=== PATIENT | male | born 1955 | race Caucasian/White ===

== ENCOUNTER 2021-03-17 21:02 | Inpatient (IN) | payer MEDICARE, SELFPAY ==
[2021-03-17] VITALS (7 sets, daily range): BP systolic 155–168; BP diastolic 111–122; PULSE 85–180; RESP 15–20; O2SAT 95–99; BMI 37.3
--- NOTE | ~2021-03-17 | CT_ITS ---
EXAMINATION: CT HEAD WITHOUT CONTRAST CLINICAL INFORMATION: recent hx of hemorrhagic contusion COMPARISON: CT head March 17, 2021 TECHNIQUE: Contiguous axial imaging was performed from the skull base to vertex without intravenous administration of contrast. Coronal and sagittal reformatted images are performed at CT scanner This CT examination was performed using dose optimization techniques as appropriate, variously including the following: *Automated exposure control *Adjustment of mA and/or kV according to patient size (this includes techniques or standardized protocols for targeted exams where dose is matched to indication/reason for exam; i.e. extremities or head) *Use of iterative reconstruction technique DLP: 748 mGy-cm FINDINGS: There is no evidence of acute intracranial hemorrhage or territorial infarction. No abnormal mass effect or midline shift is seen. Clark to white matter differentiation is well preserved. No extra-axial fluid collections are identified. There is generalized global volume loss. There is mild prominence of the ventricles and the sulci . There is mild hypodensity of the periventricular white matter due to chronic small vessel ischemic disease. There are vascular calcifications of the internal carotid arteries bilaterally. There is no abnormal attenuation within the brain parenchyma. The osseous structures and soft tissues are normal. The mastoid air cells and visualized portions of the paranasal sinuses are well aerated. CT/CT head/brain wo con IMPRESSION: No acute intracranial pathology.
--- NOTE | ~2021-03-17 | CT_ITS ---
EXAMINATION: CT ANGIOGRAM OF THE CHEST WITH AND WITHOUT CONTRAST (CT PULMONARY ANGIOGRAM FOR PE) CLINICAL INFORMATION: Shortness of breath and elevated d-dimer. COMPARISON: Chest radiograph done earlier today at 9:34 PM. TECHNIQUE: Prior to contrast administration, noncontrast localization images were obtained. Subsequently, multidetector volumetric imaging was performed from the thoracic inlet to below the diaphragms following the administration of 80 mL Omnipaque 350 intravenous contrast. No contrast reaction reported Sagittal, coronal, and MIP oblique sagittal reformatted images were obtained on the CT workstation, uploaded to PACS, and reviewed. This CT examination was performed using dose optimization techniques as appropriate, variously including the following: *Automated exposure control *Adjustment of mA and/or kV according to patient size (this includes techniques or standardized protocols for targeted exams where dose is matched to indication/reason for exam; i.e. extremities or head) *Use of iterative reconstruction technique Total exam dose-length product 619 mGy-cm FINDINGS: QUALITY OF STUDY/CONTRAST BOLUS: Satisfactory. PULMONARY ARTERIES: No central pulmonary emboli. Evaluation of segmental and subsegmental branches is somewhat limited due to overlying airspace opacities and motion. However, accounting for these limitations, no segmental pulmonary emboli are identified. THORACIC AORTA: Scattered atherosclerotic disease. No aneurysm. LUNG: There is interlobular septal thickening with mosaic attenuation of the parenchyma and bilateral pleural effusions, larger on the right side. There is central bronchovascular thickening and engorgement. Evaluation of pulmonary nodules is limited due to motion. However, accounting for these limitations a few subcentimeter pulmonary nodules are identified for instance measuring 2 mm in the right middle lobe (229, 7) and 5 mm in the left lower lobe (339:7). PLEURA: As above moderate size right pleural effusion and a small sized left pleural effusion. No pneumothorax. MEDIASTINUM: Cardiomegaly with trace amount of pericardial fluid. There is mediastinal and hilar lymphadenopathy. For instance, a 2 cm short axis subcarinal lymph node (28:5), a 2 cm short axis precarinal lymph node (21:5) and 1.4 cm short axis right hilar lymph node (28:5). No evidence of septal bowing or right heart strain. CHEST WALL/AXILLA: No axillary or internal mammary lymphadenopathy. OSSEOUS STRUCTURES: Extensive anterior osteophytes raising the possibility of DISH. Multilevel degenerative changes. UPPER ABDOMEN: There is mild fat stranding surrounding the pancreas. No reflux of contrast into the hepatic veins to suggest elevated right heart pressures. CT/CT angio chest PE protocol IMPRESSION: No evidence of pulmonary emboli, although evaluation of segmental and subsegmental branches is somewhat limited. Mediastinal and hilar lymphadenopathy of uncertain etiology, this could be infectious, inflammatory or malignant. Bilateral pleural effusions with interlobular septal thickening could be related with pulmonary edema. However, there is bronchial wall thickening and therefore a superimposed infection/inflammatory process is difficult to exclude. A few subcentimeter pulmonary nodules are indeterminate and could be malignant, infectious or inflammatory. Recommend a short-term follow-up to ensure resolution/stability. Questionable inflammatory changes surrounding the pancreas which in retrospect are not significantly changed when compared to the CT of the abdomen from earlier today. Correlate clinically for pancreatitis. VTE: negative
--- NOTE | ~2021-03-17 | XR_ITS ---
EXAMINATION: XR CHEST CLINICAL INFORMATION: Shortness of breath. COMPARISON: None. TECHNIQUE: AP view of the chest was obtained. FINDINGS: Normal appearance of the cardiomediastinal silhouette. There are multifocal patchy opacities small bilateral pleural effusions. No pneumothorax. No acute osseous findings. XR/XR chest 1V IMPRESSION: Multifocal patchy opacities raising the possibility of a multifocal pneumonia. Suspect small amount of bilateral pleural fluid.
--- NOTE | ~2021-03-17 | CT_ITS ---
EXAMINATION: CT BRAIN WITHOUT CONTRAST. CT ABDOMEN PELVIS WITHOUT CONTRAST. CLINICAL INFORMATION: Altered mental syndrome. Right lower quadrant pain. COMPARISON: None TECHNIQUE: 5 mm thin and reformatted 2 mm thin sagittal and coronal images of brain were obtained. Subsequently axial 5 minutes thin and reformatted 3 minutes thin sagittal coronal images of abdomen pelvis were obtained. DL [id number] FINDINGS: Brain: There is no acute intra-axial, extra-axial bleed, masses or midline shift. There is no acute infarction evolution. There is no edema. The lateral ventricles are symmetrical in size and configuration without enlargement. The hollis to white matter differentiation is maintained. Bone windows reveal no calvarial abnormality. There is no scalp soft tissue abnormality. Bilateral paranasal sinuses and mastoid air cells are well-aerated. ABDOMEN AND PELVIS: The exam is slightly suboptimal due to artifacts from overlying lines and catheters and mild patient breathing. There are small bilateral pleural effusions with bilateral mild compressive atelectasis in both lung bases. There is mild cardiomegaly. The liver is normal size, contour and density. No focal lesion or intrahepatic ductal dilatation seen. The gallbladder is unremarkable. Visualized spleen, pancreas and bilateral adrenal glands are unremarkable. Both kidneys are normal size with left kidney appearing slightly lobulated. There are bilateral hypodense renal lesions especially left side likely small cysts. The largest in the midpole measures 2 cm and measures less than 1 Hounsfield unit. There is mild perinephric stranding. The abdominal aorta is normal caliber. No intrarenal lymph nodes seen. There is moderate scattered stool and gas seen in the right colon. There are a few scattered diverticulosis seen in colon. There is mild fat stranding seen adjacent to the right colon and inferior to the hepatic lobe. No visible diverticuli seen. There is no mural thickening. There is fecal filled small bowel loops likely the distal ileum without any distention. The small bowel loops are unremarkable. Appendix is not seen. There is a small lacunar hernia containing fat. Imaging through the pelvis reveals mildly enlarged prostate gland with central gland calcification. The bladder is nondistended. No abnormal size pelvic or inguinal lymph nodes seen. CT/CT abdomen pelvis wo con IMPRESSION: No acute intracranial process seen. There is moderate stool seen in the right colon without distention. Few scattered diverticuli seen in colon. No suggestion for diverticulitis. There is nonspecific mild fat stranding seen adjacent to the right distal ascending colon and inferior right hepatic lobe. No mural thickening seen either. Appendix is not seen. Small umbilical hernia containing fat
--- NOTE | 2021-03-17 21:14 | ECG_ITS ---
Test Reason : CHEST PAIN Blood Pressure : / mmHG Vent. Rate : 098 BPM Atrial Rate : 119 BPM P-R Int : 000 ms QRS Dur : 104 ms QT Int : 398 ms P-R-T Axes : 000 101 117 degrees QTc Int : 508 ms Atrial fibrillation Rightward axis Incomplete right bundle branch block T wave abnormality, consider lateral ischemia Prolonged QT Abnormal ECG No previous ECGs available Referred By: Magno Jones Electronically Signed By:RAFIQ COWART
--- NOTE | 2021-03-17 21:14 | ED.ABDPAIN ---
HPI - Abdominal Pain General Chief Complaint: Chest Pain Stated Complaint: AFIB Time Seen by Provider: 03/17/21 21:06 Source: patient Mode of arrival: EMS Limitations: no limitations History of Present Illness HPI narrative: Patient with history of atrial fibrillation not on anticoagulation drove from [place] for last 4 days came for right lower abdominal pain for last 4 days palpitation chest pain when EMS reached patient was lethargic with heart rate in 180s AFib responded to 25 mg of IV Cardizem with heart rate now is 95 beats per minute. Patient blood pressure was elevated 163/111 also complaining of mild headache for last few days also patient has leg edema no nausea no vomiting or diarrhea although patient complaining of right lower abdominal pain, patient is very poor historian Related Data Home Medications Medication Instructions Recorded Confirmed aspirin 81 mg PO 03/17/21 cefuroxime axetil 500 mg tablet 1 tab PO BID 03/17/21 03/17/21 digoxin 250 mcg (0.25 mg) tablet 1 tab PO DAILY 03/17/21 03/17/21 gabapentin 100 mg capsule 1 cap PO TID 03/17/21 03/17/21 lisinopril 20 mg tablet 1 tab PO BID 03/17/21 03/17/21 metoprolol tartrate 03/17/21 Allergies Allergy/AdvReac Type Severity Reaction Status Date / Time No Known Allergies Allergy Verified 03/17/21 21:14 Review of Systems Review of Systems Yes all other systems are reviewed and are negative Physical Exam Vital Signs: Vital Signs: Last Vital Signs Pulse 106 H 03/17/21 23:54 Resp 16 03/17/21 23:54 BP 164/122 H 03/17/21 23:31 Pulse Ox 95 03/17/21 23:31 Oxygen Flow Rate 2 03/17/21 21:08 Body Mass Index 37.3 Appearance: Alert. Oriented X3. And mild distress Eyes: No pallor/ icterus ENT: Pharynx normal. Oral Mucosa moist Neck: Normal inspection. Neck supple. CVS: Irregularly irregular heart rate 98 beats per minute no murmur or gallop Pulses normal. Respiratory: No respiratory distress. Equal air entry bilateral, no wheezing/rales/rhonchi Abdomen: Soft and deep tenderness right lower quadrant no rebound tenderness or guarding Bowel sounds are present, no mass palpable, no CVA tenderness Skin: Skin warm and dry. Normal skin color. Normal skin turgor. Extremities: 3++ lower extremity edema. No calf tenderness Neuro: Oriented X 3. No focal deficits MDM - Abdominal Pain MDM Narrative Medical decision making narrative: Patient's AFib fast ventricular heart rate control after Cardizem and CT abdomen negative for acute appendicitis D-dimer was elevated and CTA chest was done which was also negative for PE patient will be admitted for AFib uncontrolled with CHF, will give him Lovenox and give p.o. oral Cardizem Lab Data Attestation: I reviewed the patient's lab results. Result diagrams: 03/17/21 21:19 03/17/21 21:19 Labs: Lab Results 03/17/21 03/17/21 03/17/21 Range/Units 21:18 21:19 21:19 WBC 8.9 (4.8-10.8) X10*3/uL RBC 5.24 (4.60-5.80) X10*6/uL Hgb 15.4 (14.0-18.0) g/dl Hct 46.5 (42-52) % MCV 88.7 (80-98) fL MCH 29.4 (27.0-33.0) pg MCHC 33.1 (31.0-36.0) g/dl RDW 16.3 H (11.0-16.0) % Plt Count 260 (160-400) X10*3/uL MPV 9.1 L (9.4-12.4) fL Immature Gran % (Auto) 0.4 (0.0-0.4) % Neut % (Auto) 67.8 (45-73) % Lymph % (Auto) 21.6 (20-40) % [place] % (Auto) 6.0 (2-11) % Eos % (Auto) 3.0 (0-4) % Baso % (Auto) 1.2 (0-2) % Lymph # (Auto) 1.9 (1.2-4.9) X10*3/uL [place] # (Auto) 0.5 (0.1-1.2) X10*3/uL Eos # (Auto) 0.3 (0.0-0.4) X10*3/uL Baso # (Auto) 0.1 (0.0-0.2) X10*3/uL Abs Immat Gran (auto) 0.04 H (0.00-0.03) X10*3/uL Absolute Neuts (auto) 6.1 (2.0-8.3) X10*3/uL Absolute Nucleated RBC 0.000 (0.0-0.012) X10*3/uL Nucleated RBC % (auto) 0.0 (0.0-0.2) /100WBC PT (9.9-13.0) SEC INR (0.9-1.1) APTT (24.1-38.0) SEC D-Dimer NG/ML Sodium 137 (135-145) mmol/L Potassium 3.9 (3.3-5.1) mmol/L Chloride 105 (96-108) mmol/L Carbon Dioxide 23 (22-29) mmol/L Anion Gap 13 (12-20) BUN 31 H (9-16) mg/dL Creatinine 1.23 (0.5-1.4) mg/dL Estim Creat Clear Calc 81.6 Estimated GFR 59 Random Glucose 126 H (60-115) mg/dL Lactic Acid (0.5-2.0) mmol/L Calcium 9.1 (8.4-10.2) mg/dL Total Bilirubin 1.0 (0.0-1.0) mg/dL AST 17 (5-37) U/L ALT 11 (0-40) U/L Alkaline Phosphatase 87 (39-117) U/L Troponin I High Sens 78.5 H* (<3.5-35.0) ng/L B-Natriuretic Peptide 1265 H (<100) pg/mL Total Protein 7.7 (6.5-8.0) g/dL Albumin 3.6 (3.5-5.0) g/dL Lipase 37 (8-78) U/L Coronavirus (PCR) (Negative) COVID-19 (ANIYAH) (Negative) COVID-19 Clin Com Influenza Type A (PCR) (Negative) Influenza Type B (PCR) (Negative) RSV RNA Qual (PCR) (Negative) 03/17/21 03/17/21 03/17/21 Range/Units 21:19 21:19 21:38 WBC (4.8-10.8) X10*3/uL RBC (4.60-5.80) X10*6/uL Hgb (14.0-18.0) g/dl Hct (42-52) % MCV (80-98) fL MCH (27.0-33.0) pg MCHC (31.0-36.0) g/dl RDW (11.0-16.0) % Plt Count (160-400) X10*3/uL MPV (9.4-12.4) fL Immature Gran % (Auto) (0.0-0.4) % Neut % (Auto) (45-73) % Lymph % (Auto) (20-40) % [place] % (Auto) (2-11) % Eos % (Auto) (0-4) % Baso % (Auto) (0-2) % Lymph # (Auto) (1.2-4.9) X10*3/uL [place] # (Auto) (0.1-1.2) X10*3/uL Eos # (Auto) (0.0-0.4) X10*3/uL Baso # (Auto) (0.0-0.2) X10*3/uL Abs Immat Gran (auto) (0.00-0.03) X10*3/uL Absolute Neuts (auto) (2.0-8.3) X10*3/uL Absolute Nucleated RBC (0.0-0.012) X10*3/uL Nucleated RBC % (auto) (0.0-0.2) /100WBC PT 15.1 H (9.9-13.0) SEC INR 1.3 H (0.9-1.1) APTT 30.9 (24.1-38.0) SEC D-Dimer 766 NG/ML Sodium (135-145) mmol/L Potassium (3.3-5.1) mmol/L Chloride (96-108) mmol/L Carbon Dioxide (22-29) mmol/L Anion Gap (12-20) BUN (9-16) mg/dL Creatinine (0.5-1.4) mg/dL Estim Creat Clear Calc Estimated GFR Random Glucose (60-115) mg/dL Lactic Acid 1.4 (0.5-2.0) mmol/L Calcium (8.4-10.2) mg/dL Total Bilirubin (0.0-1.0) mg/dL AST (5-37) U/L ALT (0-40) U/L Alkaline Phosphatase (39-117) U/L Troponin I High Sens (<3.5-35.0) ng/L B-Natriuretic Peptide (<100) pg/mL Total Protein (6.5-8.0) g/dL Albumin (3.5-5.0) g/dL Lipase (8-78) U/L Coronavirus (PCR) (Negative) COVID-19 (ANIYAH) Negative (Negative) COVID-19 Clin Com See Note Influenza Type A (PCR) (Negative) Influenza Type B (PCR) (Negative) RSV RNA Qual (PCR) (Negative) 03/17/21 03/18/21 Range/Units 22:47 00:29 WBC (4.8-10.8) X10*3/uL RBC (4.60-5.80) X10*6/uL Hgb (14.0-18.0) g/dl Hct (42-52) % MCV (80-98) fL MCH (27.0-33.0) pg MCHC (31.0-36.0) g/dl RDW (11.0-16.0) % Plt Count (160-400) X10*3/uL MPV (9.4-12.4) fL Immature Gran % (Auto) (0.0-0.4) % Neut % (Auto) (45-73) % Lymph % (Auto) (20-40) % [place] % (Auto) (2-11) % Eos % (Auto) (0-4) % Baso % (Auto) (0-2) % Lymph # (Auto) (1.2-4.9) X10*3/uL [place] # (Auto) (0.1-1.2) X10*3/uL Eos # (Auto) (0.0-0.4) X10*3/uL Baso # (Auto) (0.0-0.2) X10*3/uL Abs Immat Gran (auto) (0.00-0.03) X10*3/uL Absolute Neuts (auto) (2.0-8.3) X10*3/uL Absolute Nucleated RBC (0.0-0.012) X10*3/uL Nucleated RBC % (auto) (0.0-0.2) /100WBC PT (9.9-13.0) SEC INR (0.9-1.1) APTT (24.1-38.0) SEC D-Dimer NG/ML Sodium (135-145) mmol/L Potassium (3.3-5.1) mmol/L Chloride (96-108) mmol/L Carbon Dioxide (22-29) mmol/L Anion Gap (12-20) BUN (9-16) mg/dL Creatinine (0.5-1.4) mg/dL Estim Creat Clear Calc Estimated GFR Random Glucose (60-115) mg/dL Lactic Acid (0.5-2.0) mmol/L Calcium (8.4-10.2) mg/dL Total Bilirubin (0.0-1.0) mg/dL AST (5-37) U/L ALT (0-40) U/L Alkaline Phosphatase (39-117) U/L Troponin I High Sens 68.9 H* (<3.5-35.0) ng/L B-Natriuretic Peptide (<100) pg/mL Total Protein (6.5-8.0) g/dL Albumin (3.5-5.0) g/dL Lipase (8-78) U/L Coronavirus (PCR) NEGATIVE (Negative) COVID-19 (ANIYAH) (Negative) COVID-19 Clin Com Influenza Type A (PCR) NEGATIVE (Negative) Influenza Type B (PCR) NEGATIVE (Negative) RSV RNA Qual (PCR) NEGATIVE (Negative) ECG Data Attestation: I personally reviewed and interpreted this ECG as follows: Interpretation: Atrial fibrillation with heart rate 98 beats per minute right axis deviation and incomplete right bundle-branch block nonspecific ST T wave changes no acute ischemia Discharge Plan Discharge Clinical Impression: Atrial fibrillation with rapid ventricular response Congestive heart failure Qualifiers: Heart failure type: systolic Heart failure chronicity: acute on chronic Qualified Code(s): I50.23 - Acute on chronic systolic (congestive) heart failure Patient Disposition: Admitted As Inpatient [facility] Past Medical History Medical History Atrial fibrillation Surgical History Hx of appendectomy Social History Social History Alcohol intake: former Patient Tobacco Use Status: Never used Tobacco Use of substances other than those prescribed or required for medical reasons: No Advance Directives: No Advance Directives Information Provided: No
[2021-03-17 21:26] LABS: MANUAL DIFF FLAG NO
[2021-03-17 21:29] LABS: Basophils Absolute Auto 0.1 X10*3/uL (0.0-0.2); Basophils Percent Auto 1.2 % (0-2); Eosinophils Absolute Auto 0.3 X10*3/uL (0.0-0.4); Hematocrit 46.5 % (42-52); Hemoglobin 15.4 g/dl (14.0-18.0); Imm Gran Abs Auto 0.04 X10*3/uL (0.00-0.03); Imm Gran Pct Auto 0.4 % (0.0-0.4); Lymphocytes Absolute Auto 1.9 X10*3/uL (1.2-4.9); Lymphocytes Percent Auto 21.6 % (20-40); Mean Corpuscular HGB Conc 33.1 g/dl (31.0-36.0); Mean Corpuscular Hemoglobin 29.4 pg (27.0-33.0); Mean Corpuscular Volume 88.7 fL (80-98); Mean Platelet Volume 9.1 fL (9.4-12.4); Monocytes Absolute Auto 0.5 X10*3/uL (0.1-1.2); Neutrophils Absolute Auto 6.1 X10*3/uL (2.0-8.3); Neutrophils Percent Auto 67.8 % (45-73); Platelet Count 260 X10*3/uL (160-400); Red Blood Count 5.24 X10*6/uL (4.60-5.80); Red Cell Distribution Width 16.3 % (11.0-16.0); White Blood Count 8.9 X10*3/uL (4.8-10.8)
[2021-03-17] MEDS: Metoprolol Tartrate 5 MG/5 ML VIAL IVPUSH (21:40)
[2021-03-17] MEDS: 0.9 % Sodium Chloride 1,000 ML 999 ML IVCONT (21:40)
[2021-03-17 21:41] LABS: COVID-19 Test Negative (Negative); Lactic Acid 1.4 mmol/L (0.5-2.0)
[2021-03-17 21:45] LABS: Alanine Aminotransferase 11 U/L (0-40); Albumin Level 3.6 g/dL (3.5-5.0); Alkaline Phosphatase 87 U/L (39-117); Anion Gap 13 (12-20); Aspartate Amino Transferase 17 U/L (5-37); Blood Urea Nitrogen 31 mg/dL (9-16); Calcium 9.1 mg/dL (8.4-10.2); Carbon Dioxide 23 mmol/L (22-29); Chloride 105 mmol/L (96-108); Creatinine Clr Calc Pharmacy 81.6; Estimated Glomerular Filt Rate 59; Glucose Random 126 mg/dL (60-115); Lipase 37 U/L (8-78); Potassium 3.9 mmol/L (3.3-5.1); Sodium 137 mmol/L (135-145); Total Protein 7.7 g/dL (6.5-8.0)
--- NOTE | 2021-03-17 21:46 | PC.NURSE ---
pt states he has been driving for 4 days with the rlq abd pain, today the chest pain started yesterday, pt also suffers from neruopathy and he has right foot pain. toes are discolore.
--- NOTE | 2021-03-17 21:50 | MHC.MBSS ---
pt taken to ct.
[2021-03-17 21:55] LABS: B Type Natriuretic Peptide 1265 pg/mL (<100); Troponin-I High Sensitivity 78.5 ng/L (<3.5-35.0)
[2021-03-17 22:45] LABS: INTERNATIONAL NORM RATIO 1.3 (0.9-1.1); Prothrombin Time 15.1 SEC (9.9-13.0)
[2021-03-17 22:48] LABS: D Dimer 766 NG/ML; Partial Thromboplastin Time 30.9 SEC (24.1-38.0)
[2021-03-17] MEDS: ondansetron HCL 4 MG/2 ML VIAL IVPUSH (22:51)
[2021-03-17] MEDS: Morphine Sulfate 4 MG/ML CARTRIDGE IVPUSH (22:51)
--- NOTE | 2021-03-17 22:59 | PC.NURSE ---
pt is refusing the lasix at this time, dr walsh made aware.
[2021-03-17] MEDS: Furosemide 40 MG/4 ML VIAL IVPUSH (23:03)
[2021-03-17 23:31] LABS: Influenza A PCR NEGATIVE (Negative); Influenza B PCR NEGATIVE (Negative); Resp Syncy Virus RNA Qual PCR NEGATIVE (Negative); SARS COV2 PCR INHOUSE NEGATIVE (Negative)
[2021-03-18] VITALS (15 sets, daily range): BP systolic 123–173; BP diastolic 79–129; PULSE 72–113; RESP 12–20; TEMP 36–36.4; O2SAT 90–100; BMI 37.0; BMI 33.4
--- NOTE | 2021-03-18 00:32 | PM.IMHP ---
History of Present Illness Date of Service: 03/18/21 Chief Complaint: Shortness of breath This is a 66-year-old male with past medical history of AFib, and hypertension who presents to the hospital with with shortness of breath. Patient reports that he has been traveling from [place] for the past 4 days driving, but developed significant shortness of breath for the past 3-4 days that is now significantly worse. Patient denies any cough, no chest pain, no sputum production. He does feel palpitations , no headache or change in vision, no dizziness. No abdominal pain nausea or vomiting, no diarrhea constipation, no urinary symptoms, he is also having lower extremity edema. On arrival to the ED patient Found to have a a heart rate that [address] 180, but resolved after receiving diltiazem, other vitals show an elevated blood pressure On arrival labs are significant for WBC count of 8.3, troponin of 78.5, BNP of 1265, COVID negative, influenza and RSV negative Chest CT angiogram shows no evidence of PE, mediastinal and hilar lymphadenopathy of uncertain etiology, bilateral pleural effusion with antral overall septal thickening related to pulmonary edema. Bronchial wall thickening . A few subcentimeter pulmonary nodules are indeterminate and could be malignant. EKG shows atrial fibrillation with nonspecific T-wave abnormality Patient will be admitted for further management of CHF exacerbation Review of Systems Review of Systems: Yes all other systems are reviewed and are negative [facility] Medical History Atrial fibrillation Congestive heart failure Hypertension Pertinent family history: No pertinent family history Surgical History Hx of appendectomy Social History Alcohol intake: former Patient Tobacco Use Status: Never used Tobacco Use of substances other than those prescribed or required for medical reasons: No Advance Directives: No Advance Directives Information Provided: No Meds Allergies Allergy/AdvReac Type Severity Reaction Status Date / Time No Known Allergies Allergy Verified 03/17/21 21:14 Home Medications Medication Instructions Recorded Confirmed Last Taken Type aspirin 81 mg PO 03/17/21 Unknown History cefuroxime axetil 500 mg tablet 1 tab PO BID 03/17/21 03/17/21 Unknown History digoxin 250 mcg (0.25 mg) tablet 1 tab PO DAILY 03/17/21 03/17/21 Unknown History gabapentin 100 mg capsule 1 cap PO TID 03/17/21 03/17/21 Unknown History lisinopril 20 mg tablet 1 tab PO BID 03/17/21 03/17/21 Unknown History metoprolol tartrate 03/17/21 Unknown History Physical Exam Vital Signs and Narrative: Vital Signs: Last Vital Signs Pulse 106 H 03/17/21 23:54 Resp 16 03/17/21 23:54 BP 164/122 H 03/17/21 23:31 Pulse Ox 95 03/17/21 23:31 Oxygen Flow Rate 2 03/17/21 21:08 Body Mass Index 37.3 Results Labs CBC and Chem 7: 03/17/21 21:19 03/17/21 21:19 Labs: Laboratory Results - last 24 hr 03/17/21 03/17/21 03/17/21 21:18 21:19 21:19 MCV 88.7 MCH 29.4 MCHC 33.1 RDW 16.3 H Plt Count 260 MPV 9.1 L Immature Gran % (Auto) 0.4 Neut % (Auto) 67.8 Lymph % (Auto) 21.6 [place] % (Auto) 6.0 Eos % (Auto) 3.0 Baso % (Auto) 1.2 Lymph # (Auto) 1.9 [place] # (Auto) 0.5 Eos # (Auto) 0.3 Baso # (Auto) 0.1 Abs Immat Gran (auto) 0.04 H Absolute Neuts (auto) 6.1 Absolute Nucleated RBC 0.000 Nucleated RBC % (auto) 0.0 PT INR APTT D-Dimer Anion Gap 13 Estim Creat Clear Calc 81.6 Estimated GFR 59 Random Glucose 126 H Lactic Acid Calcium 9.1 Total Bilirubin 1.0 AST 17 ALT 11 Alkaline Phosphatase 87 Troponin I High Sens 78.5 H* B-Natriuretic Peptide 1265 H Total Protein 7.7 Albumin 3.6 Lipase 37 Coronavirus (PCR) COVID-19 (ANIYAH) COVID-19 Clin Com Influenza Type A (PCR) Influenza Type B (PCR) RSV RNA Qual (PCR) 03/17/21 03/17/21 03/17/21 21:19 21:19 21:38 MCV MCH MCHC RDW Plt Count MPV Immature Gran % (Auto) Neut % (Auto) Lymph % (Auto) [place] % (Auto) Eos % (Auto) Baso % (Auto) Lymph # (Auto) [place] # (Auto) Eos # (Auto) Baso # (Auto) Abs Immat Gran (auto) Absolute Neuts (auto) Absolute Nucleated RBC Nucleated RBC % (auto) PT 15.1 H INR 1.3 H APTT 30.9 D-Dimer 766 Anion Gap Estim Creat Clear Calc Estimated GFR Random Glucose Lactic Acid 1.4 Calcium Total Bilirubin AST ALT Alkaline Phosphatase Troponin I High Sens B-Natriuretic Peptide Total Protein Albumin Lipase Coronavirus (PCR) COVID-19 (ANIYAH) Negative COVID-19 Clin Com See Note Influenza Type A (PCR) Influenza Type B (PCR) RSV RNA Qual (PCR) 03/17/21 22:47 MCV MCH MCHC RDW Plt Count MPV Immature Gran % (Auto) Neut % (Auto) Lymph % (Auto) [place] % (Auto) Eos % (Auto) Baso % (Auto) Lymph # (Auto) [place] # (Auto) Eos # (Auto) Baso # (Auto) Abs Immat Gran (auto) Absolute Neuts (auto) Absolute Nucleated RBC Nucleated RBC % (auto) PT INR APTT D-Dimer Anion Gap Estim Creat Clear Calc Estimated GFR Random Glucose Lactic Acid Calcium Total Bilirubin AST ALT Alkaline Phosphatase Troponin I High Sens B-Natriuretic Peptide Total Protein Albumin Lipase Coronavirus (PCR) NEGATIVE COVID-19 (ANIYAH) COVID-19 Clin Com Influenza Type A (PCR) NEGATIVE Influenza Type B (PCR) NEGATIVE RSV RNA Qual (PCR) NEGATIVE Imaging Radiologist's Impressions: Impressions Abdomen/Pelvis CT 03/17/21 21:14 IMPRESSION: No acute intracranial process seen. There is moderate stool seen in the right colon without distention. Few scattered diverticuli seen in colon. No suggestion for diverticulitis. There is nonspecific mild fat stranding seen adjacent to the right distal ascending colon and inferior right hepatic lobe. No mural thickening seen either. Appendix is not seen. Small umbilical hernia containing fat Chest X-Ray 03/17/21 21:14 IMPRESSION: Multifocal patchy opacities raising the possibility of a multifocal pneumonia. Suspect small amount of bilateral pleural fluid. Head CT 03/17/21 21:15 IMPRESSION: No acute intracranial process seen. There is moderate stool seen in the right colon without distention. Few scattered diverticuli seen in colon. No suggestion for diverticulitis. There is nonspecific mild fat stranding seen adjacent to the right distal ascending colon and inferior right hepatic lobe. No mural thickening seen either. Appendix is not seen. Small umbilical hernia containing fat Assessment and Plan (1) CHF exacerbation: Status: Acute (2) Atrial fibrillation with rapid ventricular response: Status: Acute 66-year-old Male with past medical history of AFib presents to the hospital with complaints of shortness of breath found to have CHF exacerbation # acute CHF exacerbation - patient does not know any of his medications, he is out of state and lives in [place] - he has dyspnea, elevated BNP, and CT evidence of pulmonary edema as well as pleural effusion - will start him on IV Lasix 40 mg daily - echocardiogram - cardiology consult - low-sodium diet, strict I&O, daily weight # AFib with RVR - patient received diltiazem with improvement in his heart rate - will continue digoxin, and his metoprolol although he is unaware of the dosage- will start Lopressor 12.5 b.i.d. - cardiology consult - discussed anticoagulation with patient at this time he is not interested in starting anticoagulation and does not want it # hypertension - elevated - continue lisinopril - p.r.n. labetalol DVT prophylaxis: Lovenox Quality Stroke Does the patient have a stroke diagnosis?: No VTE Prior VTE?: No VTE Risk Level:: Medical - moderate - high VTE Device Contraindication: Treatment Not Indicated VTE Drug Contraindication: N/A - Med Ordered
[2021-03-18] MEDS: iohexoL 350 MG/ML 100 ML INFUS..BTL 85 ML IV (00:33)
[2021-03-18 00:58] LABS: Troponin-I High Sensitivity 68.9 ng/L (<3.5-35.0)
[2021-03-18] MEDS: dilTIAZem HCL CD 180 MG CAP.ER.24H PO (02:00)
[2021-03-18] MEDS: Enoxaparin Sodium 120 MG/0.8 ML SYRINGE SUBCUT (02:15)
--- NOTE | 2021-03-18 03:53 | PC.NURSE ---
pt has pulled his leads off and wants to go home. pt teaching on how sick he is and pt responce was we are all sick .
[2021-03-18] MEDS: Gabapentin 100 MG CAPSULE PO ×4 (04:04→20:42)
[2021-03-18] MEDS: Heparin Sodium,Porcine 5,000 UNIT/ML VIAL 5000 UNIT SUBCUT ×2 (04:05→14:33)
--- NOTE | 2021-03-18 04:21 | PC.NURSE ---
after reviewing pt labs and vitals with the pt he is now in aggreement to stay. pt has voided 2000cc in the urinal to date after receiving lasix.
[2021-03-18 06:48] LABS: MANUAL DIFF FLAG NO
[2021-03-18 06:58] LABS: Basophils Absolute Auto 0.1 X10*3/uL (0.0-0.2); Basophils Percent Auto 1.1 % (0-2); Eosinophils Absolute Auto 0.3 X10*3/uL (0.0-0.4); Hematocrit 48.7 % (42-52); Hemoglobin 15.3 g/dl (14.0-18.0); Imm Gran Abs Auto 0.02 X10*3/uL (0.00-0.03); Imm Gran Pct Auto 0.2 % (0.0-0.4); Lymphocytes Percent Auto 24.3 % (20-40); Mean Corpuscular HGB Conc 31.4 g/dl (31.0-36.0); Mean Corpuscular Hemoglobin 28.4 pg (27.0-33.0); Mean Corpuscular Volume 90.5 fL (80-98); Mean Platelet Volume 9.1 fL (9.4-12.4); Monocytes Absolute Auto 0.6 X10*3/uL (0.1-1.2); Monocytes Percent Auto 6.6 % (2-11); Neutrophils Absolute Auto 5.4 X10*3/uL (2.0-8.3); Neutrophils Percent Auto 64.8 % (45-73); Platelet Count 271 X10*3/uL (160-400); Red Blood Count 5.38 X10*6/uL (4.60-5.80); Red Cell Distribution Width 16.3 % (11.0-16.0); White Blood Count 8.3 X10*3/uL (4.8-10.8)
--- NOTE | 2021-03-18 07:00 | CA_ITS ---
Transthoracic Echocardiogram Patient (Last, First, Middle): Luis Mejia B Gender: Male Date of : 1955 Age: 66 Procedure Date: 03/18/2021 Procedure Type: Transthoracic Echocardiogram Location: ER Height: 182.88 cm Weight: 124.74 kg BSA: 2.44 m2 Heart Rate: bpm BP: 146 / 103 mmHg Yarn Comber: BRITTANI Referring MD: Lauren Valera MD Symptoms: chf Study Quality: Fair/Contrast Conclusions: - The left ventricular systolic function is severely decreased. The visually estimated ejection fraction is between 20-25%. - Moderately increased right ventricular cavity size. There is moderately decreased right ventricular systolic function. - LA is mild to moderately dilated. The right atrium is severely dilated. - There is moderate tricuspid valve regurgitation. Moderately elevated right atrial pressure. Moderate pulmonary hypertension is present. Findings Procedure Information Contrast agent, definity, is being given per protocol without apparent complications. Left Ventricle Normal left ventricular cavity size. There is mildly increased left ventricular wall thickness. The left ventricular systolic function is severely decreased. The visually estimated ejection fraction is between 20 25%. There is severe global hypokinesis. Diastolic function is indeterminate on the basis of available data. Right Ventricle Moderately increased right ventricular cavity size. There is moderately decreased right ventricular systolic function. Atria LA is mild to moderately dilated. The right atrium is severely dilated. Aortic Valve There is a normal trileaflet aortic valve. There is no evidence of thickening of the aortic valve. There is no aortic valve stenosis. There is no aortic valve regurgitation. Mitral Valve The mitral valve appears normal. There is mild mitral annular calcification. There is mild mitral valve regurgitation. There is no mitral valve stenosis. Pulmonic Valve The pulmonic valve is likely normal. Tricuspid Valve Normal tricuspid valve structure. There is moderate tricuspid valve regurgitation. Moderately elevated right atrial pressure. Moderate pulmonary hypertension is present. Great Vessels All visible segments of the aorta are normal in size. Venous The inferior vena cava is dilated and does not collapse with inspiration. Pericardium/Pleural There is no evidence of pericardial effusion. Prior Study Comparison No prior study available for comparison. Measurements 2D Linear Measurements IVSd: 1.15 0.6-0.9/0.6-1.0 cm LVIDd: 5.00 3.9-5.3/4.2-5.9 cm LVIDd Index: 2.05 2.4-3.2/2.2-3.1 cm/m2 LVIDs: 3.50 2.0-3.6 cm LVPWd: 1.31 0.7-1.1 cm Ao Root: 3.70 2.1-3.5 cm LA Diam: 4.30 2.7-3.8/3.0-4.0 cm LAIDs Index: 1.76 1.5-2.3 cm/m2 LV Mass: 301.77 67-162/88-224 g LV Mass Index: 123.68 43-95/49-115 g/m2 LVOT Diam: 2.20 3.0+(-)1.3 cm 2D Systolic Function EF 4C: 32.90 >55% EF 2C: 31.50 >55% Aortic Valve AoV Pk Jose Angel: 0.96 AoV Mn Jose Angel: 0.72 AoV VTI: 0.17 AoV Pk Grad: 4.00 Aov Mn Grad: 2.00 JACOBO Cont.VTI: 2.12 LVOT LVOT Pk Josea Ngel: 0.53 LVOT Mn Jose Angel: 0.33 LVOT VTI: 0.10 LVOT Pk Grad: 1.00 LVOT Mn Grad: 1.00 LVOT Diam: 2.20 LVOT Area: 3.80 Tricuspid Valve TR Pk Jose Angel: 3.01 TR Pk Grad: 36.00 RA Press: 15.00 RVSP: 51.00 Great Vessels Aorta Ao Root-2D: 3.70 2.0-3.7 cm Ao Asc: 3.20 2.1-3.4 cm Updated in Other Vendor System with Status of Final Uvaldo Adkins MD electronically signed on 03/18/2021 4:34:06 PM with status of Final
[2021-03-18 07:08] LABS: Anion Gap 13 (12-20); Blood Urea Nitrogen 29 mg/dL (9-16); Calcium 8.4 mg/dL (8.4-10.2); Carbon Dioxide 22 mmol/L (22-29); Chloride 108 mmol/L (96-108); Estimated Glomerular Filt Rate > 60; Glucose Random 112 mg/dL (60-115); Potassium 4.1 mmol/L (3.3-5.1); Sodium 139 mmol/L (135-145)
[2021-03-18] MEDS: Labetalol HCL 100 MG/20 ML VIAL 10 MG IVPUSH (07:18)
[2021-03-18] MEDS: lisinopriL 20 MG TABLET PO ×2 (08:13→20:43)
[2021-03-18] MEDS: Metoprolol Tartrate 12.5 MG HALFTAB PO (08:14)
[2021-03-18] MEDS: Furosemide 40 MG/4 ML VIAL IVPUSH (08:14)
[2021-03-18 08:49] LABS: B Type Natriuretic Peptide 1306 pg/mL (<100)
[2021-03-18] MEDS: Digoxin 0.25 MG TABLET PO (08:59)
[2021-03-18 09:03] LABS: Procalcitonin 0.05 ng/mL
--- NOTE | 2021-03-18 09:04 | PC.NURSE ---
Assumed care of patient at 7am. Pt is argumentative with care and disgruntled about breakfast and is requesting more water to drink. Pt educated on fluid restrictions and reason for stay. Pt threatened to leave, but was redirected. Pt took morning medications and given an additional dose of IV lasix and IV labetolol. Pt also requested to be placed on oxygen via NC for some complaints of sob. Pt is now resting comfortably on oxygen at 2lpm. Pt remains on electronic device monitor and closely monitoring output. pt waiting for bed assignment.
--- NOTE | 2021-03-18 10:41 | P.CONCA_ITS ---
History of Present Illness History of Present Illness Date of Service: 03/18/21 Requesting physician: Lauren Valera Chief complaint: CHF Narrative: 66-year-old gentleman with background history of atrial fibrillation and hypertension is here with shortness of breath. It appears she is from [place] and was traveling. From what he described he has history of heart failure and was supposed to be on Lasix but was unable to tolerated and he stopped taking it. Also it appears atrial fibrillation is not a new issue because he was on anticoagulation by his description before. Is quite frustrated with using Lasix and feels that he has to pass urine a lot and he cannot tolerate taking it. On admission in the ER his heart rate was uncontrolled and resolved diltiazem. Blood pressure was elevated. BNP was 12 65. High sensitivity troponin level of 78.5. CT angiogram performed which did not show PE. Since then he has been on diuretics. He was given 1 dose of oral Cardizem. He has been resumed on metoprolol 12.5 mg twice a day and digoxin 0.25 mg daily. [facility] Past Medical History Medical History Atrial fibrillation Congestive heart failure Hypertension Surgical History Surgical History Hx of appendectomy Social History Social History Alcohol intake: former Patient Tobacco Use Status: Never used Tobacco Use of substances other than those prescribed or required for medical reasons: No Advance Directives: No Advance Directives Information Provided: No Meds Allergies Allergy/AdvReac Type Severity Reaction Status Date / Time No Known Allergies Allergy Verified 03/17/21 21:14 Active Medications: Current Medications Acetaminophen (Acetaminophen 325 Mg Tablet) 650 mg PO Q6H PRN PRN Reason: Pain, Mild (Pain Scale 1-3) Digoxin (Digoxin 0.25 Mg Tablet) 0.25 mg PO DAILY [facility] Last Admin: 03/18/21 08:59 Dose: 0.25 mg Documented by: Docusate Sodium (Docusate Sodium 100 Mg Capsule) 100 mg PO DAILY PRN PRN Reason: Constipation Furosemide (Furosemide 40 Mg/4 Ml Vial) 40 mg IVPUSH DAILY [facility]; Protocol Last Admin: 03/18/21 08:14 Dose: 40 mg Documented by: Gabapentin (Gabapentin 100 Mg Capsule) 100 mg PO TID [facility] Last Admin: 03/18/21 08:14 Dose: 100 mg Documented by: Heparin Sodium (Porcine) (Heparin Sodium,Porcine 5,000 Unit/Ml Vial) 5,000 unit SUBCUT Q12H [facility] Last Admin: 03/18/21 04:05 Dose: 5,000 unit Documented by: Lisinopril (Lisinopril 20 Mg Tablet) 20 mg PO BID [facility]; Protocol Last Admin: 03/18/21 08:13 Dose: 20 mg Documented by: Metoprolol Tartrate (Metoprolol Tartrate 12.5 Mg Halftab) 12.5 mg PO BID [facility]; Protocol Last Admin: 03/18/21 08:14 Dose: 12.5 mg Documented by: Ondansetron HCl (Ondansetron Hcl 4 Mg/2 Ml Vial) 4 mg IVPUSH Q8H PRN PRN Reason: Nausea and Vomiting Pharmacy Consult (Consult Rx Perform Med Rec) 1 each MISCELLANE ONCE PRN PRN Reason: Consult order Sodium Chloride (0.9 % Sodium Chloride Flush 3 Ml Syringe) 3 ml IVFLUSH QSHIFT [facility] Last Admin: 03/18/21 07:13 Dose: Not Given Documented by: Home Medications Medication Instructions Recorded Confirmed Last Taken Type digoxin 250 mcg (0.25 mg) tablet 1 tab PO DAILY 03/17/21 03/18/21 Unknown History gabapentin 100 mg capsule 1 cap PO TID 03/17/21 03/18/21 Unknown History carvedilol 12.5 mg tablet 1 tab PO BID 03/18/21 03/18/21 Unknown History clonidine HCl 0.2 mg tablet 1 tab PO BID 03/18/21 03/18/21 Unknown History losartan 100 mg tablet 1 tab PO DAILY 03/18/21 03/18/21 Unknown History pantoprazole 40 mg tablet,delayed 1 tab PO DAILY 03/18/21 03/18/21 Unknown Histo ry release Physical Exam Vital Signs: Vital Signs: Last Vital Signs Pulse 89 03/18/21 08:59 Resp 20 03/18/21 08:13 BP 139/102 H 03/18/21 08:13 Pulse Ox 98 03/18/21 08:13 Oxygen Flow Rate 2 03/17/21 21:08 Body Mass Index 37.0 GENERAL APPEARANCE: in no acute distress, pleasant. NECK: no carotid bruit, positive jugular venous distention. SKIN: no suspicious lesions, warm and dry. HEART: no murmurs, irregular rate and rhythm. LUNGS: clear to auscultation bilaterally. ABDOMEN: soft, nontender. EXTREMITIES: no edema. PERIPHERAL PULSES: equal. NEUROLOGIC: No gross deficits, AAO X 3 Results Labs and Meds Result diagrams: 03/18/21 06:35 03/18/21 06:35 Lab results: Laboratory Results - last 24 hr 03/17/21 03/17/21 03/17/21 21:18 21:19 21:19 WBC 8.9 RBC 5.24 Hgb 15.4 Hct 46.5 MCV 88.7 MCH 29.4 MCHC 33.1 RDW 16.3 H Plt Count 260 MPV 9.1 L Immature Gran % (Auto) 0.4 Neut % (Auto) 67.8 Lymph % (Auto) 21.6 [place] % (Auto) 6.0 Eos % (Auto) 3.0 Baso % (Auto) 1.2 Lymph # (Auto) 1.9 [place] # (Auto) 0.5 Eos # (Auto) 0.3 Baso # (Auto) 0.1 Abs Immat Gran (auto) 0.04 H Absolute Neuts (auto) 6.1 Absolute Nucleated RBC 0.000 Nucleated RBC % (auto) 0.0 PT INR APTT D-Dimer Sodium 137 Potassium 3.9 Chloride 105 Carbon Dioxide 23 Anion Gap 13 BUN 31 H Creatinine 1.23 Estim Creat Clear Calc 81.6 Estimated GFR 59 Random Glucose 126 H Lactic Acid Calcium 9.1 Total Bilirubin 1.0 AST 17 ALT 11 Alkaline Phosphatase 87 Troponin I High Sens 78.5 H* B-Natriuretic Peptide 1265 H Total Protein 7.7 Albumin 3.6 Lipase 37 Procalcitonin Coronavirus (PCR) COVID-19 (ANIYAH) COVID-19 Clin Com Influenza Type A (PCR) Influenza Type B (PCR) RSV RNA Qual (PCR) 03/17/21 03/17/21 03/17/21 21:19 21:19 21:38 WBC RBC Hgb Hct MCV MCH MCHC RDW Plt Count MPV Immature Gran % (Auto) Neut % (Auto) Lymph % (Auto) [place] % (Auto) Eos % (Auto) Baso % (Auto) Lymph # (Auto) [place] # (Auto) Eos # (Auto) Baso # (Auto) Abs Immat Gran (auto) Absolute Neuts (auto) Absolute Nucleated RBC Nucleated RBC % (auto) PT 15.1 H INR 1.3 H APTT 30.9 D-Dimer 766 Sodium Potassium Chloride Carbon Dioxide Anion Gap BUN Creatinine Estim Creat Clear Calc Estimated GFR Random Glucose Lactic Acid 1.4 Calcium Total Bilirubin AST ALT Alkaline Phosphatase Troponin I High Sens B-Natriuretic Peptide Total Protein Albumin Lipase Procalcitonin Coronavirus (PCR) COVID-19 (ANIYAH) Negative COVID-19 Clin Com See Note Influenza Type A (PCR) Influenza Type B (PCR) RSV RNA Qual (PCR) 03/17/21 03/18/21 03/18/21 22:47 00:29 06:35 WBC 8.3 RBC 5.38 Hgb 15.3 Hct 48.7 MCV 90.5 MCH 28.4 MCHC 31.4 RDW 16.3 H Plt Count 271 MPV 9.1 L Immature Gran % (Auto) 0.2 Neut % (Auto) 64.8 Lymph % (Auto) 24.3 [place] % (Auto) 6.6 Eos % (Auto) 3.0 Baso % (Auto) 1.1 Lymph # (Auto) 2.0 [place] # (Auto) 0.6 Eos # (Auto) 0.3 Baso # (Auto) 0.1 Abs Immat Gran (auto) 0.02 Absolute Neuts (auto) 5.4 Absolute Nucleated RBC 0.000 Nucleated RBC % (auto) 0.0 PT INR APTT D-Dimer Sodium Potassium Chloride Carbon Dioxide Anion Gap BUN Creatinine Estim Creat Clear Calc Estimated GFR Random Glucose Lactic Acid Calcium Total Bilirubin AST ALT Alkaline Phosphatase Troponin I High Sens 68.9 H* B-Natriuretic Peptide Total Protein Albumin Lipase Procalcitonin Coronavirus (PCR) NEGATIVE COVID-19 (ANIYAH) COVID-19 Clin Com Influenza Type A (PCR) NEGATIVE Influenza Type B (PCR) NEGATIVE RSV RNA Qual (PCR) NEGATIVE 03/18/21 03/18/21 03/18/21 06:35 06:35 06:35 WBC RBC Hgb Hct MCV MCH MCHC RDW Plt Count MPV Immature Gran % (Auto) Neut % (Auto) Lymph % (Auto) [place] % (Auto) Eos % (Auto) Baso % (Auto) Lymph # (Auto) [place] # (Auto) Eos # (Auto) Baso # (Auto) Abs Immat Gran (auto) Absolute Neuts (auto) Absolute Nucleated RBC Nucleated RBC % (auto) PT INR APTT D-Dimer Sodium 139 Potassium 4.1 Chloride 108 Carbon Dioxide 22 Anion Gap 13 BUN 29 H Creatinine 1.21 Estim Creat Clear Calc 83.0 Estimated GFR > 60 Random Glucose 112 Lactic Acid Calcium 8.4 D Total Bilirubin AST ALT Alkaline Phosphatase Troponin I High Sens B-Natriuretic Peptide 1306 H Total Protein Albumin Lipase Procalcitonin 0.05 Coronavirus (PCR) COVID-19 (ANIYAH) COVID-19 Clin Com Influenza Type A (PCR) Influenza Type B (PCR) RSV RNA Qual (PCR) Imaging Radiologist's impression: Impressions Abdomen/Pelvis CT 03/17/21 21:14 IMPRESSION: No acute intracranial process seen. There is moderate stool seen in the right colon without distention. Few scattered diverticuli seen in colon. No suggestion for diverticulitis. There is nonspecific mild fat stranding seen adjacent to the right distal ascending colon and inferior right hepatic lobe. No mural thickening seen either. Appendix is not seen. Small umbilical hernia containing fat Chest X-Ray 03/17/21 21:14 IMPRESSION: Multifocal patchy opacities raising the possibility of a multifocal pneumonia. Suspect small amount of bilateral pleural fluid. Head CT 03/17/21 21:15 IMPRESSION: No acute intracranial process seen. There is moderate stool seen in the right colon without distention. Few scattered diverticuli seen in colon. No suggestion for diverticulitis. There is nonspecific mild fat stranding seen adjacent to the right distal ascending colon and inferior right hepatic lobe. No mural thickening seen either. Appendix is not seen. Small umbilical hernia containing fat Chest CTA 03/18/21 00:03 IMPRESSION: No evidence of pulmonary emboli, although evaluation of segmental and subsegmental branches is somewhat limited. Mediastinal and hilar lymphadenopathy of uncertain etiology, this could be infectious, inflammatory or malignant. Bilateral pleural effusions with interlobular septal thickening could be related with pulmonary edema. However, there is bronchial wall thickening and therefore a superimposed infection/inflammatory process is difficult to exclude. A few subcentimeter pulmonary nodules are indeterminate and could be malignant, infectious or inflammatory. Recommend a short-term follow-up to ensure resolution/stability. Questionable inflammatory changes surrounding the pancreas which in retrospect are not significantly changed when compared to the CT of the abdomen from earlier today. Correlate clinically for pancreatitis. VTE: negative Assessment and Plan (1) CHF exacerbation: Status: Acute (2) Atrial fibrillation with rapid ventricular response: Status: Acute [age] gentleman with reported history of heart failure and atrial fib rillation with noncompliance with diuretic therapy was here with shortness of breath and AFib with RVR. Clinically volume overloaded and in heart failure. We will officially reported echocardiogram but I have been told by the orthotic and prosthetic technician that there is LV dysfunction. Avoid Cardizem going forward. Metoprolol 25 mg 3 times a day. Continue IV diuretics 40 mg once a day because he has a good response with that. Digoxin 250 mcg daily is too much in my opinion. I think we should use it every other day at a dose of 125 mcg. He will need anticoagulation for atrial fibrillation. We will review echocardiogram and will comment on that. Thank you for allowing me to participate in the care of your patient. Please feel free to contact me if you have any questions. Procedures Date of Service Date of Service: 03/18/21
--- NOTE | 2021-03-18 11:10 | PHA.MEDREC ---
Pharmacy Consult ? Medication Reconciliation Pharmacy has completed the medication reconciliation. Med Rec complete by pharmacy history and provider's office. Called provider's office in [place]. Verified that patient should be on Elqiuis, pantoprazole, carvedilol, digoxin, gabapaentin, losartan. Patient never picked up Eliquis from his pharmacy. Clonidine was prescribed for in December for 30 days but was never followed up however it was picked up from the pharmacy. Patient is not compliant with his medications. All medications should have ran out in January. Ingrid Strong, [place]
--- NOTE | 2021-03-18 13:21 | MHC.CM.PN ---
Attempted to meet with patient in regards to d/c planning. Patient currently sleeping. No family present. Will attempt to meet again. Continue to monitor for d/c needs.
[2021-03-18] MEDS: Metoprolol Tartrate 25 MG TABLET PO ×2 (14:32→20:42)
--- NOTE | 2021-03-18 16:16 | PM.EVENT ---
Event Note Date of Service: 03/18/21 Event Note: Patient seen and examined earlier already by hospitalist team: Patient is from [place] recently relocated to [place], does not seem to be compliant with meds and also seems like drinks excessive fluids. Patient was admitted because of CHF exacerbation acute unclear etiology Elevated BNP Patient still has orthopnea but could able to answer most of the questions, says his breathing is slightly better than last night. Physical exam: Appearance: Alert.? Oriented X3.? not in distress.? Eyes: Pupils equal, round and reactive to light.? Sclera nonicteric.? cvs: rrr, [id number] , no murmur, jvd + res: clear to auscultation ,no rhonchii or wheezing abd: no rebound or guarding ,nt, bs present. ext pulses present , no cyanosis ,trace edema neuro: axo3 , nonfocal. Assessment and plan: Already coordinated H&P note chf execerebation -unclear etiology echo Continue IV Lasix adjusted digoxin to 0.125 mg uncontrolled htn: adjusted metoprolol, lisinorpil ,iv lasix , added amlodipine small dose . moniter i/o moniter weights
--- NOTE | 2021-03-18 16:44 | MHC.CM.PN ---
CM attempted to meet with pt. Pt. sleeping. Unable to wake. Will try again. Pt is admitted with bed assignment pending.
[2021-03-18] MEDS: amLODIPine Besylate 2.5 MG TABLET PO (18:08)
--- NOTE | 2021-03-18 18:57 | MHC.CM.PN ---
CM met with admitted patient, with bed assignment pending. Pt is alert and orientated , but is a vague historian. Pt was living in [place], but [facility]. Is living with his sister, Gladys Wang,who lives in [place] ([phone]). No HCP on file. HCP reviewed, completed and signed. HCP/sister Gladys Wang. Pt tells CM that he uses a cane, was a [employer], but states he is not vet connected. Pt denies using the VA system. Pt gave permission for CM to speak with his sister. CM called Gladys, who verifies that pt will be living with her. States that her brother is a bit vague at times. 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 Gladys tells CM that pt did use VA services in [place]. Will need to speak with VA liaison in the am to determine if pt has VA benefits. D/C plan is home. May need VNA services, but pt does not have a PCP. Transportation by family. CM to follow for d/c needs.
--- NOTE | 2021-03-18 22:01 | CONS_ITS ---
DATE OF SERVICE: 03/18/2021 INDICATION: Abnormal CT scan with lymphadenopathy. HISTORY OF PRESENT ILLNESS: Mr. Mejia is a 66-year-old gentleman with known history of atrial fibrillation, hypertension, who apparently was in usual state of health until several days ago when he decided to go cross-country on a trip to move back to [place] to see his sister. 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 He basically drove cross-country about 4 days, developing increasing shortness of breath, lower extremity edema. He could not tolerate the symptoms any longer, decided to come into the [facility] ED for further evaluation. Upon arrival, he was found to have atrial fibrillation with rapid ventricular response with a heart rate of 180. His cardiac enzymes were elevated consistent with a cardiac ischemia and his brain natriuretic peptide was significantly elevated. He has significant lower extremity edema. He had an abnormal chest x-ray, so therefore he underwent a CTA, which ruled out pulmonary emboli, although he has significant mediastinal hilar lymphadenopathy. He also had bilateral pleural effusions and evidence of pulmonary edema. The patient was aggressively diuresed, but based on the significant lymphadenopathy, Pulmonary was consulted. On further questioning, denies any history of lymphadenopathy. He denies any diagnosis suggesting lymphoma or sarcoidosis. He has never been told about significant lymph nodes in the past. He denies any other bumps or lumps in his body to suggest additional lymph nodes. At this point, the patient did have an abnormal EKG and is currently being evaluated for his congestive heart failure. In addition to that, he is complaining of the abdominal pain. His abdominal pain is mainly in the right lower quadrant. REVIEW OF SYSTEMS: Ten systems reviewed. Denies any ELECTROLYSIST symptoms. Denies any HEENT symptoms. Complains of the respiratory and cardiac symptoms as stated above. Complains of the abdominal symptoms as stated above. Denies any symptoms, although he does urinary frequency. In addition to that, he does complain of the lower extremity edema. The rest of the 10-organ system is negative. PAST MEDICAL HISTORY: Atrial fibrillation, congestive heart failure, hypertension. He also has a history of obstructive sleep apnea in the past, but he could not tolerate CPAP. The details are not available. PAST SURGICAL HISTORY: Status post appendectomy. SOCIAL HISTORY: He is a nonsmoker. He used to drink alcohol, but he quit many years ago. He does drink seldomly at this time. FAMILY HISTORY: HTN. PHYSICAL EXAMINATION: VITAL SIGNS: At this point are better. The patient is afebrile. Heart rate is better 88, blood pressure 139/102, saturation 98% on nasal cannula. GENERAL: Pleasant gentleman, in no acute distress. HEENT: Pupils equal and reactive to light. Oropharynx clear. NECK: Supple. CARDIAC: Irregularly irregular. LUNGS: Diminished bilaterally. ABDOMEN: Positive bowel sounds. Soft. Does have some tenderness over the right lower quadrant. He did status post have an appendectomy. EXTREMITIES: Does have 2+ pitting edema. DIAGNOSTIC DATA: The CT scan of the chest perceived by me demonstrating significant lymphadenopathy in the hilum and the mediastinum, irregular in appearance, concerning in appearance, unclear etiology at this time. The patient also has bilateral pleural effusions in the alveolar filling process, likely from pulmonary edema. LABORATORY DATA: His white count is normal. Hemoglobin is stable. Platelet count is stable. His D-dimer was elevated at 766. Cardiac enzymes were elevated. Brain natriuretic peptide was elevated. Serology: COVID-19 negative. ASSESSMENT: Mr. Mejia is a 66-year-old gentleman with a history of atrial fibrillation, hypertension, and obstructive sleep apnea, presenting after a long trip cross-country with worsening shortness of breath, found to have congestive heart failure, atrial fibrillation, uncontrolled in addition to myocardial infarction. In addition to that, found to have significant lymphadenopathy. IMPRESSION: 1. Bilateral pleural effusions, likely cardiogenic in etiology. The patient likely will respond well to aggressive diuresis. We will continue monitoring imaging studies and see if the pleural effusions do not improve, then thoracentesis may be warranted. 2. Lymphadenopathy at this point. Etiology of the lymphadenopathy is not clear, although they appeared to be concerning in nature. Condition such as lymphoma and sarcoidosis are in differential. It is not clear if this is associated with his initial presentation or something that he has had in for some time. With the other active issues, we can put this on hold, but close monitoring is warranted. 3. Sleep apnea. The patient likely has underlying sleep apnea and likely has precipitated some of this cardiac issues. Therefore, once the patient is situated and he follows up as an outpatient, he will follow up with a sleep study. In the meantime, he may need oxygen supplementation at nighttime to maintain his pulse ox above 90%. RECOMMENDATIONS: 1. Continue with aggressive diuresis. 2. Follow x-rays as far as the pleural effusions. 3. I will request additional blood work to evaluate the lymphadenopathy. Once his cardiac condition stabilizes, possibly as an outpatient, we need to consider sampling the lymph nodes. This can be done on the endobronchial ultrasound bronchoscopy, but we are going to hold off for now while his cardiac issues have been dealth with. 4. Once the patient is situated as an outpatient, we will plan to do an outpatient sleep study. Further recommendation based on forthcoming data. MD ABUNDIO Maxwell/ULISES / [id number] MTDD
[2021-03-18] MEDS: 0.9 % Sodium Chloride Flush 3 ML SYRINGE IVFLUSH (22:19)
[2021-03-19] VITALS (7 sets, daily range): BP systolic 134–172; BP diastolic 90–103; PULSE 84–98; RESP 18–20; TEMP 36.4–37; O2SAT 92–97; BMI 33.0
[2021-03-19] MEDS: Heparin Sodium,Porcine 5,000 UNIT/ML VIAL 5000 UNIT SUBCUT (04:46)
[2021-03-19 07:04] LABS: Anion Gap 14 (12-20); Blood Urea Nitrogen 33 mg/dL (9-16); Calcium 8.6 mg/dL (8.4-10.2); Carbon Dioxide 29 mmol/L (22-29); Chloride 102 mmol/L (96-108); Creatinine Clr Calc Pharmacy 57.6; Estimated Glomerular Filt Rate 42; Glucose Random 80 mg/dL (60-115); Potassium 4.1 mmol/L (3.3-5.1); Sodium 141 mmol/L (135-145)
--- NOTE | 2021-03-19 09:32 | P.PNPL_ITS ---
Subjective Subjective Date of Service: 03/19/21 Interval history: The patient was seen on exam. He feels a little better. He is currently on room air. He has been placed on rate controlling agents. Unfortunately developed some renal insufficiency after aggressive diuresis. In the meantime we did again talk about his lymphadenopathy which is appear to be concerning. I did ask him if he has had a history of cancer. He admitted that he was diagnosed with some type of bone cancer. This point is not clear if this multiple myeloma or a different kind of cancer. I will request additional blood work. In the meantime the patient also has bilateral pleural effusions like please transfer date of in nature from his volume overload status. Will repeat a chest x-ray to make sure the dose of improved in the setting of his renal failure. Objective Data Labs CBC & Chem 7: 03/18/21 06:35 03/19/21 05:42 Labs: Laboratory Results - last 24 hr 03/19/21 05:42 Sodium 141 Potassium 4.1 Chloride 102 Carbon Dioxide 29 Anion Gap 14 BUN 33 H Creatinine 1.64 H Estim Creat Clear Calc 57.6 Estimated GFR 42 Random Glucose 80 Calcium 8.6 Microbiology Microbiology Results: Microbiology 03/17/21 21:25 Blood - Venous Blood Culture - Preliminary No growth after 24 hours. 03/17/21 21:25 Blood - Venous Blood Culture - Preliminary No growth after 24 hours. Review of Systems Constitutional: Denies anorexia, Reports daytime sleepiness, Denies night swea ts, Reports snoring and Reports stops breathing during sleep Denies change in voice, Denies lip swelling, Denies mouth pain and Denies tongue swelling Cardiovascular: Denies chest pain, Reports palpitations and Reports dyspnea Respiratory: Reports cough, Reports dyspnea and Reports snoring Gastrointestinal: Denies abdominal pain Musculoskeletal: Denies no additional musculoskeletal complaints Denies Neuro-related abnormal movements, Reports burning sensations and Reports paresthesias Psychiatric: Denies no additional psychiatric complaints Endocrine: Reports palpitations Hematologic/Lymphatic: Denies easy bleeding and Denies lymphadenopathy Allergic/Immunologic: Denies lip swelling and Denies tongue swelling Physical Exam Vital Signs: Vital Signs: Last Vital Signs Temp 98.2 F 03/19/21 07:44 Pulse 84 03/19/21 07:44 Resp 19 03/19/21 07:44 BP 172/97 H 03/19/21 07:44 Pulse Ox 94 03/19/21 07:44 Oxygen Flow Rate 2 03/17/21 21:08 Body Mass Index 33.0 Const: General: alert Neck: Neck: Yes normal visual inspection, Yes full ROM and Yes no lymphadenopathy Chest: Chest palpation & inspection: normal inspection of the chest Resp: Auscultation: diminished lung sounds Cardio: Rate: regular rate Rhythm: abnormal rhythm Heart sounds: S1 normal heart sound present and S2 normal heart sound present GI: Palpation (GI): Soft to palpation and nontender Auscultation: normal bowel sounds Skin: General skin exam: rashes and/or lesions noted Procedures Date of Service Date of Service: 03/19/21 Assessment and Plan Assessment and plan (1) Pleural effusion: Status: Acute (2) Lymphadenopathy: Status: Acute Assessment and Plan: Unclear history on bone cancer ?MM (3) LAWANDA (obstructive sleep apnea): Status: Acute (4) CHF exacerbation: Status: Acute Assessment and Plan: Bloodwork Repeat CXR tomorrow AM Will need to assess for LAWANDA Time Spent With Patient Time: Total time spent is greater than 50% in coordination of care (as documented) at patient's floor/unit and/or counseling patient: Time with patient: 25 - 35 minutes Progress Note: Quality Stroke Does the patient have a stroke diagnosis?: No
[2021-03-19] MEDS: amLODIPine Besylate 5 MG TABLET PO (10:37)
[2021-03-19] MEDS: 0.9 % Sodium Chloride Flush 3 ML SYRINGE IVFLUSH ×2 (10:37→16:41)
[2021-03-19] MEDS: hydrALAZINE HCl 25 MG TABLET PO ×3 (10:37→22:38)
[2021-03-19] MEDS: Gabapentin 100 MG CAPSULE PO (10:37)
[2021-03-19 10:45] LABS: Lactate Dehydrogenase 251 U/L (118-273)
[2021-03-19 11:18] LABS: Erythrocyte Sedimentation Rate 14 MM/HR (0-15)
--- NOTE | 2021-03-19 11:24 | PM.PNCARD ---
Subjective Subjective Date of Service: 03/19/21 Interval history: Patient was seen on 03/19/2021. Original note accidentally got canceled. His diuretics were held because he had acute kidney injury. Clinically he was still overloaded and complaining of shortness of breath. He said he was admitted in [place] with brain bleed and his anticoagulation was stopped which was mainly for previous PE as well as atrial fibrillation. Physical Exam Vital Signs: Last Vital Signs Temp 97.8 F 03/20/21 07:45 Pulse 97 03/20/21 09:24 Resp 19 03/20/21 07:45 BP 152/100 H 03/20/21 09:21 Pulse Ox 96 03/20/21 07:45 Oxygen Flow Rate 2 03/17/21 21:08 Body Mass Index 34.0 GENERAL APPEARANCE: in no acute distress, pleasant. NECK: no carotid bruit, + jugular venous distention. SKIN: no suspicious lesions, warm and dry. HEART: no murmurs, irregular rate and rhythm. LUNGS: clear to auscultation bilaterally. ABDOMEN: soft, nontender. EXTREMITIES: +edema. PERIPHERAL PULSES: equal. NEUROLOGIC: No gross deficits, AAO X 3 Results Labs and Meds Result diagrams: 03/20/21 05:24 03/20/21 08:34 Lab results: Laboratory Results - last 24 hr 03/19/21 03/19/21 03/20/21 18:26 18:26 01:16 WBC 9.0 RBC 4.94 Hgb 14.4 Hct 46.4 MCV 93.9 MCH 29.1 MCHC 31.0 RDW 16.3 H Plt Count 240 MPV 9.3 L Absolute Nucleated RBC 0.000 Nucleated RBC % (auto) 0.0 PT 13.2 H INR 1.2 H PTT (Heparin Protocol) 34.7 L 48.4 L D Sodium Potassium Chloride Carbon Dioxide Anion Gap BUN Creatinine Estim Creat Clear Calc Estimated GFR Random Glucose Calcium 03/20/21 03/20/21 03/20/21 05:24 05:24 08:34 WBC 8.4 RBC 4.96 Hgb 14.3 Hct 46.0 MCV 92.7 MCH 28.8 MCHC 31.1 RDW 16.4 H Plt Count 252 MPV 9.5 Absolute Nucleated RBC 0.000 Nucleated RBC % (auto) 0.0 PT 13.1 H INR 1.2 H PTT (Heparin Protocol) 67.4 D Sodium Potassium Chloride Carbon Dioxide Anion Gap BUN Creatinine Estim Creat Clear Calc Estimated GFR Random Glucose Calcium 03/20/21 08:34 WBC RBC Hgb Hct MCV MCH MCHC RDW Plt Count MPV Absolute Nucleated RBC Nucleated RBC % (auto) PT INR PTT (Heparin Protocol) Sodium 138 Potassium 4.5 Chloride 104 Carbon Dioxide 26 Anion Gap 13 BUN 31 H Creatinine 1.46 H Estim Creat Clear Calc 65.7 Estimated GFR 48 Random Glucose 100 Calcium 8.4 Imaging Radiologist's impression: Impressions Head CT 03/19/21 15:36 IMPRESSION: No acute intracranial pathology. Progress Note: A&P Assessment and plan (1) Heart failure with reduced ejection fraction: Status: Acute (2) HTN (hypertension): Status: Acute (3) Atrial fibrillation with rapid ventricular response: Status: Acute Assessment and Plan: 66-year-old gentleman who is presenting for congestive heart failure. It appears he was not taking diuretics. By his description it appears he had atrial fibrillation before and was on anticoagulation. He is describing intracranial hemorrhage and that is why his anticoagulation was stopped. Overall clinically overloaded but he had kidney injury today. I would favor holding diuretics and understanding this better. Hold the ELVA-inhibitor for now. For the atrial fibrillation he can continue her digoxin every other day but creatinine should be monitored closely and if it is worsening blockers postop. Continue beta-fidencio. No Cardizem should be given to him. We need to review records from hospitalization in [place]. Fall Risk Details Current Medications: Current Medications Acetaminophen (Acetaminophen 325 Mg Tablet) 650 mg PO Q6H PRN PRN Reason: Pain, Mild (Pain Scale 1-3) Amlodipine Besylate (Amlodipine Besylate 5 Mg Tablet) 5 mg PO DAILY DENISE; Protocol Last Admin: 03/20/21 09:21 Dose: 5 mg Documented by: Digoxin (Digoxin 0.125 Mg Tablet) 0.125 mg PO Q2D DENISE Last Admin: 03/20/21 09:24 Dose: 0.125 mg Documented by: Docusate Sodium (Docusate Sodium 100 Mg Capsule) 100 mg PO DAILY PRN PRN Reason: Constipation Furosemide (Furosemide 40 Mg/4 Ml Vial) 40 mg IVPUSH DAILY DENISE; Protocol Last Admin: 03/18/21 08:14 Dose: 40 mg Documented by: Furosemide (Furosemide 20 Mg/2 Ml Vial) 20 mg IVPUSH DAILY [facility]; Protocol Heparin Sodium (Porcine) (Heparin Sodium,Porcine 5,000 Unit/Ml Vial) 4,400 unit 40 unit/kg (4400 unit) IVPUSH PROTOCOL BOLUS PRN; Protocol PRN Reason: 40 unit/kg - Heparin Protocol Heparin Sodium (Porcine) (Heparin Sodium,Porcine 5,000 Unit/Ml Vial) 8,800 unit 80 unit/kg (8800 unit) IVPUSH PROTOCOL BOLUS PRN; Protocol PRN Reason: 80 unit/kg - Heparin Protocol Hydralazine HCl (Hydralazine Hcl 25 Mg Tablet) 25 mg PO TID [facility]; Protocol Last Admin: 03/20/21 09:21 Dose: 25 mg Documented by: Heparin Sodium/Sodium Chloride () 25,000 unit in 250 mls @ 0 mls/hr IVCONT .Q0M [facility]; Protocol Last Titration: 03/20/21 02:21 Dose: 10.85 units/kg/hr, 12 mls/hr Documented by: Metoprolol Tartrate (Metoprolol Tartrate 25 Mg Tablet) 25 mg PO BID [facility]; Protocol Last Admin: 03/20/21 09:21 Dose: 25 mg Documented by: Oxycodone HCl (Oxycodone Hcl Immed Release 5 Mg Tablet) 5 mg PO Q6H PRN PRN Reason: Pain, Mild (Pain Scale 1-3) Last Admin: 03/19/21 17:27 Dose: 5 mg Documented by: Pharmacy Consult (Consult Rx Perform Med Rec) 1 each MISCELLANE ONCE PRN PRN Reason: Consult order Pregabalin (Pregabalin 50 Mg Capsule) 50 mg PO TID [facility] Last Admin: 03/20/21 09:21 Dose: 50 mg Documented by: Sodium Chloride (0.9 % Sodium Chloride Flush 3 Ml Syringe) 3 ml IVFLUSH QSHIFT [facility] Last Admin: 03/20/21 09:21 Dose: 3 ml Documented by: Time Spent With Patient Time: Total time spent is greater than 50% in coordination of care (as documented) at patient's floor/unit and/or counseling patient: Time with patient: 25 - 35 minutes Progress Note: Quality Stroke Does the patient have a stroke diagnosis?: No Procedures Date of Service Date of Service: 03/19/21
--- NOTE | 2021-03-19 11:29 | HO.PM.IMPN ---
Subjective Subjective Date of Service: 03/19/21 Interval History: chf -probable systolic ,low ef , uncontrolled htn, navi Review of Systems sob seems somewhat improving denies any chest pain or abd pain or cough Physical Exam Vital Signs: Vital Signs: Last Vital Signs Temp 98.2 F 03/19/21 07:44 Pulse 84 03/19/21 10:37 Resp 19 03/19/21 07:44 BP 172/97 H 03/19/21 10:37 Pulse Ox 94 03/19/21 07:44 Oxygen Flow Rate 2 03/17/21 21:08 Body Mass Index 33.0 Appearance: Alert.? Oriented X3.? not in distress.? Eyes: Pupils equal, round and reactive to light.? Sclera nonicteric.? cvs: rrr, [id number] , no murmur, jvd equivocal. res: clear to auscultation ,no rhonchii or wheezing abd: no rebound or guarding ,nt, bs present. ext pulses present , no cyanosis ,no edema neuro: axo3 , nonfocal. Objective Data Active Medications Acetaminophen (Acetaminophen 325 Mg Tablet) 650 mg PO Q6H PRN PRN Reason: Pain, Mild (Pain Scale 1-3) Amlodipine Besylate (Amlodipine Besylate 5 Mg Tablet) 5 mg PO DAILY [facility]; Protocol Last Admin: 03/19/21 10:37 Dose: 5 mg Documented by: STONE Digoxin (Digoxin 0.125 Mg Tablet) 0.125 mg PO Q2D [facility] Docusate Sodium (Docusate Sodium 100 Mg Capsule) 100 mg PO DAILY PRN PRN Reason: Constipation Furosemide (Furosemide 40 Mg/4 Ml Vial) 40 mg IVPUSH DAILY [facility]; Protocol Last Admin: 03/18/21 08:14 Dose: 40 mg Documented by: MARY Gabapentin (Gabapentin 100 Mg Capsule) 100 mg PO TID [facility] Last Admin: 03/19/21 10:37 Dose: 100 mg Documented by: STONE Heparin Sodium (Porcine) (Heparin Sodium,Porcine 5,000 Unit/Ml Vial) 5,000 unit SUBCUT Q12H [facility] Last Admin: 03/19/21 04:46 Dose: 5,000 unit Documented by: YU Hydralazine HCl (Hydralazine Hcl 25 Mg Tablet) 25 mg PO TID [facility]; Protocol Last Admin: 03/19/21 10:37 Dose: 25 mg Documented by: STONE Lisinopril (Lisinopril 20 Mg Tablet) 20 mg PO BID [facility]; Protocol Last Admin: 03/18/21 20:43 Dose: 20 mg Documented by: LANDEN Metoprolol Tartrate (Metoprolol Tartrate 25 Mg Tablet) 25 mg PO BID [facility]; Protocol Pharmacy Consult (Consult Rx Perform Med Rec) 1 each MISCELLANE ONCE PRN PRN Reason: Consult order Sodium Chloride (0.9 % Sodium Chloride Flush 3 Ml Syringe) 3 ml IVFLUSH QSHIFT [facility] Last Admin: 03/19/21 10:37 Dose: 3 ml Documented by: STONE Labs CBC & Chem 7: 03/18/21 06:35 03/19/21 05:42 Labs: Laboratory Results - last 24 hr 03/19/21 03/19/21 03/19/21 05:42 09:59 09:59 ESR 14 Anion Gap 14 Estim Creat Clear Calc 57.6 Estimated GFR 42 Random Glucose 80 Calcium 8.6 Lactate Dehydrogenase 251 Microbiology Microbiology Results: Microbiology 03/17/21 21:25 Blood Culture - Preliminary Blood - Venous No growth after 24 hours. 03/17/21 21:25 Blood Culture - Preliminary Blood - Venous No growth after 24 hours. Assessment and Plan (1) NAVI (acute kidney injury): Status: Acute (2) Lymphadenopathy: Status: Acute (3) Pleural effusion: Status: Acute Assessment and Plan: 66-year-old Male with past medical history of AFib presents to the hospital with complaints of shortness of breath found to have CHF exacerbation 1. acute CHF exacerbation-systolic chf - patient does not know any of his medications, he is out of state and lives in [place] - he has dyspnea, elevated BNP, and CT evidence of pulmonary edema as well as pleural effusion echo hold IV Lasix since sob seems somewhat better but still seems overloaded , will check with nephro. adjusted digoxin to 0.125 mg q2d moniter i/o moniter weights low-sodium diet, strict I&O, daily weight 2. AFib with RVR adjusted metoprolol continue digoxin discussed anticoagulation with patient at this time he is not interested in starting anticoagulation -he said it was stopped in [place] , we have requested records 3. hypertension- uncontrolled. hold lisinopril,cont metoprolol, lisinorpil ,iv lasix , added amlodipine ? . 4. navi:? due to overdiursis moniter i/o hold lasix and lisnopril 5. hx of pulm embolism: sat sees 95% room area , sob improving may need to start Ac after neuro clearence. Patient's medical records were obtained from [facility]: In December/2020: At that time patient was found on the floor by neighbors and was brought to the hospital altered mental status-admitted for intracranial bleed and altered mental status : had the right hemorrhagic frontal contusion- seen by neuro surgery there and they recommended to hold anticoagulation and start aspirin in 1 week later , was told to follow-up with neurosurgery in 2 weeks time but seems like he never followed up. In addition -patient was treated for strep bacteremia and left lower extremity cellulitis and seems like completed the course of antibiotics. Had NAVI during that admission-lab olivera her his creatinine was 1.6 during that admission. He also has history of poly substance use as per the record, also excessive use of meant amphetamines. In addition has history of pulmonary embolism, afib. CT head there showed right frontal hemorrhage-1.5 X0.8 centimetre in measurement. limited cardiac echo during that admission look like shows EF of 65-70% mild left arterial not , limited . In light of above findings we will hold off on subcu prophylaxis with heparin. Will get neurology evaluation for a anticoagulation clearance, added head CT just to re-evaluate issue of hemorrhagic contusion area. d/w neuro- ct head repeated -does not reproduce brain bleedin findings -we start AC Quality Stroke Does the patient have a stroke diagnosis?: No VTE Prior VTE?: No VTE Risk Level:: Medical - moderate - high VTE Device Contraindication: Treatment Not Indicated VTE Drug Contraindication: N/A - Med Ordered
--- NOTE | 2021-03-19 11:53 | P.CDIC_ITS ---
CDI Concurrent Query Documentation Clarification: PHYSICIAN'S DOCUMENTATION REQUEST Date of Query: 03/19/21 1156 Patient Name: Luis Mejia Admit Date: 03/18/21 Dear Doctor, A review of the medical record indicates additional documentation may be needed. Please review below and update the documentation accordingly. Clinical Indicators: Risk Factors/Clinical Indicators/Treatments Per MD progress note 03/19/21: AFib with RVR Treated with Metoprolol and Digoxin patient not interested in starting anticoagulation at this time If possible, please provide further specificity regarding atrial fibrillation, such as: * Paroxysmal atrial fibrillation: terminates spontaneously or with intervention within 7 days of onset. * Persistent atrial fibrillation: episodes of continuous AF that last more than 7 days and do not self-terminate. * Long lasting persistent atrial fibrillation: episodes of continuous AF that last more than 12 months, * Chronic or Permanent atrial fibrillation: when a decision has been made to accept the presence of AF and there is no further attempt to restore or maintain sinus rhythm. * Other (please specify) * Unable to determine Use of terms such as suspected, likely, concern for, or probable (associated with a specific diagnosis that is being evaluated, monitored, or treated as if it exists) are acceptable and can be coded in the inpatient setting, when documented at the time of discharge. Thank you, Tamika Malik RN Extension: [phone] Please use your independent medical judgment in providing your response. THIS QUERY IS PART OF THE PERMANENT MEDICAL RECORD Provider Response: Other Other Diagnosis: peristent vs PAF -unclear duration , we await his medical records from [place]
--- NOTE | 2021-03-19 11:59 | PC.NURSE ---
Skin assessment completed today. Patient has bilateral redness to legs from cellulitis. Scabs on body and face from skin cancer treatment. No other skin issues noted at this time.
--- NOTE | 2021-03-19 12:03 | P.PNCA_ITS ---
Subjective Subjective Date of Service: 03/19/21 Physical Exam Vital Signs: Last Vital Signs Temp 98.2 F 03/19/21 07:44 Pulse 84 03/19/21 10:37 Resp 19 03/19/21 07:44 BP 172/97 H 03/19/21 10:37 Pulse Ox 94 03/19/21 07:44 Oxygen Flow Rate 2 03/17/21 21:08 Body Mass Index 33.0 Results Labs and Meds Result diagrams: 03/18/21 06:35 03/19/21 05:42 Lab results: Laboratory Results - last 24 hr 03/19/21 03/19/21 03/19/21 05:42 09:59 09:59 ESR 14 Sodium 141 Potassium 4.1 Chloride 102 Carbon Dioxide 29 Anion Gap 14 BUN 33 H Creatinine 1.64 H Estim Creat Clear Calc 57.6 Estimated GFR 42 Random Glucose 80 Calcium 8.6 Lactate Dehydrogenase 251 Progress Note: A&P Fall Risk Details Current Medications: Current Medications Acetaminophen (Acetaminophen 325 Mg Tablet) 650 mg PO Q6H PRN PRN Reason: Pain, Mild (Pain Scale 1-3) Amlodipine Besylate (Amlodipine Besylate 5 Mg Tablet) 5 mg PO DAILY [facility]; Protocol Last Admin: 03/19/21 10:37 Dose: 5 mg Documented by: Digoxin (Digoxin 0.125 Mg Tablet) 0.125 mg PO Q2D DENISE Docusate Sodium (Docusate Sodium 100 Mg Capsule) 100 mg PO DAILY PRN PRN Reason: Constipation Furosemide (Furosemide 40 Mg/4 Ml Vial) 40 mg IVPUSH DAILY [facility]; Protocol Last Admin: 03/18/21 08:14 Dose: 40 mg Documented by: Gabapentin (Gabapentin 100 Mg Capsule) 100 mg PO TID [facility] Last Admin: 03/19/21 10:37 Dose: 100 mg Documented by: Heparin Sodium (Porcine) (Heparin Sodium,Porcine 5,000 Unit/Ml Vial) 5,000 unit SUBCUT Q12H DENISE Last Admin: 03/19/21 04:46 Dose: 5,000 unit Documented by: Hydralazine HCl (Hydralazine Hcl 25 Mg Tablet) 25 mg PO TID DENISE; Protocol Last Admin: 03/19/21 10:37 Dose: 25 mg Documented by: Lisinopril (Lisinopril 20 Mg Tablet) 20 mg PO BID [facility]; Protocol Last Admin: 03/18/21 20:43 Dose: 20 mg Documented by: Metoprolol Tartrate (Metoprolol Tartrate 25 Mg Tablet) 25 mg PO BID DENISE; Protocol Pharmacy Consult (Consult Rx Perform Med Rec) 1 each MISCELLANE ONCE PRN PRN Reason: Consult order Sodium Chloride (0.9 % Sodium Chloride Flush 3 Ml Syringe) 3 ml IVFLUSH QSHIFT [facility] Last Admin: 03/19/21 10:37 Dose: 3 ml Documented by: Time Spent With Patient Time: Total time spent is greater than 50% in coordination of care (as documented) at patient's floor/unit and/or counseling patient: Progress Note: Quality Stroke Does the patient have a stroke diagnosis?: No
[2021-03-19] MEDS: oxyCODONE HCl Immed Release 5 MG TABLET PO ×2 (13:31→17:27)
[2021-03-19] MEDS: Pregabalin 50 MG CAPSULE PO ×2 (14:01→22:37)
--- NOTE | 2021-03-19 15:58 | PM.PNNEP ---
Subjective Subjective Date of Service: 03/19/21 Interval history: Patient seen and examined Consult dictated Physical Exam Vital Signs: Vital Signs: Last Vital Signs Temp 98.2 F 03/19/21 12:00 Pulse 84 03/19/21 12:00 Resp 20 03/19/21 12:00 BP 162/90 H 03/19/21 12:00 Pulse Ox 96 03/19/21 12:00 Oxygen Flow Rate 2 03/17/21 21:08 Body Mass Index 33.0 Objective Data Labs CBC & Chem 7: 03/18/21 06:35 03/19/21 05:42 Labs: Laboratory Results - last 24 hr 03/19/21 03/19/21 03/19/21 05:42 09:59 09:59 ESR 14 Sodium 141 Potassium 4.1 Chloride 102 Carbon Dioxide 29 Anion Gap 14 BUN 33 H Creatinine 1.64 H Estim Creat Clear Calc 57.6 Estimated GFR 42 Random Glucose 80 Calcium 8.6 Lactate Dehydrogenase 251 Microbiology Microbiology Results: Microbiology 03/17/21 21:25 Blood - Venous Blood Culture - Preliminary No growth after 24 hours. 03/17/21 21:25 Blood - Venous Blood Culture - Preliminary No growth after 24 hours. Procedures Date of Service Date of Service: 03/19/21 Assessment & Plan Assessment and plan (1) NAVI (acute kidney injury): Status: Acute (2) Heart failure with reduced ejection fraction: Status: Acute (3) HTN (hypertension): Status: Acute Assessment and Plan: NAVI due to contrasts induced nephrotoxicity (s/p CTA on 03/18) superimposed on renal hypoperfusion was on ACEi and NSAID CT scan negative for obstruction doubt AIN/AGN normal baseline kidney function but history of NAVI systolic HF volume status above dry weight REC urine sodium UA no IVF IV furosemide hold lisinopril follow kidney function and electrolytes Time Spent With Patient Time: Total time spent is greater than 50% in coordination of care (as documented) at patient's floor/unit and/or counseling patient: Progress Note: Quality Stroke Does the patient have a stroke diagnosis?: No
[2021-03-19 19:00] LABS: Hematocrit 46.4 % (42-52); Hemoglobin 14.4 g/dl (14.0-18.0); Mean Corpuscular Hemoglobin 29.1 pg (27.0-33.0); Mean Corpuscular Volume 93.9 fL (80-98); Mean Platelet Volume 9.3 fL (9.4-12.4); Platelet Count 240 X10*3/uL (160-400); Red Blood Count 4.94 X10*6/uL (4.60-5.80); Red Cell Distribution Width 16.3 % (11.0-16.0)
[2021-03-19 19:06] LABS: INTERNATIONAL NORM RATIO 1.2 (0.9-1.1); Prothrombin Time 13.2 SEC (9.9-13.0)
[2021-03-19 19:08] LABS: PTT Heparin Drip 34.7 SEC (53-77.9)
[2021-03-19] MEDS: Heparin Sodium,Porcine/1/2NS 25,000 UNIT/250 ML IV.SOLN 10 UNIT IVCONT (19:35)
--- NOTE | 2021-03-19 19:35 | PM.NEUROCN ---
History of Present Illness Data of Consult Service Date: 03/19/21 Primary Care Provider: Nonstaff Physician HPI Reason for consult: Right frontal hematoma in December 2020, question of anticoag for A Fib This is a 66-year-old male with past medical history of AFib, and hypertension who presents to the hospital with shortness of breath from CHF. He has been traveling by road from [place] for the past 4 days , but developed significant shortness of breath for the past 3-4 days that is now significantly worse.?He was admitted to [facility] in early December and found to hav ea right frontal hematoma , so his Eliquis was D/Cd.He was seen by Neurosurgery but did not need evacuation. No c/o headache or dizziness. His f/u CT brain on 03/17/21 and again 0n 03/19/21 show no evidence of hemorrhage or acute ischemia. Review of Systems Review of Systems: sob seems somewhat improving denies any chest pain or abd pain or cough Yes all other systems are reviewed and are negative Constitutional: Constitutional: Denies anorexia, Reports daytime sleepiness, Denies night sweats, Reports snoring and Reports stops breathing during sleep ENT: Denies change in voice, Denies lip swelling, Denies mouth pain and Denies tongue swelling Cardiovascular: Cardiovascular: Denies chest pain, Reports palpitations and Reports dyspnea Respiratory: Respiratory: Reports cough, Reports dyspnea and Reports snoring Gastrointestinal: Gastrointestinal: Denies abdominal pain Musculoskeletal: Musculoskeletal: Denies no additional musculoskeletal complaints Neurologic: Denies Neuro-related abnormal movements, Reports burning sensations and Reports paresthesias Psychiatric: Psychiatric: Denies no additional psychiatric complaints Endocrine: Endocrine: Reports palpitations Hematologic/Lymphatic: Hematologic/Lymphatic: Denies easy bleeding and Denies lymphadenopathy Allergic/Immunologic: Allergic/Immunologic: Denies lip swelling and Denies tongue swelling PMFSH Past Medical History Medical History (Updated 03/19/21 @ 15:59 by Manish Burger MD) Atrial fibrillation Congestive heart failure Hypertension Lymphadenopathy LAWANDA (obstructive sleep apnea) Pleural effusion Family History Pertinent family history: No pertinent family history Surgical History Surgical History Hx of appendectomy Social History Social History Household Members: Children Housing: House Do you presently have visiting nurse or other home services: No Alcohol intake: former Patient Tobacco Use Status: Never used Tobacco service: Yes Current occupational status: disabled Meds Allergies Allergy/AdvReac Type Severity Reaction Status Date / Time No Known Allergies Allergy Verified 03/17/21 21:14 Active Medications: Current Medications Acetaminophen (Acetaminophen 325 Mg Tablet) 650 mg PO Q6H PRN PRN Reason: Pain, Mild (Pain Scale 1-3) Amlodipine Besylate (Amlodipine Besylate 5 Mg Tablet) 5 mg PO DAILY [facility]; Protocol Last Admin: 03/19/21 10:37 Dose: 5 mg Documented by: Digoxin (Digoxin 0.125 Mg Tablet) 0.125 mg PO Q2D [facility] Docusate Sodium (Docusate Sodium 100 Mg Capsule) 100 mg PO DAILY PRN PRN Reason: Constipation Furosemide (Furosemide 40 Mg/4 Ml Vial) 40 mg IVPUSH DAILY [facility]; Protocol Last Admin: 03/18/21 08:14 Dose: 40 mg Documented by: Heparin Sodium (Porcine) (Heparin Sodium,Porcine 5,000 Unit/Ml Vial) 4,400 unit 40 unit/kg (4400 unit) IVPUSH PROTOCOL BOLUS PRN; Protocol PRN Reason: 40 unit/kg - Heparin Protocol Heparin Sodium (Porcine) (Heparin Sodium,Porcine 5,000 Unit/Ml Vial) 8,800 unit 80 unit/kg (8800 unit) IVPUSH PROTOCOL BOLUS PRN; Protocol PRN Reason: 80 unit/kg - Heparin Protocol Hydralazine HCl (Hydralazine Hcl 25 Mg Tablet) 25 mg PO TID [facility]; Protocol Last Admin: 03/19/21 13:31 Dose: 25 mg Documented by: Heparin Sodium/Sodium Chloride () 25,000 unit in 250 mls @ 0 mls/hr IVCONT .Q0M [facility]; Protocol Lisinopril (Lisinopril 20 Mg Tablet) 20 mg PO BID [facility]; Protocol Last Admin: 03/18/21 20:43 Dose: 20 mg Documented by: Metoprolol Tartrate (Metoprolol Tartrate 25 Mg Tablet) 25 mg PO BID [facility]; Protocol Oxycodone HCl (Oxycodone Hcl Immed Release 5 Mg Tablet) 5 mg PO Q6H PRN PRN Reason: Pain, Mild (Pain Scale 1-3) Last Admin: 03/19/21 17:27 Dose: 5 mg Documented by: Pharmacy Consult (Consult Rx Perform Med Rec) 1 each MISCELLANE ONCE PRN PRN Reason: Consult order Pregabalin (Pregabalin 50 Mg Capsule) 50 mg PO TID [facility] Last Admin: 03/19/21 14:01 Dose: 50 mg Documented by: Sodium Chloride (0.9 % Sodium Chloride Flush 3 Ml Syringe) 3 ml IVFLUSH QSHIFT [facility] Last Admin: 03/19/21 16:41 Dose: 3 ml Documented by: Home Medications Medication Instructions Recorded Confirmed Last Taken Type digoxin 250 mcg (0.25 mg) tablet 1 tab PO DAILY 03/17/21 03/18/21 Unknown History gabapentin 100 mg capsule 1 cap PO TID 03/17/21 03/18/21 Unknown History carvedilol 12.5 mg tablet 1 tab PO BID 03/18/21 03/18/21 Unknown History clonidine HCl 0.2 mg tablet 1 tab PO BID 03/18/21 03/18/21 Unknown History losartan 100 mg tablet 1 tab PO DAILY 03/18/21 03/18/21 Unknown History pantoprazole 40 mg tablet,delayed 1 tab PO DAILY 03/18/21 03/18/21 Unknown History release Physical Exam Vital Signs: Vital Signs: Last Vital Signs Temp 98 F 03/19/21 19:17 Pulse 98 03/19/21 19:17 Resp 18 03/19/21 19:17 BP 146/95 H 03/19/21 19:17 Pulse Ox 95 03/19/21 19:17 Oxygen Flow Rate 2 03/17/21 21:08 Body Mass Index 33.0 Const: General: alert Neck: Neck: Yes normal visual inspection, Yes full ROM and Yes no lymphadenopathy Chest: Chest palpation & inspection: normal inspection of the chest Resp: Auscultation: diminished lung sounds Cardio: Rate: regular rate Rhythm: abnormal rhythm Heart sounds: S1 normal heart sound present and S2 normal heart sound present GI: Palpation (GI): Soft to palpation and nontender Auscultation: normal bowel sounds Skin: General skin exam: rashes and/or lesions noted Neuro: Other: Non focal exam Results Labs CBC & Chem 7: 03/19/21 18:26 03/19/21 05:42 Labs: Short CBC 03/19/21 Range/Units 18:26 WBC 9.0 (4.8-10.8) X10*3/uL Hgb 14.4 (14.0-18.0) g/dl Hct 46.4 (42-52) % Plt Count 240 (160-400) X10*3/uL BMP 03/19/21 05:42 Sodium 141 Potassium 4.1 Chloride 102 Carbon Dioxide 29 BUN 33 H Creatinine 1.64 H Calcium 8.6 Microbiology Microbiology Results: Microbiology 03/17/21 21:25 Blood - Venous Blood Culture - Preliminary No growth after 24 hours. 03/17/21 21:25 Blood - Venous Blood Culture - Preliminary No growth after 24 hours. Assessment and Plan (1) Pleural effusion: Status: Acute (2) Atrial fibrillation with rapid ventricular response: Status: Acute 66-year-old Male with past medical history of AFib and presenting with CHF . On December 21/2021: altered mental status due to right hemorrhagic frontal contusion- seen by neuro surgery there and they recommended to hold anticoagulation and start aspirin in [address] head showed right frontal hemorrhage-1.5 X0.8 centimetre in measurement.limited cardiac echo during that admission look like shows EF of 65-70% mild left arterial not , limited . F/u CT shows no evidence of hemorrhage. Recom. May start anticoagulation with Eliquis for chr. A fib Procedures Date of Service Date of Service: 03/19/21
[2021-03-19] MEDS: Metoprolol Tartrate 25 MG TABLET PO (22:38)
[2021-03-20] VITALS (10 sets, daily range): BP systolic 135–152; BP diastolic 80–110; PULSE 80–97; RESP 16–20; TEMP 36.1–37.2; O2SAT 93–97; BMI 34.0
[2021-03-20 01:33] LABS: PTT Heparin Drip 48.4 SEC (53-77.9)
[2021-03-20 06:07] LABS: Hemoglobin 14.3 g/dl (14.0-18.0); Mean Corpuscular HGB Conc 31.1 g/dl (31.0-36.0); Mean Corpuscular Hemoglobin 28.8 pg (27.0-33.0); Mean Corpuscular Volume 92.7 fL (80-98); Mean Platelet Volume 9.5 fL (9.4-12.4); Platelet Count 252 X10*3/uL (160-400); Red Blood Count 4.96 X10*6/uL (4.60-5.80); Red Cell Distribution Width 16.4 % (11.0-16.0); White Blood Count 8.4 X10*3/uL (4.8-10.8)
[2021-03-20 06:26] LABS: INTERNATIONAL NORM RATIO 1.2 (0.9-1.1); Prothrombin Time 13.1 SEC (9.9-13.0)
[2021-03-20 09:19] LABS: PTT Heparin Drip 67.4 SEC (53-77.9)
[2021-03-20] MEDS: Metoprolol Tartrate 25 MG TABLET PO ×2 (09:21→21:43)
[2021-03-20] MEDS: 0.9 % Sodium Chloride Flush 3 ML SYRINGE IVFLUSH ×3 (09:21→21:43)
[2021-03-20] MEDS: hydrALAZINE HCl 25 MG TABLET PO ×3 (09:21→21:43)
[2021-03-20] MEDS: Pregabalin 50 MG CAPSULE PO ×3 (09:21→21:43)
[2021-03-20] MEDS: amLODIPine Besylate 5 MG TABLET PO (09:21)
[2021-03-20] MEDS: Digoxin 0.125 MG TABLET PO (09:24)
[2021-03-20 09:25] LABS: Anion Gap 13 (12-20); Blood Urea Nitrogen 31 mg/dL (9-16); Calcium 8.4 mg/dL (8.4-10.2); Carbon Dioxide 26 mmol/L (22-29); Chloride 104 mmol/L (96-108); Creatinine Clr Calc Pharmacy 65.7; Estimated Glomerular Filt Rate 48; Glucose Random 100 mg/dL (60-115); Potassium 4.5 mmol/L (3.3-5.1); Sodium 138 mmol/L (135-145)
--- NOTE | 2021-03-20 11:19 | P.PNIM_ITS ---
Subjective Subjective Date of Service: 03/20/21 Interval History: chf -probable systolic ,low ef , uncontrolled htn, navi Review of Systems sob still feels with excersion denies any chest pain or abd pain or cough no weakness or numbness Physical Exam Vital Signs: Vital Signs: Last Vital Signs Temp 97.8 F 03/20/21 07:45 Pulse 97 03/20/21 09:24 Resp 19 03/20/21 07:45 BP 152/100 H 03/20/21 09:21 Pulse Ox 96 03/20/21 07:45 Oxygen Flow Rate 2 03/17/21 21:08 Body Mass Index 34.0 ?Appearance: Alert.? Oriented X3.? not in distress.? Eyes: Pupils equal, round and reactive to light.? Sclera nonicteric.? cvs: rrr, [id number] , no murmur, jvd equivocal. res: clear to auscultation ,no rhonchii or wheezing abd: no rebound or guarding ,nt, bs present. ext pulses present , no cyanosis ,no? edema neuro: axo3 , nonfocal. Objective Data Active Medications Acetaminophen (Acetaminophen 325 Mg Tablet) 650 mg PO Q6H PRN PRN Reason: Pain, Mild (Pain Scale 1-3) Amlodipine Besylate (Amlodipine Besylate 5 Mg Tablet) 5 mg PO DAILY [facility]; Protocol Last Admin: 03/20/21 09:21 Dose: 5 mg Documented by: LYNETTE Digoxin (Digoxin 0.125 Mg Tablet) 0.125 mg PO Q2D DENISE Last Admin: 03/20/21 09:24 Dose: 0.125 mg Documented by: LYNETTE Docusate Sodium (Docusate Sodium 100 Mg Capsule) 100 mg PO DAILY PRN PRN Reason: Constipation Furosemide (Furosemide 40 Mg/4 Ml Vial) 40 mg IVPUSH DAILY [facility]; Protocol Last Admin: 03/18/21 08:14 Dose: 40 mg Documented by: MARY Furosemide (Furosemide 20 Mg/2 Ml Vial) 20 mg IVPUSH DAILY [facility]; Protocol Heparin Sodium (Porcine) (Heparin Sodium,Porcine 5,000 Unit/Ml Vial) 4,400 unit 40 unit/kg (4400 unit) IVPUSH PROTOCOL BOLUS PRN; Protocol PRN Reason: 40 unit/kg - Heparin Protocol Heparin Sodium (Porcine) (Heparin Sodium,Porcine 5,000 Unit/Ml Vial) 8,800 unit 80 unit/kg (8800 unit) IVPUSH PROTOCOL BOLUS PRN; Protocol PRN Reason: 80 unit/kg - Heparin Protocol Hydralazine HCl (Hydralazine Hcl 25 Mg Tablet) 25 mg PO TID [facility]; Protocol Last Admin: 03/20/21 09:21 Dose: 25 mg Documented by: LYNETTE Heparin Sodium/Sodium Chloride () 25,000 unit in 250 mls @ 0 mls/hr IVCONT .Q0M [facility]; Protocol Last Titration: 03/20/21 02:21 Dose: 10.85 units/kg/hr, 12 mls/hr Documented by: CURRY Cosigned by: HÉCTOR Metoprolol Tartrate (Metoprolol Tartrate 25 Mg Tablet) 25 mg PO BID [facility]; Protocol Last Admin: 03/20/21 09:21 Dose: 25 mg Documented by: LYNETTE Oxycodone HCl (Oxycodone Hcl Immed Release 5 Mg Tablet) 5 mg PO Q6H PRN PRN Reason: Pain, Mild (Pain Scale 1-3) Last Admin: 03/19/21 17:27 Dose: 5 mg Documented by: JESSI Pharmacy Consult (Consult Rx Perform Med Rec) 1 each MISCELLANE ONCE PRN PRN Reason: Consult order Pregabalin (Pregabalin 50 Mg Capsule) 50 mg PO TID [facility] Last Admin: 03/20/21 09:21 Dose: 50 mg Documented by: LYNETTE Sodium Chloride (0.9 % Sodium Chloride Flush 3 Ml Syringe) 3 ml IVFLUSH QSHIFT [facility] Last Admin: 03/20/21 09:21 Dose: 3 ml Documented by: LYNETTE Labs CBC & Chem 7: 03/20/21 05:24 03/20/21 08:34 Labs: Laboratory Results - last 24 hr 03/19/21 03/19/21 03/20/21 18:26 18:26 01:16 MCV 93.9 MCH 29.1 MCHC 31.0 RDW 16.3 H Plt Count 240 MPV 9.3 L Absolute Nucleated RBC 0.000 Nucleated RBC % (auto) 0.0 PT 13.2 H INR 1.2 H PTT (Heparin Protocol) 34.7 L 48.4 L D Anion Gap Estim Creat Clear Calc Estimated GFR Random Glucose Calcium 03/20/21 03/20/21 03/20/21 05:24 05:24 08:34 MCV 92.7 MCH 28.8 MCHC 31.1 RDW 16.4 H Plt Count 252 MPV 9.5 Absolute Nucleated RBC 0.000 Nucleated RBC % (auto) 0.0 PT 13.1 H INR 1.2 H PTT (Heparin Protocol) 67.4 D Anion Gap Estim Creat Clear Calc Estimated GFR Random Glucose Calcium 03/20/21 08:34 MCV MCH MCHC RDW Plt Count MPV Absolute Nucleated RBC Nucleated RBC % (auto) PT INR PTT (Heparin Protocol) Anion Gap 13 Estim Creat Clear Calc 65.7 Estimated GFR 48 Random Glucose 100 Calcium 8.4 Microbiology Microbiology Results: Microbiology 03/17/21 21:25 Blood Culture - Preliminary Blood - Venous No growth after 48 hours. 03/17/21 21:25 Blood Culture - Preliminary Blood - Venous No growth after 48 hours. Assessment and Plan (1) HTN (hypertension): Status: Acute (2) Heart failure with reduced ejection fraction: Status: Acute (3) NAVI (acute kidney injury): Status: Acute Assessment and Plan: 66-year-old Male with past medical history of AFib presents to the hospital with complaints of shortness of breath found to have CHF exacerbation 1. acute CHF exacerbation-systolic chf - patient does not know any of his medications, he is out of state and lives in [place] - he has dyspnea, elevated BNP, and CT evidence of pulmonary edema as well as pleural effusion echo:20-25%, increased right vent cavity/decreased right vent funtion,severe global kinesis moniter i/o moniter weights ?low-sodium diet, strict I&O, daily weight added lasix back 2. AFib with RVR adjusted metoprolol continue digoxin Discussed with cardio and neuro-CT head seems negative: Started on iv heprarin for now .may consider switch back to eliquis once seen by neuro. moniter pt/ptt as per protocol moniter cbc 3. hypertension- uncontrolled. hold? lisinopril,cont? metoprolol, lisinorpil ,iv lasix , adjusted amlodipine ? . 4. navi: use on nasid's at home ,? also got cta ,? diruectics moniter i/o hold lisnopril d/w nephro and cardio-since seems still fluid overload and symptomatic -will add lasix back-monitor renal function closely. ?5. hx of pulm embolism: He said he had pulmonary embolism few years back- poor historian sat sees 95% room area , sob improving may need to start Ac after neuro clearence. d/w patient above mangement in detail-including use of diurtics /moniter renal function , navi ,afib an heaprin use -he understand and in agreement the above plan. Time spent 70 min. Quality Stroke Does the patient have a stroke diagnosis?: No VTE Prior VTE?: No VTE Risk Level:: Medical - moderate - high VTE Device Contraindication: Treatment Not Indicated VTE Drug Contraindication: N/A - Med Ordered
[2021-03-20] MEDS: Furosemide 40 MG/4 ML VIAL IVPUSH (12:44)
[2021-03-20] MEDS: Heparin Sodium,Porcine/1/2NS 25,000 UNIT/250 ML IV.SOLN 12 UNIT IVCONT (14:20)
[2021-03-20 14:59] LABS: PTT Heparin Drip 52.1 SEC (53-77.9)
[2021-03-20] MEDS: Heparin Sodium,Porcine 5,000 UNIT/ML VIAL 4400 UNIT IVPUSH (15:40)
[2021-03-20 16:24] LABS: Alanine Aminotransferase 10 U/L (0-40); Albumin Level 3.5 g/dL (3.5-5.0); Alkaline Phosphatase 78 U/L (39-117); Aspartate Amino Transferase 17 U/L (5-37); Bilirubin Direct 0.4 mg/dL (0.0-0.5); Bilirubin Total 0.8 mg/dL (0.0-1.0); Total Protein 7.3 g/dL (6.5-8.0)
--- NOTE | 2021-03-20 17:49 | PM.PNNEP ---
Subjective Subjective Date of Service: 03/20/21 Interval history: Events noted. All recent data reviewed Physical Exam Vital Signs: Vital Signs: Last Vital Signs Temp 97.0 F 03/20/21 15:18 Pulse 97 03/20/21 15:18 Resp 20 03/20/21 15:18 BP 135/99 H 03/20/21 15:18 Pulse Ox 97 03/20/21 15:18 Oxygen Flow Rate 2 03/17/21 21:08 Body Mass Index 34.0 Const: General: no acute distress Eyes: EOM: EOMs intact bilaterally Neck: Neck: Yes supple Resp: Auscultation: diminished lung sounds Cardio: Rate: regular rate GI: Palpation (GI): Soft to palpation Neuro: General: moves all extremities Objective Data Labs CBC & Chem 7: 03/20/21 05:24 03/20/21 08:34 Labs: Laboratory Results - last 24 hr 03/19/21 03/19/21 03/20/21 18:26 18:26 01:16 WBC 9.0 RBC 4.94 Hgb 14.4 Hct 46.4 MCV 93.9 MCH 29.1 MCHC 31.0 RDW 16.3 H Plt Count 240 MPV 9.3 L Absolute Nucleated RBC 0.000 Nucleated RBC % (auto) 0.0 PT 13.2 H INR 1.2 H PTT (Heparin Protocol) 34.7 L 48.4 L D Sodium Potassium Chloride Carbon Dioxide Anion Gap BUN Creatinine Estim Creat Clear Calc Estimated GFR Random Glucose Calcium Total Bilirubin Direct Bilirubin AST ALT Alkaline Phosphatase Total Protein Albumin 03/20/21 03/20/21 03/20/21 05:24 05:24 08:34 WBC 8.4 RBC 4.96 Hgb 14.3 Hct 46.0 MCV 92.7 MCH 28.8 MCHC 31.1 RDW 16.4 H Plt Count 252 MPV 9.5 Absolute Nucleated RBC 0.000 Nucleated RBC % (auto) 0.0 PT 13.1 H INR 1.2 H PTT (Heparin Protocol) 67.4 D Sodium Potassium Chloride Carbon Dioxide Anion Gap BUN Creatinine Estim Creat Clear Calc Estimated GFR Random Glucose Calcium Total Bilirubin Direct Bilirubin AST ALT Alkaline Phosphatase Total Protein Albumin 03/20/21 03/20/21 08:34 14:45 WBC RBC Hgb Hct MCV MCH MCHC RDW Plt Count MPV Absolute Nucleated RBC Nucleated RBC % (auto) PT INR PTT (Heparin Protocol) 52.1 L D Sodium 138 Potassium 4.5 Chloride 104 Carbon Dioxide 26 Anion Gap 13 BUN 31 H Creatinine 1.46 H Estim Creat Clear Calc 65.7 Estimated GFR 48 Random Glucose 100 Calcium 8.4 Total Bilirubin 0.8 Direct Bilirubin 0.4 AST 17 ALT 10 Alkaline Phosphatase 78 Total Protein 7.3 Albumin 3.5 Microbiology Microbiology Results: Microbiology 03/17/21 21:25 Blood - Venous Blood Culture - Preliminary No growth after 48 hours. 03/17/21 21:25 Blood - Venous Blood Culture - Preliminary No growth after 48 hours. Procedures Date of Service Date of Service: 03/20/21 Assessment & Plan Assessment and plan (1) NAVI (acute kidney injury): Status: Acute Assessment and Plan: NAVI due to contrasts induced nephrotoxicity (s/p CTA on 03/18) superimposed on renal hypoperfusion was on ACEi and NSAID CT scan negative for obstruction normal baseline kidney function but history of NAVI systolic HF; volume status above dry weight IV furosemide; hold lisinopril; C/W rest of current mgt Labs AM. Shall closely f/u Time Spent With Patient Time: Total time spent is greater than 50% in coordination of care (as documented) at patient's floor/unit and/or counseling patient: Progress Note: Quality Stroke Does the patient have a stroke diagnosis?: No
[2021-03-20] MEDS: oxyCODONE HCl Immed Release 5 MG TABLET PO (21:45)
[2021-03-21] VITALS (10 sets, daily range): BP systolic 134–167; BP diastolic 79–108; PULSE 77–115; RESP 15–20; TEMP 35.8–37.2; O2SAT 94–100; BMI 34.0
[2021-03-21 04:34] LABS: PTT Heparin Drip 62.6 SEC (53-77.9)
[2021-03-21 04:51] LABS: Anion Gap 12 (12-20); Blood Urea Nitrogen 34 mg/dL (9-16); Calcium 8.4 mg/dL (8.4-10.2); Carbon Dioxide 26 mmol/L (22-29); Chloride 108 mmol/L (96-108); Creatinine Clr Calc Pharmacy 76.1; Estimated Glomerular Filt Rate 57; Glucose Random 110 mg/dL (60-115); Potassium 4.6 mmol/L (3.3-5.1); Sodium 141 mmol/L (135-145)
[2021-03-21] MEDS: Apixaban 5 MG TABLET PO ×2 (10:25→20:57)
[2021-03-21] MEDS: Metoprolol Tartrate 25 MG TABLET PO ×2 (10:25→20:57)
[2021-03-21] MEDS: amLODIPine Besylate 2.5 MG TABLET 7.5 MG PO (10:26)
[2021-03-21] MEDS: Pregabalin 50 MG CAPSULE PO (10:27)
[2021-03-21] MEDS: hydrALAZINE HCl 25 MG TABLET PO (10:27)
[2021-03-21] MEDS: Furosemide 40 MG/4 ML VIAL IVPUSH (10:27)
[2021-03-21] MEDS: 0.9 % Sodium Chloride Flush 3 ML SYRINGE IVFLUSH ×3 (10:28→20:57)
--- NOTE | 2021-03-21 10:38 | P.PNIM_ITS ---
Subjective Subjective Date of Service: 03/21/21 Interval History: chf -probable systolic ,low ef , uncontrolled htn, navi Review of Systems has sob with excersion denies any chest pain or abd pain or cough or weakness or numbness Physical Exam Vital Signs: Vital Signs: Last Vital Signs Temp 97.9 F 03/21/21 07:41 Pulse 77 03/21/21 10:27 Resp 20 03/21/21 07:41 BP 167/84 H 03/21/21 10:27 Pulse Ox 100 03/21/21 07:41 Oxygen Flow Rate 2 03/17/21 21:08 Body Mass Index 34.0 Appearance: Alert.? Oriented X3.? not in distress.? Eyes: Pupils equal, round and reactive to light.? Sclera nonicteric.? cvs: rrr, [id number] , no murmur, jvd+. res: clear to auscultation ,no rhonchii or wheezing abd: no rebound or guarding ,nt, bs present. ext pulses present , no cyanosis ,no? edema neuro: axo3 , nonfocal. Objective Data Active Medications Acetaminophen (Acetaminophen 325 Mg Tablet) 650 mg PO Q6H PRN PRN Reason: Pain, Mild (Pain Scale 1-3) Amlodipine Besylate (Amlodipine Besylate 2.5 Mg Tablet) 7.5 mg PO DAILY [facility]; Protocol Last Admin: 03/21/21 10:26 Dose: 7.5 mg Documented by: TOM Apixaban (Apixaban 5 Mg Tablet) 5 mg PO BID@0800,2000 [facility] Last Admin: 03/21/21 10:25 Dose: 5 mg Documented by: TOM Digoxin (Digoxin 0.125 Mg Tablet) 0.125 mg PO Q2D [facility] Last Admin: 03/20/21 09:24 Dose: 0.125 mg Documented by: LYNETTE Docusate Sodium (Docusate Sodium 100 Mg Capsule) 100 mg PO DAILY PRN PRN Reason: Constipation Furosemide (Furosemide 40 Mg/4 Ml Vial) 40 mg IVPUSH DAILY [facility]; Protocol Last Admin: 03/21/21 10:27 Dose: 40 mg Documented by: TOM Metoprolol Tartrate (Metoprolol Tartrate 25 Mg Tablet) 25 mg PO BID [facility]; Protocol Last Admin: 03/21/21 10:25 Dose: 25 mg Documented by: TOM Oxycodone HCl (Oxycodone Hcl Immed Release 5 Mg Tablet) 5 mg PO Q6H PRN PRN Reason: Pain, Mild (Pain Scale 1-3) Last Admin: 03/20/21 21:45 Dose: 5 mg Documented by: CURRY Pharmacy Consult (Consult Rx Perform Med Rec) 1 each MISCELLANE ONCE PRN PRN Reason: Consult order Pregabalin (Pregabalin 50 Mg Capsule) 50 mg PO TID [facility] Last Admin: 03/21/21 10:27 Dose: 50 mg Documented by: TOM Sodium Chloride (0.9 % Sodium Chloride Flush 3 Ml Syringe) 3 ml IVFLUSH QSARFT [facility] Last Admin: 03/21/21 10:28 Dose: 3 ml Documented by: TOM Labs CBC & Chem 7: 03/20/21 05:24 03/21/21 04:19 Labs: Laboratory Results - last 24 hr 03/20/21 03/20/21 03/20/21 08:34 14:45 20:32 PTT (Heparin Protocol) 52.1 L D 83.0 H D Anion Gap Estim Creat Clear Calc Estimated GFR Random Glucose Calcium Total Bilirubin 0.8 Direct Bilirubin 0.4 AST 17 ALT 10 Alkaline Phosphatase 78 Total Protein 7.3 Albumin 3.5 03/21/21 03/21/21 04:19 04:19 PTT (Heparin Protocol) 62.6 D Anion Gap 12 Estim Creat Clear Calc 76.1 Estimated GFR 57 Random Glucose 110 Calcium 8.4 Total Bilirubin Direct Bilirubin AST ALT Alkaline Phosphatase Total Protein Albumin Assessment and Plan (1) HTN (hypertension): Status: Acute (2) NAVI (acute kidney injury): Status: Acute (3) CHF exacerbation: Status: Acute Assessment and Plan: 66-year-old Male with past medical history of AFib presents to the hospital with complaints of shortness of breath found to have CHF exacerbation 1. acute CHF exacerbation-systolic chf - patient does not know any of his medications, he is out of state and lives in [place] - he has dyspnea, elevated BNP, and CT evidence of pulmonary edema as well as p leural effusion echo:20-25%, increased right vent cavity/decreased right vent funtion,severe global kinesis moniter i/o moniter weights ?low-sodium diet, strict I&O, daily weight bnp 1265 on admit-going up to 1306.recheck today continue lasix 2. AFib with RVR adjusted metoprolol continue digoxin Discussed with cardio and neuro-CT head seems negative. neuro recomended start eliquis 3. hypertension- uncontrolled. hold? lisinopril,cont? metoprolol, adjusted hydralazine ,iv lasix , amlodipine ? . 4. navi: use on nasid's at home ,? also got cta ,? diruectics moniter i/o hold ? lisnopril navi seems improving d/w nephro and cardio-since seems still fluid overload and symptomatic -will add lasix back-monitor renal function closely. ?5. hx of pulm embolism:? He said he had pulmonary embolism few years back- poor historian sat sees 95% room area , sob improving on eliquis. Quality Stroke Does the patient have a stroke diagnosis?: No VTE Prior VTE?: No VTE Risk Level:: Medical - moderate - high VTE Device Contraindication: Treatment Not Indicated VTE Drug Contraindication: N/A - Med Ordered
[2021-03-21 11:17] LABS: Alanine Aminotransferase 8 U/L (0-40); Albumin Level 3.3 g/dL (3.5-5.0); Alkaline Phosphatase 70 U/L (39-117); Aspartate Amino Transferase 15 U/L (5-37); Bilirubin Direct 0.3 mg/dL (0.0-0.5); Bilirubin Total 0.7 mg/dL (0.0-1.0)
--- NOTE | 2021-03-21 11:25 | PM.PNNEP ---
Subjective Subjective Date of Service: 03/21/21 Interval history: Events noted. All recent data reviewed. D/W Med Attending Physical Exam Vital Signs: Vital Signs: Last Vital Signs Temp 97.9 F 03/21/21 07:41 Pulse 77 03/21/21 10:27 Resp 20 03/21/21 07:41 BP 167/84 H 03/21/21 10:27 Pulse Ox 100 03/21/21 07:41 Oxygen Flow Rate 2 03/17/21 21:08 Body Mass Index 34.0 Const: General: no acute distress Eyes: EOM: EOMs intact bilaterally Neck: Neck: Yes supple Resp: Auscultation: diminished lung sounds Cardio: Rate: regular rate GI: Palpation (GI): Soft to palpation Neuro: General: moves all extremities Objective Data Labs CBC & Chem 7: 03/20/21 05:24 03/21/21 04:19 Labs: Laboratory Results - last 24 hr 03/20/21 03/20/21 03/20/21 08:34 14:45 20:32 PTT (Heparin Protocol) 52.1 L D 83.0 H D Sodium Potassium Chloride Carbon Dioxide Anion Gap BUN Creatinine Estim Creat Clear Calc Estimated GFR Random Glucose Calcium Total Bilirubin 0.8 Direct Bilirubin 0.4 AST 17 ALT 10 Alkaline Phosphatase 78 Total Protein 7.3 Albumin 3.5 03/21/21 03/21/21 03/21/21 04:19 04:19 10:59 PTT (Heparin Protocol) 62.6 D 35.0 L D Sodium 141 Potassium 4.6 Chloride 108 Carbon Dioxide 26 Anion Gap 12 BUN 34 H Creatinine 1.26 Estim Creat Clear Calc 76.1 Estimated GFR 57 Random Glucose 110 Calcium 8.4 Total Bilirubin 0.7 Direct Bilirubin 0.3 AST 15 ALT 8 Alkaline Phosphatase 70 Total Protein 7.0 Albumin 3.3 L Microbiology Microbiology Results: Microbiology 03/17/21 21:25 Blood - Venous Blood Culture - Preliminary No growth after 48 hours. 03/17/21 21:25 Blood - Venous Blood Culture - Preliminary No growth after 48 hours. Procedures Date of Service Date of Service: 03/21/21 Assessment & Plan Assessment and plan (1) NAVI (acute kidney injury): Status: Acute Assessment and Plan: NAVI due to contrasts induced nephrotoxicity (s/p CTA on 03/18) superimposed on renal hypoperfusion was on ACEi and NSAID CT scan negative for obstruction normal baseline kidney function but has history of NAVI systolic HF; volume status above dry weight; Renal fn better IV furosemide; hold lisinopril; C/W rest of current mgt Time Spent With Patient Time: Total time spent is greater than 50% in coordination of care (as documented) at patient's floor/unit and/or counseling patient: Progress Note: Quality Stroke Does the patient have a stroke diagnosis?: No
[2021-03-21] MEDS: oxyCODONE HCl Immed Release 5 MG TABLET PO ×2 (14:47→23:15)
--- NOTE | 2021-03-21 19:29 | PC.NURSE ---
During day shift today, patient was refusing assistance OOB, refused a bed alarm/chair alarm, and refused a camera, all of which were indicated for high risk fall precautions. Patient education was provided, but patient continued to refuse fall related safety measures. In addition, throughout the day, patient made several sexually inappropriate comments to this nurse. One particular comment to this nurse made by the patient was, Do you want to touch this, as the patient was inferring and looking at his penis. This nurse called security and asked security to speak to the patient regarding his behavior. Security came to floor and spoke with patient.
[2021-03-21] MEDS: hydrALAZINE HCl 50 MG TABLET PO (20:57)
[2021-03-22] VITALS (12 sets, daily range): BP systolic 127–197; BP diastolic 78–99; PULSE 54–95; RESP 16–20; TEMP 36.2–37.1; O2SAT 95–99
[2021-03-22 07:03] LABS: Anion Gap 13 (12-20); Blood Urea Nitrogen 34 mg/dL (9-16); Calcium 8.4 mg/dL (8.4-10.2); Carbon Dioxide 23 mmol/L (22-29); Chloride 105 mmol/L (96-108); Creatinine Clr Calc Pharmacy 87.1; Estimated Glomerular Filt Rate > 60; Glucose Random 95 mg/dL (60-115); Potassium 4.9 mmol/L (3.3-5.1); Sodium 136 mmol/L (135-145)
[2021-03-22] MEDS: Furosemide 40 MG/4 ML VIAL IVPUSH (08:42)
[2021-03-22] MEDS: Apixaban 5 MG TABLET PO ×2 (08:42→21:03)
[2021-03-22] MEDS: 0.9 % Sodium Chloride Flush 3 ML SYRINGE IVFLUSH ×3 (08:42→21:04)
[2021-03-22] MEDS: oxyCODONE HCl Immed Release 5 MG TABLET PO ×3 (08:42→21:04)
[2021-03-22] MEDS: amLODIPine Besylate 2.5 MG TABLET 7.5 MG PO (08:42)
[2021-03-22] MEDS: Metoprolol Tartrate 25 MG TABLET PO ×2 (08:43→21:03)
[2021-03-22] MEDS: hydrALAZINE HCl 50 MG TABLET PO ×2 (08:43→21:04)
[2021-03-22] MEDS: Digoxin 0.125 MG TABLET PO (08:46)
[2021-03-22 09:35] LABS: Alanine Aminotransferase 10 U/L (0-40); Albumin Level 3.3 g/dL (3.5-5.0); Alkaline Phosphatase 71 U/L (39-117); Aspartate Amino Transferase 18 U/L (5-37); Bilirubin Direct 0.2 mg/dL (0.0-0.5); Bilirubin Total 0.7 mg/dL (0.0-1.0); Total Protein 7.2 g/dL (6.5-8.0)
--- NOTE | 2021-03-22 12:34 | P.PNIM_ITS ---
Subjective Subjective Date of Service: 03/22/21 Interval History: chf exceerbation Review of Systems still sob still drining excessive fluids -milk/also has water mug full at bedside Still says has shortness of breath with exertion seems noncomplaint, diuresis well almost 7-8 L since admission. Physical Exam Vital Signs: Vital Signs: Last Vital Signs Temp 98.6 F 03/22/21 11:01 Pulse 95 03/22/21 11:01 Resp 18 03/22/21 11:01 BP 144/96 H 03/22/21 11:01 Pulse Ox 96 03/22/21 11:01 Oxygen Flow Rate 2 03/17/21 21:08 Body Mass Index 34.0 Appearance: Alert.? Oriented X3.? not in distress.? Eyes: Pupils equal, round and reactive to light.? Sclera nonicteric.? cvs: [id number], [id number] , no murmur, jvd+. res: clear to auscultation ,no rhonchii or wheezing abd: no rebound or guarding ,nt, bs present. ext pulses present , no cyanosis ,no? edema neuro: axo3 , nonfocal. Objective Data Active Medications Acetaminophen (Acetaminophen 325 Mg Tablet) 650 mg PO Q6H PRN PRN Reason: Pain, Mild (Pain Scale 1-3) Amlodipine Besylate (Amlodipine Besylate 2.5 Mg Tablet) 7.5 mg PO DAILY [facility]; Protocol Last Admin: 03/22/21 08:42 Dose: 7.5 mg Documented by: BLANCA Apixaban (Apixaban 5 Mg Tablet) 5 mg PO BID@0800,2000 [facility] Last Admin: 03/22/21 08:42 Dose: 5 mg Documented by: BLANCA Digoxin (Digoxin 0.125 Mg Tablet) 0.125 mg PO Q2D [facility] Last Admin: 03/22/21 08:46 Dose: 0.125 mg Documented by: BLANCA Docusate Sodium (Docusate Sodium 100 Mg Capsule) 100 mg PO DAILY PRN PRN Reason: Constipation Furosemide (Furosemide 40 Mg/4 Ml Vial) 40 mg IVPUSH DAILY [facility]; Protocol Last Admin: 03/22/21 08:42 Dose: 40 mg Documented by: BLANCA Hydralazine HCl (Hydralazine Hcl 50 Mg Tablet) 50 mg PO BID [facility]; Protocol Last Admin: 03/22/21 08:43 Dose: 50 mg Documented by: BLANCA Metoprolol Tartrate (Metoprolol Tartrate 25 Mg Tablet) 25 mg PO BID [facility]; Protocol Last Admin: 03/22/21 08:43 Dose: 25 mg Documented by: BLANCA Oxycodone HCl (Oxycodone Hcl Immed Release 5 Mg Tablet) 5 mg PO Q6H PRN PRN Reason: Pain, Mild (Pain Scale 1-3) Last Admin: 03/22/21 08:42 Dose: 5 mg Documented by: BLANCA Pharmacy Consult (Consult Rx Perform Med Rec) 1 each MISCELLANE ONCE PRN PRN Reason: Consult order Pregabalin (Pregabalin 50 Mg Capsule) 50 mg PO TID [facility] Last Admin: 03/22/21 08:44 Dose: Not Given Documented by: BLANCA Non-Admin Reason: Patient Refused Sodium Chloride (0.9 % Sodium Chloride Flush 3 Ml Syringe) 3 ml IVFLUSH QSHIFT [facility] Last Admin: 03/22/21 08:42 Dose: 3 ml Documented by: BLANCA Labs CBC & Chem 7: 03/20/21 05:24 03/22/21 05:44 Labs: Laboratory Results - last 24 hr 03/21/21 03/22/21 04:19 05:44 APTT Cancelled Anion Gap 13 Estim Creat Clear Calc 87.1 Estimated GFR > 60 Random Glucose 95 Calcium 8.4 Total Bilirubin 0.7 Direct Bilirubin 0.2 AST 18 ALT 10 Alkaline Phosphatase 71 Total Protein 7.2 Albumin 3.3 L Assessment and Plan (1) HTN (hypertension): Status: Acute (2) Heart failure with reduced ejection fraction: Status: Acute (3) JAI (acute kidney injury): Status: Acute Assessment and Plan: 66-year-old Male with past medical history of AFib presents to the hospital with complaints of shortness of breath found to have CHF exacerbation 1. acute CHF exacerbation-systolic chf - patient does not know any of his medications, he is out of state and lives in [place] - he has dyspnea, elevated BNP, and CT evidence of pulmonary edema as well as pleural effusion echo:20-25%, increased right vent cavity/decreased right vent funtion,severe global kinesis moniter i/o moniter weights ?low-sodium diet, strict I&O, daily weight diursis well 7-8 liter since admit, non complaint with fluids bnp 1265 on admit-going up to 1306.recheck tomorrow continue iv lasix 2. AFib with RVR adjusted metoprolol continue digoxin Discussed with cardio and neuro-CT head seems negative. neuro recomended start eliquis 3. hypertension- uncontrolled. hold? lisinopril,cont? metoprolol, adjusted hydralazine ,iv lasix , amlodipine ? . 4. jai: use on nasid's at home ,? also got cta ,? diruectics moniter i/o hold ? lisnopril jai seems improving d/w nephro and cardio-since seems still fluid overload and symptomatic -will add lasix back-monitor renal function closely. ?5. hx of pulm embolism:? He said he had pulmonary embolism few years back- poor historian sat sees 96% room area , sob improving on eliquis. Quality Stroke Does the patient have a stroke diagnosis?: No VTE Prior VTE?: No VTE Risk Level:: Medical - moderate - high VTE Device Contraindication: Treatment Not Indicated VTE Drug Contraindication: N/A - Med Ordered
--- NOTE | 2021-03-22 12:58 | PM.PNCARD ---
Subjective Subjective Date of Service: 03/22/21 Principal diagnosis: Congestive heart failure Interval history: Patient has been diuresing well, however continues to be exertionally short of breath. Denies palpitations, lightheadedness, syncope. Has chronic atrial fibrillation.Restarted on oral anticoagulation therapy. Blood pressure remains elevated Review of Systems Constitutional: Reports no additional constitutional complaints Cardiovascular: Denies chest pain, Denies rapid heart rate, Denies lightheadedness, Denies palpitations and Reports dyspnea on exertion Respiratory: Reports dyspnea on exertion Gastrointestinal: Reports no additional gastrointestinal complaints Musculoskeletal: Reports no additional musculoskeletal complaints Reports system reviewed and no additional complaints, except as documented Psychiatric: Reports no additional psychiatric complaints Endocrine: Denies palpitations Allergic/Immunologic: Reports no additional allergic/immunologic complaints Physical Exam Vital Signs: Last Vital Signs Temp 98.6 F 03/22/21 11:01 Pulse 95 03/22/21 11:01 Resp 18 03/22/21 11:01 BP 144/96 H 03/22/21 11:01 Pulse Ox 96 03/22/21 11:01 Oxygen Flow Rate 2 03/17/21 21:08 Body Mass Index 34.0 Const General: cooperative and comfortable Nutritional Appearance: obese Orientation/consciousness: patient oriented x3 Limitations: no limitations Neck Neck: Yes trachea midline, Yes supple and Yes JVD Resp Effort & Inspection: normal respiratory effort Auscultation: clear to auscultation bilaterally Cardio Jugular venous distension: JVD Palpation: abnormal PMI displaced PMI Rhythm: abnormal rhythm irregularly irregular Heart sounds: S1 normal heart sound present, S2 normal heart sound present, no click, no gallops and no murmurs GI Inspection: Yes obesity Auscultation: normal bowel sounds Neuro General: patient oriented x3 and no focal motor deficits Extrem General: No clubbing, No cyanosis and Yes edema Results Labs and Meds Result diagrams: 03/20/21 05:24 03/22/21 05:44 Lab results: Laboratory Results - last 24 hr 03/21/21 03/22/21 04:19 05:44 APTT Cancelled Sodium 136 Potassium 4.9 Chloride 105 Carbon Dioxide 23 Anion Gap 13 BUN 34 H Creatinine 1.10 Estim Creat Clear Calc 87.1 Estimated GFR > 60 Random Glucose 95 Calcium 8.4 Total Bilirubin 0.7 Direct Bilirubin 0.2 AST 18 ALT 10 Alkaline Phosphatase 71 Total Protein 7.2 Albumin 3.3 L Progress Note: A&P Assessment and plan (1) Heart failure with reduced ejection fraction: Status: Acute Assessment and Plan: Heart failure with reduced ejection fraction with severe LV systolic dysfunction. Unclear etiology. Ischemic workup will need to be pursued. Could be alcohol induced. Maximize heart failure regimen. Add Diovan 40 mg b.i.d. to his regimen for neurohormonal modulation. Follow kidney functions. If kidney functions and potassium okay will add Aldactone starting tomorrow. Switch metoprolol to carvedilol therapy for better heart failure date and patient with heart failure with reduced ejection fraction. Continue IV diuresis with Lasix 40 mg b.i.d.. For now continue amlodipine but reduce to 5 mg daily as we adding Diovan to his regimen. Continue hydralazine for now. Eventually switch him completely to neurohormonal modulation. Heart failure management was discussed. Presence of persistent shortness of breath and setting of severe LV systolic dysfunction was discussed with him. Not sure if he understands completely. (2) Atrial fibrillation: Status: Acute Assessment and Plan: Atrial fibrillation, unclear duration. Could be chronic. Patient not sure about the same. Says he had heard about atrial fibrillation for some time. Was on oral anticoagulation but this was stopped in [place]. Restart with negative CT. Avoidance of alcohol was discussed. Continue rate control, will switch metoprolol to carvedilol. Continue digoxin and can increase digoxin to 0.125 mg daily. Will follow with you Fall Risk Details Current Medications: Current Medications Acetaminophen (Acetaminophen 325 Mg Tablet) 650 mg PO Q6H PRN PRN Reason: Pain, Mild (Pain Scale 1-3) Amlodipine Besylate (Amlodipine Besylate 2.5 Mg Tablet) 7.5 mg PO DAILY [facility]; Protocol Last Admin: 03/22/21 08:42 Dose: 7.5 mg Documented by: Apixaban (Apixaban 5 Mg Tablet) 5 mg PO BID@0800,2000 [facility] Last Admin: 03/22/21 08:42 Dose: 5 mg Documented by: Digoxin (Digoxin 0.125 Mg Tablet) 0.125 mg PO Q2D [facility] Last Admin: 03/22/21 08:46 Dose: 0.125 mg Documented by: Docusate Sodium (Docusate Sodium 100 Mg Capsule) 100 mg PO DAILY PRN PRN Reason: Constipation Furosemide (Furosemide 40 Mg/4 Ml Vial) 40 mg IVPUSH DAILY [facility]; Protocol Last Admin: 03/22/21 08:42 Dose: 40 mg Documented by: Hydralazine HCl (Hydralazine Hcl 50 Mg Tablet) 50 mg PO BID [facility]; Protocol Last Admin: 03/22/21 08:43 Dose: 50 mg Documented by: Metoprolol Tartrate (Metoprolol Tartrate 25 Mg Tablet) 25 mg PO BID [facility]; Protocol Last Admin: 03/22/21 08:43 Dose: 25 mg Documented by: Oxycodone HCl (Oxycodone Hcl Immed Release 5 Mg Tablet) 5 mg PO Q6H PRN PRN Reason: Pain, Mild (Pain Scale 1-3) Last Admin: 03/22/21 08:42 Dose: 5 mg Documented by: Pharmacy Consult (Consult Rx Perform Med Rec) 1 each MISCELLANE ONCE PRN PRN Reason: Consult order Pregabalin (Pregabalin 50 Mg Capsule) 50 mg PO TID [facility] Last Admin: 03/22/21 08:44 Dose: Not Given Documented by: Sodium Chloride (0.9 % Sodium Chloride Flush 3 Ml Syringe) 3 ml IVFLUSH QSHIFT [facility] Last Admin: 03/22/21 08:42 Dose: 3 ml Documented by: Time Spent With Patient Time: Total time spent is greater than 50% in coordination of care (as documented) at patient's floor/unit and/or counseling patient: Time with patient: 25 - 35 minutes Progress Note: Quality Stroke Does the patient have a stroke diagnosis?: No Procedures Date of Service Date of Service: 03/22/21
--- NOTE | 2021-03-22 13:40 | PM.PNNEP ---
Subjective Subjective Date of Service: 03/22/21 Principal diagnosis: Congestive heart failure Interval history: Events noted. All recent data reviewed. Renal functions improved Physical Exam Vital Signs: Vital Signs: Last Vital Signs Temp 98.6 F 03/22/21 11:01 Pulse 95 03/22/21 11:01 Resp 18 03/22/21 11:01 BP 144/96 H 03/22/21 11:01 Pulse Ox 96 03/22/21 11:01 Oxygen Flow Rate 2 03/17/21 21:08 Body Mass Index 34.0 Const: General: no acute distress Orientation/consciousness: patient oriented x3 Eyes: EOM: EOMs intact bilaterally Neck: Neck: Yes JVD Resp: Auscultation: diminished lung sounds Cardio: Rate: regular rate GI: Palpation (GI): Soft to palpation Neuro: General: patient oriented x3 Objective Data Labs CBC & Chem 7: 03/20/21 05:24 03/22/21 05:44 Labs: Laboratory Results - last 24 hr 03/21/21 03/22/21 04:19 05:44 APTT Cancelled Sodium 136 Potassium 4.9 Chloride 105 Carbon Dioxide 23 Anion Gap 13 BUN 34 H Creatinine 1.10 Estim Creat Clear Calc 87.1 Estimated GFR > 60 Random Glucose 95 Calcium 8.4 Total Bilirubin 0.7 Direct Bilirubin 0.2 AST 18 ALT 10 Alkaline Phosphatase 71 Total Protein 7.2 Albumin 3.3 L Microbiology Microbiology Results: Microbiology 03/17/21 21:25 Blood - Venous Blood Culture - Preliminary No growth after 48 hours. 03/17/21 21:25 Blood - Venous Blood Culture - Preliminary No growth after 48 hours. Procedures Date of Service Date of Service: 03/22/21 Assessment & Plan Assessment and plan (1) NAVI (acute kidney injury): Status: Acute Assessment and Plan: NAVI due to contrasts induced nephrotoxicity (s/p CTA on 03/18) superimposed on renal hypoperfusion was on ACEi and NSAID CT scan negative for obstruction normal baseline kidney function but has history of NAVI systolic HF; volume status above dry weight; Renal fn better IV furosemide; hold lisinopril; C/W rest of current mgt Time Spent With Patient Time: Total time spent is greater than 50% in coordination of care (as documented) at patient's floor/unit and/or counseling patient: Progress Note: Quality Stroke Does the patient have a stroke diagnosis?: No
[2021-03-22] MEDS: Pregabalin 50 MG CAPSULE PO (21:03)
[2021-03-23] VITALS (9 sets, daily range): BP systolic 132–176; BP diastolic 60–108; PULSE 70–114; RESP 16–20; TEMP 36.3–36.6; O2SAT 93–98; BMI 32.3
[2021-03-23 00:56] LABS: Appearance Urine CLEAR; Color Urine YELLOW; Glucose Urine UA NEG (NEG); Leukocyte Esterase Urine NEG (NEG); Nitrite Urine NEG (NEG); PH 6.5 (5.0-8.0); Urine Blood NEG (NEG); Urine Ketones NEG (NEG); Urine Protein TRACE MG/DL (NEG-TRACE)
--- NOTE | 2021-03-23 01:23 | PC.NURSE ---
Pt noted to have a 5 beat vtach. Pt asymptomatic and asleep. Will continue to monitor.
[2021-03-23 06:30] LABS: Hematocrit 48.4 % (42-52); Hemoglobin 15.2 g/dl (14.0-18.0); Mean Corpuscular HGB Conc 31.4 g/dl (31.0-36.0); Mean Corpuscular Hemoglobin 28.6 pg (27.0-33.0); Mean Corpuscular Volume 91.1 fL (80-98); Mean Platelet Volume 8.9 fL (9.4-12.4); Platelet Count 320 X10*3/uL (160-400); Red Blood Count 5.31 X10*6/uL (4.60-5.80); Red Cell Distribution Width 16.5 % (11.0-16.0); White Blood Count 8.5 X10*3/uL (4.8-10.8)
[2021-03-23 06:48] LABS: Anion Gap 12 (12-20); Blood Urea Nitrogen 35 mg/dL (9-16); Calcium 8.9 mg/dL (8.4-10.2); Carbon Dioxide 25 mmol/L (22-29); Chloride 105 mmol/L (96-108); Creatinine Clr Calc Pharmacy 79.2; Estimated Glomerular Filt Rate > 60; Glucose Random 97 mg/dL (60-115); Potassium 4.5 mmol/L (3.3-5.1); Sodium 137 mmol/L (135-145)
[2021-03-23 06:50] LABS: B Type Natriuretic Peptide 361 pg/mL (<100)
[2021-03-23] MEDS: Furosemide 40 MG/4 ML VIAL IVPUSH ×2 (07:46→11:00)
[2021-03-23] MEDS: hydrALAZINE HCl 50 MG TABLET PO ×2 (07:46→20:21)
[2021-03-23] MEDS: amLODIPine Besylate 2.5 MG TABLET 7.5 MG PO (07:46)
[2021-03-23] MEDS: 0.9 % Sodium Chloride Flush 3 ML SYRINGE IVFLUSH ×3 (07:46→20:23)
[2021-03-23] MEDS: Metoprolol Tartrate 25 MG TABLET PO (07:47)
[2021-03-23] MEDS: Apixaban 5 MG TABLET PO ×2 (07:47→20:21)
[2021-03-23] MEDS: oxyCODONE HCl Immed Release 5 MG TABLET PO ×3 (07:47→22:01)
--- NOTE | 2021-03-23 09:35 | P.PNCA_ITS ---
Subjective Subjective Date of Service: 03/23/21 Principal diagnosis: Congestive heart failure Interval history: Patient seen at bedside. Still says he short of breath laying down as well as walking. However was lying comfortably in bed. No palpitations. Remains in control AFib. No changes were made in his medications. Blood pressure remained significantly elevated Review of Systems Constitutional: Reports no additional constitutional complaints Cardiovascular: Reports dyspnea and Reports orthopnea Respiratory: Reports no additional respiratory complaints and Reports dyspnea Gastrointestinal: Reports no additional gastrointestinal complaints Reports system reviewed and no additional complaints, except as documented Physical Exam Vital Signs: Last Vital Signs Temp 97.5 F 03/23/21 07:49 Pulse 114 H 03/23/21 07:49 Resp 20 03/23/21 07:49 BP 176/108 H 03/23/21 07:49 Pulse Ox 96 03/23/21 07:49 Oxygen Flow Rate 2 03/17/21 21:08 Body Mass Index 32.3 Results Labs and Meds Result diagrams: 03/23/21 05:45 03/23/21 05:45 Lab results: Laboratory Results - last 24 hr 03/22/21 03/22/21 03/22/21 05:44 23:00 23:00 WBC RBC Hgb Hct MCV MCH MCHC RDW Plt Count MPV Absolute Nucleated RBC Nucleated RBC % (auto) Sodium Potassium Chloride Carbon Dioxide Anion Gap BUN Creatinine Estim Creat Clear Calc Estimated GFR Random Glucose Calcium Total Bilirubin 0.7 Direct Bilirubin 0.2 AST 18 ALT 10 Alkaline Phosphatase 71 B-Natriuretic Peptide Total Protein 7.2 Albumin 3.3 L Urine Color YELLOW Urine Appearance CLEAR Urine pH 6.5 Ur Specific [place] 1.010 Urine Protein TRACE Urine Glucose (UA) NEG Urine Ketones NEG Urine Blood NEG Urine Nitrite NEG Ur Leukocyte Esterase NEG Ur Random Sodium 59.0 03/23/21 03/23/21 03/23/21 05:45 05:45 05:45 WBC 8.5 RBC 5.31 Hgb 15.2 Hct 48.4 MCV 91.1 MCH 28.6 MCHC 31.4 RDW 16.5 H Plt Count 320 D MPV 8.9 L Absolute Nucleated RBC 0.000 Nucleated RBC % (auto) 0.0 Sodium 137 Potassium 4.5 Chloride 105 Carbon Dioxide 25 Anion Gap 12 BUN 35 H Creatinine 1.18 Estim Creat Clear Calc 79.2 Estimated GFR > 60 Random Glucose 97 Calcium 8.9 Total Bilirubin Direct Bilirubin AST ALT Alkaline Phosphatase B-Natriuretic Peptide 361 H Total Protein Albumin Urine Color Urine Appearance Urine pH Ur Specific [place] Urine Protein Urine Glucose (UA) Urine Ketones Urine Blood Urine Nitrite Ur Leukocyte Esterase Ur Random Sodium Progress Note: A&P Assessment and plan (1) Heart failure with reduced ejection fraction: Status: Acute Assessment and Plan: Heart failure with reduced ejection fraction with significantly elevated blood pressure today. Please add Diovan, 80 mg b.i.d. and switch metoprolol to carvedilol 6.25 mg b.i.d.. Continue hydralazine and Norvasc for now till as better blood pressure control. Continue IV Lasix. CHF education to be provided. Patient to ambulate as tolerated. Strict intake and output chart needs to be pursued. Please trend BNP tomorrow for discharge purposes to make sure that it is less than 50% of admission BNP to reduce 3 hospitalizations. (2) Atrial fibrillation: Status: Acute Assessment and Plan: Atrial fibrillation, rate is currently controlled. Continue carvedilol and digoxin therapy. Increase digoxin to 0.125 mg daily. Digoxin assay in a week's time. Continue full oral anticoagulation, currently on Eliquis 5 mg b.i.d.. Will continue to follow with the patient Fall Risk Details Current Medications: Current Medications Acetaminophen (Acetaminophen 325 Mg Tablet) 650 mg PO Q6H PRN PRN Reason: Pain, Mild (Pain Scale 1-3) Amlodipine Besylate (Amlodipine Besylate 2.5 Mg Tablet) 7.5 mg PO DAILY [facility]; Protocol Last Admin: 03/23/21 07:46 Dose: 7.5 mg Documented by: Apixaban (Apixaban 5 Mg Tablet) 5 mg PO BID@0800,2000 [facility] Last Admin: 03/23/21 07:47 Dose: 5 mg Documented by: Digoxin (Digoxin 0.125 Mg Tablet) 0.125 mg PO Q2D [facility] Last Admin: 03/22/21 08:46 Dose: 0.125 mg Documented by: Docusate Sodium (Docusate Sodium 100 Mg Capsule) 100 mg PO DAILY PRN PRN Reason: Constipation Furosemide (Furosemide 40 Mg/4 Ml Vial) 40 mg IVPUSH DAILY [facility]; Protocol Last Admin: 03/23/21 07:46 Dose: 40 mg Documented by: Hydralazine HCl (Hydralazine Hcl 50 Mg Tablet) 50 mg PO BID [facility]; Protocol Last Admin: 03/23/21 07:46 Dose: 50 mg Documented by: Metoprolol Tartrate (Metoprolol Tartrate 25 Mg Tablet) 25 mg PO BID [facility]; Protocol Last Admin: 03/23/21 07:47 Dose: 25 mg Documented by: Oxycodone HCl (Oxycodone Hcl Immed Release 5 Mg Tablet) 5 mg PO Q6H PRN PRN Reason: Pain, Mild (Pain Scale 1-3) Last Admin: 03/23/21 07:47 Dose: 5 mg Documented by: Pharmacy Consult (Consult Rx Perform Med Rec) 1 each MISCELLANE ONCE PRN PRN Reason: Consult order Pregabalin (Pregabalin 50 Mg Capsule) 50 mg PO TID [facility] Last Admin: 03/23/21 07:47 Dose: Not Given Documented by: Sodium Chloride (0.9 % Sodium Chloride Flush 3 Ml Syringe) 3 ml [facility]USH [facility] Last Admin: 03/23/21 07:46 Dose: 3 ml Documented by: Time Spent With Patient Time: Total time spent is greater than 50% in coordination of care (as documented) at patient's floor/unit and/or counseling patient: Time with patient: 25 - 35 minutes Progress Note: Quality Stroke Does the patient have a stroke diagnosis?: No Procedures Date of Service Date of Service: 03/23/21
--- NOTE | 2021-03-23 09:59 | P.PNIM_ITS ---
Subjective Subjective Date of Service: 03/23/21 Interval History: Seen in f/u heart failure. Still c/o feeling sob and not well Review of Systems sob GAGE no fever Physical Exam Vital Signs: Vital Signs: Last Vital Signs Temp 97.5 F 03/23/21 07:49 Pulse 114 H 03/23/21 07:49 Resp 20 03/23/21 07:49 BP 176/108 H 03/23/21 07:49 Pulse Ox 96 03/23/21 07:49 Oxygen Flow Rate 2 03/17/21 21:08 Body Mass Index 32.3 General: AO X 3,hard time catching his breath Resp: rales at bases CVS: S1,S2,RRR GI: +BS, NT, no distention Skin: No rash Neuro: motor grossly intact Psych: appropriate affect Objective Data Active Medications Acetaminophen (Acetaminophen 325 Mg Tablet) 650 mg PO Q6H PRN PRN Reason: Pain, Mild (Pain Scale 1-3) Amlodipine Besylate (Amlodipine Besylate 2.5 Mg Tablet) 7.5 mg PO DAILY [facility]; Protocol Last Admin: 03/23/21 07:46 Dose: 7.5 mg Documented by: BLANCA Apixaban (Apixaban 5 Mg Tablet) 5 mg PO BID@0800,2000 [facility] Last Admin: 03/23/21 07:47 Dose: 5 mg Documented by: BLANCA Carvedilol (Carvedilol 6.25 Mg Tablet) 6.25 mg PO BID [facility]; Protocol Digoxin (Digoxin 0.125 Mg Tablet) 0.125 mg PO Q2D [facility] Last Admin: 03/22/21 08:46 Dose: 0.125 mg Documented by: BLANCA Docusate Sodium (Docusate Sodium 100 Mg Capsule) 100 mg PO DAILY PRN PRN Reason: Constipation Furosemide (Furosemide 100 Mg/10 Ml Vial) 80 mg IVPUSH Q12H [facility]; Protocol Hydralazine HCl (Hydralazine Hcl 50 Mg Tablet) 50 mg PO BID [facility]; Protocol Last Admin: 03/23/21 07:46 Dose: 50 mg Documented by: BLANCA Oxycodone HCl (Oxycodone Hcl Immed Release 5 Mg Tablet) 5 mg PO Q6H PRN PRN Reason: Pain, Mild (Pain Scale 1-3) Last Admin: 03/23/21 07:47 Dose: 5 mg Documented by: BLANCA Pharmacy Consult (Consult Rx Perform Med Rec) 1 each MISCELLANE ONCE PRN PRN Reason: Consult order Pregabalin (Pregabalin 50 Mg Capsule) 50 mg PO TID [facility] Last Admin: 03/23/21 07:47 Dose: Not Given Documented by: BLANCA Non-Admin Reason: Patient Refused Sodium Chloride (0.9 % Sodium Chloride Flush 3 Ml Syringe) 3 ml IVFLUSH QSHIFT [facility] Last Admin: 03/23/21 07:46 Dose: 3 ml Documented by: BLANCA Labs CBC & Chem 7: 03/23/21 05:45 03/23/21 05:45 Microbiology Microbiology Results: Microbiology 03/17/21 21:25 Blood Culture - Final Blood - Venous No growth after 5 days. 03/17/21 21:25 Blood Culture - Final Blood - Venous No growth after 5 days. Assessment and Plan (1) HTN (hypertension): Status: Acute (2) Heart failure with reduced ejection fraction: Status: Acute (3) NAVI (acute kidney injury): Status: Acute Assessment and Plan: 66-year-old Male with past medical history of AFib presents to the hospital with complaints of shortness of breath found to have CHF exacerbation 1. acute CHF exacerbation-systolic CHF with low EF 20% still decompensated... Continue IV lasix 80bib, change metoprolool to Coreg Follow I/O, daily weight, low sald diet, CHF and med education, check BNP tomorrow 2. AFib with RVR, HR still high continue Dig replace Metoprolol with Coreg Eliquis for stroke prevention 3. hypertension- uncontrolled -continue Coreg, Norvasc, restart Lisinopril at lower dose 4.NAVI--possible pre renal vs cardiorenal syndrome ?5. hx of pulm embolism:? He said he had pulmonary embolism few years back- poor historian sat sees 96% room area. Continue Eliquis Quality Stroke Does the patient have a stroke diagnosis?: No VTE Prior VTE?: No VTE Risk Level:: Medical - moderate - high VTE Device Contraindication: Treatment Not Indicated VTE Drug Contraindication: N/A - Med Ordered
--- NOTE | 2021-03-23 11:51 | CONS_ITS ---
DATE OF SERVICE: 03/19/2021 HISTORY OF PRESENT ILLNESS: I was asked to assist in the management of this 66-year-old patient, who presented to the hospital with shortness of breath and is currently with worsening kidney function. The patient who was a prior episode of acute kidney injury at a hospital in [place], had been driving for the last 4 days and developed significant shortness of breath, which prompted his admission to the hospital. He denies any chest pain or cough. There is no report of nausea, vomiting, diarrhea, or abdominal pain. The patient did have a CT angiogram. The patient has no evidence for pulmonary emboli, but showed bilateral pleural effusion. The patient also tells me that he took over 12 ibuprofen over the last 3 days. PAST MEDICAL HISTORY: Remarkable for atrial fibrillation, hypertension, congestive heart failure. PAST SURGICAL HISTORY: Notable for appendectomy. MEDICATIONS: As an outpatient included aspirin, digoxin, gabapentin, lisinopril, metoprolol. ALLERGIES: HE IS NOT ALLERGIC TO MEDICATIONS. SOCIAL HISTORY: He does not smoke. FAMILY HISTORY: Negative for kidney disease. REVIEW OF SYSTEMS: 10-point review of systems negative except for pertinent in the history of present illness. PHYSICAL EXAMINATION: VITAL SIGNS: Blood pressure 146/103, heart rate 90, respiratory rate 15, afebrile. CONSTITUTIONAL: Looks his age. No acute distress. NEUROLOGIC: Alert, awake. HEAD: Atraumatic, normocephalic. NECK: Supple. LUNGS: Decreased breath sounds. CARDIOVASCULAR: S1 and S2. No rub. ABDOMEN: Soft, nontender. EXTREMITIES: With peripheral edema. LABS: Showed a white count 8.3, hemoglobin 15.3, platelet count 231. Sodium 141, potassium 4.1, chloride 102, CO2 29, BUN 33, creatinine 1.64. IMPRESSION: 1. Acute kidney injury. 2. Hypertension. 3. Congestive heart failure. This is a patient with acute kidney injury, most likely due to contrast-induced nephrotoxicity as he had a CT angiogram and received IV dye load on the . I suspect that he had underlying renal hypoperfusion at the time of the CT angio as he had a significant consumption of ibuprofen combined with administration of ELVA inhibitor, which disrupted autoregulation of the kidney. He does not have obstructive uropathy as CT scan of the abdomen was negative for obstruction and only show presence of renal cysts. He has underlying congestive heart failure, although I do not have access to his most recent left ventricular ejection fraction and volume status appears to be above dry weight. RECOMMENDATIONS: 1. Urine sodium. 2. Urinalysis. 3. No IV fluid. 4. IV furosemide. 5. Hold lisinopril. 6. Follow kidney function, electrolytes. Thank you for allowing me to participate in the care of this patient. MD ARPITA Cartagena/ULISES / [phone]
[2021-03-23] MEDS: Pregabalin 50 MG CAPSULE PO (20:21)
[2021-03-23] MEDS: carvediloL 6.25 MG TABLET PO (20:22)
[2021-03-24] VITALS: BP 142/77; PULSE 54; RESP 16; TEMP 36.8; O2SAT 98
[2021-03-24 04:00] VITALS: BP 124/84; PULSE 91; RESP 16; TEMP 37.1; O2SAT 100
--- NOTE | 2021-03-24 05:15 | PC.NURSE ---
Pt BP 192/80 for 0400 vitals. Pt asessed and asymptomatic. Dr. Friedman notified, ordered Coreg to be given now instead of 0900.
[2021-03-24 06:00] VITALS: BMI 31.8
[2021-03-24 06:52] LABS: Hematocrit 49.9 % (42-52); Hemoglobin 15.6 g/dl (14.0-18.0); Mean Corpuscular HGB Conc 31.3 g/dl (31.0-36.0); Mean Corpuscular Volume 89.4 fL (80-98); Mean Platelet Volume 8.9 fL (9.4-12.4); Platelet Count 315 X10*3/uL (160-400); Red Blood Count 5.58 X10*6/uL (4.60-5.80); Red Cell Distribution Width 16.3 % (11.0-16.0); White Blood Count 7.5 X10*3/uL (4.8-10.8)
[2021-03-24 07:14] VITALS: BP 158/90; PULSE 94; RESP 20; TEMP 36.1; O2SAT 96
[2021-03-24 08:17] LABS: Anion Gap 15 (12-20); Blood Urea Nitrogen 38 mg/dL (9-16); Calcium 8.6 mg/dL (8.4-10.2); Carbon Dioxide 22 mmol/L (22-29); Chloride 102 mmol/L (96-108); Creatinine Clr Calc Pharmacy 76.1; Estimated Glomerular Filt Rate 60; Glucose Random 108 mg/dL (60-115); Potassium 4.4 mmol/L (3.3-5.1); Sodium 135 mmol/L (135-145)
[2021-03-24] MEDS: Furosemide 100 MG/10 ML VIAL 80 MG IVPUSH (08:25)
[2021-03-24] MEDS: amLODIPine Besylate 2.5 MG TABLET 7.5 MG PO (08:26)
[2021-03-24] MEDS: Pregabalin 50 MG CAPSULE PO ×2 (08:26→14:25)
[2021-03-24] MEDS: carvediloL 6.25 MG TABLET PO (08:26)
[2021-03-24] MEDS: Apixaban 5 MG TABLET PO (08:26)
[2021-03-24] MEDS: hydrALAZINE HCl 50 MG TABLET PO (08:26)
[2021-03-24] MEDS: oxyCODONE HCl Immed Release 5 MG TABLET PO ×2 (08:28→14:27)
[2021-03-24] MEDS: 0.9 % Sodium Chloride Flush 3 ML SYRINGE IVFLUSH (08:29)
[2021-03-24] MEDS: Digoxin 0.125 MG TABLET PO (09:05)
[2021-03-24 09:13] LABS: B Type Natriuretic Peptide 193 pg/mL (<100)
--- NOTE | 2021-03-24 10:22 | P.DS_ITS ---
DS: Providers Provider Date of Service: 03/24/21 Date of admission: 03/18/21 01:05 Primary care physician: Nonstaff Physician Consults: 03/18/21 03:41 Consult to Cardiology Routine Consulting Provider: Uvaldo Adkins Reason for consultation: chf Has provider been notified: No 03/18/21 07:02 Consult to Cardiology Routine Consulting Provider: Uvaldo Adkins Reason for consultation: CHF Has provider been notified: No 03/18/21 14:40 Consult to Pulmonology Routine Consulting Provider: Tip Melvin Reason for consultation: Mediastinal lymphadenopathy Has provider been notified: No 03/19/21 08:17 Consult to Nephrology Routine Consulting Provider: Zachary Fuchs Reason for consultation: navi , has chf excecerbation on lasix Has provider been notified: No 03/19/21 14:56 Consult to Neurology Routine Consulting Provider: [facility] Reason for consultation: hx of haemorragic brain contusion on 12/30, need AC clearnce-hx of afib/PE Has provider been notified: No DS: Diagnosis Discharge Diagnosis (1) HTN (hypertension): Status: Acute (2) Heart failure with reduced ejection fraction: Status: Acute (3) NAVI (acute kidney injury): Status: Acute DS: Summary Hospital Course Hospital Course: Chief Complaint: Shortness of breath This is a 66-year-old male with past medical history of AFib, and hypertension who presents to the hospital with with shortness of breath.? Patient reports that he has been traveling from [place] for the past 4 days driving, but developed significant shortness of breath for the past 3-4 days that is now significantly worse.? Patient denies any cough, no chest pain, no sputum production.? He does feel palpitations , no headache or change in vision, no dizziness.? No abdominal pain nausea or vomiting, no diarrhea constipation, no urinary symptoms, he is also having lower extremity edema. On arrival to the ED patient Found to have a a heart rate that [address] 180, but resolved after receiving diltiazem, other vitals show an elevated blood pressure On arrival labs are significant for WBC count of 8.3, troponin of 78.5, BNP of 1265, COVID negative, influenza and RSV negative Chest CT angiogram shows no evidence of PE, mediastinal and hilar lymphadenopathy of uncertain etiology, bilateral pleural effusion with antral overall septal thickening related to pulmonary edema.? Bronchial wall thickening .? A few subcentimeter pulmonary nodules are indeterminate and could be malignant. EKG shows atrial fibrillation with nonspecific T-wave abnormality Patient will be admitted for further management of CHF exacerbation Hospital course: Reportedly he relocated from [place] and wasn't sure what medications he took and has not been taken them # acute systolic CHF exacerbation--apparently has not been taking his medication. His ejection fraction is 20-25% on echo from 03/18. He has been treated with IV Lasix, he has been evaluated by cardiology, overall seems to have improved with IV Lasix BNP has come down from 1265 to 193. He has diuressed 14 liters. Additional medical management with Coreg, Diovan, Aldactone. He will be discharged with oral Lasix 80 daily and to follow up with cardiology clinic. # AFib with RVR--Initially required IV cardizem but heart rate is now controlled with Lopressor, digoxin--see med list and anticoagulation with Eliquis. # HTN--BP is controlled with Coreg, Hydralazine, Norvasc and add Diovan, Aldactone. Final Diagnoses: Acute on chronic systolic heart failure acute kidney injury atrial fibrillation that is new onset hypertension Time Spent with Patient Time attestation: Total time spent providing and/or coordinating discharge services: Discharge coordination time: Greater than 30 minutes Quality: Stroke Does the patient have a stroke diagnosis?: No Physical Exam Vital Signs: Vital Signs: Last Vital Signs Temp 97 F 03/24/21 07:14 Pulse 94 03/24/21 07:14 Resp 20 03/24/21 07:14 BP 158/90 H 03/24/21 07:14 Pulse Ox 96 03/24/21 07:14 Oxygen Flow Rate 2 03/17/21 21:08 Body Mass Index 31.8 DS: Data Data Completed and Pending Labs on day of discharge: Laboratory Results - last 24 hr 03/24/21 03/24/21 03/24/21 05:54 05:54 05:54 WBC 7.5 RBC 5.58 Hgb 15.6 Hct 49.9 MCV 89.4 MCH 28.0 MCHC 31.3 RDW 16.3 H Plt Count 315 MPV 8.9 L Absolute Nucleated RBC 0.000 Nucleated RBC % (auto) 0.0 Sodium 135 Potassium 4.4 Chloride 102 Carbon Dioxide 22 Anion Gap 15 BUN 38 H Creatinine 1.22 Estim Creat Clear Calc 76.1 Estimated GFR 60 Random Glucose 108 Calcium 8.6 B-Natriuretic Peptide 193 H Discharge Plan Discharge Anticipated Discharge Date/Time: 03/24/21 10:35 Patient Disposition: Home Health Service Discharge Diagnosis: Duplicate Referrals: Physician,Nonstaff [Primary Care Provider] - 1 Week Discharge Medications: New carvedilol 6.25 mg Tablet 6.25 mg PO BID Qty: 60 RF: 0 hydralazine 50 mg Tablet 50 mg PO BID Qty: 60 RF: 0 digoxin 125 mcg (0.125 mg) Tablet 0.125 mg PO Q2D Qty: 30 RF: 0 Eliquis 5 mg Tablet 5 mg PO BID@0800,2000 Qty: 60 RF: 0 amlodipine [Norvasc] 5 mg tablet 5 mg PO DAILY Qty: 30 RF: 0 valsartan [Diovan] 160 mg tablet 160 mg PO DAILY Qty: 30 RF: 0 spironolactone [Aldactone] 25 mg tablet 25 mg PO DAILY Qty: 30 RF: 0 Continued gabapentin 100 mg capsule 1 cap PO TID RF: 0 pantoprazole 40 mg tablet,delayed release (DR/EC) 1 tab PO DAILY RF: 0 pantoprazole 40 mg tablet,delayed release (DR/EC) 1 tab PO DAILY Qty: 30 RF: 0 gabapentin 100 mg capsule 1 cap PO TID Qty: 60 RF: 0 Discontinued digoxin 250 mcg (0.25 mg) tablet 1 tab PO DAILY RF: 0 carvedilol 12.5 mg tablet 1 tab PO BID RF: 0 clonidine HCl 0.2 mg tablet 1 tab PO BID RF: 0 losartan 100 mg tablet 1 tab PO DAILY RF: 0 Discharge Orders: Discharge Order (Routine); Ordered 03/24/21 Ordered By: Jimenez [place] Diet: advance to usual diet Activity on Discharge: As tolerated Stand Alone Forms: Patient Portal Discharge page Care Plan Goals: Prevent rehospitalization Health Concerns: AFIB, heart failure Plan of Treatment: Take all your medications as specified and follow up with Dr. Guevara, avoid salty food, do not drink too much water no more than 1500 cc a day Assessment: See above
[2021-03-24 11:11] VITALS: BP 128/61; PULSE 77; RESP 20; TEMP 35.5; O2SAT 97
[2021-03-24] MEDS: lisinopriL 5 MG TABLET PO (12:14)
[2021-03-24] MEDS: Acetaminophen 325 MG TABLET 650 MG PO (12:20)
--- NOTE | 2021-03-24 13:09 | P.F2F_ITS ---
Service Date Service Date: 03/24/21 Reasons for Services Reason for group home: CV/CP assess and/or care, medication management and medication treatment Homebound: Leaving the home is medically contraindicated at this time without the asist of a device and/or another person due th the listed conditions above and below. Homebound supporting statement: homebound due to heart failure with sob with minimal activity and therefore needing the assitance of another person Certification: Based on the above findings, I certify that this patient is confined to the home and needs intermittent group home care, physical therapy and/or speech therapy, or continues to need occupational therapy. The patient is under my care, and I have initiated the establishment of the plan of care. The patient will be followed by a physician who will periodically review the plan of care.
--- NOTE | 2021-03-24 13:14 | MHC.CM.PN ---
IMM 03/24/21 Male DX HF is discharge today to home. Patient does not qualify for home care services because; He does not have a PCP. Pts sister will provide transportation.
[2021-03-24 14:40] LABS: Prot Elec - Albumin 3.3 g/dL (3.8-4.8); Prot Elec - Alpha1 0.4 g/dL (0.2-0.3); Prot Elec - Alpha2 0.7 g/dL (0.5-0.9); Prot Elec - Beta 1 0.5 g/dL (0.4-0.6); Prot Elec - Beta 2 0.5 g/dL (0.2-0.5); Prot Elec - Total Protein 7.3 g/dL (6.1-8.1)
--- NOTE | 2021-03-24 15:27 | P.PNCA_ITS ---
Subjective Subjective Date of Service: 03/24/21 Principal diagnosis: Congestive heart failure Interval history: Patient continues to complain of shortness of breath and not feeling well. However he is laying flat in the bed with no symptoms. BNP is significantly improved. Overall has diuresed significantly since hospitalization. Tolerated lisinopril therapy. Review of Systems Constitutional: Reports no additional constitutional complaints Cardiovascular: Reports dyspnea on exertion and Reports orthopnea Respiratory: Reports no additional respiratory complaints and Reports dyspnea on exertion Gastrointestinal: Reports no additional gastrointestinal complaints Genitourinary: Reports no additional male genitourinary complaints Musculoskeletal: Reports no additional musculoskeletal complaints Reports system reviewed and no additional complaints, except as documented Psychiatric: Reports no additional psychiatric complaints Physical Exam Vital Signs: Last Vital Signs Temp 96 F L 03/24/21 11:11 Pulse 77 03/24/21 11:11 Resp 20 03/24/21 11:11 BP 128/61 03/24/21 11:11 Pulse Ox 97 03/24/21 11:11 Oxygen Flow Rate 2 03/17/21 21:08 Body Mass Index 31.8 Const General: cooperative, comfortable, no acute distress and alert Nutritional Appearance: obese Orientation/consciousness: patient oriented x3 Neck Neck: Yes trachea midline, Yes supple and Yes no JVD Resp Effort & Inspection: normal respiratory effort Auscultation: clear to auscultation bilaterally Cardio Jugular venous distension: no JVD Palpation: abnormal PMI displaced PMI Rhythm: abnormal rhythm irregularly irregular Heart sounds: S1 normal heart sound present, S2 normal heart sound present, no click, no gallops and no murmurs Skin General skin exam: no rashes or lesions noted Neuro General: patient oriented x3 and no focal motor deficits Extrem General: Yes no clubbing, cyanosis or edema Results Labs and Meds Result diagrams: 03/24/21 05:54 03/24/21 05:54 Lab results: Laboratory Results - last 24 hr 03/19/21 03/24/21 03/24/21 09:59 05:54 05:54 WBC 7.5 RBC 5.58 Hgb 15.6 Hct 49.9 MCV 89.4 MCH 28.0 MCHC 31.3 RDW 16.3 H Plt Count 315 MPV 8.9 L Absolute Nucleated RBC 0.000 Nucleated RBC % (auto) 0.0 Sodium 135 Potassium 4.4 Chloride 102 Carbon Dioxide 22 Anion Gap 15 BUN 38 H Creatinine 1.22 Estim Creat Clear Calc 76.1 Estimated GFR 60 Random Glucose 108 Calcium 8.6 B-Natriuretic Peptide Total Protein (PEP) 7.3 Albumin (PEP) 3.3 L Tudyo-8-Beuqjcuim 0.4 H Mijsx-5-Tgvcaepsy 0.7 Vyiu-9-Hudbcjzd 0.5 Iqkp-4-Drhayvqj 0.5 Gamma Globulins 2.0 H PEP Interpretation SEE NOTE 03/24/21 05:54 WBC RBC Hgb Hct MCV MCH MCHC RDW Plt Count MPV Absolute Nucleated RBC Nucleated RBC % (auto) Sodium Potassium Chloride Carbon Dioxide Anion Gap BUN Creatinine Estim Creat Clear Calc Estimated GFR Random Glucose Calcium B-Natriuretic Peptide 193 H Total Protein (PEP) Albumin (PEP) Uvadr-4-Uyyjkxmhz Ucfpf-1-Vjgxuuzpx Yctg-7-Pnpwreac Uair-1-Qjqbwfdd Gamma Globulins PEP Interpretation Progress Note: A&P Assessment and plan (1) Heart failure with reduced ejection fraction: Status: Acute Assessment and Plan: Heart failure with reduced ejection fraction with multiple medications on board. Continue carvedilol. Discontinue lisinopril and start Diovan therapy on discharge. Will switch to Entresto therapy as outpatient. Continue hydralazine and Norvasc for now for blood pressure control. Also continue Aldactone. Continue oral Lasix therapy. Patient was explained heart failure management and importance of compliance as well as follow-up as outpatient. He shows understanding. Will set up for ischemic workup as outpatient followup in 7-10 days. He is agreeable to this management plan. Can be discharged from cardiac perspective at this point in time. (2) Atrial fibrillation: Status: Acute Assessment and Plan: Atrial fibrillation currently rate controlled. Continue carvedilol and digoxin for rate control. Importance of rate control was discussed. Outpatient Holter monitor will be pursued. Continue full oral anticoagulation as prescribed. Importance of oral anticoagulation therapy was discussed. Alcohol abstinence was discussed. Follow up in the clinic in 2 weeks time. Thank you for allowing me to partake in his care Time Spent With Patient Time: Total time spent is greater than 50% in coordination of care (as nidia juarez) at patient's floor/unit and/or counseling patient: Time with patient: 15 - 24 minutes Progress Note: Quality Stroke Does the patient have a stroke diagnosis?: No Procedures Date of Service Date of Service: 03/24/21
== END 2021-03-24 15:03 | disposition home or self-care (01) | DRG 291 ==
LOC: HO.ED 22:04 → HO.EDOVER 03-18 01:21 → HO.IMC 03-18 19:49
PROVIDERS: Hospitalist; Internal Medicine; Internal Medicine Nephrology; Admitting Provider Internal Medicine; Emergency Provider Internal Medicine; Visit Provider Internal Medicine
DX: I11.0 Hypertensive heart disease with heart failure (principal); I50.23 Acute on chronic systolic (congestive) heart failure; N17.9 Acute kidney failure, unspecified; I48.91 Unspecified atrial fibrillation; G47.33 Obstructive sleep apnea (adult) (pediatric); Z86.711 Personal history of pulmonary embolism; T50.8X5A Adverse effect of diagnostic agents, initial encounter; Y92.9 Unspecified place or not applicable; Z20.822 Contact with and (suspected) exposure to COVID-19; Z79.01 Long term (current) use of anticoagulants; Z79.899 Other long term (current) drug therapy
CPT/HCPCS: 0241U; 36415; 70450; 71045; 71275; 74176; 80048; 80053; 80076; 81003; 83605; 83615; 83690; 83880; 84145; 84165; 84300; 84484; 85025; 85027; 85379; 85610; 85652; 85730; 87040; 87635; 93005; 93306; 96361; 96372; 96374; 96375; 99285; J1650; J1940; J2270; J2405; Q9957; Q9967

== ENCOUNTER 2021-03-31 21:39 | Emergency (ER) | payer MEDICARE, SELFPAY ==
--- NOTE | ~2021-03-31 | XR_ITS ---
Indication: Pain EXAMINATION: Bilateral feet. 3 views of left foot demonstrate significant degeneration first MTP joint. There is no evidence for an acute bony erosion. Alignment is within normal limits. Likely degeneration adjacent the cuboid. Moderate spurring at the insertion of the plantar aponeuroses and mild spurring at the insertion of the Achilles. Mild irregularity of the dorsal aspect of the tarsal bones may well be degenerative. 3 views of the right foot demonstrate more mild degenerative changes. No bony erosion is seen. Hardware in the distal tibia and fibula are noted. Likely chronic changes at the level the ankle joint. Degenerative spurring at the insertion of the plantar aponeuroses which is mild to moderate and mild spurring at the insertion of the Achilles. XR/XR foot RT min 3V IMPRESSION: Some degenerative changes which are noted above. No acute finding in the right or left foot.
--- NOTE | ~2021-03-31 | XR_ITS ---
Indication: Pain EXAMINATION: Bilateral feet. 3 views of left foot demonstrate significant degeneration first MTP joint. There is no evidence for an acute bony erosion. Alignment is within normal limits. Likely degeneration adjacent the cuboid. Moderate spurring at the insertion of the plantar aponeuroses and mild spurring at the insertion of the Achilles. Mild irregularity of the dorsal aspect of the tarsal bones may well be degenerative. 3 views of the right foot demonstrate more mild degenerative changes. No bony erosion is seen. Hardware in the distal tibia and fibula are noted. Likely chronic changes at the level the ankle joint. Degenerative spurring at the insertion of the plantar aponeuroses which is mild to moderate and mild spurring at the insertion of the Achilles. XR/XR foot LT min 3V IMPRESSION: Some degenerative changes which are noted above. No acute finding in the right or left foot.
[2021-03-31 21:44] VITALS: BP 141/79; PULSE 70; O2SAT 96
[2021-03-31 21:47] VITALS: BP 130/91; PULSE 84; RESP 20; TEMP 36.8; O2SAT 97; BMI 33.9
--- NOTE | 2021-03-31 23:44 | ED.EXTPRO ---
HPI - Extremity Problem General Chief complaint: Extremity Problem Stated complaint: Bilateral foot pain Time Seen by Provider: 03/31/21 23:21 Source: patient Mode of arrival: ambulatory History of Present Illness HPI Narrative: 66-year-old male with a past medical history of CHF, AFib on Eliquis, HTN, NAVI, recently discharged from our facility on 03/24 for CHF exacerbation, presenting to the ED complaining of acute on chronic bilateral foot pain described as stabbing/sharp/shooting. Reports difficulty ambulating secondary to pain, denies unable to use bed sheets at night secondary to pain. Denies new or worsening LE edema, SOB, CP, new numbness/tingling/weakness, trauma/fall or injury, fever/chills MD Complaint: extremity pain, joint swelling and joint paint Related Data Previous Rx's Medication Instructions Recorded amlodipine 5 mg tablet (Norvasc) 5 mg PO DAILY #30 tab 03/24/21 apixaban 5 mg tablet (Eliquis) 5 mg PO BID@0800,2000 #60 tab 03/24/21 carvedilol 6.25 mg tablet 6.25 mg PO BID #60 tab 03/24/21 digoxin 125 mcg (0.125 mg) tablet 0.125 mg PO Q2D #30 tab 03/24/21 gabapentin 100 mg capsule 1 cap PO TID #60 cap 03/24/21 hydralazine 50 mg tablet 50 mg PO BID #60 tab 03/24/21 pantoprazole 40 mg tablet,delayed 1 tab PO DAILY #30 tab 03/24/21 release spironolactone 25 mg tablet 25 mg PO DAILY #30 tab 03/24/21 (Aldactone) valsartan 160 mg tablet (Diovan) 160 mg PO DAILY #30 tab 03/24/21 acetaminophen 500 mg tablet 500 mg PO Q6H PRN #20 tab 03/31/21 (Tylenol Extra Strength) prednisone 20 mg tablet 40 mg PO DAILY 5 Days #10 tab 03/31/21 hydrocodone 5 mg-acetaminophen 325 1 tab PO Q8H PRN 3 Days #9 tab 04/01/21 mg tablet Allergies Allergy/AdvReac Type Severity Reaction Status Date / Time No Known Allergies Allergy Verified 03/17/21 21:14 Review of Systems Review of Systems: Constitutional: No Fever, No Chills, No Fatigue, No Malaise ENT/Mouth: No Ear Pain, No Nasal Congestion, No sore throat, No Rhinorrhea Eyes: No Eye Pain, No Swelling, No Discharge Cardiovascular: No Chest Pain, No SOB, No Dyspnea on Exertion, No Orthopnea, chronic Edema Respiratory: No Cough, No Dyspnea Gastrointestinal: No Nausea, No Vomiting, No Abdominal pain Musculoskeletal: + joint pain, No Myalgias, No Joint Swelling Skin: No Skin Lesions, No rash Neuro: No Weakness, No Numbness, No Dizziness, No Headache Yes all other systems are reviewed and are negative [facility] Past Medical History Attestation statement: The following information was validated with the patient. Medical History (Updated 04/01/21 @ 00:03 by Wyatt Rubalcava) Atrial fibrillation Heart failure with reduced ejection fraction HTN (hypertension) Hypertension Lymphadenopathy LAWANDA (obstructive sleep apnea) Pleural effusion Surgical History Hx of appendectomy Social History Social History Household Members: Children Housing: House Do you presently have visiting nurse or other home services: No Alcohol intake: former Patient Tobacco Use Status: Never used Tobacco Advance Directives: No Advance Directives Information Provided: No service: Yes Current occupational status: disabled Physical Exam Vital Signs: Vital Signs: Last Vital Signs Temp 98.2 F 03/31/21 21:47 Pulse 84 03/31/21 21:47 Resp 20 03/31/21 21:47 BP 130/91 H 03/31/21 21:47 Pulse Ox 97 03/31/21 21:47 Body Mass Index 33.9 Const: General: cooperative, healthy appearing and no acute distress Orientation/consciousness: patient oriented x3 Limitations: no limitations HENMT: Head: Yes normal to inspection Ears: hearing grossly normal bilaterally General nose exam: Normal external nose present Face and sinus: Yes normal facial exam Eyes: General: appearance normal, both eyes and all related structures EOM: EOMs intact bilaterally Neck: Neck: Yes normal visual inspection Resp: Effort & Inspection: normal respiratory effort and no respiratory distress Cardio: Rate: regular rate Peripheral pulses: dorsalis pedis present GI: Inspection: Yes normal to inspection Skin: Rashes: no rashes Wounds: no wounds Neuro: General: patient oriented x3 Gait exam (Neuro): Normal gait present Extrem: Other: Toes bilaterally cold to touch with decreased sensation (chronically per patient). Distal pulses equal and intact. Sensation intact to light touch. No erythema/streaking, no fluctuance/induration Bilateral proximal foot/ankle with tenderness. ROM intact but decreased secondary to pain bilaterally. Chronic LE edema, nonpitting Course Course Course Narrative: XR foot RT min 3V / XR foot LT min 3V IMPRESSION: Some degenerative changes which are noted above. No acute finding in the right or left foot. >> results discussed with patient, suspected gout flare -46--patient ambulated in the ED steadily. At baseline ambulates with cane at home MDM - Extremity (Nontraumatic) MDM Narrative Medical decision making narrative: 66-year-old male with a past medical history of CHF, AFib on Eliquis, HTN, NAVI, recently discharged from our facility on 03/24 for CHF exacerbation, presenting to the ED complaining of acute on chronic bilateral foot pain described as stabbing/sharp/shooting. On exam VSS, NAD/well-appearing, physical exam as above. Concern for gout/pseudogout flare. No evidence of cellulitis, low concern for septic joint/arthritis or PAD. Low concern for acute CHF exacrebation or DVT Plan: Bilateral foot x-rays Discharge Plan Discharge Clinical Impression: Gout Qualifiers: Gout site: foot Gout etiology: unspecified cause Chronicity: acute Laterality: unspecified laterality Qualified Code(s): M10.9 - Gout, unspecified Patient Disposition: Home, Self-Care Instructions: Low Purine Diet (ED), Gout (ED) Additional Instructions: Your x-ray shows degenerative changes of both of her feet, and no new finding Prednisone as a steroid which did help with inflammation/pain Lackey as an opiate pain medication, take only when pain is severe for the next 3 days In addition take Tylenol at home, be your Lackey has Tylenol mixed in, do not exceed 4 g of Tylenol in 1 day Please follow-up with your primary care doctor If her symptoms persist or worsen, pain becomes unbearable, your unable to walk, or fever again to look infected please return to the ED Prescriptions: New prednisone 20 mg tablet 40 mg PO DAILY 5 Days Qty: 10 RF: 0 acetaminophen [Tylenol Extra Strength] 500 mg tablet 500 mg PO Q6H PRN (Reason: pain or fever) Qty: 20 RF: 0 hydrocodone-acetaminophen 5-325 mg tablet 1 tab PO Q8H PRN (Reason: pain, severe) 3 Days Qty: 9 RF: 0 No Action carvedilol 6.25 mg Tablet 6.25 mg PO BID Qty: 60 RF: 0 hydralazine 50 mg Tablet 50 mg PO BID Qty: 60 RF: 0 digoxin 125 mcg (0.125 mg) Tablet 0.125 mg PO Q2D Qty: 30 RF: 0 Eliquis 5 mg Tablet 5 mg PO BID@0800,2000 Qty: 60 RF: 0 amlodipine [Norvasc] 5 mg tablet 5 mg PO DAILY Qty: 30 RF: 0 valsartan [Diovan] 160 mg tablet 160 mg PO DAILY Qty: 30 RF: 0 pantoprazole 40 mg tablet,delayed release (DR/EC) 1 tab PO DAILY Qty: 30 RF: 0 gabapentin 100 mg capsule 1 cap PO TID Qty: 60 RF: 0 spironolactone [Aldactone] 25 mg tablet 25 mg PO DAILY Qty: 30 RF: 0 Referrals: Physician,Unknown J [Primary Care Provider] - 2 days
[2021-04-01] MEDS: oxyCODONE HCl Immed Release 5 MG TABLET PO (00:01)
[2021-04-01] MEDS: predniSONE 20 MG TABLET 40 MG PO (00:01)
--- NOTE | 2021-04-01 00:29 | PC.NURSE ---
ATTEMPTING TO HAVE PT WALK WITH PCT COLLEN PT ABLE TO WALK STATES IT IS PAINFUL AND BUT HE CAN WALK.
--- NOTE | 2021-04-01 00:56 | PC.NURSE ---
PT EXTREMELY ANGRY WHEN HE WAS TOLD WE DO NOT PROVIDE CAB RIDES TO PT TRANSPORT PT HOME AND PT DOESNT MEET MEDICAL CRITERIA FOR EMS TRANSPORTATION . PT WAS EXTREMELY RUDE TO NURSE, AND TOLD HER THAT WE PROVIDE RIDE TO ALL THE DRUG [facility]IT[facility] AND [facility] OF [place] BUT CAN'T GIVE [facility] A RIDE. PT ABLE TO AMBULATE WITH SHOES ON. PT HAS SMART PHONE AND CHARGE WITH HIM. NURSE GAVE PT A LIST OF CAB IN AREA AND HE THREW LIST BACK AT HER. PT WAS HELPED TO WAITING ROOM BY PCT KALYAN REQUEST A W/C. PT REFUSED TO SIGN D/C PAPAERWORK PT STATES HE HAS A SISTER BUT HE DOESN'T WANT TO WAKE HER UP BECAUSE SHE DOESN'T LIKE DRIVING AT NIGHT.
== END 2021-04-01 01:05 | disposition home or self-care (01) ==
PROVIDERS: Emergency Provider Internal Medicine
DX: M10.9 Gout, unspecified (principal); I11.0 Hypertensive heart disease with heart failure; I50.20 Unspecified systolic (congestive) heart failure; I48.91 Unspecified atrial fibrillation; Z79.01 Long term (current) use of anticoagulants
CPT/HCPCS: 73630; 99283; 99284

== ENCOUNTER → 2021-04-19 12:32 | Outpatient (BNVA) | payer MEDICARE, SELFPAY | PROVIDERS: Visit Provider Internal Medicine Cardiovascular Disease | DX: I11.0 Hypertensive heart disease with heart failure (principal); I50.20 Unspecified systolic (congestive) heart failure; I48.91 Unspecified atrial fibrillation; N40.0 Benign prostatic hyperplasia without lower urinary tract symptoms | CPT/HCPCS: 93005; 99212 ==

== ENCOUNTER → 2021-09-06 13:07 | Outpatient (BNVA) | payer OTHER, SELFPAY | PROVIDERS: Visit Provider Internal Medicine Cardiovascular Disease | DX: I11.0 Hypertensive heart disease with heart failure (principal); I50.20 Unspecified systolic (congestive) heart failure; I48.91 Unspecified atrial fibrillation | CPT/HCPCS: 99212 ==

== ENCOUNTER → 2021-10-20 13:57 | Outpatient (BNVA) | payer OTHER, SELFPAY | PROVIDERS: Visit Provider Urology | DX: N40.1 Benign prostatic hyperplasia with lower urinary tract symptoms (principal); N13.8 Other obstructive and reflux uropathy; R35.1 Nocturia; R39.15 Urgency of urination | CPT/HCPCS: 51798; 99202 ==

== ENCOUNTER → 2022-01-03 08:56 | Outpatient (BNVA) | payer OTHER, SELFPAY | PROVIDERS: Visit Provider Internal Medicine Cardiovascular Disease | DX: I11.0 Hypertensive heart disease with heart failure (principal); I50.20 Unspecified systolic (congestive) heart failure; I48.91 Unspecified atrial fibrillation; Z79.01 Long term (current) use of anticoagulants; Z79.899 Other long term (current) drug therapy | CPT/HCPCS: 93005; 99212 ==

== ENCOUNTER → 2022-02-07 14:15 | Outpatient (REF) | payer OTHER, SELFPAY ==
--- NOTE | 2022-02-07 14:20 | CA_ITS ---
Transthoracic Echocardiogram Patient (Last, First, Middle): Luis Mejia Dayana Gender: Male Date of : 1955 Age: 67 Procedure Date: 02/07/2022 Procedure Type: Transthoracic Echocardiogram Location: OP Height: 182.88 cm Weight: 138.35 kg BSA: 2.55 m2 Heart Rate: bpm BP: 135 / 80 mmHg Junior Media Buyer: genesis Foster MD: Uvaldo Adkins MD Efficiency Expert: Uvaldo Adkins MD Symptoms: I50.20 - Unspecified systolic (congestive) heart failure Study Quality: Fair ECG Rhythm: Atrial Fibrillation Conclusions: - Normal left ventricular size and systolic function. There is mildly increased left ventricular wall thickness. The visually estimated ejection fraction is between 60-65%. - Mildly increased right ventricular cavity size. There is normal right ventricular systolic function. Findings Left Ventricle Normal left ventricular size and systolic function. There is mildly increased left ventricular wall thickness. The visually estimated ejection fraction is between 60-65%. There is no evidence of regional wall motion abnormalities. Diastolic function is indeterminate on the basis of available data. There is severe septal asymmetric hypertrophy. Right Ventricle Mildly increased right ventricular cavity size. There is normal right ventricular systolic function. Atria The left atrium is mildly dilated. RA is dilated. Aortic Valve The aortic valve was not well visualized. There is no aortic valve stenosis. There is no aortic valve regurgitation. Mitral Valve Likely normal mitral valve structure and function. There is no mitral valve regurgitation. There is no mitral valve stenosis. Pulmonic Valve The pulmonic valve is likely normal. Tricuspid Valve Normal tricuspid valve structure and function. There is trace tricuspid valve regurgitation. Normal right atrial pressure. There is no evidence of pulmonary hypertension. Great Vessels All visible segments of the aorta are normal in size. The visualized portions of the pulmonary artery and branches are normal. Venous The inferior vena cava is normal in size and collapses greater than 50% with inspiration. Pericardium/Pleural There is no evidence of pericardial effusion. Prior Study Comparison Changes noted compared to prior study dated: 03/18/2021. EF has improved back to normal. RV function has improved. RV is mildly dilated (was moderate before). Measurements 2D Linear Measurements IVSd: 1.60 0.6-0.9/0.6-1.0 cm LVIDd: 4.07 3.9-5.3/4.2-5.9 cm LVIDd Index: 1.60 2.4-3.2/2.2-3.1 cm/m2 LVIDs: 2.53 2.0-3.6 cm LVPWd: 1.25 0.7-1.1 cm Ao Root: 3.30 2.1-3.5 cm LA Diam: 4.40 2.7-3.8/3.0-4.0 cm LAIDs Index: 1.73 1.5-2.3 cm/m2 LV Mass: 274.51 67-162/88-224 g LV Mass Index: 107.65 43-95/49-115 g/m2 LVOT Diam: 2.20 3.0+(-)1.3 cm 2D Systolic Function EF 4C: 78.30 >55% EF 2C: 72.10 >55% EF BiP: 75.70 >55% Mitral Valve MV Pk E: 0.88 MV Decel Time: 173.00 E'Lateral: 9.36 E'Medial: 11.20 E/E' Med: 7.80 E/E' Lat: 9.40 PHT: 51.00 MVA PHT: 4.31 Decel Luna: 5.07 Aortic Valve AoV Pk Jose Angel: 1.15 AoV Mn Jose Angel: 0.84 AoV VTI: 0.20 AoV Pk Grad: 5.00 Aov Mn Grad: 3.00 JACOBO Cont.VTI: 2.80 LVOT LVOT Pk Jose Angel: 0.93 LVOT Mn Jose Angel: 0.64 LVOT VTI: 0.15 LVOT Pk Grad: 3.00 LVOT Mn Grad: 2.00 LVOT Diam: 2.20 LVOT Area: 3.80 Diastolic Function MV Pk E: 0.88 E'Medial: 11.20 E/E' Med: 7.80 E' Laterial: 9.36 E/E' Lat: 9.40 Right Ventricle TAPSE (mm): 20.00 TVS' Jose Angel: 12.00 Tricuspid Valve TR Pk Jose Angel: 2.39 TR Pk Grad: 23.00 RA Press: 3.00 RVSP: 37.00 Great Vessels Aorta Ao Root-2D: 3.30 2.0-3.7 cm Ao Asc: 3.30 2.1-3.4 cm Pulmonary Valve PV Pk Jose Angel: 1.05 Peak PV Grad: 4.00 Updated in Other Vendor System with Status of Final Uvaldo Adkins MD electronically signed on 02/08/2022 8:05:21 PM with status of Final
== END ==
LOC: HO.CARD 14:15
PROVIDERS: PCP Internal Medicine; Visit Provider Internal Medicine Cardiovascular Disease
DX: I50.20 Unspecified systolic (congestive) heart failure (principal)
CPT/HCPCS: 93306; Q9957

== ENCOUNTER → 2022-02-16 15:37 | Outpatient (BNVA) | payer OTHER, SELFPAY | PROVIDERS: PCP Internal Medicine; Visit Provider Internal Medicine Cardiovascular Disease | DX: I11.0 Hypertensive heart disease with heart failure (principal); I50.9 Heart failure, unspecified; I48.91 Unspecified atrial fibrillation; E66.01 Morbid (severe) obesity due to excess calories; Z68.41 Body mass index [BMI] 40.0-44.9, adult | CPT/HCPCS: 99212 ==

== ENCOUNTER 2022-04-18 12:10 | Emergency (ER) | payer OTHER, SELFPAY ==
--- NOTE | ~2022-04-18 | US_ITS ---
EXAMINATION: US VENOUS ULTRASOUND WITH DOPPLER LOWER EXTREMITY, RIGHT CLINICAL INFORMATION: Swelling COMPARISON: None TECHNIQUE: Ultrasound of the deep veins is performed from the hip to the calf with compression sonography and color and pulse Doppler assessment. Spectral analysis with color-flow imaging is performed. FINDINGS: There is normal venous compression and respiratory variation and augmented flow. The visualized common femoral vein, superficial femoral vein, profunda femoral vein, popliteal vein, and the trifurcation region shows no evidence of deep venous thrombosis. There is no significant popliteal fossa cyst. If the patient's symptoms persist, followup ultrasound in 5 days 7 days might be of value to exclude proximal propagation from a non-visualized calf vein. US/US venous duplex LE RT IMPRESSION: No DVT demonstrated in the right lower extremity.
--- NOTE | ~2022-04-18 | XR_ITS ---
EXAMINATION: RIGHT ANKLE. RIGHT FOOT CLINICAL INFORMATION: Redness and pain and swelling COMPARISON: None TECHNIQUE: 3 views of the right foot. 2 views of the right ankle FINDINGS: Right foot: Diffuse osteopenia but no fracture, dislocation or destructive process. Tarsal alignment is preserved. Right ankle: Mortise is intact. Surgical hardware secures the distal tibia and fibula. Chronic fragmentation along the talar dome noted. Note however is made of moderate diffuse soft tissue swelling in the lower leg and surrounding the ankle. XR/XR ankle RT min 3V IMPRESSION: Soft tissue swelling as described.
--- NOTE | ~2022-04-18 | XR_ITS ---
EXAMINATION: RIGHT ANKLE. RIGHT FOOT CLINICAL INFORMATION: Redness and pain and swelling COMPARISON: None TECHNIQUE: 3 views of the right foot. 2 views of the right ankle FINDINGS: Right foot: Diffuse osteopenia but no fracture, dislocation or destructive process. Tarsal alignment is preserved. Right ankle: Mortise is intact. Surgical hardware secures the distal tibia and fibula. Chronic fragmentation along the talar dome noted. Note however is made of moderate diffuse soft tissue swelling in the lower leg and surrounding the ankle. XR/XR foot RT min 3V IMPRESSION: Soft tissue swelling as described.
[2022-04-18 12:34] VITALS: BP 111/72; BP 150/92; PULSE 80; RESP 16; O2SAT 97; O2SAT 99; BMI 42.0
--- NOTE | 2022-04-18 12:59 | ED.EXTPRO ---
HPI - Extremity Problem General Chief complaint: Extremity Injury, Lower Stated complaint: RLE SWELLIN/PAIN X'S 24 HOURS PER EMS Time Seen by Provider: 04/18/22 12:40 Source: patient Mode of arrival: EMS Limitations: no limitations History of Present Illness HPI Narrative: Patient is a 67-year-old male presents emergency department today for evaluation of right lower extremity redness, swelling, and pain. He reports onset of symptoms to be yesterday. Today he was having difficulty ambulating and weight-bearing on the leg. He denies any known injury, wounds, lesions. He states today he placed a topical Lidoderm cream to the foot and lower leg without significant improvement. Reports a history of neuropathy but reports this pain to be significantly worse. He has a history of atrial fibrillation and is on Eliquis, which he states he has been compliant with. However, the right leg is more swollen than the left. Denies fevers, chills, chest pain, palpitations, shortness of breath, difficulty breathing, numbness or tingling to the extremity. Related Data Home Medications Medication Instructions Recorded Confirmed allopurinol 100 mg tablet 100 mg PO DAILY 09/06/21 02/16/22 colchicine 0.6 mg tablet 0.6 mg PO BID PRN 09/06/21 02/16/22 pregabalin 150 mg capsule 150 mg PO BID 09/06/21 02/16/22 Previous Rx's Medication Instructions Recorded amlodipine 5 mg tablet (Norvasc) 5 mg PO DAILY #30 tabs 03/24/21 apixaban 5 mg tablet (Eliquis) 5 mg PO BID@0800,2000 #60 tabs 03/24/21 carvedilol 6.25 mg tablet 6.25 mg PO BID #60 tabs 03/24/21 digoxin 125 mcg (0.125 mg) tablet 0.125 mg PO Q2D #30 tabs 03/24/21 gabapentin 100 mg capsule 1 cap PO TID #60 caps 03/24/21 hydralazine 50 mg tablet 50 mg PO BID #60 tabs 03/24/21 pantoprazole 40 mg tablet,delayed 1 tab PO DAILY #30 tabs 03/24/21 release spironolactone 25 mg tablet 25 mg PO DAILY #30 tabs 03/24/21 (Aldactone) terazosin 5 mg capsule 5 mg PO BEDTIME 30 days #30 caps 10/20/21 losartan 100 mg tablet 100 mg PO DAILY #60 tabs 01/03/22 furosemide 40 mg tablet (Lasix) 40 mg PO DAILY #60 tabs 02/16/22 cephalexin 500 mg capsule 500 mg PO QID 7 days #28 caps 04/18/22 doxycycline hyclate 100 mg capsule 100 mg PO BID 7 days #14 caps 04/18/22 Allergies Allergy/AdvReac Type Severity Reaction Status Date / Time No Known Allergies Allergy Verified 02/16/22 15:53 Review of Systems Review of Systems: Constitutional: No weight loss, fever, chills, weakness or fatigue. Skin: No rash or itching. Cardiovascular: No chest pain, chest pressure or chest discomfort. No palpitations. Positive pedal edema Respiratory: No shortness of breath, cough or sputum production. Gastrointestinal: No anorexia, nausea, vomiting or diarrhea. No abdominal pain Genitourinary: No burning micturition. No urinary frequency or incontinence. Musculoskeletal: Positive right leg pain as noted in HPI Psychiatric: No depression or anxiety. Yes all other systems are reviewed and are negative [facility] Past Medical History Attestation statement: The following information was validated with the patient. Source: old records reviewed Medical History Atrial fibrillation Heart failure with reduced ejection fraction HTN (hypertension) Hypertension Lymphadenopathy LAWANDA (obstructive sleep apnea) Pleural effusion Surgical History Hx of appendectomy Family History Family History Mother No problems noted. Father Stroke Heart attack Atrial fibrillation Social History Social History Household Members: Children Housing: House Do you presently have visiting nurse or other home services: No Alcohol intake: never Patient Tobacco Use Status: Never used Tobacco Smoked in Last 30 Days: No Use of substances other than those prescribed or required for medical reasons: No Advance Directives: Yes Advance Directives on File: Yes Advance Directives Date on File: 03/18/21 service: Yes Current occupational status: disabled Physical Exam Vital Signs: Vital Signs: Last Vital Signs Temp 97.9 F 04/18/22 16:44 Pulse 80 04/18/22 12:34 Resp 16 04/18/22 12:34 BP 111/72 04/18/22 12:34 Pulse Ox 99 04/18/22 12:34 O2 Del Method 04/18/22 12:34 BMI result Body Mass Index 42.0 Appearance: Alert.?Oriented to person, place and time. No acute distress.?Normal affect. Eyes: Pupils equal, round and reactive to light.? ENT: Pharynx normal.?? Neck: Normal inspection.? Neck supple.?? CVS: Heart sounds normal. Normal heart rate and rhythm.? Pulses normal.?? Respiratory: No respiratory distress.? Lung sounds clear to auscultation bilaterally?? Abdomen: Soft and non-tender. Normoactive bowel sounds. No pulsatile mass.?? Skin: Skin warm and dry.? Normal skin color.? Normal skin turgor.?? Extremities: 2+ pedal edema bilaterally. Positive right calf ttp. Right foot and lower leg with circumferential erythema, warmth, tenderness to touch. Neuro: Moves all extremities spontaneously. Sensation intact bilaterally. No focal neuro deficits. Course Course Course Narrative: Patient is a 67-year-old male with a past medical history of heart failure with reduced ejection fraction, BPH, hypertension, atrial fibrillation on Eliquis, obstructive sleep apnea presenting to emergency department for evaluation of right lower extremity erythema, edema of sudden onset as of yesterday. Has been unable to ambulate due to his symptoms. He states that he has been compliant with his anticoagulant. At the time examination he does have right greater than left lower extremity swelling, circumferential erythema and warmth. Examination most concerning for cellulitis, which will obtain venous ultrasound to exclude DVT, XR imaging of the foot and ankle to exclude fracture dislocation since he is a mildly vague historian, and states ?I do not think I fell or injured it?. Extremities neurovascularly intact distally. In addition will obtain basic labs. Reevaluation(s) Reevaluation #1: X-ray of the right find ankle reveal diffuse osteopenia, no acute fracture dislocation, soft tissue swelling is present. CBC is overall unremarkable. CMP reveals acute kidney injury, BUN 36 creatinine 1.60, reviewed last echocardiogram from January 2022, ejection fraction of 60-65%, suspect this is secondary to dehydration, and diuretic usage. Patient to receive 1 L normal saline IV, and will repeat labs. Time: 16:45 Reevaluation #2: Patient signed out to Hernesto Miller, pending repeat BMP, IV fluids remained infusing at this time. If BMP normalizes patient can be discharged home with outpatient management for cellulitis. Prescription for Keflex and doxycycline was sent to patient's pharmacy. Discussed worrisome signs and symptoms that he would need to return back to emergency department for, in addition outpatient follow-up with PCP. Advised Elevation of the leg. Time: 17:52 Medications Administered Discontinued Medications Generic Name Dose Route Start Last Admin Trade Name Freq PRN Reason Stop Dose Admin Acetaminophen 975 mg 04/18/22 16:51 04/18/22 17:48 Acetaminophen 325 Mg Tablet PO 04/18/22 16:52 975 mg ONCE ONE Administration Ceftriaxone Sodium 1 gm/ 50 mls @ 100 mls/hr 04/18/22 14:39 04/18/22 16:14 Sodium Chloride IV 04/18/22 15:08 Infused ONCE ONE Infusion Sodium Chloride 1,000 mls @ 999 mls/hr 04/18/22 16:00 04/18/22 17:48 Ns IV 04/18/22 17:00 Infused .Q1H1M DENISE Infusion MDM - Extremity (Nontraumatic) Medical Records Attestation: I reviewed the patient's medical records. Lab Data Attestation: I reviewed the patient's lab results. Result diagrams: 04/18/22 14:49 04/18/22 14:49 Labs: Lab Results 04/18/22 04/18/22 04/18/22 Range/Units 14:49 14:49 14:49 WBC 7.7 (4.8-10.8) X10*3/uL RBC 4.84 (4.60-5.80) X10*6/uL Hgb 15.0 (14.0-18.0) g/dl Hct 46.4 (42.0-52.0) % MCV 95.9 (80.0-98.0) fL MCH 31.0 (27.0-33.0) pg MCHC 32.3 (31.0-36.0) g/dl RDW 12.6 (11.0-16.0) % Plt Count 205 (160-400) X10*3/uL MPV 9.7 (9.4-12.4) fL Immature Gran % (Auto) 0.4 (0.0-0.4) % Neut % (Auto) 68.9 (45-73) % Lymph % (Auto) 17.4 L (20-40) % Churchill % (Auto) 7.4 (2-11) % Eos % (Auto) 4.7 H (0-4) % Baso % (Auto) 1.2 (0-2) % Lymph # (Auto) 1.3 (1.2-4.9) X10*3/uL Churchill # (Auto) 0.6 (0.1-1.2) X10*3/uL Eos # (Auto) 0.4 (0.0-0.4) X10*3/uL Baso # (Auto) 0.1 (0.0-0.2) X10*3/uL Abs Immat Gran (auto) 0.03 (0.00-0.03) X10*3/uL Absolute Neuts (auto) 5.3 (2.0-8.3) x10*3/uL Absolute Nucleated RBC 0.000 (0.0-0.012) X10*3/uL Nucleated RBC % (auto) 0.0 (0.0-0.2) /100WBC Sodium 139 (135-145) mmol/L Potassium 4.7 (3.3-5.1) mmol/L Chloride 102 (96-108) mmol/L Carbon Dioxide 25 (22-29) mmol/L Anion Gap 17 (12-20) BUN 36 H (9-16) mg/dL Creatinine 1.60 H (0.5-1.4) mg/dL Estim Creat Clear Calc 66.0 Estimated GFR 43 Random Glucose 160 H D (60-115) mg/dL Lactic Acid 1.4 (0.5-2.0) mmol/L Calcium 8.8 (8.4-10.2) mg/dL Total Bilirubin 0.6 (0.0-1.0) mg/dL AST 34 D (5-37) U/L ALT 30 (0-40) U/L Alkaline Phosphatase 59 (39-117) U/L Total Protein 7.2 (6.5-8.0) g/dL Albumin 3.6 (3.5-5.0) g/dL Imaging Data XR right foot: Radiologist's impression: FINDINGS: Right foot: Diffuse osteopenia but no fracture, dislocation or destructive process. Tarsal alignment is preserved. Right ankle: Mortise is intact. Surgical hardware secures the distal tibia and fibula. Chronic fragmentation along the talar dome noted. Note however is made of moderate diffuse soft tissue swelling in the lower leg and surrounding the ankle. XR/XR foot RT min 3V IMPRESSION: Soft tissue swelling as described. Discharge Plan Discharge Clinical Impression: Cellulitis of right lower extremity, Acute kidney injury Patient Disposition: Still a Patient Instructions: Cellulitis (ED) Additional Instructions: Take antibiotics as prescribed for infection of the skin to your right lower leg. Please complete the entire course. This should be re-evaluated over the next 3 days, contact your primary care provider to arrange for follow-up. Return to the emergency department any new or worsening symptoms or concerns which include but is not limited to worsening redness, worsening pain, worsening swelling, chest pain, shortness of breath, difficulty breathing, fevers, chills. Prescriptions: New cephalexin 500 mg capsule 500 mg PO QID 7 Days Qty: 28 0RF doxycycline hyclate 100 mg capsule 100 mg PO BID 7 Days Qty: 14 0RF No Action carvedilol 6.25 mg Tablet 6.25 mg PO BID Qty: 60 0RF Protocol: Hold for SBP/HR < HOLD for SBP < : 90 HOLD for HR < : 60 hydralazine 50 mg Tablet 50 mg PO BID Qty: 60 0RF Protocol: Hold for SBP< HOLD for SBP < : 90 digoxin 125 mcg (0.125 mg) Tablet 0.125 mg PO Q2D Qty: 30 0RF Eliquis 5 mg Tablet 5 mg PO BID@0800,2000 Qty: 60 0RF amlodipine [Norvasc] 5 mg tablet 5 mg PO DAILY Qty: 30 0RF pantoprazole 40 mg tablet,delayed release (DR/EC) 1 tab PO DAILY Qty: 30 0RF gabapentin 100 mg capsule 1 cap PO TID Qty: 60 0RF Label Comments: pt ran out of the med and last took approx 1.5 weeks ago. spironolactone [Aldactone] 25 mg tablet 25 mg PO DAILY Qty: 30 0RF losartan 100 mg tablet 100 mg PO DAILY Qty: 60 4RF furosemide [Lasix] 40 mg tablet 40 mg PO DAILY Qty: 60 4RF allopurinol 100 mg tablet 100 mg PO DAILY colchicine 0.6 mg tablet 0.6 mg PO BID PRN pregabalin 150 mg capsule 150 mg PO BID terazosin 5 mg capsule 5 mg PO BEDTIME 30 Days Qty: 30 1RF
[2022-04-18 15:00] LABS: MANUAL DIFF FLAG NO
[2022-04-18 15:01] LABS: Basophils Absolute Auto 0.1 X10*3/uL (0.0-0.2); Basophils Percent Auto 1.2 % (0-2); Eosinophils Absolute Auto 0.4 X10*3/uL (0.0-0.4); Eosinophils Percent Auto 4.7 % (0-4); Hematocrit 46.4 % (42.0-52.0); Imm Gran Abs Auto 0.03 X10*3/uL (0.00-0.03); Imm Gran Pct Auto 0.4 % (0.0-0.4); Lymphocytes Absolute Auto 1.3 X10*3/uL (1.2-4.9); Lymphocytes Percent Auto 17.4 % (20-40); Mean Corpuscular HGB Conc 32.3 g/dl (31.0-36.0); Mean Corpuscular Volume 95.9 fL (80.0-98.0); Mean Platelet Volume 9.7 fL (9.4-12.4); Monocytes Absolute Auto 0.6 X10*3/uL (0.1-1.2); Monocytes Percent Auto 7.4 % (2-11); Neutrophils Absolute Auto 5.3 x10*3/uL (2.0-8.3); Neutrophils Percent Auto 68.9 % (45-73); Platelet Count 205 X10*3/uL (160-400); Red Blood Count 4.84 X10*6/uL (4.60-5.80); Red Cell Distribution Width 12.6 % (11.0-16.0); White Blood Count 7.7 X10*3/uL (4.8-10.8)
[2022-04-18 15:14] LABS: Lactic Acid 1.4 mmol/L (0.5-2.0)
[2022-04-18 15:32] LABS: Alanine Aminotransferase 30 U/L (0-40); Albumin Level 3.6 g/dL (3.5-5.0); Alkaline Phosphatase 59 U/L (39-117); Anion Gap 17 (12-20); Aspartate Amino Transferase 34 U/L (5-37); Bilirubin Total 0.6 mg/dL (0.0-1.0); Blood Urea Nitrogen 36 mg/dL (9-16); Calcium 8.8 mg/dL (8.4-10.2); Carbon Dioxide 25 mmol/L (22-29); Chloride 102 mmol/L (96-108); Estimated Glomerular Filt Rate 43; Glucose Random 160 mg/dL (60-115); Potassium 4.7 mmol/L (3.3-5.1); Sodium 139 mmol/L (135-145); Total Protein 7.2 g/dL (6.5-8.0)
[2022-04-18] MEDS: cefTRIAXone sodium 1 GM in 0.9 % Sodium Chloride 50 ML IV (15:33)
[2022-04-18 16:44] VITALS: TEMP 36.6
[2022-04-18] MEDS: 0.9 % Sodium Chloride 1,000 ML 999 ML IV (16:47)
[2022-04-18] MEDS: Acetaminophen 325 MG TABLET 975 MG PO (17:48)
[2022-04-18 18:51] LABS: Anion Gap 13 (12-20); Blood Urea Nitrogen 34 mg/dL (9-16); Calcium 8.7 mg/dL (8.4-10.2); Carbon Dioxide 29 mmol/L (22-29); Chloride 104 mmol/L (96-108); Creatinine Clr Calc Pharmacy 69.5; Estimated Glomerular Filt Rate 46; Glucose Random 109 mg/dL (60-115); Potassium 4.4 mmol/L (3.3-5.1); Sodium 142 mmol/L (135-145)
== END 2022-04-18 19:28 | disposition home or self-care (01) ==
PROVIDERS: Nurse Practitioner Family; Emergency Provider Emergency Medicine
DX: L03.115 Cellulitis of right lower limb (principal); N17.9 Acute kidney failure, unspecified; M79.604 Pain in right leg; R60.0 Localized edema; I11.0 Hypertensive heart disease with heart failure; I50.9 Heart failure, unspecified; I48.91 Unspecified atrial fibrillation; Z79.01 Long term (current) use of anticoagulants; Z79.899 Other long term (current) drug therapy; M85.871 Other specified disorders of bone density and structure, right ankle and foot
CPT/HCPCS: 36415; 73610; 73630; 80048; 80053; 83605; 85025; 87040; 93971; 96361; 96365; 99284; J0696

== ENCOUNTER → 2022-06-29 13:15 | Outpatient (BNVA) | payer OTHER, SELFPAY | PROVIDERS: PCP Internal Medicine; Referring Provider Internal Medicine; Visit Provider Internal Medicine Cardiovascular Disease | DX: I11.0 Hypertensive heart disease with heart failure (principal); I50.20 Unspecified systolic (congestive) heart failure; I48.91 Unspecified atrial fibrillation; E66.01 Morbid (severe) obesity due to excess calories | CPT/HCPCS: 93005; 99212 ==

== ENCOUNTER 2023-01-30 11:10 | Outpatient (AMB) | payer OTHER, SELFPAY ==
--- NOTE | 2023-01-30 11:13 | A.OFFVIS_ITS ---
Intake Vital Signs 01/30/23 11:14 Height 6 ft Weight 352 lb 11.834 oz BMI 47.8 BP 124/74 Blood Pressure Location Lt brachial Position Sitting Pulse 90 Pulse Source Monitor Intake Visit Reasons: 6 mth f/up Intake Note: 6 month follow up with EKG. Reservation Clerk Required: No Accompanied by: Balance Wheel Hand Filer Allergies No Known Allergies Allergy (Verified 01/30/23 11:16) Medication List - Last Reconciled 01/30/23 by Uvaldo Adkins MD allopurinol 100 mg PO DAILY amlodipine (Norvasc) 5 mg PO DAILY apixaban (Eliquis) 5 mg PO BID@0800,2000 carvedilol 6.25 mg See Protocol PO BID cephalexin 500 mg PO QID 7 days colchicine (gout) 0.6 mg PO BID PRN digoxin 0.125 mg PO Q2D doxycycline hyclate 100 mg PO BID 7 days furosemide (Lasix) 40 mg PO DAILY gabapentin 1 cap PO TID hydralazine 50 mg See Protocol PO BID losartan 100 mg PO DAILY pantoprazole 1 tab PO DAILY pregabalin 150 mg PO BID spironolactone (Aldactone) 25 mg PO DAILY terazosin 5 mg PO BEDTIME 30 days HPI HPI Comments History of Present Illness Details 68-year-old gentleman background history of hypertension, atrial fibrillation and heart failure who is here for follow-up. He was diagnosed with severely reduced ejection fraction during hospitalization at [facility]. He was started on guideline directed medical therapy and on follow-up his echocardiography has shown ejection fraction of 60 65%. He has been in persistent atrial fibrillation. Due to noncompliance in the past we did not pursue cardioversion on him. With normal ejection fraction we have decided not to do cardioversion currently. He returns for follow-up. He is saying he is on a special diet has lost 7 lb. Taking medications as instructed. He is saying he gets out of breath very easily. He will be seeing pulmonology as per his report. EKG showing atrial fibrillation with rate control. As mentioned previous echocardiography has shown LV normal function. 01/30/23: He returns for follow-up. He said with diet he lost weight but after 2 months he stop the diet and gained significant weight again. His main issues at this point are stemming from morbid obesity. He also has peripheral n europathy which is affecting his mobility. [facility] Medical History Atrial fibrillation Heart failure with reduced ejection fraction HTN (hypertension) Hypertension Lymphadenopathy LAWANDA (obstructive sleep apnea) Pleural effusion Surgical History Hx of appendectomy Family History Mother No problems noted. Father Stroke Heart attack Atrial fibrillation Social History Household Members: Children Housing: House Do you presently have visiting nurse or other home services: No Alcohol intake: never Patient Tobacco Use Status: Never used Tobacco Advance Directives Date on File: 03/18/21 service: Yes Current occupational status: disabled Review of Systems Const Denies weakness ENT Denies dizziness Card Denies chest pain, Denies chest pain with activity, Denies syncope, Denies rapid heart rate, Denies pedal edema, Denies edema, Denies leg edema, Denies lightheadedness, Denies palpitations, Denies dyspnea, Denies dyspnea on exertion and Denies orthopnea Resp Denies cough, Denies dyspnea and Denies dyspnea on exertion GI Denies hematochezia and Denies change in stool character Musc Denies abnormal gait, Denies muscle cramps, Denies muscle weakness, Denies numbness, Denies radiating pain into limb and Denies tingling Neuro Denies abnormal gait, Denies dizziness, Denies syncope, Denies numbness, Denies tingling and Denies weakness Endo Denies palpitations Physical Exam Vital Signs: Last Vital Signs Pulse 90 01/30/23 11:14 BP 124/74 01/30/23 11:14 BMI result Body Mass Index 47.8 GENERAL APPEARANCE: in no acute distress, Obese. NECK: no carotid bruit, no jugular venous distention. SKIN: no suspicious lesions, warm and dry. HEART: no murmurs, irregular rate and rhythm. LUNGS: clear to auscultation bilaterally. ABDOMEN: soft, nontender. EXTREMITIES: 1+ edema. PERIPHERAL PULSES: equal. NEUROLOGIC: No gross deficits, AAO X 3 Office Procedures EKG Details: Atrial fibrillation 90 beats per minute, septal infarct, QTC 413 milliseconds. [id number], Complete Assessment & Plan Assessment & Plan (1) Chronic heart failure: Code(s): I50.9 - Heart failure, unspecified (2) Morbid obesity: Code(s): E66.01 - Morbid (severe) obesity due to excess calories (3) HTN (hypertension): Code(s): I10 - Essential (primary) hypertension (4) Permanent atrial fibrillation: Code(s): I48.21 - Permanent atrial fibrillation Plan Pleasant 68-year-old gentleman who is presenting for follow-up. He has background history of cardiomyopathy which improved with medical management. He has chronic atrial fibrillation at this point and we have been treating him with rate control strategy with digoxin every other day and carvedilol 6.25 mg twice a day. Blood pressure control is good. Overall clinically is euvolemic. He h as morbid obesity and has gained more weight unfortunately. We had a detailed discussion about weight loss and after discussion we have decided to refer him for medical weight management program. He has neuropathy likely due to previous alcoholism and has been on pregabalin and gabapentin. He has mild peripheral edema which is multifactorial right now but clinically he does not look significantly volume overloaded. Thank you for allowing me to participate in the care of your patient. Please feel free to contact me if you have any questions. Orders: Referrals Medical Weight Management Referral E66.01 - Morbid (severe) obesity due to excess calories Coding Level of Care Code Est Pt Level 4 (84417) Diagnoses Chronic heart failure I50.9 Morbid obesity E66.01 HTN (hypertension) I10 Permanent atrial fibrillation I48.21 CPT Codes EKG - CPT: [id number], Complete ([id number])
[2023-01-30 11:14] VITALS: BP 124/74; PULSE 90; BMI 47.8
== END 2023-01-30 11:46 | disposition home or self-care (01) ==
PROVIDERS: PCP Internal Medicine; Referring Provider Internal Medicine; Visit Provider Internal Medicine Cardiovascular Disease
DX: I50.9 Heart failure, unspecified (principal); E66.01 Morbid (severe) obesity due to excess calories; I10 Essential (primary) hypertension; I48.21 Permanent atrial fibrillation
CPT/HCPCS: 93010; 99214

== ENCOUNTER → 2023-01-30 11:10 | Outpatient (BNVA) | payer OTHER, SELFPAY | PROVIDERS: PCP Internal Medicine; Referring Provider Internal Medicine; Visit Provider Internal Medicine Cardiovascular Disease | DX: I48.21 Permanent atrial fibrillation (principal); I11.0 Hypertensive heart disease with heart failure; I50.20 Unspecified systolic (congestive) heart failure; E66.01 Morbid (severe) obesity due to excess calories | CPT/HCPCS: 93005; 99212 ==

== ENCOUNTER → 2023-02-24 13:54 | Outpatient (BNVA) | payer OTHER, SELFPAY | PROVIDERS: PCP Internal Medicine; Visit Provider Physician Assistant Surgical ==

== ENCOUNTER → 2023-02-24 13:54 | Outpatient (BNVA) | payer OTHER, SELFPAY | PROVIDERS: PCP Internal Medicine; Visit Provider Physician Assistant Surgical ==

== ENCOUNTER 2023-03-03 10:55 | Outpatient (AMB) | payer OTHER, SELFPAY ==
--- NOTE | 2023-03-03 10:57 | MHC.OFFVISWM ---
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 Allergies No Known Allergies Allergy (Verified 03/03/23 11:02) Medication List - Last Reconciled 03/03/23 by Cristiane Manning PA-C allopurinol 100 mg PO DAILY amlodipine (Norvasc) 5 mg PO DAILY apixaban (Eliquis) 5 mg PO BID@0800,2000 carvedilol 6.25 mg See Protocol PO BID colchicine (gout) 0.6 mg PO BID PRN digoxin 0.125 mg PO Q2D furosemide (Lasix) 40 mg PO DAILY gabapentin 1 cap PO TID hydralazine 50 mg See Protocol PO BID losartan 100 mg PO DAILY pantoprazole 1 tab PO DAILY spironolactone (Aldactone) 25 mg PO DAILY terazosin 5 mg PO BEDTIME 30 days HPI HPI Comments History of Present Illness Details This is a 68 year old man who is here to start SWL program with SWL classes. His goal is to be able to walk without being OOB. He reports first being concerned about his weight about 6 years ago. He has tried multiple methods of weight loss including various diets, without permanent results. He lives with his sister. He is retired. Has [employer] 5 d/week - 4 hours per day. he wakes at: 10am, gets into bed at 11 pm - can't fall asleep due to foot neuoraphy falls asleep around 5:30am. Naps between 1-4 pm. Breakfast: 10:30 pm - 2 eggs and 2 slices toast and a couple of sausages. 2% milk. Coffee occasionally - black no sugar. Lunch: 6-7 pm- take out 3 d/week - grinders or pizza. He will prepare food for himself and his sister - sandwich and water. Ice cream or muffin. Dinner: has 3 oranges which he eats during the night. After dinner: see above Other snacks: sugar free popsicles, candy once sometimes Liquids:Soda - Diet Coke 12 pack lasts a month. Drinks Nutrisystm juice Alcohol intake: 3 beers this year, tobacco: none, marijuana: none Exercise: no membership or equipment. Can walk up to 5- 10 minutes a t a time, uses a cane for stability. ELVA: 1 ESS:9 GERD: 0 QOL: 114 [facility] Medical History (Updated 03/03/23 @ 12:04 by Cristiane Manning PA-C) HTN (hypertension) Heart failure with reduced ejection fraction LAWANDA (obstructive sleep apnea) Lymphadenopathy Pleural effusion Hypertension Atrial fibrillation Surgical History Hx of appendectomy Family History Mother No problems noted. Father Stroke Heart attack Atrial fibrillation Social History Household Members: Children Housing: House Do you presently have visiting nurse or other home services: No Alcohol intake: never Patient Tobacco Use Status: Never used Tobacco Advance Directives Date on File: 03/18/21 service: Yes Current occupational status: disabled Physical Exam Vital Signs: Last Vital Signs Temp 97.0 F 03/03/23 11:04 Pulse 95 03/03/23 11:04 Resp 16 03/03/23 11:04 BP 142/79 H 03/03/23 11:04 Pulse Ox 97 03/03/23 11:04 Oxygen Delivery Method Room Air 03/03/23 11:04 BMI result Body Mass Index 51.5 Const General: cooperative, no acute distress and well developed Nutritional Appearance: obese Orientation/consciousness: patient oriented x3 HEENT Head: Yes normal to inspection Neck Neck: Yes normal visual inspection Thyroid: Thyroid normal Resp Effort & Inspection: normal respiratory effort Auscultation: clear to auscultation bilaterally Cardio Rate: regular rate Rhythm: regular rhythm Heart sounds: S1 normal heart sound present, S2 normal heart sound present and no murmurs GI Inspection: No distended, Yes obesity and Yes visible herniation (umbillical hernia, non tender not incarcerated) Palpation (GI): Soft to palpation, nontender and no guarding Skin General skin exam: no rashes or lesions noted and other (warm and dry) Wounds: no wounds Hair: normal Neuro General: patient oriented x3 Extrem Other: chronic venous stasis and +2 pitting edema bilaterally to upper calf. General: Yes no calf tenderness Psych Attitude: cooperative Thought process: Normal thought process present Thought content: Normal thought content present Insight: Good insight present (Psych) Judgement: Good judgement present (Psych) Assessment & Plan Assessment & Plan (1) Morbid obesity: Code(s): E66.01 - Morbid (severe) obesity due to excess calories Plan: This is a 68 yo man with morbid obesity and multiple co-morbidities who in interested in bariatric surgery. We discussed that he has many lifestyle chnages that he woudl need to make. Blood work and h pylori (will be doen at a later date when he can stop PPI)have been ordered.He is being scheduled for RD and BH initial consultations. He will start SWL classes and watch at 4 classes before her next appt with Lorena. We discussed that he needs to use his CPAP at least 6 hours per day, he understands but states he can not tolerate it - has tried 6 different masks in the past. 1. Adequate sleep of 7-8 hours per night discussed - he has trouble sleeping due ot neurpathy, will continue his naps for now. 2. Healthy meal plan - stop skipping meals and stop all take out food Will start with eating 3 meals and 1 snack per day. All meals/MR's need to take 20 minutes to complete. We have started with a plan to acclimate him to our usual meal plan. Breakfast - 10am - 3 eggs, with vegetables, may have 1 slice ww bread (no butter) and 1 slice reduced fat cheese - no suasages Lunch- 2 pm -salad and 5 oz cn of tuna in water - does not want to make grilled chicken Dinner 6 pm - lean protien and vegetables - did not get specific with portion size (do not shetty food) 1 orange at 10 pm Exercise - patient is out of breath sitting in chair and walking from eval room to my office. Start by walking for 10 minutes - check wtch - twice per day inside or outside. Use cane prn Pt will purchase body composition analyzer (recommended list given to patient) and weight himself weekly. Next appt with me in 3 weeks. Text me with any questions and weekly weights. Patient is morbidly obese and is not considered stable at this time.?I spent a total of 60 minutes reviewing/updating records, examining the patient and counseling the patient on weight management as detailed above. (2) Chronic heart failure: Code(s): I50.9 - Heart failure, unspecified (3) HTN (hypertension): Code(s): I10 - Essential (primary) hypertension (4) Atrial fibrillation: Code(s): I48.91 - Unspecified atrial fibrillation (5) LAWANDA (obstructive sleep apnea): Code(s): G47.33 - Obstructive sleep apnea (adult) (pediatric) (6) Pre-op evaluation: Code(s): Z01.818 - Encounter for other preprocedural examination (7) Umbilical hernia: Code(s): K42.9 - Umbilical hernia without obstruction or gangrene Orders: Orders Lipid Panel Today E66.01 - Morbid (severe) obesity due to excess calories, Z01.818 - Encounter for other preprocedural examination Comprehensive Met. Panel Today E66.01 - Morbid (severe) obesity due to excess calories, Z01.818 - Encounter for other preprocedural examination Vitamin B1 Today E66.01 - Morbid (severe) obesity due to excess calories, Z01.818 - Encounter for other preprocedural examination H Pylori Breath Test Today E66.01 - Morbid (severe) obesity due to excess calories, Z01.818 - Encounter for other preprocedural examination Insulin Today E66.01 - Morbid (severe) obesity due to excess calories, Z01.818 - Encounter for other preprocedural examination IRON PROFILE Today E66.01 - Morbid (severe) obesity due to excess calories, Z01.818 - Encounter for other preprocedural examination Complete Blood Count Auto Diff Today E66.01 - Morbid (severe) obesity due to excess calories, Z01.818 - Encounter for other preprocedural examination Vitamin B12 and Folate Today E66.01 - Morbid (severe) obesity due to excess calories, Z01.818 - Encounter for other preprocedural examination Zinc Today E66.01 - Morbid (severe) obesity due to excess calories, Z01.818 - Encounter for other preprocedural examination Vitamin A Today E66.01 - Morbid (severe) obesity due to excess calories, Z01.818 - Encounter for other preprocedural examination C Reactive Protein Today E66.01 - Morbid (severe) obesity due to excess calories, Z01.818 - Encounter for other preprocedural examination Ferritin Today E66.01 - Morbid (severe) obesity due to excess calories, Z01.818 - Encounter for other preprocedural examination PTHI Today E66.01 - Morbid (severe) obesity due to excess calories, Z01.818 - Encounter for other preprocedural examination TSH reflex Free T4 Today E66.01 - Morbid (severe) obesity due to excess calories, Z01.818 - Encounter for other preprocedural examination Vitamin D 25-OH Total Today E66.01 - Morbid (severe) obesity due to excess calories, Z01.818 - Encounter for other preprocedural examination Hemoglobin A1c Today E66.01 - Morbid (severe) obesity due to excess calories, Z01.818 - Encounter for other preprocedural examination Referrals Behavioral Health Referral E66.01 - Morbid (severe) obesity due to excess calories, Z01.818 - Encounter for other preprocedural examination Nutrition/Dietitian Referral E66.01 - Morbid (severe) obesity due to excess calories, Z01.818 - Encounter for other preprocedural examination Coding Level of Care Code New Pt Level 5 (94609) Diagnoses Morbid obesity E66.01 Chronic heart failure I50.9 HTN (hypertension) I10 Atrial fibrillation I48.91 LAWANDA (obstructive sleep apnea) G47.33 Pre-op evaluation Z01.818 Umbilical hernia K42.9
[2023-03-03 11:04] VITALS: BP 142/79; PULSE 95; RESP 16; TEMP 36.1; O2SAT 97; BMI 51.5
== END 2023-03-03 12:11 | disposition home or self-care (01) ==
PROVIDERS: PCP Internal Medicine; Visit Provider Physician Assistant
DX: E66.01 Morbid (severe) obesity due to excess calories (principal); Z68.43 Body mass index [BMI] 50.0-59.9, adult; I10 Essential (primary) hypertension; G47.33 Obstructive sleep apnea (adult) (pediatric)
CPT/HCPCS: 99205

== ENCOUNTER → 2023-03-03 10:55 | Outpatient (BNVA) | payer OTHER, SELFPAY | PROVIDERS: PCP Internal Medicine; Visit Provider Physician Assistant ==

== ENCOUNTER 2023-03-17 14:49 | Emergency (ER) | payer OTHER, SELFPAY ==
[2023-03-17 15:08] VITALS: BP 120/78; PULSE 74; PULSE 81; RESP 16; TEMP 36.7; O2SAT 96; O2SAT 97; BMI 49.1
--- NOTE | 2023-03-17 15:33 | ED.ABDPAIN ---
HPI - Abdominal Pain General Chief Complaint: Abdominal Pain Stated Complaint: L SIDE FLANK PAIN Time Seen by Provider: 03/17/23 14:56 Source: patient and old records reviewed Mode of arrival: EMS Limitations: no limitations History of Present Illness HPI narrative: 68 yo male with PMH of PAF on eliquis, CHF, obesity, BPH, HTN here with c/o acute onset L flank pain and hard to urinate with nausea but no vomiting, diarrhea and no fevers starting at 2am. He denies hx of kidney stones. MD elicited complaint: abdominal pain and flank pain Pertinent past history: none Onset (ago): hour(s) (12) Pain Consistency: constant Location: L flank Severity: moderate Quality: stabbing Radiation: suprapubic and L flank Migration to: no migration Exacerbating factors: nothing Relieving factors: nothing Associated symptoms: nausea and other (urinary hesitancy) Related Data Home Medications Medication Instructions Recorded Confirmed allopurinol 100 mg tablet 100 mg PO DAILY 09/06/21 03/03/23 colchicine (gout) 0.6 mg tablet 0.6 mg PO BID PRN 09/06/21 03/03/23 Previous Rx's Medication Instructions Recorded amlodipine 5 mg tablet (Norvasc) 5 mg PO DAILY #30 tabs 03/24/21 apixaban 5 mg tablet (Eliquis) 5 mg PO BID@0800,2000 #60 tabs 03/24/21 carvedilol 6.25 mg tablet 6.25 mg PO BID #60 tabs 03/24/21 digoxin 125 mcg (0.125 mg) tablet 0.125 mg PO Q2D #30 tabs 03/24/21 gabapentin 100 mg capsule 1 cap PO TID #60 caps 03/24/21 hydralazine 50 mg tablet 50 mg PO BID #60 tabs 03/24/21 pantoprazole 40 mg tablet,delayed 1 tab PO DAILY #30 tabs 03/24/21 release spironolactone 25 mg tablet 25 mg PO DAILY #30 tabs 03/24/21 (Aldactone) terazosin 5 mg capsule 5 mg PO BEDTIME 30 days #30 caps 10/20/21 losartan 100 mg tablet 100 mg PO DAILY #60 tabs 01/03/22 furosemide 40 mg tablet (Lasix) 40 mg PO DAILY #60 tabs 02/16/22 Allergies Allergy/AdvReac Type Severity Reaction Status Date / Time No Known Allergies Allergy Verified 03/03/23 11:02 Review of Systems Review of Systems Constitutional : No Fever, No Chills ENT/Mouth : No sore throat Eyes: No Eye Pain, No Swelling, No Redness Cardiovascular : No Chest Pain, No SOB Respiratory : No Cough, No Sputum, No Wheezing Gastrointestinal : positive Nausea, no Vomiting, No Diarrhea, positive abdominal pain Genitourinary : no Dysuria, no urinary frequency, no Hematuria, positive Flank Pain, positive retention Musculoskeletal : No joint pain, No Myalgias Skin : No Skin Lesions, No rash Neuro : No Weakness, No Numbness, No Headache Psych : No Anxiety/Panic, No Depression Heme/Lymph: No Bruising, No Lymphadenopathy Endocrine : No Polyuria, No Polydipsia All other systems reviewed and are negative [facility] Past Medical History Attestation statement: The following information was validated with the patient. Source: old records reviewed Medical History HTN (hypertension) Heart failure with reduced ejection fraction LAWANDA (obstructive sleep apnea) Lymphadenopathy Pleural effusion Hypertension Atrial fibrillation Surgical History Hx of appendectomy Family History Family History Mother No problems noted. Father Stroke Heart attack Atrial fibrillation Social History Social History Household Members: Children Housing: House Do you presently have visiting nurse or other home services: No Alcohol intake: never Patient Tobacco Use Status: Never used Tobacco Advance Directives Date on File: 03/18/21 service: Yes Current occupational status: disabled Physical Exam ED Vital Signs: Vital Signs - 24 hr 03/17/23 15:08 Temperature 98.0 F Pulse Rate 74 Respiratory Rate 16 Pulse Oximetry 96 Oxygen Delivery Method Room Air BMI result Body Mass Index 49.1 Appearance: Alert. Oriented X3. No acute distress. Eyes: Pupils equal, round and reactive to light. ENT: Pharynx normal. Neck: Normal inspection. Neck supple. CVS: Normal heart rate and rhythm. Pulses normal. Respiratory: No respiratory distress. Breath sounds normal. Abdomen: Soft and noobese, mild L flank ttp Skin: Skin warm and dry. Normal skin color. Normal skin turgor. Extremities: 1+ pitting lower extremity edema. No calf ttp Neuro: Oriented X 3. No motor deficit. No sensory deficit. Course Course Course Narrative: signed out to Dr. Smith pending workup [place] ordered for retention Medical Decision Making Medical Decision Making [facility] Narrative: 68 yo male with PMH of PAF on eliquis, CHF, obesity, BPH, HTN here with c/o 12 hours of L flank pain and urinary difficulties at this time non acute abdomen but he is obese so limited examination. At this time will obtain basic labs, UA, CT scan for renal colic, diverticulitis, constipation, mass, hernia. IV morphine for pain Differential Diagnosis Differential Diagnoses: The differential diagnosis associated with the presentation includes renal colic, diverticulitis, constipation, mass Admission/Observation Consideration of admission/observation: Escalation of care including admission/observation considered Lab Data MDM Lab Attestation statement: I reviewed the patient's lab results. 03/17/23 15:35 03/17/23 15:35 Labs: Lab Results 03/17/23 Range/Units 15:35 WBC 6.4 (4.8-10.8) X10*3/uL RBC 4.85 (4.60-5.80) X10*6/uL Hgb 15.3 (14.0-18.0) g/dl Hct 45.9 (42.0-52.0) % MCV 94.6 (80.0-98.0) fL MCH 31.5 (27.0-33.0) pg MCHC 33.3 (31.0-36.0) g/dl RDW 13.1 (11.0-16.0) % Plt Count 246 (160-400) X10*3/uL MPV 9.3 L (9.4-12.4) fL Immature Gran % (Auto) 0.3 (0.0-0.4) % Neut % (Auto) 57.9 (45-73) % Lymph % (Auto) 21.6 (20-40) % Brooks % (Auto) 12.7 H (2-11) % Eos % (Auto) 6.1 H (0-4) % Baso % (Auto) 1.4 (0-2) % Lymph # (Auto) 1.4 (1.2-4.9) X10*3/uL Brooks # (Auto) 0.8 (0.1-1.2) X10*3/uL Eos # (Auto) 0.4 (0.0-0.4) X10*3/uL Baso # (Auto) 0.1 (0.0-0.2) X10*3/uL Abs Immat Gran (auto) 0.02 (0.00-0.03) X10*3/uL Absolute Neuts (auto) 3.7 (2.0-8.3) x10*3/uL Absolute Nucleated RBC 0.000 (0.0-0.012) X10*3/uL Nucleated RBC % (auto) 0.0 (0.0-0.2) /100WBC PT 15.1 H (11.1-13.3) SEC INR 1.2 H (0.9-1.1) Independent Historian Clinical information obtained from an independent historian. History obtained from or confirmed by: EMS External Record Review External record reviewed: Inpatient record Medications Administered Discontinued Medications Generic Name Dose Route Start Last Admin Trade Name Rickyq PRN Reason Stop Dose Admin Morphine Sulfate 4 mg 03/17/23 15:08 03/17/23 15:52 Morphine Sulfate 4 Mg/Ml Cartridge IVPUSH 03/17/23 15:09 4 mg ONCE ONE Administration Protocol Ondansetron HCl 4 mg 03/17/23 15:08 03/17/23 15:54 Ondansetron Hcl 4 Mg/2 Ml Vial IVPUSH 03/17/23 15:09 4 mg ONCE ONE Administration Discharge Plan Discharge Clinical Impression: Acute left flank pain, Acute urinary retention Patient Disposition: Still a Patient Prescriptions: No Action carvedilol 6.25 mg Tablet 6.25 mg PO BID Qty: 60 0RF Protocol: Hold for SBP/HR < HOLD for SBP < : 90 HOLD for HR < : 60 hydralazine 50 mg Tablet 50 mg PO BID Qty: 60 0RF Protocol: Hold for SBP< HOLD for SBP < : 90 digoxin 125 mcg (0.125 mg) Tablet 0.125 mg PO Q2D Qty: 30 0RF Eliquis 5 mg Tablet 5 mg PO BID@0800,2000 Qty: 60 0RF amlodipine [Norvasc] 5 mg tablet 5 mg PO DAILY Qty: 30 0RF pantoprazole 40 mg tablet,delayed release (DR/EC) 1 tab PO DAILY Qty: 30 0RF gabapentin 100 mg capsule 1 cap PO TID Qty: 60 0RF Patient Comments: pt ran out of the med and last took approx 1.5 weeks ago. spironolactone [Aldactone] 25 mg tablet 25 mg PO DAILY Qty: 30 0RF losartan 100 mg tablet 100 mg PO DAILY Qty: 60 4RF furosemide [Lasix] 40 mg tablet 40 mg PO DAILY Qty: 60 4RF allopurinol 100 mg tablet 100 mg PO DAILY colchicine (gout) 0.6 mg tablet 0.6 mg PO BID PRN terazosin 5 mg capsule 5 mg PO BEDTIME 30 Days Qty: 30 1RF
[2023-03-17 19:50] VITALS: BP 126/67; PULSE 73; RESP 12; TEMP 36.6; O2SAT 98
--- NOTE | 2023-03-17 20:53 | PC.NURSE ---
Went to switch bella to leg bag and patient stated, no, you are going to take that out. Patient educated on purpose of bella and that his bladder was quite full when he came in today, patient still refusing to go home with bella in place. Provider spoke with patient and also explained the importance of it and patient is still refusing to keep bella catheter in at this time.
[2023-03-17 21:00] VITALS: BP 130/80; PULSE 80; RESP 20; O2SAT 95
== END 2023-03-17 21:02 | disposition home or self-care (01) ==
PROVIDERS: Emergency Provider Student in an Organized Health Care Education/Training Program; PCP Internal Medicine
DX: R10.9 Unspecified abdominal pain (principal); R33.9 Retention of urine, unspecified; I11.0 Hypertensive heart disease with heart failure; I50.9 Heart failure, unspecified; I48.0 Paroxysmal atrial fibrillation; E66.9 Obesity, unspecified; Z68.42 Body mass index [BMI] 45.0-49.9, adult; Z79.01 Long term (current) use of anticoagulants; Z79.899 Other long term (current) drug therapy
CPT/HCPCS: 36415; 51701; 71046; 74176; 80048; 80076; 81001; 83690; 83735; 84484; 85025; 85610; 93005; 96374; 96375; 99284; 99285; J1885; J2270; J2405

== ENCOUNTER 2023-03-27 14:11 | Outpatient (REF) | payer OTHER, SELFPAY ==
[2023-03-27 16:06] LABS: MANUAL DIFF FLAG NO
[2023-03-27 16:24] LABS: Basophils Absolute Auto 0.1 X10*3/uL (0.0-0.2); Basophils Percent Auto 1.8 % (0-2); Eosinophils Absolute Auto 0.4 X10*3/uL (0.0-0.4); Eosinophils Percent Auto 6.2 % (0-4); Hematocrit 49.3 % (42.0-52.0); Hemoglobin 15.7 g/dl (14.0-18.0); Imm Gran Abs Auto 0.01 X10*3/uL (0.00-0.03); Imm Gran Pct Auto 0.1 % (0.0-0.4); Lymphocytes Absolute Auto 1.5 X10*3/uL (1.2-4.9); Lymphocytes Percent Auto 22.8 % (20-40); Mean Corpuscular HGB Conc 31.8 g/dl (31.0-36.0); Mean Corpuscular Volume 97.4 fL (80.0-98.0); Mean Platelet Volume 9.4 fL (9.4-12.4); Monocytes Absolute Auto 0.8 X10*3/uL (0.1-1.2); Monocytes Percent Auto 11.1 % (2-11); Neutrophils Absolute Auto 3.9 x10*3/uL (2.0-8.3); Platelet Count 280 X10*3/uL (160-400); Red Blood Count 5.06 X10*6/uL (4.60-5.80); Red Cell Distribution Width 13.2 % (11.0-16.0); White Blood Count 6.8 X10*3/uL (4.8-10.8)
[2023-03-27 16:25] LABS: Estimated Average Glucose 160 mg/dL; Hemoglobin A1c % 7.2 % (<6.0)
[2023-03-27 17:21] LABS: Alanine Aminotransferase 36 U/L (0-40); Albumin Level 3.9 g/dL (3.5-5.0); Alkaline Phosphatase 62 U/L (39-117); Anion Gap 18 (12-20); Aspartate Amino Transferase 36 U/L (5-37); Bilirubin Total 0.3 mg/dL (0.0-1.0); Blood Urea Nitrogen 29 mg/dL (9-16); C Reactive Protein 1.33 mg/dL (< or = 0.50); Calcium 9.6 mg/dL (8.4-10.2); Carbon Dioxide 24 mmol/L (22-29); Chloride 100 mmol/L (96-108); Cholesterol 146 mg/dL (<200); Estimated Glomerular Filt Rate 49; Glucose Random 142 mg/dL (60-115); HDL Cholesterol 30 mg/dL (>40); Iron 90 mcg/dL (45-160); LDL Cholesterol Calculated 62 mg/dL (<100); Percent Iron Saturation 34 % (15-50); Potassium 5.1 mmol/L (3.3-5.1); Sodium 137 mmol/L (135-145); Total Iron Binding Capacity 261 mcg/dL (228-428); Total Protein 8.4 g/dL (6.5-8.0); Triglycerides 270 mg/dL (<150); Unsaturated Iron Binding 171 ug/dL
[2023-03-27 17:26] LABS: Ferritin 149 ng/mL (20-250); Insulin 96 uU/mL (2-29); TSH reflex Free T4 2.68 uIU/mL (0.32-4.0); Vitamin D 25-OH Total 32.6 ng/mL (>30)
[2023-03-27 17:45] LABS: Folate 18.4 ng/mL (> or = 4.0); Vitamin B12 641 pg/mL (200-900)
[2023-03-28 15:48] LABS: PTHI 112 pg/mL (16-77)
[2023-03-29 15:19] LABS: Zinc 66 mcg/dL (60-130)
[2023-03-31 04:58] LABS: Vitamin A 57 mcg/dL (38-98)
[2023-04-01 10:28] LABS: Vitamin B1 37 nmol/L (8-30)
== END 2023-03-27 14:12 | disposition home or self-care (01) ==
LOC: HO.HMGCLDS 14:11
PROVIDERS: PCP Internal Medicine; Visit Provider Physician Assistant
DX: Z01.818 Encounter for other preprocedural examination (principal); E66.01 Morbid (severe) obesity due to excess calories
CPT/HCPCS: 36415; 80053; 80061; 82306; 82607; 82728; 82746; 83036; 83525; 83540; 83970; 84425; 84443; 84590; 84630; 85025; 86140

== ENCOUNTER → 2023-03-31 12:31 | Outpatient (BNVA) | payer OTHER, SELFPAY | PROVIDERS: Visit Provider Dietitian, Registered | DX: E66.9 Obesity, unspecified (principal) | CPT/HCPCS: 97802 ==

== ENCOUNTER 2023-04-03 14:12 | Outpatient (AMB) | payer OTHER, SELFPAY ==
--- NOTE | 2023-04-03 14:37 | A.OFFVIS_ITS ---
Intake Vital Signs 04/03/23 14:50 Height 5 ft 11 in Weight 348 lb BMI 48.5 BP 148/86 H Blood Pressure Location Lt brachial Position Sitting Pulse 84 Pulse Source Pulse Oximeter Pulse Oximetry (%) 96 Oxygen Delivery Method Room Air Intake Visit Reasons: Neuropathic Pain of Lower Extr/ Low Back Pain Allergies No Known Allergies Allergy (Verified 04/03/23 14:49) Medication List - Last Reconciled 04/03/23 by Ayanna Shaffer RN allopurinol 100 mg PO DAILY amlodipine (Norvasc) 5 mg PO DAILY apixaban (Eliquis) 5 mg PO BID@0800,1999 carvedilol 6.25 mg See Protocol PO BID colchicine (gout) 0.6 mg PO BID PRN digoxin 0.125 mg PO Q2D furosemide (Lasix) 40 mg PO DAILY gabapentin 1 cap PO TID hydralazine 50 mg See Protocol PO BID losartan 100 mg PO DAILY pantoprazole 1 tab PO DAILY spironolactone (Aldactone) 25 mg PO DAILY terazosin 5 mg PO BEDTIME 30 days HPI HPI Comments History of Present Illness Details Luis is very pleasant 68 years old gentleman [facility] [employer] who is in my office complaining on severe neuropathy bilateral lower extremities with the , as he placed it, radiation into his lower back not other way around. He reports that he is suffering from these pain of burning sensation tingling pins and needles in the soles and tops of his feet for many years. He is severely morbidly obese. He has edema of bilateral lower extremities with bilateral skin induration none non dependent edema. In the past he was evaluated by vascular surgeon and the venous insufficiency diagnosis was established. However unfortunately no surgeries were offered to him. He went to [email or web address] and complain on pain in the lumbar spine they performed 2 sets of injections on him. I suspect 1 of them was epidural steroid injection and another was medial branch blocks because patient reports that 1st injection was 1 needle and 2nd injection was 6 needles. He denies any help. He was offered spinal cord stimulator however he adamantly refused. He had an MRI of the lumbar spine a with [facility]. He reports that he can bring me the disc of the lumbar spine for the evaluation. He denies history of diabetes. He is under care of technical training manager for congestive heart failure and chronic are 3 of fibrillation. The cardiologists reports states that with treatment his ejection fraction is 65%. He is taking blood thinners. He was diagnosed in 2020 with acute kidney injury. He is suffering from obstructive sleep apnea and he is under observation with Dr. Melvin. He was diagnosed with multiple sites basal cell carcinoma and the he was treated with biopsies to remove the lesions. Currently he is lesion free. He went for bariatric surgery department and he is under observation for weight loss program. [facility] Medical History HTN (hypertension) Heart failure with reduced ejection fraction LAWANDA (obstructive sleep apnea) Lymphadenopathy Pleural effusion Hypertension Atrial fibrillation Surgical History Hx of appendectomy Family History Mother No problems noted. Father Stroke Heart attack Atrial fibrillation Social History Household Members: Children Housing: House Do you presently have visiting nurse or other home services: No Alcohol intake: former Patient Tobacco Use Status: Never used Tobacco Advance Directives Date on File: 03/18/21 service: Yes Current occupational status: disabled Review of Systems Const Reports no additional complaints ENT Reports Normal hearing present Card Reports as per [facility] Resp Reports as per [facility] GI Reports as per [facility] Reports as per [facility] Musc Reports as per [facility] Skin/Breast Reports system reviewed and no additional complaints, except as documented and Reports as per HPI Neuro Reports Normal hearing present, Denies Abnormal speech present, Denies confusion and Denies Sensory deficit (Neuro) Psych Reports no additional complaints and Denies confusion Endo Reports no additional complaints Rj/Lymph Reports as per HPI Physical Exam Vital Signs: Last Vital Signs Pulse 84 04/03/23 14:50 BP 148/86 H 04/03/23 14:50 Pulse Ox 96 04/03/23 14:50 Oxygen Delivery Method Room Air 04/03/23 14:50 BMI result Body Mass Index 48.5 Const General: no acute distress; No confusion Nutritional Appearance: obese morbidly obese Orientation/consciousness: patient oriented x3 and No confusion Eyes General: appearance normal, both eyes and all related structures Pupils: Equal, round and reactive pupils present EOM: EOMs intact bilaterally Neck Neck: Yes full ROM Chest Chest palpation & inspection: normal inspection of the chest Resp Effort & Inspection: normal respiratory effort, able to speak in complete sen tences, normal respiratory pattern, no audible wheezes and no cough Cardio Jugular venous distension: no JVD GI Inspection: Yes normal to inspection Neuro General: patient oriented x3, gait normal and No confusion Cranial nerves: Yes CN's II-XII intact bilaterally, Yes Equal, round and reactive pupils present, Yes Normal hearing present and Yes Ability to bilaterally elevate shoulders present Speech: No Abnormal speech present Gait exam (Neuro): Normal gait present Motor exam (neuro): 5/5 motor strength present throughout Sensory Exam: No Sensory deficit (Neuro) Extrem General: No pedal edema Psych Speech and movement: Normal speech and movement present Affect: normal affect Attitude: cooperative Thought process: Normal thought process present Thought content: Normal thought content present Insight: Good insight present (Psych) Judgement: Good judgement present (Psych) Assessment & Plan Assessment & Plan (1) Peripheral neuropathy: Code(s): G62.9 - Polyneuropathy, unspecified (2) Morbid obesity: Code(s): E66.01 - Morbid (severe) obesity due to excess calories (3) Chronic venous insufficiency: Code(s): I87.2 - Venous insufficiency (chronic) (peripheral) (4) Permanent atrial fibrillation: Code(s): I48.21 - Permanent atrial fibrillation (5) LAWANDA (obstructive sleep apnea): Code(s): G47.33 - Obstructive sleep apnea (adult) (pediatric) Plan We agreed today that the patient will bring me disc MRI from [facility] MRI facility. Also I requested him to sign the medical information release page to obtain the names of the injections he received with [facility]. Considering his severe neuropathy and venous insufficiency I think that spinal cord stimulator Nevro would be a good trial to attempt to treat this patient's pain. He did not receive anything like this in the past however he was offered with [facility] SCS trial. I also will send him for 2nd opinion consult with vascular surgeon with diagnosis of chronic venous insufficiency. I gave him brochure today about Nevro SCS. I will send in to psychological evaluation. Orders: Referrals Vascular Surgery Referral I87.2 - Venous insufficiency (chronic) (peripheral) Coding Level of Care Code New Pt Level 4 (47389) Diagnoses Peripheral neuropathy G62.9 Morbid obesity E66.01 Chronic venous insufficiency I87.2 Permanent atrial fibrillation I48.21 LAWANDA (obstructive sleep apnea) G47.33
[2023-04-03 14:50] VITALS: BP 148/86; PULSE 84; O2SAT 96; BMI 48.5
== END 2023-04-03 15:21 | disposition home or self-care (01) ==
PROVIDERS: PCP Internal Medicine; Visit Provider Anesthesiology
DX: G62.9 Polyneuropathy, unspecified (principal); E66.01 Morbid (severe) obesity due to excess calories; I87.2 Venous insufficiency (chronic) (peripheral); I48.21 Permanent atrial fibrillation; G47.33 Obstructive sleep apnea (adult) (pediatric)
CPT/HCPCS: 99204

== ENCOUNTER → 2023-04-03 14:12 | Outpatient (BNVA) | payer OTHER, SELFPAY | PROVIDERS: PCP Internal Medicine; Visit Provider Anesthesiology ==

== ENCOUNTER 2023-04-20 13:58 | Outpatient (AMB) | payer OTHER, SELFPAY ==
--- NOTE | 2023-04-20 12:36 | MHC.OFFVISWM ---
Intake VS Expanded 04/20/23 14:19 BP 137/73 Blood Pressure Location Rt brachial Blood Pressure Position Sitting Pulse 91 Pulse Source Pulse Oximeter Temp 96.8 F Temperature Source Tympanic Pulse Oximetry 94 Oxygen Delivery Method Room Air Height 5 ft 11 in Weight 345 lb BMI 48.1 Body Fat % 44.4 Body Fat Mass 153.0 Fat Free Mass 191.8 Visceral Fat Rating 33.0 Body Water % 39.1 Body Water Mass 134.8 Muscle Mass/Score 182.6 Basal Metabolic Rate/Score 2,740 Intake Visit Reasons: (OV) F/U SWL Allergies No Known Allergies Allergy (Verified 04/20/23 14:25) HPI HPI Comments History of Present Illness Details This is the patients second appt for SWL. Starting weight was 353.8 lbs on 03/03/23. TBWL is 8.8 lbs or 2.5% TBWL. Meal plan: 10 am - Nutrisystem powder with 8 oz 2% milk, finishing supply he already had. eats oranges and grapes durin gthe day 6pm - 3d/ week takeout OR has cold cut sandwich and ice cream.water or Electrolyte liquid Exercise plan:walks to his mailbox daily when its nice out. Pre op work up completed as follows: SWL classes - 06/19 BH appts - not seen yet RD appts - seen on 03/31 and had not started our meal plan yet H pylori - not done yet Labs - Hb Aic 7.2 CXR and ECG - not ordered by me yet Seen in ED on 03/17 ECG - afib, abnormal CXR - limited due ot body habitus ULS and UGI - not ordered yet [facility] Medical History HTN (hypertension) Heart failure with reduced ejection fraction LAWANDA (obstructive sleep apnea) Lymphadenopathy Pleural effusion Hypertension Atrial fibrillation Surgical History Hx of appendectomy Family History Mother No problems noted. Father Stroke Heart attack Atrial fibrillation Social History Household Members: Children Housing: House Do you presently have visiting nurse or other home services: No Alcohol intake: former Patient Tobacco Use Status: Never used Tobacco Advance Directives Date on File: 03/18/21 service: Yes Current occupational status: disabled Assessment & Plan Assessment & Plan (1) Morbid obesity: Code(s): E66.01 - Morbid (severe) obesity due to excess calories Plan: Not following our meal or or exercise plans. I am unsure if he will be able to follow our instructions for weight loss and healthy changes. Meal plan - discussed and written for patient again today 10am- shake 1pm - shake 4pm - 2 hb eggs 6pm- dinner of protein and vegetables Exercise- PE 20 minute sitting videos every day. Watch all SWL classes now. Will schedule patient for another 3 week vini lama with me and re-evaluate for appropriateness in our program at that time. Patient is morbidly obese and is not considered stable at this time. I spent 30 minutes in total with patient reviewing/updating records, examining the patient and counseling the patient on weight management as detailed above. (2) HTN (hypertension): Code(s): I10 - Essential (primary) hypertension (3) Atrial fibrillation: Code(s): I48.91 - Unspecified atrial fibrillation (4) LAWANDA (obstructive sleep apnea): Code(s): G47.33 - Obstructive sleep apnea (adult) (pediatric) (5) Chronic venous insufficiency: Code(s): I87.2 - Venous insufficiency (chronic) (peripheral) Coding Level of Care Code Est Pt Level 4 (06334) Diagnoses Morbid obesity E66.01 HTN (hypertension) I10 Atrial fibrillation I48.91 LAWANDA (obstructive sleep apnea) G47.33 Chronic venous insufficiency I87.2
[2023-04-20 14:19] VITALS: BP 137/73; PULSE 91; TEMP 36; O2SAT 94; BMI 48.1
== END 2023-04-20 14:33 | disposition home or self-care (01) ==
PROVIDERS: PCP Internal Medicine; Visit Provider Physician Assistant
DX: E66.01 Morbid (severe) obesity due to excess calories (principal); I10 Essential (primary) hypertension; I48.91 Unspecified atrial fibrillation; G47.33 Obstructive sleep apnea (adult) (pediatric); I87.2 Venous insufficiency (chronic) (peripheral)
CPT/HCPCS: 99214

== ENCOUNTER → 2023-04-20 13:58 | Outpatient (BNVA) | payer OTHER, SELFPAY | PROVIDERS: PCP Internal Medicine; Visit Provider Physician Assistant | DX: E66.01 Morbid (severe) obesity due to excess calories (principal); I10 Essential (primary) hypertension; I48.91 Unspecified atrial fibrillation; I87.2 Venous insufficiency (chronic) (peripheral); G47.33 Obstructive sleep apnea (adult) (pediatric); Z68.42 Body mass index [BMI] 45.0-49.9, adult | CPT/HCPCS: 99212 ==

== ENCOUNTER 2023-05-24 13:16 | Outpatient (AMB) | payer OTHER, SELFPAY ==
--- NOTE | 2023-05-24 13:37 | HO.NEPHOV ---
HPI HPI Comments History of Present Illness Details Luis was seen in the office in follow-up of his chronic kidney disease and hypertension. He has history of systolic heart failure. His echocardiogram has shown improvement. He denies any chest pain, shortness of breath, orthopnea. He has been on amlodipine he denies taking any losartan now. He had a seen a vascular MD in [place] but is getting a 2nd opinion in [place]. He avoids nonsteroidal anti-inflammatory medications. He has prostatic issues and has seen Dr. Costa Cash he is not strict with sodium restriction in the diet. He does not have any orthostatic symptoms [facility] Medical History HTN (hypertension) Heart failure with reduced ejection fraction LAWANDA (obstructive sleep apnea) Lymphadenopathy Pleural effusion Hypertension Atrial fibrillation Surgical History Hx of appendectomy Family History Mother No problems noted. Father Stroke Heart attack Atrial fibrillation Social History Household Members: Children Housing: House Do you presently have visiting nurse or other home services: No Alcohol intake: former Comment: pt refuses bed alarm Patient Tobacco Use Status: Never used Tobacco Advance Directives Date on File: 03/18/21 service: Yes Current occupational status: disabled Vital Signs 05/24/23 13:39 Height 5 ft 11 in Weight 343 lb 2 oz BMI 47.9 BP 110/80 Blood Pressure Location Lt brachial Position Sitting Pulse 75 Pulse Source Pulse Oximeter Physical Exam Vital Signs: Last Vital Signs Pulse 75 05/24/23 13:39 BP 110/80 05/24/23 13:39 BMI result Body Mass Index 47.9 Const General: comfortable and no acute distress Orientation/consciousness: patient oriented x3 HEENT Head: Yes normocephalic Mouth: Normal oral and palatal mucosa present Eyes EOM: EOMs intact bilaterally Neck Neck: Yes supple Resp Auscultation: clear to auscultation bilaterally Cardio Jugular venous distension: no JVD Rate: regular rate GI Palpation (GI): Soft to palpation Auscultation: normal bowel sounds General: Yes no CVA tenderness Back/Spine/Pelvis Back: no CVA tenderness Skin General skin exam: no rashes or lesions noted Neuro General: patient oriented x3 and moves all extremities Extrem General: Yes edema Assessment & Plan Assessment & Plan (1) HTN (hypertension): Code(s): I10 - Essential (primary) hypertension Qualifiers: Hypertension type: primary hypertension Qualified Code(s): I10 - Essential (primary) hypertension (2) CKD (chronic kidney disease) stage 3, GFR 30-59 ml/min: Code(s): N18.30 - Chronic kidney disease, stage 3 unspecified Qualifiers: Chronic kidney disease stage 3 subtype: stage 3a (GFR 45-59) Qualified Code(s): N18.31 - Chronic kidney disease, stage 3a Plan Luis has stage III CKD and hypertension. His renal function had been stable . He has edema. He has no clinical signs of heart failure. His echocardiogram has improved. I discontinued his amlodipine . He can continue rest of his current medications. He should avoid nonsteroidal anti-inflammatory medications. He should go back and see Dr. Cash for his prostatic issues. I did not make any other medication changes today. He should be on a low-sodium diet .He should lose weight. He should continue to follow-up with his wireless technician. Time spent retrieving data, patient encounter and documentation 27 minutes. Follow-up given. Follow-up lab work ordered Orders: Orders Electrolytes Today I10 - Essential (primary) hypertension, N18.30 - Chronic kidney disease, stage 3 unspecified Blood Urea Nitrogen Today I10 - Essential (primary) hypertension, N18.30 - Chronic kidney disease, stage 3 unspecified Protein Creatinine Ratio, Ur Today I10 - Essential (primary) hypertension, N18.30 - Chronic kidney disease, stage 3 unspecified Immunofixation Pnl, Serum Today I10 - Essential (primary) hypertension, N18.30 - Chronic kidney disease, stage 3 unspecified Creatinine Today I10 - Essential (primary) hypertension, N18.30 - Chronic kidney disease, stage 3 unspecified Calcium Today I10 - Essential (primary) hypertension, N18.30 - Chronic kidney disease, stage 3 unspecified Coding Level of Care Code Est Pt Level 4 (07526) Diagnoses Primary hypertension I10 Hypertension type: primary hypertension Stage 3a chronic kidney disease N18.31 Chronic kidney disease stage 3 subtype: stage 3a (GFR 45-59) Results Reviewed Nephrology Results: Hgb 15.7 g/dl (14.0-18.0) 03/27/23 WBC 6.8 X10*3/uL (4.8-10.8) 03/27/23 Plt Count 280 X10*3/uL (160-400) 03/27/23 Sodium 137 mmol/L (135-145) 03/27/23 Potassium 5.1 mmol/L (3.3-5.1) 03/27/23 Chloride 100 mmol/L (96-108) 03/27/23 Carbon Dioxide 24 mmol/L (22-29) 03/27/23 BUN 29 mg/dL (9-16) H 03/27/23 Creatinine 1.43 mg/dL (0.5-1.4) H 03/27/23 Calcium 9.6 mg/dL (8.4-10.2) 03/27/23 PTH Intact 112 pg/mL (16-77) H 03/27/23 Urine Protein Negative mg/dL (Neg-Trace) 03/17/23
[2023-05-24 13:39] VITALS: BP 110/80; PULSE 75; BMI 47.9
== END 2023-05-24 14:12 | disposition home or self-care (01) ==
PROVIDERS: PCP Internal Medicine; Visit Provider Internal Medicine Nephrology
DX: I10 Essential (primary) hypertension (principal); N18.31 Chronic kidney disease, stage 3a
CPT/HCPCS: 99214

== ENCOUNTER → 2023-05-24 13:16 | Outpatient (BNVA) | payer OTHER, SELFPAY | PROVIDERS: PCP Internal Medicine; Visit Provider Internal Medicine Nephrology | DX: I12.9 Hypertensive chronic kidney disease with stage 1 through stage 4 chronic kidney disease, or unspecified chronic kidney disease (principal); N18.31 Chronic kidney disease, stage 3a | CPT/HCPCS: 99212 ==

== ENCOUNTER 2023-05-30 13:24 | Outpatient (AMB) | payer OTHER, SELFPAY ==
--- NOTE | 2023-05-30 13:26 | MHC.OFFVIS ---
Intake Intake Visit Reasons: 2nd opinion for venous insufficiency procedures. Intake Note: Pt here for a second opinion on procedure Pt states that he has real bad neuropathy on both legs. He has pain swelling redness scaly skin and pins and needle feeling. He can only walk a few steps then he needs a cane. Allergies No Known Allergies Allergy (Verified 05/30/23 13:32) HPI 2nd opinion for venous insufficiency procedures. HPI Details very complex morbidly [id number] gentleman patient presents for painful varicose veins. Complaints include pain over varicosities, swelling of lower extremities, cramping, fatigue, and heaviness of the lower extremities. It has been affecting there daily activities including walking. It is noted more so in right leg. Patient denies any previous venous surgery or injections. Patient denies any history of DVT/ PE. Patient denies any history of phlebitis. Trial of compression includes - [id number]. of note he actually had undergone lymphedema therapy in [place] with some reasonable results but did not follow-up her continue with that. They now present for vascular evaluation regarding their varicose veins. [facility] Medical History HTN (hypertension) Heart failure with reduced ejection fraction LAWANDA (obstructive sleep apnea) Lymphadenopathy Pleural effusion Hypertension Atrial fibrillation Surgical History Hx of appendectomy Family History Mother No problems noted. Father Stroke Heart attack Atrial fibrillation Social History Household Members: Children Housing: House Do you presently have visiting nurse or other home services: No Alcohol intake: former Comment: pt refuses bed alarm Patient Tobacco Use Status: Never used Tobacco Advance Directives Date on File: 03/18/21 service: Yes Current occupational status: disabled Review of Systems Const Reports as per HPI ENT Reports no additional complaints Card Denies chest pain, Denies chest pain at rest and Denies chest pain with activity Resp Denies chest congestion and Denies cough GI Reports no additional complaints Musc Details: pain over varicosities, aching of lower extremities, swelling, cramping, heaviness and tiredness, itching Denies abnormal gait Skin/Breast Reports pruritus and Denies wounds Neuro Reports no additional complaints and Denies abnormal gait Psych Denies no additional complaints Physical Exam Const General: cooperative, healthy appearing and comfortable Orientation/consciousness: oriented to person, oriented to place and oriented to time Neck Carotids: no bruits Chest Chest palpation & inspection: normal inspection of the chest and normal palpation of entire chest wall Resp Effort & Inspection: normal respiratory effort and able to speak in complete sentences Cardio Rate: regular rate Heart sounds: S1 normal heart sound present and S2 normal heart sound present Peripheral pulses: Peripheral pulses 2+ throughout GI Inspection: Yes normal to inspection Skin Other: +2 edema, dry scaly skin CEAP Classification C5 - Healed ulceration Ep - Etiology Primary As - superficial veins P - reflux General skin exam: dry skin Neuro General: oriented to person, oriented to place and oriented to time Extrem Right lower extremity: full ROM, normal capillary refill and edema Left lower extremity: full ROM, normal capillary refill and edema Psych Mental Status: mental status grossly normal Assessment & Plan Assessment & Plan (1) Varicose veins of right lower extremity with inflammation: Code(s): I83.11 - Varicose veins of right lower extremity with inflammation Plan: the patient may have an element of venous insufficiency. It is unclear that he has been evaluated for this in the past. Unfortunately he seems confused about his general treatment and doctors that he has seen in the past. I have taken the liberty of ordering repeat venous insufficiency testing to better evaluate this. We did discuss routine conservative measures including compression elevation and exercise. The patient will follow up with us after testing. (2) Lymphedema: Code(s): I89.0 - Lymphedema, not elsewhere classified Plan: The patient clearly has an element of lymphedema. He actually has been treated for this in the past. We will workup his venous disease and should that prove to be negative would try to get him lymphedema pumps that he can use at home for more permanent basis. He will follow up with us after venous testing. Thank you for allowing us to assist in his care. If there are any questions or concerns please do not hesitate to contact us. Orders: Orders US venous duplex LE BI 1 Week I83.11 - Varicose veins of right lower extremity with inflammation Coding Level of Care Code New Pt Level 4 (44368) Diagnoses Varicose veins of right lower extremity with inflammation I83.11 Lymphedema I89.0
== END 2023-05-30 13:54 | disposition home or self-care (01) ==
PROVIDERS: PCP Internal Medicine; Visit Provider Surgery Vascular Surgery
DX: I83.11 Varicose veins of right lower extremity with inflammation (principal); I89.0 Lymphedema, not elsewhere classified
CPT/HCPCS: 99203

== ENCOUNTER → 2023-05-30 13:24 | Outpatient (BNVA) | payer OTHER, SELFPAY | PROVIDERS: PCP Internal Medicine; Visit Provider Surgery Vascular Surgery | DX: I83.11 Varicose veins of right lower extremity with inflammation (principal); I89.0 Lymphedema, not elsewhere classified | CPT/HCPCS: 99202 ==

== ENCOUNTER 2023-07-04 12:51 | Outpatient (REF) | payer OTHER, SELFPAY ==
--- NOTE | ~2023-07-04 | US_ITS ---
EXAMINATION: US VENOUS ULTRASOUND WITH DOPPLER LOWER EXTREMITY, BILATERAL CLINICAL INFORMATION: Right lower extremity varicosities. COMPARISON: Venous duplex dated 04/18/2022. TECHNIQUE: Ultrasound of the deep veins is performed from the hip to the calf with compression sonography and color and pulse Doppler assessment. Spectral analysis with color-flow imaging is performed. FINDINGS: RIGHT SIDE: GREATER SAPHENOUS VEIN: The right saphenofemoral junction diameter is 0.8 cm. There is no reflux. The right proximal thigh diameter is 0.3 cm. The reflux time is 2204 ms. The right mid thigh diameter is 0.5 cm. The reflux time is 1888 ms. The right above-knee diameter is 0.6 cm. There is no reflux. The right at-knee diameter is 0.7 cm. There is no reflux. The right below-knee diameter is 0.5 cm. The reflux time is 2236 ms. The right mid calf diameter is 0.6 cm. The reflux time is 2376 ms. The right ankle diameter is 0.4 cm. The reflux time is 2236 ms. LATERAL ACCESSORY GREATER SAPHENOUS VEIN: The right saphenofemoral junction diameter is 0.3 cm. There is no reflux. LESSER SAPHENOUS VEIN: The right saphenopopliteal junction diameter is 0.3 cm. There is no reflux. The right mid calf diameter is 0.3 cm. The reflux time is 2120 ms. The right distal calf diameter is 0.4 cm. The reflux time is 1976 ms. LEFT SIDE: GREATER SAPHENOUS VEIN: The left saphenofemoral junction diameter is 0.6 cm. There is no reflux. The left proximal thigh diameter is 0.7 cm. There is no reflux. The left mid thigh diameter is 0.5 cm. There is no reflux. The left above-knee diameter is 0.6 cm. The reflux time is 2300 ms. The left at-knee diameter is 0.5 cm. The reflux time is 1968 ms. The left below-knee diameter is 0.5 cm. The reflux time is 2164 ms. The left mid calf diameter is 0.5 cm. The reflux time is 2024 ms. The left ankle diameter is 0.4 cm. The reflux time is 2044 ms. LATERAL ACCESSORY GREATER SAPHENOUS VEIN: The left saphenofemoral junction diameter is 0.3 cm. There is no reflux LESSER SAPHENOUS VEIN: The left saphenopopliteal junction diameter is 0.5 cm. There is no reflux. The left mid calf diameter is 0.4 cm. The reflux time is 604 ms. The left distal calf diameter is 0.4 cm. There is no reflux. BILATERAL DEEP VENOUS SYSTEMS: There is no deep venous thrombosis of the right. The mid right femoral vein shows a reflux time is 2176 ms. The right popliteal vein shows a reflux time of 2112 ms. There is no deep venous thrombosis or reflux on the left. US/US venous duplex LE BI IMPRESSION: 1. There is hemodynamically significant reflux of the bilateral greater and lesser saphenous veins. 2. There is hemodynamically significant reflux of the right deep venous system, as detailed.
== END 2023-07-04 12:52 | disposition home or self-care (01) ==
LOC: HO.US 12:51
PROVIDERS: Visit Provider Surgery Vascular Surgery
DX: I83.11 Varicose veins of right lower extremity with inflammation (principal)
CPT/HCPCS: 93970

== ENCOUNTER 2023-08-16 14:21 | Outpatient (AMB) | payer OTHER, SELFPAY ==
[2023-08-16 14:58] VITALS: BP 120/70; PULSE 70; BMI 45.3
--- NOTE | 2023-08-16 14:58 | A.OFFVIS_ITS ---
Intake Vital Signs 08/16/23 14:58 Height 5 ft 11 in Weight 324 lb 15.382 oz BMI 45.3 BP 120/70 Blood Pressure Location Rt brachial Position Sitting Pulse 70 Pulse Source Pulse Oximeter Intake Visit Reasons: 1 yr f/up Intake Note: pt its here for 1 yr f/up/ pt states that he its doing good. 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 Accompanied by: Self / Same As Patient Allergies No Known Allergies Allergy (Verified 05/30/23 13:32) Medication List - Last Reconciled 08/16/23 by Uvaldo Adkins MD allopurinol 100 mg PO DAILY amlodipine (Norvasc) 5 mg PO DAILY apixaban (Eliquis) 5 mg PO BID@0800,2000 carvedilol 6.25 mg See Protocol PO BID colchicine 0.6 mg PO BID PRN digoxin 0.125 mg PO Q2D furosemide (Lasix) 40 mg PO DAILY pantoprazole 1 tab PO DAILY pregabalin 150 mg PO BID spironolactone (Aldactone) 25 mg PO DAILY tamsulosin 0.4 mg PO DAILY HPI HPI Comments History of Present Illness Details 68-year-old gentleman background history of hypertension, atrial fibrillation and heart failure who is here for follow-up. He was diagnosed with severely reduced ejection fraction during hospitalization at [facility]. He was started on guideline directed medical therapy and on follow-up his echocardiography has shown ejection fraction of 60 65%. He has been in persistent atrial fibrillation. Due to noncompliance in the past we did not pursue cardioversion on him. With normal ejection fraction we have decided not to do cardioversion currently. He returns for follow-up. He is saying he is on a special diet has lost 7 lb. Taking medications as instructed. He is saying he gets out of breath very easily. He will be seeing pulmonology as per his report. EKG showing atrial fibrillation with rate control. As mentioned previous echocardiography has shown LV normal function. 01/30/23: He returns for follow-up. He said with diet he lost weight but after 2 months he stop the diet and gained significant weight again. His main issues at this point are stemming from morbid obesity. He also has peripheral neuropathy which is affecting his mobility. 08/16/23: Luis returns for follow-up. Franky e is denying any significant symptoms. He gets dyspnea when he goes up stairs but is this is stable. He is asking whether any of his medications can be stopped. We reviewed all his meds and I have told him that digoxin is on a medication which we can consider to stop but after discussion is decided not to stop. [facility] Medical History HTN (hypertension) Heart failure with reduced ejection fraction LAWANDA (obstructive sleep apnea) Lymphadenopathy Pleural effusion Hypertension Atrial fibrillation Surgical History Hx of appendectomy Family History Mother No problems noted. Father Stroke Heart attack Atrial fibrillation Social History Household Members: Children Housing: House Do you presently have visiting nurse or other home services: No Alcohol intake: former Comment: pt refuses bed alarm Patient Tobacco Use Status: Never used Tobacco Advance Directives Date on File: 03/18/21 service: Yes Current occupational status: disabled Review of Systems Const Denies chills, Denies fatigue, Denies fever(s), Denies frequent falls, Denies weakness, Denies weight gain and Denies weight loss ENT Denies dizziness Card Denies chest pain, Denies leg edema, Denies lightheadedness, Denies palpitations, Denies dyspnea and Denies dyspnea on exertion Resp Denies cough, Denies dyspnea and Denies dyspnea on exertion GI Denies hematochezia Musc Denies abnormal gait, Denies muscle weakness, Denies numbness, Denies radiating pain into limb and Denies tingling Neuro Denies abnormal gait, Denies dizziness, Denies frequent falls, Denies numbness, Denies tingling and Denies weakness Endo Denies fatigue and Denies palpitations Physical Exam Vital Signs: Last Vital Signs Pulse 70 08/16/23 14:58 BP 120/70 08/16/23 14:58 BMI result Body Mass Index 45.3 GENERAL APPEARANCE: in no acute distress, Obese. NECK: no carotid bruit, no jugular venous distention. SKIN: no suspicious lesions, warm and dry. HEART: no murmurs, irregular rate and rhythm. LUNGS: clear to auscultation bilaterally. ABDOMEN: soft, nontender. EXTREMITIES: 1+ edema. PERIPHERAL PULSES: equal. NEUROLOGIC: No gross deficits, AAO X 3 Assessment & Plan Assessment & Plan (1) Chronic heart failure: Code(s): I50.9 - Heart failure, unspecified (2) Morbid obesity: Code(s): E66.01 - Morbid (severe) obesity due to excess calories (3) HTN (hypertension): Code(s): I10 - Essential (primary) hypertension Qualifiers: Hypertension type: primary hypertension Qualified Code(s): I10 - Essential (primary) hypertension (4) Permanent atrial fibrillation: Code(s): I48.21 - Permanent atrial fibrillation Plan Pleasant 68-year-old gentleman who is presenting for follow-up. He has backgr ound history of cardiomyopathy which improved with medical management. He has permanent atrial fibrillation at this point and we have been treating him with rate control strategy with digoxin every other day and carvedilol 6.25 mg twice a day. Blood pressure control is good. Overall clinically is euvolemic. He has morbid obesity which is causing his dyspnea in addition to his cardiovascular issues. He has neuropathy likely due to previous alcoholism and has been on pregabalin and gabapentin. He has mild peripheral edema which is multifactorial right now but clinically he does not look significantly volume overloaded. Follow-up with us in 6 months. Thank you for allowing me to participate in the care of your patient. Please feel free to contact me if you have any questions. Coding Level of Care Code Est Pt Level 4 (07439) Diagnoses Chronic heart failure I50.9 Morbid obesity E66.01 Primary hypertension I10 Hypertension type: primary hypertension Permanent atrial fibrillation I48.21
== END 2023-08-16 15:44 | disposition home or self-care (01) ==
PROVIDERS: PCP Internal Medicine; Visit Provider Internal Medicine Cardiovascular Disease
DX: I50.9 Heart failure, unspecified (principal); E66.01 Morbid (severe) obesity due to excess calories; I10 Essential (primary) hypertension; I48.21 Permanent atrial fibrillation
CPT/HCPCS: 99214

== ENCOUNTER → 2023-08-16 14:21 | Outpatient (BNVA) | payer OTHER, SELFPAY | PROVIDERS: PCP Internal Medicine; Visit Provider Internal Medicine Cardiovascular Disease | DX: I11.0 Hypertensive heart disease with heart failure (principal); I50.9 Heart failure, unspecified; I48.21 Permanent atrial fibrillation; E66.01 Morbid (severe) obesity due to excess calories | CPT/HCPCS: 99212 ==

== ENCOUNTER 2023-08-23 13:18 | Outpatient (AMB) | payer OTHER, SELFPAY ==
--- NOTE | 2023-08-23 13:25 | HO.NEPHOV_ITS ---
HPI HPI Comments History of Present Illness Details Luis was seen in the office in follow-up of his chronic kidney disease and hypertension. He has history of systolic heart failure. His echocardiogram has shown improvement. He denies any chest pain, shortness of breath, orthopnea. He had a seen a vascular MD in [place] but is getting a 2nd opinion in [place]. He avoids nonsteroidal anti-inflammatory medications. He has prostatic issues and has seen Dr. Costa Cash. He is not strict with sodium restriction in the diet. He doesnt use his CPAP. [facility] Medical History HTN (hypertension) Heart failure with reduced ejection fraction LAWANDA (obstructive sleep apnea) Lymphadenopathy Pleural effusion Hypertension Atrial fibrillation Surgical History Hx of appendectomy Family History Mother No problems noted. Father Stroke Heart attack Atrial fibrillation Social History Household Members: Children Housing: House Do you presently have visiting nurse or other home services: No Alcohol intake: former Comment: pt refuses bed alarm Patient Tobacco Use Status: Never used Tobacco Advance Directives Date on File: 03/18/21 service: Yes Current occupational status: disabled Vital Signs 08/23/23 13:26 Height 5 ft 11 in Weight 327 lb 6 oz BMI 45.7 BP 122/82 Blood Pressure Location Lt brachial Position Sitting Pulse 91 Pulse Source Pulse Oximeter Pulse Oximetry (%) 97 Oxygen Delivery Method Room Air Physical Exam Vital Signs: Last Vital Signs Pulse 91 08/23/23 13:26 BP 122/82 08/23/23 13:26 Pulse Ox 97 08/23/23 13:26 Oxygen Delivery Method Room Air 08/23/23 13:26 BMI result Body Mass Index 45.7 Const General: comfortable and no acute distress Orientation/consciousness: patient oriented x3 HEENT Head: Yes normocephalic Mouth: Normal oral and palatal mucosa present Eyes EOM: EOMs intact bilaterally Neck Neck: Yes supple Resp Auscultation: clear to auscultation bilaterally Cardio Jugular venous distension: no JVD Rate: regular rate GI Palpation (GI): Soft to palpation Auscultation: normal bowel sounds General: Yes no CVA tenderness Back/Spine/Pelvis Back: no CVA tenderness Skin General skin exam: no rashes or lesions noted Neuro General: patient oriented x3 and moves all extremities Extrem General: Yes no pedal edema Assessment & Plan Assessment & Plan (1) CKD (chronic kidney disease) stage 3, GFR 30-59 ml/min: Code(s): N18.30 - Chronic kidney disease, stage 3 unspecified Qualifiers: Chronic kidney disease stage 3 subtype: stage 3a (GFR 45-59) Qualified Code(s): N18.31 - Chronic kidney disease, stage 3a (2) HTN (hypertension): Code(s): I10 - Essential (primary) hypertension Qualifiers: Hypertension type: primary hypertension Qualified Code(s): I10 - Essential (primary) hypertension Plan Luis has stage III CKD and hypertension. His renal function had been stable . He has no clinical signs of heart failure. His echocardiogram has improved. He can continue rest of his current medications. He should avoid nonsteroidal anti-inflammatory medications. He needs to go back on CPAP. He may be a candidate for Jardiance. I did not make any other medication changes today. He should be on a low-sodium diet .He should lose weight. He should continue to follow-up with his health counselor. I increased his tamsulosin to 0.8 mg daily. Follow-up given. Follow-up lab work ordered Orders: Orders Blood Urea Nitrogen Today N18.30 - Chronic kidney disease, stage 3 unspecified Hemoglobin A1c Today N18.30 - Chronic kidney disease, stage 3 unspecified Creatinine 3 Months N18.30 - Chronic kidney disease, stage 3 unspecified Blood Urea Nitrogen 3 Months N18.30 - Chronic kidney disease, stage 3 unspecified Creatinine Today N18.30 - Chronic kidney disease, stage 3 unspecified Electrolytes Today N18.30 - Chronic kidney disease, stage 3 unspecified Electrolytes 3 Months N18.30 - Chronic kidney disease, stage 3 unspecified Protein Creatinine Ratio, Ur Today N18.30 - Chronic kidney disease, stage 3 unspecified Medications: Discontinued amlodipine (Norvasc) Discontinued Reason: Doctor's Order 5 mg PO DAILY 30 tabs 0RF Coding Level of Care Code Est Pt Level 4 (35862) Diagnoses Stage 3a chronic kidney disease N18.31 Chronic kidney disease stage 3 subtype: stage 3a (GFR 45-59) Primary hypertension I10 Hypertension type: primary hypertension Results Reviewed Nephrology Results: No Data to Display
[2023-08-23 13:26] VITALS: BP 122/82; PULSE 91; O2SAT 97; BMI 45.7
== END 2023-08-23 13:58 | disposition home or self-care (01) ==
LOC: HO.HKA 13:18
PROVIDERS: PCP Internal Medicine; Visit Provider Internal Medicine Nephrology
DX: N18.31 Chronic kidney disease, stage 3a (principal); I10 Essential (primary) hypertension
CPT/HCPCS: 99214

== ENCOUNTER → 2023-08-23 13:18 | Outpatient (BNVA) | payer OTHER, SELFPAY | PROVIDERS: PCP Internal Medicine; Visit Provider Internal Medicine Nephrology | DX: I12.9 Hypertensive chronic kidney disease with stage 1 through stage 4 chronic kidney disease, or unspecified chronic kidney disease (principal); N18.31 Chronic kidney disease, stage 3a | CPT/HCPCS: 99212 ==

== ENCOUNTER 2023-09-08 10:51 | Outpatient (AMB) | payer OTHER, SELFPAY ==
--- NOTE | 2023-09-08 10:53 | MHC.OFFVIS ---
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 Pt reports this has been going on for 7 years. Worse at night, constant pain. 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: No Allergies No Known Allergies Allergy (Verified 09/08/23 10:54) Medication List - Last Reconciled 09/08/23 by Alysha Fuchs MD allopurinol 100 mg PO DAILY apixaban (Eliquis) 5 mg PO BID@0800,1999 carvedilol 6.25 mg See Protocol PO BID colchicine 0.6 mg PO BID PRN digoxin 0.125 mg PO Q2D furosemide (Lasix) 40 mg PO DAILY pantoprazole 1 tab PO DAILY pregabalin 150 mg PO BID spironolactone (Aldactone) 25 mg PO DAILY tamsulosin 0.4 mg PO DAILY HPI HPI Comments History of Present Illness Details 68y/o male comes for further management of neuropathy He started noticing burning in bottom of feet, numbness, pins and needles sensation about 7 years. He was seen by vascular and was told it was neurological. He was given a diagnosis of neuropathy but not sure if he was seen by a neurologist or has EMG. His symptoms have worsened progressively - he is not sure if he is weak.The symptoms are at rest and starts in the afternoon and worsens through out the night. He has mild back pain denies shooting pain.He has some difficulty urinating. He takes gabapentin 300mg 3 qam and 2 qhs [facility] Medical History (Updated 09/08/23 @ 11:25 by Alysha Fuchs MD) Foot pain, bilateral HTN (hypertension) Heart failure with reduced ejection fraction LAWANDA (obstructive sleep apnea) Lymphadenopathy Pleural effusion Hypertension Atrial fibrillation Surgical History History of ankle surgery Hx of appendectomy Family History Mother No problems noted. Father Stroke Heart attack Atrial fibrillation Social History Household Members: Children Housing: House Do you presently have visiting nurse or other home services: No Alcohol intake: former Comment: pt refuses bed alarm Patient Tobacco Use Status: Never used Tobacco Advance Directives Date on File: 03/18/21 service: Yes Current occupational status: disabled Physical Exam Vital Signs: Last Vital Signs Pulse 79 09/08/23 10:54 Resp 16 09/08/23 10:54 BP 128/70 09/08/23 10:54 Pulse Ox 97 09/08/23 10:54 Oxygen Delivery Method Room Air 09/08/23 10:54 BMI result Body Mass Index 46.4 Const General: cooperative, comfortable and no acute distress Nutritional Appearance: obese Orientation/consciousness: patient oriented x3 Limitations: ambulation with walker HEENT Head: Yes normal to inspection and Yes normocephalic Eyes Pupils: Equal, round and reactive pupils present Neuro Other: Alexis feet- swelling with poor foot hygiene Mallampatti grade 4 General: patient oriented x3, tone normal and moves all extremities Cranial nerves: Yes Facial sensation intact/muscles of mastication intact, Yes Equal, round and reactive pupils present, Yes Bilaterally intact EOM present, Yes Nystagmus not present, Yes Normal facial strength present, Yes Midline tongue present and Yes Symmetric palate elevation present Cognition (Neuro): normal cognition Gait exam (Neuro): Antalgic gait present Motor exam (neuro): 5/5 motor strength present throughout Deep tendon reflexes (DTR's): Right triceps reflex intensity grade: 0, Left triceps reflex intensity grade: 0, Rt Biceps (C5, C6): 0, Left biceps reflex intensity grade: 0, Right brachioradialis reflex intensity grade: 0, Left brachioradialis reflex intensity grade: 0, Right patellar reflex intensity grade: 0 and Left patellar reflex intensity grade: 0 Coordination: [id number] test normal Assessment & Plan Assessment & Plan (1) Foot pain, bilateral: Comment: Neuropathy ? Restless legs syndrome ? vascular Code(s): M79.671 - Pain in right foot; M79.672 - Pain in left foot Plan I will evaluate him with EMG/NCS Continue gabapentin 300mg 3 qam and 2 tabs qhs Orders: Orders NE electromyogram (EMG) Today G62.9 - Polyneuropathy, unspecified, M79.671 - Pain in right foot, M79.672 - Pain in left foot NE nerve conduction velocity Today G62.9 - Polyneuropathy, unspecified, M79.671 - Pain in right foot, M79.672 - Pain in left foot Coding Level of Care Code New Pt Level 4 (04293) Diagnoses Foot pain, bilateral M79.671; M79.672
[2023-09-08 10:54] VITALS: BP 128/70; PULSE 79; RESP 16; O2SAT 97; BMI 46.4
== END 2023-09-08 11:34 | disposition home or self-care (01) ==
PROVIDERS: PCP Internal Medicine; Referring Provider Internal Medicine; Visit Provider Psychiatry & Neurology Neurology
DX: M79.671 Pain in right foot (principal); M79.672 Pain in left foot
CPT/HCPCS: 99204

== ENCOUNTER → 2023-09-08 10:51 | Outpatient (BNVA) | payer OTHER, SELFPAY | PROVIDERS: PCP Internal Medicine; Visit Provider Psychiatry & Neurology Neurology | DX: G62.9 Polyneuropathy, unspecified (principal); M79.671 Pain in right foot; M79.672 Pain in left foot | CPT/HCPCS: 99202 ==

== ENCOUNTER 2023-09-20 12:50 | Outpatient (REF) | payer OTHER, SELFPAY ==
[2023-09-20 17:27] LABS: Estimated Average Glucose 143 mg/dL; Hemoglobin A1c % 6.6 % (<6.0)
[2023-09-20 17:45] LABS: Creatinine Urine 67.14 mg/dL; Total Protein Urine Random < 7 mg/dL (<12)
[2023-09-20 17:45] LABS: Anion Gap 13 (12-20); Blood Urea Nitrogen 28 mg/dL (9-16); Carbon Dioxide 25 mmol/L (22-29); Chloride 103 mmol/L (96-108); Estimated Glomerular Filt Rate 50; Potassium 4.4 mmol/L (3.3-5.1); Sodium 137 mmol/L (135-145)
== END 2023-09-20 12:51 | disposition home or self-care (01) ==
LOC: HO.HMGCLDS 12:50
PROVIDERS: PCP Internal Medicine; Visit Provider Internal Medicine Nephrology
DX: N18.30 Chronic kidney disease, stage 3 unspecified (principal)
CPT/HCPCS: 36415; 80051; 82565; 82570; 83036; 84156; 84520

== ENCOUNTER 2023-10-12 14:03 | Outpatient (REF) | payer OTHER, SELFPAY ==
--- NOTE | 2023-10-12 14:07 | EMG_ITS ---
Chief complaint: Chronic numbness on toes, bilateral feet pain, chronic back pain, received injections from lumbar injections last year Reason for referral: Evaluate for neuropathy Referred by: Dr. Fuchs Procedure done: Bilateral lower extremity NCS/EMG Precautions and/or limitations: On Eliquis The limb temperature was monitored continuously and remained between 32-36 degrees C during the performance of the NCS. Nerve Conduction Studies Anti Sensory Summary Table ?Stim Site NR Onset (ms) Norm Onset (ms) Peak (ms) Norm Peak (ms) O-P Amp (?V) Norm O-P Amp Site1 Site2 Delta-0 (ms) Dist (cm) Jose Angel (m/s) Norm Jose Angel (m/s) Left Sural Anti Sensory (Lat Mall) Calf ? 2.9 3.4 <4.0 7.5 >5.0 Calf Lat Mall 2.9 14.0 48 Right Sural Anti Sensory (Lat Mall) Calf ? 3.6 4.0 <4.0 10.4 >5.0 Calf Lat Mall 3.6 14.0 39 Motor Summary Table ?Stim Site NR Onset (ms) Norm Onset (ms) O-P Amp (mV) Norm O-P Amp iAmp (mV) Amp (1st) (%) Site1 Site2 Delta-0 (ms) Dist (cm) Jose Angel (m/s) Norm Jose Angel (m/s) Left Peroneal Motor (Ext Dig Brev) Ankle NR <4.0 >2.5 Ankle Ext Dig Brev 0.0 B Fib NR B Fib Ankle 0.0 >40 Right Peroneal Motor (Ext Dig Brev) Ankle NR <4.0 >2.5 Ankle Ext Dig Brev 0.0 B Fib NR B Fib Ankle 0.0 >40 Poplt NR Poplt B Fib 0.0 >40 Right Tibial Motor (Abd Brown Brev) Ankle NR <5 >2.5 Ankle Abd Brown Brev 0.0 Knee NR Knee Ankle 0.0 >40 EMG ?Side Muscle Nerve Root Ins Act Fibs Psw Amp Dur Poly Recrt Int Pat Comment Right AbdHallucis MedPlantar S1-2 Nml Nml Nml Nml Nml 0 Nml Complete Right AntTibialis Dp Br Peron L4-5 Nml Nml Nml Nml Nml 1+ Nml Complete Right PostTibialis Tibial L5, S1 Nml Nml Nml Nml Nml 0 Nml Complete Right MedGastroc Tibial S1-2 Nml Nml Nml Nml Nml 0 Nml Complete Right VastusMed Femoral L2-4 Nml Nml Nml Nml Nml 0 Nml Complete Left AbdHallucis MedPlantar S1-2 Nml Nml Nml Nml Nml 0 Nml Complete Left AntTibialis Dp Br Peron L4-5 Nml Nml Nml Incr Incr 0 Nml Complete Left PostTibialis Tibial L5, S1 Nml Nml Nml Nml Nml 0 Nml Complete Left MedGastroc Tibial S1-2 Nml Nml Nml Incr Incr 0 Nml Complete Left VastusMed Femoral L2-4 Nml Nml Nml Nml Nml 0 Nml Complete FINDINGS: Bilateral tibial nerves no response. Right peroneal nerve no response. Bilateral sural nerves showed normal peak latency and normal amplitude. Concentric needle EMG was performed in selected muscles of the bilateral lower extremity. Study revealed Signs of electric abnormalities as shown in the table below. Chronic reinnervation changes seen on right vastus medialis, right tibialis anterior, left medial gastrocnemius, left tibialis anterior. IMPRESSION: 1. This is an abnormal study. 2. 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 CLINICAL COMMENT: Given normal sural responses, findings above are suggestive more of a polyradiculopathy picture, rather than polyneuropathy.. Further clinical correlation recommended. Thank you for your kind referral. Velia Christianson MD, IRINA Board Certified, [place] Board [employer] and Rehabilitation (ABPMR) Board Certified, [place] Board of Electrodiagnostic Medicine (ABEM) CODIN 97143 x 2 MTDD
== END 2023-10-12 14:04 | disposition home or self-care (01) ==
LOC: HO.NEURO 14:03
PROVIDERS: PCP Internal Medicine; Visit Provider Psychiatry & Neurology Neurology
DX: M79.671 Pain in right foot (principal); M79.672 Pain in left foot; G62.9 Polyneuropathy, unspecified
CPT/HCPCS: 95886; 95909

== ENCOUNTER → 2023-10-12 14:07 | Outpatient (BNV) | payer OTHER, SELFPAY | PROVIDERS: PCP Internal Medicine; Visit Provider Physical Medicine & Rehabilitation | DX: M79.672 Pain in left foot (principal); M79.671 Pain in right foot; R20.2 Paresthesia of skin | CPT/HCPCS: 95886; 95909 ==

== ENCOUNTER 2023-12-27 13:41 | Outpatient (AMB) | payer OTHER, SELFPAY ==
--- NOTE | 2023-12-27 13:46 | HO.NEPHOV_ITS ---
Vital Signs 12/27/23 13:50 Height 5 ft 11 in Weight 307 lb BMI 42.8 BP 102/72 Blood Pressure Location Rt brachial Position Sitting Pulse 91 Pulse Source Pulse Oximeter Pulse Oximetry (%) 96 Oxygen Delivery Method Room Air Intake Visit Reasons: CKD/ 4 MO FU/ Conf Credit Risk Associate Required: No Accompanied by: Self / Same As Patient Allergies No Known Allergies Allergy (Verified 12/27/23 13:52) HPI Comments Details: Luis was seen in the office in follow-up of his chronic kidney disease and hypertension. He has history of systolic heart failure. His echocardiogram has shown improvement. He denies any chest pain, shortness of breath, orthopnea. He had a seen a vascular MD in [place] but is getting a 2nd opinion in [place]. He avoids nonsteroidal anti-inflammatory medications. He has prostatic issues and has seen Dr. Costa Cash. He is not strict with so dium restriction in the diet. He doesnt use his CPAP. He has been having intermittent orthostatic symptoms. [facility] Medical History (Updated 09/08/23 @ 11:25 by Alysha Fuchs MD) Foot pain, bilateral HTN (hypertension) Heart failure with reduced ejection fraction LAWANDA (obstructive sleep apnea) Lymphadenopathy Pleural effusion Hypertension Atrial fibrillation Surgical History History of ankle surgery Hx of appendectomy Family History Mother No problems noted. Father Stroke Heart attack Atrial fibrillation Social History Household Members: Children Housing: House Do you presently have visiting nurse or other home services: No Alcohol intake: former Comment: pt refuses bed alarm Patient Tobacco Use Status: Never used Tobacco Advance Directives Date on File: 03/18/21 service: Yes Current occupational status: disabled Review of Systems Const All systems reviewed & are unremarkable except as noted in HPI and below Physical Exam Vital Signs: Last Vital Signs Pulse 91 12/27/23 13:50 BP 102/72 12/27/23 13:50 Pulse Ox 96 12/27/23 13:50 Oxygen Delivery Method Room Air 12/27/23 13:50 BMI result Body Mass Index 42.8 Const General: no acute distress Orientation/consciousness: patient oriented x3 Eyes EOM: EOMs intact bilaterally Neck Neck: Yes supple Resp Auscultation: diminished lung sounds Cardio Rate: regular rate GI Palpation (GI): Soft to palpation Neuro General: patient oriented x3 and moves all extremities Results Reviewed Nephrology Results: Sodium 137 mmol/L (135-145) 09/20/23 Potassium 4.4 mmol/L (3.3-5.1) 09/20/23 Chloride 103 mmol/L (96-108) 09/20/23 Carbon Dioxide 25 mmol/L (22-29) 09/20/23 BUN 28 mg/dL (9-16) H 09/20/23 Creatinine 1.42 mg/dL (0.5-1.4) H 09/20/23 Urine Creatinine 67.14 mg/dL 09/20/23 Protein/Creatinin Ratio TNP 09/20/23 Assessment & Plan Assessment & Plan (1) CKD (chronic kidney disease) stage 3, GFR 30-59 ml/min: Code(s): N18.30 - Chronic kidney disease, stage 3 unspecified Category: Medical Qualifiers: Chronic kidney disease stage 3 subtype: stage 3a (GFR 45-59) Qualified Code(s): N18.31 - Chronic kidney disease, stage 3a (2) HTN (hypertension): Code(s): I10 - Essential (primary) hypertension Category: Medical Qualifiers: Hypertension type: primary hypertension Qualified Code(s): I10 - Essential (primary) hypertension Plan Luis has stage III CKD and hypertension. His renal function had been stable . He has no clinical signs of heart failure. His echocardiogram has improved. I reduced his Carvedilol to 3.125 mg bid given intermittent orthostatic symptoms. He can continue rest of his current medications. He should avoid nonsteroidal anti-inflammatory medications. He needs to go back on CPAP. He may be a candidate for Jardiance. I did not make any other medication changes today. He should be on a low-sodium diet .He should lose weight. 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 Follow-up given. Follow-up lab work ordered Orders: Orders Blood Urea Nitrogen Today N18.31 - Chronic kidney disease, stage 3a Electrolytes Today N18.31 - Chronic kidney disease, stage 3a Creatinine Today N18.31 - Chronic kidney disease, stage 3a Medications: Changed From carvedilol 6.25 mg See Protocol PO BID 60 tabs 0RF To carvedilol 3.125 mg See Protocol PO BID 60 tabs 4RF Coding Level of Care Code Est Pt Level 4 (83310) Diagnoses Stage 3a chronic kidney disease N18.31 Chronic kidney disease stage 3 subtype: stage 3a (GFR 45-59) Primary hypertension I10 Hypertension type: primary hypertension
[2023-12-27 13:50] VITALS: BP 102/72; PULSE 91; O2SAT 96; BMI 42.8
== END 2023-12-27 14:29 | disposition home or self-care (01) ==
PROVIDERS: PCP Internal Medicine; Referring Provider Internal Medicine; Visit Provider Internal Medicine Nephrology
DX: N18.31 Chronic kidney disease, stage 3a (principal); I10 Essential (primary) hypertension
CPT/HCPCS: 99214

== ENCOUNTER → 2023-12-27 13:41 | Outpatient (BNVA) | payer OTHER, SELFPAY | PROVIDERS: PCP Internal Medicine; Visit Provider Internal Medicine Nephrology | DX: I12.9 Hypertensive chronic kidney disease with stage 1 through stage 4 chronic kidney disease, or unspecified chronic kidney disease (principal); N18.31 Chronic kidney disease, stage 3a; Z79.899 Other long term (current) drug therapy | CPT/HCPCS: 99212 ==

== ENCOUNTER 2024-01-02 12:40 | Outpatient (AMB) | payer OTHER, SELFPAY ==
--- NOTE | 2024-01-02 12:43 | MHC.OFFVIS ---
Vital Signs 01/02/24 12:54 Height 5 ft 11 in Weight 307 lb BMI 42.8 BP 112/76 Blood Pressure Location Rt brachial Position Sitting Respiration 17 Pulse 84 Pulse Source Palpation Intake Visit Reasons: 4 Month F/U - Confirmed Intake Note: Pt presents to the office for 4 month follow up for bilateral lower extremity pain. 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 EMG - polyradiculopathy Vascular - venous insufficiency . He reports better when the legs are lifted. He started using marijuana gummies - hurtado snot help his pain He started noticing burning in bottom of feet, numbness, pins and needles sensation about 7 years. He was seen by vascular and was told it was neurological. He was given a diagnosis of neuropathy but not sure if he was seen by a neurologist or has EMG. His symptoms have worsened progressively - he is not sure if he is weak.The symptoms are at rest and starts in the afternoon and worsens through out the night. He has mild back pain denies shooting pain.He has some difficulty urinating. He takes gabapentin 300mg 1 qam and 3qhs PFSH Medical History Foot pain, bilateral HTN (hypertension) Heart failure with reduced ejection fraction LAWANDA (obstructive sleep apnea) Lymphadenopathy Pleural effusion Hypertension Atrial fibrillation Surgical History History of ankle surgery Hx of appendectomy Family History Mother No problems noted. Father Stroke Heart attack Atrial fibrillation Social History Household Members: Children Housing: House Do you presently have visiting nurse or other home services: No Alcohol intake: former Comment: pt refuses bed alarm Patient Tobacco Use Status: Never used Tobacco Advance Directives Date on File: 03/18/21 service: Yes Current occupational status: disabled Physical Exam Vital Signs: Last Vital Signs Pulse 84 01/02/24 12:54 Resp 17 01/02/24 12:54 BP 112/76 01/02/24 12:54 BMI result Body Mass Index 42.8 Const General: cooperative, comfortable and no acute distress Nutritional Appearance: obese Orientation/consciousness: patient oriented x3 Limitations: ambulation with walker HEENT Head: Yes normal to inspection and Yes normocephalic Eyes Pupils: Equal, round and reactive pupils present Neuro Other: Alexis feet- swelling with poor foot hygiene Mallampatti grade 4 General: patient oriented x3, tone normal and moves all extremities Cranial nerves: Yes Facial sensation intact/muscles of mastication intact, Yes Equal, round and reactive pupils present, Yes Bilaterally intact EOM present, Yes Nystagmus not present, Yes Normal facial strength present, Yes Midline tongue present and Yes Symmetric palate elevation present Cognition (Neuro): normal cognition Gait exam (Neuro): Antalgic gait present Motor exam (neuro): 5/5 motor strength present throughout Coordination: [id number] test normal Assessment & Plan Assessment & Plan (1) Foot pain, bilateral: Comment: radiculopathy? Restless legs syndrome ? vascular Code(s): M79.671 - Pain in right foot; M79.672 - Pain in left foot Category: Medical Plan I will trial him on ropinirole XR 2mg qhs Continue gabapentin 300mg 1 qam and 3 tabs qhs F/u [facility] Medications: New ropinirole ER 2 mg PO BEDTIME 30 tabs 6RF Coding Level of Care Code Est Pt Level 4 (54264) Diagnoses Foot pain, bilateral M79.671; M79.672
[2024-01-02 12:54] VITALS: BP 112/76; PULSE 84; RESP 17; BMI 42.8
== END 2024-01-02 13:16 | disposition home or self-care (01) ==
PROVIDERS: PCP Internal Medicine; Visit Provider Psychiatry & Neurology Neurology
DX: M79.671 Pain in right foot (principal); M79.672 Pain in left foot
CPT/HCPCS: 99214

== ENCOUNTER → 2024-01-02 12:40 | Outpatient (BNVA) | payer OTHER, SELFPAY | PROVIDERS: PCP Internal Medicine; Visit Provider Psychiatry & Neurology Neurology | DX: M79.671 Pain in right foot (principal); M79.672 Pain in left foot | CPT/HCPCS: 99212 ==

== ENCOUNTER 2024-02-06 14:00 | Outpatient (AMB) | payer OTHER, SELFPAY ==
--- NOTE | 2024-02-06 14:00 | A.OFFVIS_ITS ---
Vital Signs 02/06/24 14:03 Height 5 ft 11 in Weight 307 lb BMI 42.8 BP 128/84 Blood Pressure Location Rt brachial Position Sitting Intake Visit Reasons: follow up US Intake Note: Luis is a 69 year old male who presents to the office today for a follow up US. Pt states both of his legs are painful and he states both of his feet have numbness. Allergies No Known Allergies Allergy (Verified 02/06/24 14:03) HPI HPI follow up US: Details: Very pleasant morbidly obese 69-year-old gentleman presents for follow-up evaluation regarding venous disease. Is significant swelling and even evidence of ulcerations on the pretibial surface. Used compression with minimal relief. He now presents for follow-up with venous insufficiency testing. [facility] Medical History Foot pain, bilateral HTN (hypertension) Heart failure with reduced ejection fraction LAWANDA (obstructive sleep apnea) Lymphadenopathy Pleural effusion Hypertension Atrial fibrillation Surgical History History of ankle surgery Hx of appendectomy Family History Mother No problems noted. Father Stroke Heart attack Atrial fibrillation Social History Household Members: Children Housing: House Do you presently have visiting nurse or other home services: No Alcohol intake: former Comment: pt refuses bed alarm Patient Tobacco Use Status: Never used Tobacco Advance Directives Date on File: 03/18/21 service: Yes Current occupational status: disabled Review of Systems Const Reports as per HPI ENT Reports no additional complaints Card Denies chest pain, Denies chest pain at rest and Denies chest pain with activity Resp Denies chest congestion and Denies cough GI Reports no additional complaints Musc Details: pain over varicosities, aching of lower extremities, swelling, cramping, heaviness and tiredness, itching Denies abnormal gait Skin/Breast Reports pruritus and Denies wounds Neuro Reports no additional complaints and Denies abnormal gait Psych Denies no additional complaints Physical Exam Vital Signs: Last Vital Signs BP 128/84 02/06/24 14:03 BMI result Body Mass Index 42.8 Const General: cooperative, healthy appearing and comfortable Orientation/consciousness: oriented to person, oriented to place and oriented to time Neck Carotids: no bruits Chest Chest palpation & inspection: normal inspection of the chest and normal palpation of entire chest wall Resp Effort & Inspection: normal respiratory effort and able to speak in complete sentences Cardio Rate: regular rate Heart sounds: S1 normal heart sound present and S2 normal heart sound present Peripheral pulses: Peripheral pulses 2+ throughout GI Inspection: Yes normal to inspection Skin Other: +2 edema, right pretibial ulcer CEAP Classification C5 - healed ulceration Ep - Etiology Primary As - superficial veins P - reflux General skin exam: dry skin Neuro General: oriented to person, oriented to place and oriented to time Extrem Right lower extremity: full ROM, normal capillary refill and edema Left lower extremity: full ROM, normal capillary refill and edema Psych Mental Status: mental status grossly normal Results Reviewed Results Reviewed: Brief summary of venous insufficiency testing is as follows: right great saphenous vein: Positive right small saphenous vein: Positive right accessory vein: none present left great saphenous vein: Positive left small saphenous vein: Positive left accessory vein: none present Please note there is no evidence of any venous aneurysms or significant tortuosity Assessment & Plan Assessment & Plan (1) Varicose veins of right lower extremity with inflammation: Code(s): I83.11 - Varicose veins of right lower extremity with inflammation Category: Medical Plan: This patient has varicose veins with inflammation. They continue to be a source of discomfort for the patient. The patient has tried conservative treatment with compression, leg elevation and exercise program for over 3 months time. They have been compliant with all treatment. This has provided minimal relief for the patient. I do not anticipate this course of treatment will alter the underlying etiology. The patient has been scheduled for lower extremity venous treatment inclusive of --- right great saphenous vein Cyanoacralate ablation. Risks, benefits, and complications of this procedure has been discussed in detail with the patient including but not limited to bleeding, infection, and the development of a DVT. The patient has demonstrated a clear understanding and has consented. We will schedule the patient as soon as possible. Thank you for allowing us to participate in this patient's care. If there are any questions or concerns please do not hesitate to contact us. Coding Level of Care Code Est Pt Level 4 (89827) Diagnoses Varicose veins of right lower extremity with inflammation I83.11
[2024-02-06 14:03] VITALS: BP 128/84; BMI 42.8
== END 2024-02-06 15:07 | disposition home or self-care (01) ==
PROVIDERS: PCP Internal Medicine; Visit Provider Surgery Vascular Surgery
DX: I83.11 Varicose veins of right lower extremity with inflammation (principal)
CPT/HCPCS: 99214

== ENCOUNTER → 2024-02-06 14:00 | Outpatient (BNVA) | payer OTHER, SELFPAY | PROVIDERS: PCP Internal Medicine; Visit Provider Surgery Vascular Surgery | DX: I83.11 Varicose veins of right lower extremity with inflammation (principal) | CPT/HCPCS: 99212 ==

== ENCOUNTER 2024-03-27 14:02 | Outpatient (AMB) | payer OTHER, SELFPAY ==
[2024-03-27 14:12] VITALS: BP 122/70; BMI 45.2
--- NOTE | 2024-03-27 14:12 | HO.NEPHOV ---
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 He has history of systolic heart failure. His echocardiogram has shown improvement. He denies any chest pain, shortness of breath, orthopnea. He had a seen a vascular MD. He avoids nonsteroidal anti-inflammatory medications. He has prostatic issues and has seen Dr. Costa Cash. He is not strict with sodium restriction in the diet. He doesn't use his CPAP. [facility] Medical History Foot pain, bilateral HTN (hypertension) Heart failure with reduced ejection fraction LAWANDA (obstructive sleep apnea) Lymphadenopathy Pleural effusion Hypertension Atrial fibrillation Surgical History History of ankle surgery Hx of appendectomy Family History Mother No problems noted. Father Stroke Heart attack Atrial fibrillation Social History Household Members: Children Housing: House Do you presently have visiting nurse or other home services: No Alcohol intake: former Comment: pt refuses bed alarm Patient Tobacco Use Status: Never used Tobacco Advance Directives Date on File: 03/18/21 service: Yes Current occupational status: disabled Review of Systems Const All systems reviewed & are unremarkable except as noted in HPI and below Physical Exam Vital Signs: Last Vital Signs BP 122/70 03/27/24 14:12 BMI result Body Mass Index 45.2 Const General: comfortable and no acute distress Orientation/consciousness: patient oriented x3 HEENT Head: Yes normocephalic Mouth: Normal oral and palatal mucosa present Eyes EOM: EOMs intact bilaterally Neck Neck: Yes supple Resp Auscultation: clear to auscultation bilaterally Cardio Jugular venous distension: no JVD Rate: regular rate GI Palpation (GI): Soft to palpation Auscultation: normal bowel sounds General: Yes no CVA tenderness Back/Spine/Pelvis Back: no CVA tenderness Skin General skin exam: no rashes or lesions noted Neuro General: patient oriented x3 and moves all extremities Extrem General: Yes no pedal edema Results Reviewed Nephrology Results: Sodium 137 mmol/L (135-145) 09/20/23 Potassium 4.4 mmol/L (3.3-5.1) 09/20/23 Chloride 103 mmol/L (96-108) 09/20/23 Carbon Dioxide 25 mmol/L (22-29) 09/20/23 BUN 28 mg/dL (9-16) H 09/20/23 Creatinine 1.42 mg/dL (0.5-1.4) H 09/20/23 Urine Creatinine 67.14 mg/dL 09/20/23 Protein/Creatinin Ratio TNP 09/20/23 Assessment & Plan Assessment & Plan (1) CKD (chronic kidney disease) stage 3, GFR 30-59 ml/min: Code(s): N18.30 - Chronic kidney disease, stage 3 unspecified Category: Medical Qualifiers: Chronic kidney disease stage 3 subtype: stage 3a (GFR 45-59) Qualified Code(s): N18.31 - Chronic kidney disease, stage 3a (2) HTN (hypertension): Code(s): I10 - Essential (primary) hypertension Category: Medical Qualifiers: Hypertension type: primary hypertension Qualified Code(s): I10 - Essential (primary) hypertension Plan Luis has stage III CKD and hypertension. His renal function had been stable . He has no clinical signs of heart failure. His echocardiogram has improved. He should avoid nonsteroidal anti-inflammatory medications. He needs to go back on CPAP. He may be a candidate for [facility]. I did not make any other medication changes today. He should be on a low-sodium diet .He should lose weight. 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 Follow-up given. Follow-up lab work ordered Orders: Orders Creatinine 4 Months I10 - Essential (primary) hypertension, N18.31 - Chronic kidney disease, stage 3a Electrolytes 4 Months I10 - Essential (primary) hypertension, N18.31 - Chronic kidney disease, stage 3a Complete Blood Count Auto Diff 4 Months I10 - Essential (primary) hypertension, N18.31 - Chronic kidney disease, stage 3a Blood Urea Nitrogen 4 Months I10 - Essential (primary) hypertension, N18.31 - Chronic kidney disease, stage 3a Calcium 4 Months I10 - Essential (primary) hypertension, N18.31 - Chronic kidney disease, stage 3a Vitamin D 25-OH Total 4 Months I10 - Essential (primary) hypertension, N18.31 - Chronic kidney disease, stage 3a Parathyroid Hormone Intact 4 Months I10 - Essential (primary) hypertension, N18.31 - Chronic kidney disease, stage 3a Coding Level of Care Code Est Pt Level 4 (35056) Diagnoses Stage 3a chronic kidney disease N18.31 Chronic kidney disease stage 3 subtype: stage 3a (GFR 45-59) Primary hypertension I10 Hypertension type: primary hypertension
== END 2024-03-27 14:38 | disposition home or self-care (01) ==
PROVIDERS: PCP Internal Medicine; Referring Provider Internal Medicine Nephrology; Visit Provider Internal Medicine Nephrology
DX: I13.0 Hypertensive heart and chronic kidney disease with heart failure and stage 1 through stage 4 chronic kidney disease, or unspecified chronic kidney disease (principal); N18.31 Chronic kidney disease, stage 3a; I50.20 Unspecified systolic (congestive) heart failure
CPT/HCPCS: 99214

== ENCOUNTER → 2024-03-27 14:02 | Outpatient (BNVA) | payer OTHER, SELFPAY | PROVIDERS: PCP Internal Medicine; Visit Provider Internal Medicine Nephrology | DX: I12.9 Hypertensive chronic kidney disease with stage 1 through stage 4 chronic kidney disease, or unspecified chronic kidney disease (principal); N18.31 Chronic kidney disease, stage 3a | CPT/HCPCS: 99212 ==

== ENCOUNTER 2024-03-29 12:10 | Outpatient (AMB) | payer OTHER, SELFPAY ==
--- NOTE | 2024-03-29 13:04 | MHC.OFFVIS ---
Intake Visit Reasons: Right GSV Venaseal Accompanied by: Self / Same As Patient Allergies No Known Allergies Allergy (Verified 03/29/24 13:04) [facility] Medical History Foot pain, bilateral HTN (hypertension) Heart failure with reduced ejection fraction LAWANDA (obstructive sleep apnea) Lymphadenopathy Pleural effusion Hypertension Atrial fibrillation Surgical History History of ankle surgery Hx of appendectomy Family History Mother No problems noted. Father Stroke Heart attack Atrial fibrillation Social History Household Members: Children Housing: House Do you presently have visiting nurse or other home services: No Alcohol intake: former Comment: pt refuses bed alarm Patient Tobacco Use Status: Never used Tobacco Advance Directives Date on File: 03/18/21 service: Yes Current occupational status: disabled Office Procedures Vascular Office Procedure Details Details: Diagnosis: Right Leg varicose veins with inflammation Procedure: Endovenous Ablation of the right Great Saphenous Vein with VenaSeal Closure System Anesthesia: Local infiltration 5 cc, Estimated Blood Loss: min Specimen: none Duplex ultrasound was used to map out the insufficient saphenous vein, and access was determined and marked on the overlying skin. The depth and diameter of the vein(s) to be treated was documented. The patient was placed supine on the procedure table and the leg was prepped and draped using sterile technique. Ultasound guidance was again used to localize the access site. 1% lidocaine was injected as a local anesthetic in the subcutaneous tissues at the target location in the GSV in the lower leg. Using ultrasound guidance, access was gained at this location with the 19 gauge thin walled access needle and followed by introduction of a short guidewire, location confirmed with ultrasound. A small, 3 mm incision was made at the access site to allow for introduction and placement of the 7 Fr x7cm introducer/dilator. The dilator and guidewire were removed. The 0.035 guidewire from the VenaSeal kit was then introduced and positioned at the saphenofemoral junction using ultrasound guidance. The 80 cm 7 Fr introducer sheath/dilator was positioned 5cm from the saphenofemoral junction. The guidewire and dilator were removed, and the remaining sheath was flushed with sterile saline, with the syringe remaining in place prior to the next steps. The cyanoacrylate adhesive was precisely primed into the 5 F delivery catheter and this catheter/syringe combination was attached within the dispenser gun. This assembly was introduced through the 7F sheath and positioned 5 cm caudal of the saphenofemoral junction under ultrasound guidance. The steps from the IFU were followed for dispensing amounts, locations and compression times, 2 aliquots proximally with 3 minutes of compression, and 1 aliquot every 3 cm distally with 30 sec of compression along the course of the vessel. Following the last injection and compression sequence, the catheter and introducer sheath were pulled out from the access site. Hemostasis was achieved with manual compression and an adhesive bandage was applied to the incision. Ultrasound confirmed complete coaptation and closure of the treated segments of the GSV, and the absence of any DVT at the saphenofemoral junction. Treatment time was approximately 7 minutes and the vein length treated was 52 cm. The drapes were removed and the patient cleaned and prepared for discharge. Post op ultrasound check is scheduled for 48-72 hours and the patient was given written post-op instructions. 38224 - Endoven Ther Chem Adhes 1st All charges added?: Procedure code (CPT) selection complete Assessment & Plan Assessment & Plan (1) Varicose veins of right lower extremity with inflammation: Comment: 03/29/2024 - right great saphenous vein Cyanoacralate ablation Code(s): I83.11 - Varicose veins of right lower extremity with inflammation Category: Medical Plan: See op note Coding Level of Care Code Procedure Only Diagnoses Varicose veins of right lower extremity with inflammation I83.11 CPT Codes Details - Vascular 3: 68099 - Endoven Ther Chem Adhes 1st ([id number])
== END 2024-03-29 13:06 | disposition home or self-care (01) ==
PROVIDERS: PCP Internal Medicine; Visit Provider Surgery Vascular Surgery
DX: I83.11 Varicose veins of right lower extremity with inflammation (principal)
CPT/HCPCS: 36482

== ENCOUNTER → 2024-03-29 12:10 | Outpatient (BNVA) | payer OTHER, SELFPAY | PROVIDERS: PCP Internal Medicine; Visit Provider Surgery Vascular Surgery | DX: I83.11 Varicose veins of right lower extremity with inflammation (principal) | CPT/HCPCS: 36482; J2003 ==

== ENCOUNTER 2024-04-01 12:17 | Outpatient (REF) | payer OTHER, SELFPAY ==
--- NOTE | ~2024-04-01 | US_ITS ---
EXAMINATION: TRIPLEX SCANNING OF RIGHT LOWER EXTREMITY; SUPERFICIAL ULTRASOUND WITH DOPPLER OF RIGHT LOWER EXTREMITY CLINICAL INFORMATION: Status post cyanoacrylate ablation of the right great saphenous vein. Originally performed on 03/29/2024. COMPARISON: preprocedure studies. TECHNIQUE: Color flow triplex imaging and compression Doppler were performed as well as superficial ultrasound with Doppler. FINDINGS: TRIPLEX SCANNING OF RIGHT LOWER EXTREMITY: Respiratory variation, normal compression and augmented flow are noted throughout the lower extremity. The visualized common femoral vein, femoral vein, profunda femoral vein, popliteal vein and the calf veins show no evidence of deep venous thrombosis. SUPERFICIAL ULTRASOUND WITH DOPPLER OF RIGHT LOWER EXTREMITY: The right great saphenous vein is partially compressible suggesting partial occlusion. The proximal 2.5 cm of great saphenous vein at the sapheno-femoral junction is patent with no extension of thrombus into the deep system. There is no evidence of Rachel's cyst. US/US venous duplex LE RT IMPRESSION: 1. Normal triplex scan of the right without evidence of deep venous thrombosis. 2. Partial occlusion of the right great saphenous vein following cyanoacrylate ablation, as above. Electronically signed by: Shira Galeana MD 04/10/2024 03:58 PM EDT
== END 2024-04-01 12:18 | disposition home or self-care (01) ==
LOC: HO.US 12:17
PROVIDERS: Visit Provider Surgery Vascular Surgery
DX: M79.604 Pain in right leg (principal)
CPT/HCPCS: 93971

== ENCOUNTER 2024-04-11 13:03 | Outpatient (AMB) | payer OTHER, SELFPAY ==
--- NOTE | 2024-04-11 13:10 | MHC.OFFVIS ---
Vital Signs 04/11/24 13:11 Height 5 ft 11 in Weight 317 lb BMI 44.2 BP 124/70 Blood Pressure Location Lt brachial Position Sitting Pulse 88 Intake Visit Reasons: 2 week follow up Rig GSV Venaseal 03/29/24 Intake Note: 2 week Follow-up R GSV 03/29 feeling ok Supervisory Civil Engineer Required: No Allergies No Known Allergies Allergy (Verified 03/29/24 13:04) HPI HPI 2 week follow up Rig GSV Venaseal 03/29/24: Details: Pleasant 69-year-old gentleman presents for follow-up status post right great saphenous vein Cyanoacralate ablation. He reports he is doing extremely well postprocedure. No interval issues. He now presents for routine follow-up. Of note he has significant swelling of bilateral lower extremities. It is +2 to +3 edema. Upon further discussion with him he actually had undergone comprehensive lymphedema treatment in [place]. He did go to a lymphedema Center where he was treated daily with compression therapy and wraps. He now presents for follow-up [facility] Medical History Foot pain, bilateral HTN (hypertension) Heart failure with reduced ejection fraction LAWANDA (obstructive sleep apnea) Lymphadenopathy Pleural effusion Hypertension Atrial fibrillation Surgical History History of ankle surgery Hx of appendectomy Family History Mother No problems noted. Father Stroke Heart attack Atrial fibrillation Social History Household Members: Children Housing: House Do you presently have visiting nurse or other home services: No Alcohol intake: former Comment: pt refuses bed alarm Patient Tobacco Use Status: Never used Tobacco Advance Directives Date on File: 03/18/21 service: Yes Current occupational status: disabled Review of Systems Const Reports as per HPI ENT Reports no additional complaints Card Denies chest pain, Denies chest pain at rest and Denies chest pain with activity Resp Denies chest congestion and Denies cough GI Reports no additional complaints Musc Details: pain over varicosities, aching of lower extremities, swelling, cramping, heaviness and tiredness, itching Denies abnormal gait Skin/Breast Reports pruritus and Denies wounds Neuro Reports no additional complaints and Denies abnormal gait Psych Denies no additional complaints Physical Exam Vital Signs: Last Vital Signs Pulse 88 04/11/24 13:11 BP 124/70 04/11/24 13:11 BMI result Body Mass Index 44.2 Const General: cooperative, healthy appearing and comfortable Orientation/consciousness: oriented to person, oriented to place and oriented to time Neck Carotids: no bruits Chest Chest palpation & inspection: normal inspection of the chest and normal palpation of entire chest wall Resp Effort & Inspection: normal respiratory effort and able to speak in complete sentences Cardio Rate: regular rate Heart sounds: S1 normal heart sound present and S2 normal heart sound present Peripheral pulses: Peripheral pulses 2+ throughout GI Inspection: Yes normal to inspection Skin Other: +2 edema, CEAP Classification C4 - skin color changes Ep - Etiology Primary As - superficial veins P - reflux General skin exam: dry skin Neuro General: oriented to person, oriented to place and oriented to time Extrem Right lower extremity: full ROM, normal capillary refill and edema Left lower extremity: full ROM, normal capillary refill and edema Psych Mental Status: mental status grossly normal Assessment & Plan Assessment & Plan (1) Varicose veins of right lower extremity with inflammation: Comment: 03/29/2024 - right great saphenous vein Cyanoacralate ablation Code(s): I83.11 - Varicose veins of right lower extremity with inflammation Category: Medical Plan: He has done well with right lower extremity ablation. He has seen minimal relief but it is still early. Overall swelling does appear improved. We did encourage him to continue with compression elevation and exercise. We will follow up with him in approximately 3 months time (2) Varicose veins of left lower extremity with inflammation: Code(s): I83.12 - Varicose veins of left lower extremity with inflammation Category: Medical Plan: Left lower extremity is positive for reflux. At the current time he does not want intervention. I did encourage him due to the condition of his overall legs that it would be beneficial for him. I did request that he continue with conservative measures including compression, elevation and exercise. Will follow up with us in 3 months' time and we will revisit the issue of left great saphenous vein ablation. Thank you for allowing us to assist in his care. (3) Lymphedema: Code(s): I89.0 - Lymphedema, not elsewhere classified Category: Medical Plan: Patient has recurrent lymphedema. He was treated for this in the past in [place]. I did mention to him that we would be able to obtain compression therapy for him. This would be a home regimen which she could do on his own for lifelong care. He wanted to think about this. At the current time he wanted to hold off on any such treatment. He can follow up with us in approximately 3 months time. At that time we can also revisit the issue of lymphedema. Thank you for allowing us to assist in his care. If there are any questions or concerns please do not hesitate to contact us. Please note a longitudinal relationship has been created with the patient and we have been following and surveillance this chronic condition. Coding Level of Care Code Est Pt Level 4 (33652) Complex EM visit Add On G2211 Diagnoses Varicose veins of right lower extremity with inflammation I83.11 Varicose veins of left lower extremity with inflammation I83.12 Lymphedema I89.0
[2024-04-11 13:11] VITALS: BP 124/70; PULSE 88; BMI 44.2
== END 2024-04-11 13:32 | disposition home or self-care (01) ==
LOC: HO.HVS 13:03
PROVIDERS: PCP Internal Medicine; Referring Provider Internal Medicine; Visit Provider Surgery Vascular Surgery
DX: I83.11 Varicose veins of right lower extremity with inflammation (principal); I83.12 Varicose veins of left lower extremity with inflammation; I89.0 Lymphedema, not elsewhere classified
CPT/HCPCS: 99214; G2211

== ENCOUNTER → 2024-04-11 13:03 | Outpatient (BNVA) | payer OTHER, SELFPAY | PROVIDERS: PCP Internal Medicine; Visit Provider Surgery Vascular Surgery | DX: I83.11 Varicose veins of right lower extremity with inflammation (principal); I83.12 Varicose veins of left lower extremity with inflammation; I89.0 Lymphedema, not elsewhere classified | CPT/HCPCS: 99212 ==

== ENCOUNTER 2024-08-01 13:15 | Outpatient (AMB) | payer OTHER, SELFPAY ==
[2024-08-01 13:16] VITALS: BMI 44.2
--- NOTE | 2024-08-01 13:16 | MHC.OFFVIS ---
Vital Signs 08/01/24 13:16 Height 5 ft 11 in Weight 317 lb BMI 44.2 Intake Visit Reasons: 3 month leg check Intake Note: 3 mo follow up Right GSV Venaseal 03/29/25, Still has no improvement in Right LE swelling. Accompanied by: Self / Same As Patient Allergies No Known Allergies Allergy (Verified 08/01/24 13:22) HPI HPI 3 month leg check: Details: Complex 69-year-old gentleman presents for follow-up regarding lower extremity swelling. He had previously undergone right great saphenous vein ablation by us about 3 months ago. Reports minimal relief from that. Upon further discussion with him he reports that he had lymphedema treatment back in [place]. He had pumps were he would go to a center and receive therapy. He did report improvement with that but his legs have gone back to their normal size. He now presents for routine follow-up. [facility] Medical History Foot pain, bilateral HTN (hypertension) Heart failure with reduced ejection fraction LAWANDA (obstructive sleep apnea) Lymphadenopathy Pleural effusion Hypertension Atrial fibrillation Surgical History History of ankle surgery Hx of appendectomy Family History Mother No problems noted. Father Stroke Heart attack Atrial fibrillation Social History Household Members: Children Housing: House Do you presently have visiting nurse or other home services: No Alcohol intake: former Comment: pt refuses bed alarm Patient Tobacco Use Status: Never used Tobacco Advance Directives Date on File: 03/18/21 service: Yes Current occupational status: disabled Review of Systems Const Reports as per HPI ENT Reports no additional complaints Card Denies chest pain, Denies chest pain at rest and Denies chest pain with activity Resp Denies chest congestion and Denies cough GI Reports no additional complaints Musc Details: pain over varicosities, aching of lower extremities, swelling, cramping, heaviness and tiredness, itching Denies abnormal gait Skin/Breast Reports pruritus and Denies wounds Neuro Reports no additional complaints and Denies abnormal gait Psych Denies no additional complaints Physical Exam Vital Signs: BMI result Body Mass Index 44.2 Const General: cooperative, healthy appearing and comfortable Orientation/consciousness: oriented to person, oriented to place and oriented to time Neck Carotids: no bruits Chest Chest palpation & inspection: normal inspection of the chest and normal palpation of entire chest wall Resp Effort & Inspection: normal respiratory effort and able to speak in complete sentences Cardio Rate: regular rate Heart sounds: S1 normal heart sound present and S2 normal heart sound present Peripheral pulses: Peripheral pulses 2+ throughout GI Inspection: Yes normal to inspection Skin Other: +2 edema, CEAP Classification C4 - skin color changes Ep - Etiology Primary As - superficial veins P - reflux General skin exam: dry skin Neuro General: oriented to person, oriented to place and oriented to time Extrem Other: Right in cm: Thigh 67 Knee 48 Calf 46 Ankle 36 Left in cm: Thigh 63.5 Knee 48 Calf 48.5 Ankle 30 Right lower extremity: full ROM, normal capillary refill and edema Left lower extremity: full ROM, normal capillary refill and edema Psych Mental Status: mental status grossly normal Assessment & Plan Assessment & Plan (1) Varicose veins of right lower extremity with inflammation: Comment: 03/29/2024 - right great saphenous vein Cyanoacralate ablation Code(s): I83.11 - Varicose veins of right lower extremity with inflammation Category: Medical Plan: In short patient did well after procedure but has received minimal relief. At the current time he does not want intervention in his left leg. We will try to work with lymphedema pumps. (2) Lymphedema: Code(s): I89.0 - Lymphedema, not elsewhere classified Category: Medical Plan: In short the patient has late on sent lymphedema. The patient has been on conservative treatment for at least 3 months with minimal relief. Patient has tried 30 mm of mercury compression garments, elevation, exercise healthy diet and doing manual says self MLD to the best of their ability for over 4 weeks but with no significant relief. She has been compliant with the program but has provided minimal relief. In addition on physical we are noticing hyperpigmentation, lymphorrhea, and hyperplasia. It appears that she has stage 2 lymphedema. Patient has completed multiple forms of conservative therapy yet significant symptoms remain. Patient requires the use of a pneumatic compression device which we will assist in trying to have the patient obtain them. A pneumatic compression device will help reduce swelling and other lymphedema comorbidities. Thank you for allowing us to assist in this patient's care. Coding Level of Care Code Est Pt Level 4 (21805) Diagnoses Varicose veins of right lower extremity with inflammation I83.11 Lymphedema I89.0
--- OUTSIDE RECORDS SUMMARY | 2024-08-01 14:09 | XMS_ITS ---
Author Name [facility] [place] Organization [place] Address [address] [place] [address] Care Team Providers Care Learning Support Resource Room Teacher Name Role Phone TORIBIO BILLINGSLEY Primary Care Provider Unavail able Insurance Providers: All historical and current Section Date Range: From patient's date of to the date document was created. This section includes the names of all active insurance providers for the patient. Insurance Provider Type of Coverage Plan Name Start of Policy Coverage End of Policy Coverage Group Number Member ID Insurance Provider's Telephone Number Policy Torres's Name Patient's Relationship to Policy Torres [facility] ([facility]) MEDICARE ADVANTAGE MCR ([facility]) Jun 12, 2017 [id number] STELLA CABELLO PATIENT [facility] ([facility]) MEDICARE ADVANTAGE MCR ([facility]) Jan 05, 2024 DO NOT BILL [id number] [phone] [id number] STELLA CABELLO PATIENT [facility] ([facility]) MEDICARE ADVANTAGE MCR ([facility]) May 12, 2022 [id number] STELLA CABELLO PATIENT [facility] ([facility]) MEDICARE ADVANTAGE MCR ([facility]) Aug 10, 2021 [id number] STELLA CABELLO PATIENT Selected Encounter This section includes the information on record at [place] for the Encounter. Date/Time Encounter Type Encounter Description Reason Pro vider Source May 21, 2024 01:34 PM Outpatient Encounter ADMIN PAT ACTIVTIES (MASNONCT) IHE Encounter Template Text not used by NE Plan of Treatment: Future Appointments (+ 6 months) and Future Tests (+/- 45 days) The Plan of Treatment section includes future care activities for the patient from all [facility]. This section includes future appointments and future orders which are active, pending or scheduled. Future Appointments This section includes appointments that were scheduled to occur 6 months from the date of the Encounter, up to a maximum of 20 appointments. The data comes from all [facility]. Appointment Date/Time Appointment Type Appointme nt Facility Name May 30, 2024 11:00 AM AMBULATORY - MEDICINE [place] [facility] [place] [facility] May 30, 2024 11:45 AM AMBULATORY MEDICINE [place] [facility] [place] [facility] Jun 03, 2024 01:00 PM AMBULATORY MEDICINE [place] [facility] [place] [facility] Jun 13, 2024 01:00 PM AMBULATORY MEDICINE NE C [facility] [place] [facility] Jul 19, 2024 11:30 AM AMBULATORY - MEDICINE [place] [facility] [place] [facility] Aug 02, 2024 02:15 PM AMBULATORY - MEDICINE NE [facility] [place] [facility] Aug 29, 2024 01:00 PM AMBULATORY - MEDICINE NE [facility] [place] [facility] Sep 19, 2024 01:30 PM AMBULATORY - MEDICINE [place] [facility] [place] [facility] Active, Pending, and Scheduled Orders This section includes a listing of several types of active, pending, and scheduled orders, including clinic medications orders, diagnostic test orders, procedure orders and consult orders; where the start date of the order is 45 days before the date of the Encounter or 45 days after the date of theEncounter. The data comes from all [facility]. Test Date/Time Test Type Test Details Facility Name Jul 04, 2024 12:00 AM Laboratory - Chemistry Order MICROALBUMIN CREATININE RATIO PANEL URINE (RANDOM) [facility] [place] [facility] Jul 04, 2024 12:00 AM Laboratory - Chemistry Order DIGOXIN BLOOD (LAV-PLASMA) [facility] Jul 04, 2024 12:00 AM Laboratory - Chemistry Order [facility] Jul 04, 2024 12:00 AM Laboratory - Chemistry Order HEMOGLOBIN A1C PANEL BLOOD (LAV-BLOOD) SP [facility] Social History: Smoking Status (Most current) and Tobacco Use (All prior to encounter date) This section includes the most current, and the historical, smoking and tobacco- related health factors from the [place] facility where the Encounter took place. Current Smoking Status This section includes the most current smoking, or tobacco-related health factor, from the [place] facility where the Encounter took place. Date/Time Current Smoking Status Comment Facil ity May 31, 2023 03:30 PM NE-TOBACCO NEVER USED [facility] Tobacco Use History This section includes a history of the smoking, or tobacco-related health factors, that were collected on or before the date of the Encounter. The data comes from the NE facility where the Encounter took place. Date/Time Smoking Status/Tobacco Use Comment F acility Mar 15, 2022 11:30 AM NE-TOBACCO NEVER USED [facility] Apr 08, 2021 02:00 PM NE-TOBACCO NEVER USED [facility] Advance Directives: All historical and current Section Date Range: From patient's date of to the date document was created. This section includes ALL of a patient's completed or amended NE Advance and Rescinded Directives. The entries below indicate that a directive exists for the patient, but an actual copy is not included with this document. The data comes from all [place] facilities. Date Advance Directives Provider Source Dec 07, 2023 ADVANCE DIRECTIVE RASHID VALENCIA [facility] Mar 20, 2014 ADVANCE DIRECTIVE DISCUSSION EDISON MORAN [facility] Jun 16, 2011 ADVANCE DIRECTIVE DISCUSSION BARRIE ISLAS [facility] Encounter Notes: All associated encounter notes This section contains the clinical notes associated to the Encounter. Date/Time Encounter Note(s) Provider Source May 21, 2024 01:34 PM MEDICATION MGT NOT E: LOCAL TITLE: MEDICATION RENEWAL STANDARD TITLE: MEDICATION MGT NOTE DATE OF NOTE: MAY 21, 2024@13:34 ENTRY DATE: MAY 21, 2024@13:34:25 AUTHOR: MELANY JANE EXP COSIGNER: URGENCY: STATUS: COMPLETED Hello we have a requesting medication renewal for mailing please please renew if appropriate Active Outpatient Medications (including Supplies): Active Outpatient Medications Status ====== 20) TAMSULOSIN HCL 0.4MG CAP TAKE TWO CAPSULES BY MOUTH AT ACTIVE BEDTIME Indication: FOR ENLARGED PROSTATE /es/ MELANY JANE LOG RIDER Signed: 05/21/2024 13:35 Receipt Acknowledged By: 05/21/2024 14:47 /julien/ Toribio Billingsley PA-C STAFF PHYSICIAN SOLUTIONS ENGINEER [facility]ANY [facility]ANE [facility]
--- OUTSIDE RECORDS SUMMARY | 2024-08-01 14:09 | XMS_ITS ---
Author Name [facility] [place] Organization [place] Address [address] [place] [address] Care Team Providers Care Survey Worker Name Role Phone TORIBIO BILLINGSLEY Primary Care [...] Torres's Name Patient's Relationship to Policy Torres [facility] ([facility]) MEDICARE ADVANTAGE MCR ([facility]) Jun 12, 2017 [id number] STELLA CABELLO PATIENT [facility] ([facility]) MEDICARE ADVANTAGE MCR ([facility]) Jan 05, 2024 DO NOT BILL [id number] STELLA CABELLO PATIENT [facility] ([facility]) MEDICARE ADVANTAGE MCR ([facility]) May 12, 2022 [id number] STELLA CABELLO PATIENT [facility] ([facility]) MEDICARE ADVANTAGE MCR ([facility]) Aug 10, 2021 [id number] STELLA CABELLO PATIENT Selected Encounter This section includes the information on record at [place] for the Encounter. Date/Time Encounter Type Encounter Description Reason Pro vider Source Aug 15, 2023 08:59 PM Outpatient Encounter ADMIN PAT ACTIVTIES (MASNONCT) IHE Encounter Template Text not used by [place] Plan of Treatment: Future Appointments (+ 6 months) and Future Tests (+/- 45 days) The Plan of Treatment section includes future care activities for the patient [facility] all [facility] This section includes future appointments and future orders which are active, pending or scheduled. Future Appointments This section includes appointments that were scheduled to occur 6 months from the date of the Encounter, up to a maximum of 20 appointments. The data comes from all [place] treatment facilities. Appointment Date/Time Appointment Type Appointme nt Facility Name Aug 16, 2023 06:00 AM AMBULATORY - MEDICINE [place] [facility] [place] [facility] Sep 01, 2023 02:00 PM AMBULATORY - MEDICINE [place] [facility] [place] [facility] Sep 06, 2023 02:00 PM AMBULATORY - MEDICINE [place] [facility] [place] [facility] Sep 08, 2023 11:00 AM AMBULATORY - MEDICINE [place] [facility] [place] [facility] Nov 20, 2023 02:00 PM AMBULATORY - MEDICINE [place] [facility] [place] [facility] Dec 07, 2023 02:00 PM AMBULATORY - MEDICINE [place] [facility] [place] [facility] Dec 12, 2023 01:00 PM AMBULATORY - MEDICINE [place] [facility] [place] [facility] Dec 18, 2023 08:00 AM AMBULATORY - MEDICINE [place] [facility] [place] [facility] Dec 27, 2023 02:00 PM AMBULATORY - MEDICINE [place] [facility] [place] [facility] Dec 28, 2023 01:00 PM AMBULATORY - MEDICINE [place] [facility] [place] [facility] Jan 15, 2024 02:00 PM AMBULATORY - MEDICINE [place] [facility] [place] [facility] Feb 06, 2024 02:15 PM AMBULATORY - MEDICINE [place] [facility] [place] [facility] Social History: Smoking Status (Most current) and Tobacco Use (All prior to encounter date) This section includes the most current, and the historical, smoking and tobacco- related health factors from the [place] facility where the Encounter took place. Current Smoking Status This section includes the most current smoking, or tobacco-related health factor, from the [place] facility where the Encounter took place. Date/Time Current Smoking Status Comment Facil ity May 31, 2023 03:30 PM [place]-TOBACCO NEVER USED [facility] Tobacco Use History This section includes a history of the smoking, or tobacco-related health factors, that were collected on or before the date of the Encounter. The data comes from the [place] facility where the Encounter took place. Date/Time Smoking Status/Tobacco Use Comment [facility] acility Mar 15, 2022 11:30 AM [facility]TO[facility]ACCO [facility] Apr 08, 2021 02:00 PM VA-TOBACCO NEVER USED [facility] Advance Directives: All historical and current Section Date Range: From patient's date of to the date document was created. This section includes ALL of a patient's completed or amended [place] Advance and Rescinded Directives. The entries below indicate that a directive exists for the patient, but an actual copy is not included with this document. The data comes from all [place] facilities. Date Advance Directives Provider Source Dec 07, 2023 ADVANCE DIRECTIVE RASHID VALENCIA [facility] Mar 20, 2014 ADVANCE DIRECTIVE DISCUSSION EDISON MORAN [facility] Jun 16, 2011 ADVANCE DIRECTIVE DISCUSSION BARRIE ISLAS [facility] Encounter Notes: All associated encounter notes This section contains the clinical notes associated to the Encounter. Date/Time Encounter Note(s) Provider Source Aug 15, 2023 08:59 PM PHARMACY NOTE: LOCAL TITLE: PHARMACY CUSTOMER CARE MEDICATION RENEWAL STANDARD TITLE: PHARMACY NOTE DATE OF NOTE: AUG 15, 2023@20:59 ENTRY DATE: AUG 15, 2023@20:59:19 AUTHOR: MARY BERNABE EXP COSIGNER: URGENCY: STATUS: COMPLETED Date: Aug Division: [place] Pt referred by Pharmacy Call Center for medication renewal: Controlled substance Medications requested: [id number] ZOLPIDEM TARTRATE 10MG TAB To be mailed . Please review and renew if appropriate. *This note was generated by [facility] Customer [facility]. If you have any questions or need assistance, do not contact this author. Please refer all questions to your local, on-site pharmacy departments. /julien/ MARY BERNABE CPhT Consumer Loan Officer, [place]arm[facility] Customer Care Signed: 08/15/2023 20:59 Receipt Acknowledged By: 08/15/2023 21:02 /es/ BINU BOSE MD STAFF PHYSICIAN 08/16/2023 09:25 /es/ Toribio Billingsley PA-C STAFF PHYSICIAN DATABASE DESIGNER 08/16/2023 14:49 /es/ BRAULIO SHEPARD REGISTERED NURSE MARY BERNABE [place] [facility]
--- OUTSIDE RECORDS SUMMARY | 2024-08-01 14:09 | XMS_ITS ---
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 ([facility]) MEDICARE ADVANTAGE MCR ([facility]) Jan 05, 2024 DO NOT BILL [id number] [phone] [id number] STELLA CABELLO PATIENT [facility] ([facility]) MEDICARE ADVANTAGE MCR ([facility]) May 12, 2022 [id number] STELLA CABELLO PATIENT [facility] ([facility]) MEDICARE ADVANTAGE MCR ([facility]) Aug 10, 2021 [id number] STELLA CABELLO PATIENT Selected Encounter This section includes the information on record at [place] for the Encounter. Date/Time Encounter Type Encounter Description Reason Provider Source Sep 06, 2023 02:00 PM OFFICE O/P EST MOD 30 MIN PRIMARY CARE/MEDICINE ICD-10-CM M79.2 Neuralgia and neuritis, unspecified ODILONAURORANIDIAADINAED JAWED IHE Encounter Template Text not used by [place] Assessments - Encounter Diagnoses This section includes the primary and secondary diagnoses documented for the Encounter. Date/Time Primary/Secondary Diagnosis Diagnosis Name Provider Source Sep 06, 2023 10:03 PM PRIMARY Neuralgia and neuritis, unspecified ODILONANDREW SIMONE D JAWED [facility] [place] [facility] Sep 06, 2023 10:03 PM SECONDARY Benign prostatic hyperplasia with lower urinary tract symp ODILONANDREW SIMONE D JAWED [facility] [place] [facility] Sep 06, 2023 10:03 PM SECONDARY Gastro-esophageal reflux disease without esophagitis ODILONNIDIA SIMONAMME D [facility]AWED [facility] [place] [facility] Sep 06, 2023 10:03 PM SECONDARY Gout, unspecified ODILONANDREW SIMONE D JAWED [facility] [place] [facility] Sep 06, 2023 10:03 PM SECONDARY care home (current) use of anticoagulants ODILONANDREW SIMONE D JAWED [facility] [place] [facility] Sep 06, 2023 10:03 PM SECONDARY Obesity, unspecified ODILONNIDIA SIMONAMME D JAWED [facility] [place] [facility] Sep 06, 2023 10:03 PM SECONDARY Obstructive sleep apnea (adult) (pediatric) ODILONANDREW SIMONE D JAWED [facility] [place] [facility] Sep 06, 2023 10:03 PM SECONDARY Peripheral vascular disease, unspecified ODILONMEDNIDIAAMME D JAWED [facility] [place] [facility] Sep 06, 2023 10:03 PM SECONDARY Squamous cell carcinoma of skin of other part of trunk ODILONANDREW SIMONE D JAWED [facility] [place] [facility] Sep 06, 2023 10:03 PM SECONDARY Type 2 diabetes mellitus with unspecified complications NIDIA BOSEAMME D [facility]AWED [facility] [place] [facility] Sep 06, 2023 10:03 PM SECONDARY Unspecified atrial fibrillation ANDREW BOSEE D [facility]ED [facility] [place] [facility] Sep 06, 2023 10:03 PM SECONDARY Venous insufficiency (chronic) (peripheral) JORGE A BOSEDONALD [facility] [place] [facility] Plan of Treatment: Future Appointments (+ 6 months) and Future Tests (+/- 45 days) The Plan of Treatment section includes future care activities for the patient from all [place] treatmentfacone healthities. This section includes future appointments and future orders which are active, pending or scheduled. Future Appointments This section includes appointments that were scheduled to occur 6 months from the date of the Encounter, up to a maximum of 20 appointments. The data comes from all [place] treatment facilities. Appointment Date/Time Appointment Type Appointme nt Facility Name Sep 08, 2023 11:00 AM AMBULATORY - MEDICINE IN [facility] [place] [facility] Nov 20, 2023 02:00 PM AMBULATORY - MEDICINE [facility] [place] [facility] Dec 07, 2023 02:00 PM AMBULATORY - MEDICINE [facility] [place] [facility] Dec 12, 2023 01:00 PM AMBULATORY - MEDICINE [facility] [place] [facility] Dec 18, 2023 08:00 AM AMBULATORY - MEDICINE [facility] [place] [facility] Dec 27, 2023 02:00 PM AMBULATORY - MEDICINE [facility] [place] [facility] Dec 28, 2023 01:00 PM AMBULATORY - MEDICINE [facility] [place] [facility] Jan 15, 2024 02:00 PM AMBULATORY - MEDICINE [facility] [place] [facility] Feb 06, 2024 02:15 PM AMBULATORY - MEDICINE [facility] [place] [facility] Feb 29, 2024 08:00 AM AMBULATORY - MEDICINE [facility] [place] [facility] Vital Signs: All taken on the encounter date This section contains inpatient and outpatient Vital Signs collected on the date of the Encounter. Date/Time Temperature Pulse Blood Pressure Respiratory Rate SP02 Pain Height Weight Body Mass Index Source Sep 06, 2023 01:57 PM 98.2 79 122/86 16 95 0 320 43 [place] [facility] [place] [facility] Social History: Smoking Status (Most current) and Tobacco Use (All prior to encounter date) This section includes the most current, and the historical, smoking and tobacco- related health factors from the [place] facility where the Encounter took place. Current Smoking Status This section includes the most current smoking, or tobacco-related health factor, from the [place] facility where the Encounter took place. Date/Time Current Smoking Status Comment Facil ity May 31, 2023 03:30 PM VA-TOBACCO NEVER USED [facility] Tobacco Use History This section includes a history of the smoking, or tobacco-related health factors, that were collected on or before the date of the Encounter. The data comes from the [place] facility where the Encounter took place. Date/Time Smoking Status/Tobacco Use Comment F acility Mar 15, 2022 11:30 AM VA-TOBACCO NEVER USED IN [facility] Apr 08, 2021 02:00 PM [facility] Advance Directives: All historical and current Section Date Range: From patient's date of to the date document was created. This section includes ALL of a patient's completed or amended [place] Advance and Rescinded Directives. The entries below indicate that a directive exists for the patient, but an actual copy is not included with this document. The data comes from all [place] facilities. Date Advance Directives Provider Source Dec 07, 2023 ADVANCE DIRECTIVE RASHID VALENCIA [facility] Mar 20, 2014 ADVANCE DIRECTIVE DISCUSSION [facility] Jun 16, 2011 ADVANCE DIRECTIVE DISCUSSION BARRIE ISLAS [facility] Encounter Notes: All associated encounter notes This section contains the clinical notes associated to the Encounter. Date/Time Encounter Note(s) Provider Source Sep 06, 2023 02:26 PM PHYSICIAN NOTE: LOCAL TITLE: NOTE STANDARD TITLE: PHYSICIAN NOTE DATE OF NOTE: SEP 06, 2023@14:26 ENTRY DATE: SEP 06, 2023@14:26:41 AUTHOR: BINU BOSE EXP COSIGNER: URGENCY: STATUS: COMPLETED Patient Name: SHAKILA CABELLO VITALS: Patient temperature: 98.2 F [36.8 C] (09/06/2023 13:57) Blood pressure: 122/86 (09/06/2023 13:57) Patient height: 72 in [182.9 cm] (01/06/2023 13:34) Patient weight: 320 lb [145.15 kg] (09/06/2023 13:57) Patient BMI: BMI: 43.5 Patient pulse: 79 (09/06/2023 13:57) Patient respiration: 16 (09/06/2023 13:57) Patient Pulse Oximetry: 95% (09/06/2023 13:57) Pain Ratin (09/06/2023 13:57) Active [facility] Medications: Active Outpatient Medications (including Supplies): Active Outpatient Medications Status 1) AMMONIUM LACTATE 12% LOTION APPLY SMALL AMOUNT ACTIVE (S) TOPICALLY ONCE DAILY FOR DRY IRRITATED SKIN APPLY TO SKIN LEGS AND FEET DAILY 2) APIXABAN 5MG TAB TAKE ONE TABLET BY MOUTH TWICE DAILY ACTIVE 3) CARBAMIDE PEROXIDE 6.5% OTIC SOLN INSTILL 5 TO 10 ACTIVE DROPS INTO THE AFFECTED EAR(S) TWICE DAILY FOR EAR WAX BLOCKAGE 4) CARVEDILOL 6.25MG TAB TAKE ONE TABLET BY MOUTH TWICE ACTIVE DAILY 5) DEPEND UNDERWEAR,MAXIMUM,MEN X-LARGE USE 1 BRIEF ACTIVE DIRECTED ONCE DAILY 6) DIGOXIN 0.125MG TAB TAKE ONE TABLET BY MOUTH ONCE ACTIVE DAILY 7) EMPAGLIFLOZIN 25MG TAB TAKE ONE-HALF TABLET BY MOUTH ACTIVE ONCE DAILY 8) FINASTERIDE 5MG TAB TAKE ONE TABLET BY MOUTH ONCE ACTIVE DAILY 9) FUROSEMIDE 40MG TAB TAKE ONE TABLET BY MOUTH ONCE ACTIVE DAILY TO REMOVE FLUID/CONTROL BLOOD PRESSURE 10) GABAPENTIN 300MG CAP TAKE ONE CAPSULE BY MOUTH THREE ACTIVE TIMES A DAY 11) HYDRALAZINE HCL 50MG TAB TAKE ONE TABLET BY MOUTH ACTIVE TWICE DAILY FOR BLOOD PRESSURE 12) PANTOPRAZOLE NA 40MG EC TAB TAKE ONE TABLET BY MOUTH ACTIVE EVERY MORNING 30 MINUTES BEFORE BREAKFAST 13) SPIRONOLACTONE 25MG TAB TAKE ONE TABLET BY MOUTH ONCE ACTIVE DAILY 14) TAMSULOSIN HCL 0.4MG CAP TAKE TWO CAPSULES BY MOUTH ACTIVE AT BEDTIME 15) ZOLPIDEM TARTRATE 10MG TAB TAKE ONE TABLET BY MOUTH ACTIVE AT BEDTIME Pending Outpatient Medications Status 1) APIXABAN 5MG TAB TAKE ONE TABLET BY MOUTH TWICE DAILY PENDING 2) DULOXETINE HCL 20MG EC CAP TAKE ONE CAPSULE BY MOUTH PENDING AT BEDTIME 3) EMPAGLIFLOZIN 25MG TAB TAKE ONE-HALF TABLET BY MOUTH PENDING ONCE DAILY 4) FINASTERIDE 5MG TAB TAKE ONE TABLET BY MOUTH ONCE PENDING DAILY 5) FOLIC ACID 1MG TAB TAKE ONE TABLET BY MOUTH ONCE PENDING DAILY VITAMIN/NUTRITION SUPPLEMENT 6) FUROSEMIDE 40MG TAB TAKE ONE TABLET BY MOUTH ONCE PENDING DAILY TO REMOVE FLUID/CONTROL BLOOD PRESSURE 7) HYDRALAZINE HCL 50MG TAB TAKE ONE TABLET BY MOUTH PENDING TWICE DAILY FOR BLOOD PRESSURE 8) LIDOCAINE 5% PATCH APPLY 1 PATCH TOPICALLY AT BEDTIME PENDING (LEAVE PATCH ON FOR 12 HOURS, THEN REMOVE PATCH) 9) LOSARTAN 50MG TAB TAKE ONE TABLET BY MOUTH ONCE DAILY PENDING FOR BLOOD PRESSURE/HEART 10) MULTIVITAMIN/MINERALS CAP/TAB TAKE 1 TABLET BY MOUTH PENDING ONCE DAILY FOR VITAMIN SUPPLEMENTATION 11) PANTOPRAZOLE NA 40MG EC TAB TAKE ONE TABLET BY MOUTH PENDING EVERY MORNING 30 MINUTES BEFORE BREAKFAST 26 Total Medications Remote Medications: No Active Remote Medications for this patient CC: Patient said he is feeling much better since he got his marijuana card Painful neuropathy in both lower extremities has been evaluated by pain clinic and neurology marijuana has helped with neuropathy pain. BPH and urinary incontinence using incontinence briefs last time we increased his tamsulosin and also started him on finasteride still has incontinence but less Essential hypertension blood pressure has been under good control Chronic kidney disease stage III AAA last creatinine was 1.39 lab work is pending Chronic atrial fibrillation on beta-fidencio and digoxin for rate control and also on apixaban for anticoagulation Congestive systolic heart failure being followed by cardiology CHF remain well compensated Type 2 diabetes on Jardiance last hemoglobin A1c from December 2022 7.4 lab work is pending Obstructive sleep apnea not using CPAP machine Insomnia using Ambien for sleep Peripheral vascular disease being followed by vascular patient has a follow-up appointment in [place]. Morbid obesity has dropped 11 pounds since last visit now he is 320 BMI 43 On examination: patient is alert and oriented X3 vitals are stable, He is in no apparent distress. Assessment/plan: Diabetic painful neuropathy both lower extremities using marijuana for pain management. BPH and urinary incontinence continue current medication Essential hypertension blood pressure has been under good control Chronic kidney disease has been stable lab work is pending Chronic atrial fibrillation patient has been on beta-fidencio and digoxin for rate control and apixaban denies any bleeding problems. Congestive systolic heart failure he is being followed by cardiology his CHF remain well compensated. Type 2 diabetes on Jardiance his blood work is still pending Obstructive sleep apnea not using any CPAP unable to tolerate Insomnia using Ambien for sleep Peripheral vascular disease patient said many times he has been told that he is problem in the leg is because of the nerve not because of the blood flow but he has a follow-up appointment with vascular in the [place] Morbid obesity has been trying to lose weight has lost 11 pounds since last visit. Follow-up in 6 months /julien/ BINU BOSE MD STAFF PHYSICIAN Signed: 09/06/2023 22:03 BINU BOSE IN [facility]
--- OUTSIDE RECORDS SUMMARY | 2024-08-01 14:09 | XMS_ITS ---
Author Name [facility] [place] Address [address] [place] [address] Care Team Providers Care Jig Operator Name Role Phone CHRIS BILLINGSLEY Primary Care Provider Unavail able Insurance [...] Torres's Name Patient's Relationship to Policy Torres [facility] ([facility]) MEDICARE ADVANTAGE MCR ([facility]) Jun 12, 2017 [id number] STELLA CABELLO PATIENT [facility] ([facility]) MEDICARE ADVANTAGE MCR ([facility]) Jan 05, 2024 DO NOT BILL [id number] STELLA CABELLO PATIENT [facility] ([facility]) MEDICARE ADVANTAGE MCR ([facility]) May 12, 2022 [id number] STELLA CABELLO PATIENT [facility] ([facility]) MEDICARE ADVANTAGE MCR ([facility]) Aug 10, 2021 [id number] STELLA CABELLO PATIENT Selected Encounter This section includes the information on record at [place] for the Encounter. Date/Time Encounter Type Encounter Description Reason Provider Source Jul 19, 2024 11:30 AM OFFICE O/P EST LOW 20 MIN PRIMARY CARE/MEDICINE ICD-10-CM N18.30 Chronic kidney disease, stage 3 unspecified EARLJEFF MENDOZA Aixa Encounter Template Text not used by [place] Assessments - Encounter Diagnoses This section includes the primary and secondary diagnoses documented for the Encounter. Date/Time Primary/Secondary Diagnosis Diagnosis Name Provider Source Jul 19, 2024 12:05 PM PRIMARY Chronic kidney disease, stage 3 unspecified GAUTAM BILLINGSLEY Bladimir [place] [facility] [place] [facility] Jul 19, 2024 12:05 PM SECONDARY Encounter for immunization JHONATANASAEL TRONCOSODARLENE Kruse [place] [facility] [place] [facility] Jul 19, 2024 12:05 PM SECONDARY Essential (primary) hypertension GAUTAM BILLINGSLEY [place] [facility] [place] [facility] Jul 19, 2024 12:05 PM SECONDARY Type 2 diabetes mellitus with unspecified complications GAUTAM BILLINGSLEY [place] [facility] [facility] Jul 19, 2024 12:05 PM SECONDARY Unspecified atrial fibrillation GAUTAM BILLINGSLEY [place] [facility] [place] [facility] Plan of Treatment: Future Appointments (+ 6 months) and Future Tests (+/- 45 days) The Plan of Treatment section includes future care activities for the patient [facility] This section includes future appointments and future orders which are active, pending or scheduled. Future Appointments This section includes appointments that were scheduled to occur 6 months from the date of the Encounter, up to a maximum of 20 appointments. The data comes from all [place] treatment facilities. Appointment Date/Time Appointment Type Appointme nt Facility Name Aug 02, 2024 02:15 PM AMBULATORY - MEDICINE [place] [facility] [place] [facility] Aug 29, 2024 01:00 PM AMBULATORY - MEDICINE [place] [facility] [place] [facility] Sep 19, 2024 01:30 PM AMBULATORY - MEDICINE [place] [facility] [place] [facility] Active, Pending, and Scheduled Orders This section includes a listing of several types of active, pending, and scheduled orders, including clinic medications orders, diagnostic test orders, procedure orders and consult orders; where the start date of the order is 45 days before the date of the Encounter or 45 days after the date of theEncounter. The data comes from all [place] treatment facilities. Test Date/Time Test Type Test Details Facility Name Jul 04, 2024 12:00 AM Laboratory - Chemistry Order MICROALBUMIN CREATININE RATIO PANEL URINE (RANDOM) [facility] [place] [facility] Jul 04, 2024 12:00 AM Laboratory - Chemistry Order DIGOXIN BLOOD (LAV-PLASMA) [facility] Jul 04, 2024 12:00 AM Laboratory - Chemistry Order URINALYSIS URINE [facility] [place] [facility] Jul 04, 2024 12:00 AM Laboratory - Chemistry Order HEMOGLOBIN A1C PANEL BLOOD (LAV-BLOOD) [facility] Jul 19, 2024 12:00 AM Laboratory - Chemistry Order BASIC METABOLIC PANEL (fasting) BLOOD (SST-SERUM) [facility] Jul 19, 2024 12:00 AM Laboratory - Chemistry Order LIPID PANEL FASTING BLOOD (SST-SERUM) [facility] [place] [facility] Jul 19, 2024 12:00 AM Laboratory - Chemistry Order LIVER FUNCTION BLOOD (SST-SERUM) [facility] [place] [facility] Jul 23, 2024 02:37 PM Consult Order [facility] Cons Control Clerk's Choice [place] [facility] [facility] Aug 28, 2024 12:00 AM Laboratory - Chemistry Order BASIC METABOLIC PANEL (fasting) BLOOD (SST-SERUM) [facility] Aug 28, 2024 12:00 AM Laboratory - Chemistry Order LIVER FUNCTION BLOOD (SST-SERUM) [facility] Aug 28, 2024 12:00 AM Laboratory - Chemistry Order LIPID PANEL FASTING BLOOD (SST-SERUM) [facility] Vital Signs: All taken on the encounter date This section contains inpatient and outpatient Vital Signs collected on the date of the Encounter. Date/Time Temperature Pulse Blood Pressure Respiratory Rate SP02 Pain Height Weight Body Mass Index Source Jul 19, 2024 11:41 AM 136/93 [place] [facility] [place] [facility] Jul 19, 2024 11:24 AM 98.6 100 150/96 16 98 0 299 41 [facility] [employer] [facility] Immunizations: All administered on the encounter date This section contains immunizations associated to the Encounter. Immunization Series Date Issued Reaction Comments RSV, BIVALENT, PROTEIN SUBUN IT RSVPREF, DILUENT RECONSTITUTED, 0.5 ML, PF Jul 19, 2024 Social History: Smoking Status (Most current) and Tobacco Use (All prior to encounter date) This section includes the most current, and the historical, smoking and tobacco- related health factors from the [place] facility where the Encounter took place. Current Smoking Status This section includes the most current smoking, or tobacco-related health factor, from the [place] facility where the Encounter took place. Date/Time Current Smoking Status Comment Facil ity May 31, 2023 03:30 PM HI-TOBACCO NEVER USED [facility] Tobacco Use History This section includes a history of the smoking, or tobacco-related health factors, that were collected on or before the date of the Encounter. The data comes from the [place] facility where the Encounter took place. Date/Time Smoking Status/Tobacco Use Comment F acility Mar 15, 2022 11:30 AM [facility]-TOBACCO [facility]ED [facility] Apr 08, 2021 02:00 PM HI-TOBACCO NEVER USED [facility] Advance Directives: All historical and current Section Date Range: From patient's date of to the date document was created. This section includes ALL of a patient's completed or amended [place] Advance and Rescinded Directives. The entries below indicate that a directive exists for the patient, but an actual copy is not included with this document. The data comes from all [place] facilities. Date Advance Directives Provider Source Dec 07, 2023 ADVANCE DIRECTIVE RASHID VALENCIA [facility] Mar 20, 2014 ADVANCE DIRECTIVE DISCUSSION EDISON MORAN [facility] Jun 16, 2011 ADVANCE DIRECTIVE DISCUSSION BARRIE ISLAS [facility] Encounter Notes: All associated encounter notes This section contains the clinical notes associated to the Encounter. Date/Time Encounter Note(s) Provider Source Jul 19, 2024 11:59 AM PHYSICIAN TRACK INSPECTING SUPERVISOR NOTE: LOCAL TITLE: PA NOTE STANDARD TITLE: PHYSICIAN TRACK INSPECTING SUPERVISOR NOTE DATE OF NOTE: JUL 19, 2024@11:59 ENTRY DATE: JUL 19, 2024@11:59:24 AUTHOR: CHRIS BILLINGSLEY EXP COSIGNER: URGENCY: STATUS: COMPLETED CC/HPI/A/P: 69 year old MALE here in follow-up for; I quit all my pills a few weeks ago out of concern for SEs. At the same time he developed a runny nose. He has a rash on his chest as well. Rcent biopsies by derm are healing. Review of systems: Patient reports no changes from [facility], in meds or any admissions. Active problems - Computerized Problem List is the source for the followin. Chronic Kidney Disease Stage 3 ([facility] [id number]) 2. Benign prostatic hyperplasia 3. Diabetic - poor control 4. Peripheral venous insufficiency 5. Obstructive sleep apnea 6. AF- Atrial Fibrillation ([facility] [id number]) 7. HTN - Hypertension ([facility] [id number]) 8. Long-term current use of anticoagulant 9. Peripheral neuropathic pain 10. Peripheral vascular disease 11. Cancer of the back, squamous cell multiple sites/ see notes in [facility] at [place] 12. Gout 13. Obesity ([facility] [id number]) 14. GERD - Gastro-Esophageal Reflux Disease ([facility] [id number]) SERVICE CONNECTED % - NONE [facility] and Non VA meds were reconciled with the patient who left with a corrected copy. See medication page for details. Active and Recently Outpatient Medications (excluding Supplies): Active Outpatient Medications Status 1) AMMONIUM LACTATE 12% LOTION APPLY SMALL AMOUNT TOPICALLY ACTIVE ONCE DAILY FOR DRY IRRITATED SKIN APPLY TO SKIN LEGS AND FEET DAILY Indication: FOR DRY SKIN 2) APIXABAN 5MG TAB TAKE ONE TABLET BY MOUTH TWICE DAILY ACTIVE 3) CARVEDILOL 3.125MG TAB TAKE ONE TABLET BY MOUTH TWICE DAILY ACTIVE 4) DIGOXIN 0.125MG TAB TAKE ONE TABLET BY MOUTH ONCE DAILY ACTIVE 5) DULOXETINE HCL 20MG EC CAP TAKE ONE CAPSULE BY MOUTH AT ACTIVE BEDTIME 6) EMPAGLIFLOZIN 25MG TAB TAKE ONE-HALF TABLET BY MOUTH ONCE ACTIVE DAILY Indication: FOR TYPE 2 DIABETES MELLITUS 7) FINASTERIDE 5MG TAB TAKE ONE TABLET BY MOUTH ONCE DAILY ACTIVE Indication: FOR ENLARGED PROSTATE 8) FOLIC ACID 1MG TAB TAKE ONE TABLET BY MOUTH ONCE DAILY ACTIVE VITAMIN/NUTRITION SUPPLEMENT 9) FUROSEMIDE 40MG TAB TAKE ONE TABLET BY MOUTH ONCE DAILY TO ACTIVE REMOVE FLUID/CONTROL BLOOD PRESSURE Indication: FOR EDEMA WITH DEFECTIVE KIDNEY FUNCTION 10) GABAPENTIN 300MG CAP TAKE THREE CAPSULES BY MOUTH TWICE ACTIVE DAILY Indication: FOR NERVE PAIN 11) HYDRALAZINE HCL 50MG TAB TAKE ONE TABLET BY MOUTH TWICE ACTIVE DAILY FOR BLOOD PRESSURE 12) LIDOCAINE 5% PATCH APPLY 1 PATCH TOPICALLY AT BEDTIME (LEAVE ACTIVE PATCH ON FOR 12 HOURS, THEN REMOVE PATCH) 13) LOSARTAN 50MG TAB TAKE ONE TABLET BY MOUTH ONCE DAILY FOR ACTIVE BLOOD PRESSURE/HEART 14) MULTIVITAMIN/MINERALS CAP/TAB TAKE 1 TABLET BY MOUTH ONCE ACTIVE DAILY FOR VITAMIN SUPPLEMENTATION 15) PANTOPRAZOLE NA 40MG EC TAB TAKE ONE TABLET BY MOUTH EVERY ACTIVE MORNING 30 MINUTES BEFORE BREAKFAST 16) ROPINIROLE HCL 2MG TAB TAKE ONE TABLET BY MOUTH AT BEDTIME ACTIVE TAKE 1-3 HOURS BEFORE BEDTIME 17) SPIRONOLACTONE 25MG TAB TAKE ONE TABLET BY MOUTH ONCE DAILY ACTIVE 18) TAMSULOSIN HCL 0.4MG CAP TAKE TWO CAPSULES BY MOUTH AT ACTIVE (S) BEDTIME Indication: FOR ENLARGED PROSTATE 19) ZOLPIDEM TARTRATE 10MG TAB TAKE ONE TABLET BY MOUTH AT ACTIVE BEDTIME Indication: FOR SLEEP Active Non-VA Medications Status 1) Non-VA OTHER CAP/TAB GUMMIES FROM [place] BY MOUTH ACTIVE 20 Total Medications 98.6 F [37.0 C] (07/19/2024 11:24) 100 (07/19/2024 11:24) 16 (07/19/2024 11:24) 136/93 (07/19/2024 11:41) 0 (07/19/2024 11:24) 72 in [182.9 cm] (01/06/2023 13:34) 299 lb [135.62 kg] (07/19/2024 11:24) BMI: 40.6 Neuro: Alert and oriented times three, grossly nonfocal, nasolabial folds intact. Thyroid nonpalpable. oropharynx posteriorly erythematous with some small liths visible in his right tonsil. NO cervical lymphadenopathy. Left subpectorabl fold_ erythemao consistent with tinea a/p Tinea corporis, tenbinafine cream a fib, etc, I print and marka a list of his meds asking him to consider resuming about 7, one per week to detect any SEs, starting with apixiban. BMI>30/>24.99 High Risk: At this visit, the health risks of obesity were reviewed and discussed with the [place], and the benefits of a weight management treatment program, such as [facility]! was discussed and offered to the [place]. After discussing the health risks of being overweight or obese and providing information about available weight management treatment, and offering a referral to [facility] or another weight management treatment program outside [facility], the patient DECLINES REFERRAL to [facility] or any other weight management treatment program at this time. /julien/ Chris Billingsley PA-C STAFF PHYSICIAN TRACK INSPECTING SUPERVISOR Signed: 07/19/2024 12:05 CHRIS BILLINGSLEY [place] [facility] [place] [facility] Jul 19, 2024 11:44 AM PREVENTIVE MEDICINE NURSING NOTE: LOCAL TITLE: CLINICAL REMINDERS/NURSING STANDARD TITLE: PREVENTIVE MEDICINE NURSING NOTE DATE OF NOTE: JUL 19, 2024@11:44 ENTRY DATE: JUL 19, 2024@11:45:06 AUTHOR: BLU GRAY EXP COSIGNER: URGENCY: STATUS: COMPLETED RSV Immunization: Respiratory Syncytial Virus (RSV) Vaccine: RSV vaccine administered today. Administered: RSV, BIVALENT, PROTEIN SUBUNIT RSVPREF, DILUENT RECONSTITUTED, 0.5 ML, PF Date Administered: Jul 19, 2024 11:30 Series: Booster Transmission Rebuilder: Cyota, Netac Lot: [id number] Exp Date: Apr 11, 2025 [facility]: [id number] Admin Route/Site: INTRAMUSCULAR/RIGHT DELTOID Dosage: 0.5mL Vaccine Information Statement(s): RSV (RESPIRATORY SYNCYTIAL VIRUS) VACCINE VIS Mar 28, 2024 (TAJIK) Order By: Policy Administered By: Blu Gray Vaccine Information Sheet (VIS) was given to the patient/caregiver, education regarding adverse reactions was discussed, as well as barriers to learning, if any, were acknowledged. /julien/ BLU GRAY LPN Signed: 07/19/2024 11:46 BLU GRAY [facility]
--- OUTSIDE RECORDS SUMMARY | 2024-08-01 14:09 | XMS_ITS ---
Author Name [facility] [place] [facility] [place] Address [address] [place] [address] Care Team Providers Care Law Examiner Name Role Phone CHRIS HUNTER Primary Care [...] Torres's Name Patient's Relationship to Policy Torres [facility] ([facility]) MEDICARE ADVANTAGE MCR ([facility]) Jun 12, 2017 [id number] STELLA CABELLO PATIENT [facility] ([facility]) MEDICARE ADVANTAGE MCR ([facility]) Jan 05, 2024 DO NOT BILL [id number] STELLA CABELLO PATIENT [facility] ([facility]) MEDICARE ADVANTAGE MCR ([facility]) May 12, 2022 [id number] STELLA CABELLO PATIENT [facility] ([facility]) MEDICARE ADVANTAGE MCR ([facility]) Aug 10, 2021 [id number] [phone] STELLA CABELLO PATIENT Selected Encounter This section includes the information on record at [place] for the Encounter. Date/Time Encounter Type Encounter Description Reason Provider Source Dec 28, 2023 01:00 PM OFFICE O/P EST LOW 20 MIN PODIATRY ICD-10-CM E11.43 Type 2 diabetes w diabetic autonomic (poly)neuropath y JORDIN MEYER [facility] Encounter Template Text not used by [place] Assessments - Encounter Diagnoses This section includes the primary and secondary diagnoses documented for the Encounter. Date/Time Primary/Secondary Diagnosis Diagnosis Name Provider Source Dec 29, 2023 04:50 PM PRIMARY Type 2 diabetes w diabetic autonomic (poly)neuropath y [facility] Dec 29, 2023 04:50 PM SECONDARY Nail dystrophy [facility] Plan of Treatment: Future Appointments (+ 6 months) and Future Tests (+/- 45 days) The Plan of Treatment section includes future care activities for the patient [facility] [place] [facility]. This section includes future appointments and future orders which are active, pending or scheduled. Future Appointments This section includes appointments that were scheduled to occur 6 months from the date of the Encounter, up to a maximum of 20 appointments. The data comes from all [place] treatment facilities. Appointment Date/Time Appointment Type Appointme nt Facility Name Jan 15, 2024 02:00 PM AMBULATORY - [place]ICINE [place] [facility] [place] [facility] Feb 06, 2024 02:15 PM AMBULATORY [place]IC[place] [facility] [place] [facility] Feb 29, 2024 08:00 AM AMBULATORY - [place]ICINE [place] [facility] [place] [facility] May 21, 2024 02:00 PM AMBULATORY - MEDICINE [place] [facility] [place] [facility] May 30, 2024 11:00 AM AMBULATORY - [place]ICINE [place] [facility] [place] [facility] May 30, 2024 11:45 AM AMBULATORY - MEDICINE [place] [facility] [place] [facility] Jun 03, 2024 01:00 PM AMBULATORY - [place]ICINE [place] [facility] [place] [facility] Jun 13, 2024 01:00 PM AMBULATORY - [place]ICINE [place] [facility] [place] [facility] Lab Results: +/- 30 days of the encounter This section includes the Chemistry and Hematology Lab Results on record with [place] for the patient. Radiology Reports and Pathology Reports are provided separately, in subsequent sections. Lab Results This section contains the Chemistry/Hematology Results that were resulted 30 days before or 30 daysafter the date of the Encounter. Date/Time Source Result Type Result - Unit Interpretation Reference Range Comment Dec 12, 2023 01:45 PM [facility] URIC ACID Specimen Type: SERUM No comment entered. Ordering Provider: JEFF HUNTER F Report Released Date/Time: October 16, 2023 08:23 AM Reporting [facility] [address] [address] Performing Lab: [facility] [address] [address] URIC ACID 8.5 mg/dL H 3.5-7.2 Dec 12, 2023 01:45 PM [facility] DIGOXIN Specimen Type: PLASMA No comment entered. Ordering Provider: JEFF HUNTERM F Report Released Date/Time: October 16, 2023 08:23 AM Reporting Lab: [address] [address] Performing [facility]: [facility] [address] [address] DIGOXIN 0.74 ng/mL L 0.8-2.0 Dec 12, 2023 01:45 PM [facility] LIPID PANEL FASTING Specimen Type: SERUM No comment entered. Ordering Provider: JEFF HUNTER F Report Released Date/Time: October 16, 2023 08:23 AM Reporting Lab: [facility] [address] Performing Lab: [facility] [address] [address] CHOLESTEROL 153 mg/dL TRIGLYCERIDE 189 mg/dL H 0-150 LDL calculated 77 mg/dL 0-129 CHOL/HDL 4.0 HDL CHOLESTEROL 38 mg/dL L 40-60 Dec 12, 2023 01:45 PM [facility] MICROALBUMIN CREATININE RATIO PANEL Specimen Type: URINE No comment entered. Ordering Provider: JEFF HUNTER F Report Released Date/Time: October 16, 2023 08:23 AM Reporting Lab: [facility] [place] [place] [address] Performing Lab: [facility] [address] [facility] [address] MICROALBUMIN/C REATININE RATIO canc mg/g 0-29.9 MICROALBUMIN,Q UANTITATIVE < 0.5 mg/dL RR UNAVAIL CREATININE URINE 29.59 mg/dL Dec 12, 2023 01:45 PM [facility] HEMOGLOBIN A1C PANEL Specimen Type: BLOOD Comment: Values obtained from A1C measurements can vary. For atypical A1C assays, a reported value of 7.0 could actually be between 6.72 and 7.28 if measured by a reference method. A reported value of 9.0 could actually be between 8.73 and 9.27. Ref: http://www.ngs p.org/CAPdata. asp Ordering Provider: JEFF HUNTER Report Released Date/Time: October 16, 2023 08:23 AM Reporting Lab: [address] [address] Performing Lab: [address] [address] HEMOGLOBIN A1C 6.3 H 4.0-5.6 Dec 12, 2023 01:45 PM [facility] LIVER FUNCTION Specimen Type: SERUM No comment entered. Ordering Provider: JEFF HUNTER Report Released Date/Time: October 16, 2023 08:23 AM Reporting Lab: [address] [address] Performing Lab: [address] [address] PROTEIN,TOTAL 7.3 g/dL 6.0-8.3 ALBUMIN 3.6 g/dL 3.5-5.0 ALKALINE PHOSPHATASE 58 U/L 40-150 AST 16 U/L 5-34 ALT 19 U/L BILIRUBIN, TOTAL 0.5 mg/dL 0.2-1.2 Dec 12, 2023 01:45 PM [facility] BASIC METABOLIC PANEL (fasting) Specimen Type: SERUM No comment entered. Ordering Provider: JEFF HUNTER F Report Released Date/Time: October 16, 2023 08:23 AM Reporting Lab: [address] [address] Performing Lab: [address] [address] UREA NITROGEN 32 mg/dL H 7-25 GLUCOSE 103 mg/dL H 65-100 SODIUM 138 mmol/L 135-145 POTASSIUM 4.5 mmol/L 3.5-5.0 CHLORIDE 101 mmol/L 100-110 CO2 28 meq/L 20-30 CREATININE, Serum 1.49 mg/dL H 0.50-1.40 eGFR(CKD-EPI 2020) 51 mL/min L >60 Dec 12, 2023 01:45 PM [facility] CBC AND DIFF (AUTO) Specimen Type: BLOOD No comment entered. Ordering Provider: JEFF HUNTER F Report Released Date/Time: October 16, 2023 08:23 AM Reporting Lab: [facility] [address] [facility] [address] Performing Lab: [address] [address] WBC 8.68 10*3/uL 4.50-11.00 RBC 5.14 10*6/uL 4.23-5.66 HGB 16.1 g/dL 12.8-17 HCT 48.8 39.2-50.4 MCV 94.9 fL 82-99 MCHC 33.0 g/dL 30.8-35.1 PLT 249 10*3/uL 140-360 RDW-CV 12.4 12.0-16.0 MONO, ABS 0.67 10*3/uL 0.30-1.10 MCH 31.3 pg 26.2-32.6 NEUT % 65.7 43.7-75.8 LYMPH % 22.2 14.0-42.3 MONO % 7.7 5.1-13.7 EOS % 3.3 0.4-6.8 BASO % 0.9 0.1-2.0 NEUT, ABS 5.69 10*3/uL 2.20-7.60 LYMPH, ABS 1.93 10*3/uL 1.00-3.20 EOS, ABS 0.29 10*3/uL 0.03-0.44 BASO, ABS 0.08 10*3/uL 0.01-0.13 IMMATURE GRAN % 0.2 0.0-0.7 IMMATURE GRAN, ABS 0.02 10*3/uL 0.00-0.06 NRBC % 0.0 0.0-0.0 NRBC, ABS 0.00 10*3/uL 0.00-0.00 Dec 12, 2023 01:45 PM [facility] VITAMIN D (25-OH) Specimen Type: SERUM No comment entered. Ordering Provider: MARGIE KENDRICK Report Released Date/Time: Dec 13, 2023 02:50 PM Reporting Lab: [facility] [address] [facility] [address] Performing Lab: [address] [address] VITAMIN D (25-OH) 29 ng/mL 20-50 Social History: Smoking Status (Most current) and Tobacco Use (All prior to encounter date) This section includes the most current, and the historical, smoking and tobacco- related health factors from the [place] facility where the Encounter took place. Current Smoking Status This section includes the most current smoking, or tobacco-related health factor, from the [place] facility where the Encounter took place. Date/Time Current Smoking Status Comment Facil ity May 31, 2023 03:30 PM VA-TOBACCO NEVER USED [facility] Tobacco Use History This section includes a history of the smoking, or tobacco-related health factors, that were collected on or before the date of the Encounter. The data comes from the [place] facility where the Encounter took place. Date/Time Smoking Status/Tobacco Use Comment F acility Mar 15, 2022 11:30 AM VA-TOBACCO NEVER USED [facility] Apr 08, 2021 02:00 PM VA-TOBACCO NEVER USED [facility] Advance Directives: All historical and current Section Date Range: From patient's date of to the date document was created. This section includes ALL of a patient's completed or amended [place] Advance and Rescinded Directives. The entries below indicate that a directive exists for the patient, but an actual copy is not included with this document. The data comes from all [place] facilities. Date Advance Directives Provider Source Dec 07, 2023 ADVANCE DIRECTIVE ERIKRASHID [place] [facility] Mar 20, 2014 ADVANCE DIRECTIVE DISCUSSION [facility] Jun 16, 2011 [facility] Encounter Notes: All associated encounter notes This section contains the clinical notes associated to the Encounter. Date/Time Encounter Note(s) Provider Source Dec 28, 2023 12:58 PM PODIATRY NOTE: LOCAL TITLE: PODIATRY NOTE STANDARD TITLE: PODIATRY NOTE DATE OF NOTE: DEC 28, 2023@12:58 ENTRY DATE: DEC 28, 2023@12:58:45 AUTHOR: JORDIN MEYER COSIGNER: URGENCY: STATUS: COMPLETED Podiatry High Risk Foot Encounter [facility] provider: Jordin Meyer [facility] Date: December 28, 2023 DESTINEYSHAKILA Arreguin MALE [phone] Dec 68 Primary Care:BINU BOSE Subjective: 68-year-old type II morbidly obese diabetic male with painful peripheral neuropathy seen here in April with biphasic PT pulses 2+ leg ankle edema no open wounds or sores, received foot care and diabetic foot education returning today for follow-up. No reported incidents or admissions or surgeries since last visit, reports that he is going to see [facility] for an exam previously has been seen according to patient at [facility] and told plumbing is okay and pain is neuropathic. Patient is using medical marijuana for pain control. States he is able to walk approximately 100 yards before needing to rest. Diabetic/ HRF/ PVD LE History: [x] pvd [ ] pvd interventions [x] neuropathy [ ] meds: [ ] wound active [ ] infection active [ ] wound history yes [ ] amputation hx [ ] deformity [ ] charcot [ ] surgical deformity intervention PMH list CPRS: Active Problem Benign prostatic hyperplasia N40.1 05/31/2023 BINU BOSE Diabetic - poor control E11.8 02/07/2023 BINU BOSE Peripheral venous insufficiency I87 03/15/2022 BINU BOSE Obstructive sleep apnea G47.33 01/06/2022 BINU BOSE AF- [facility] 04/08/2021 DONELL BLACK HTN - Hypertension ([facility] [id number]) I 04/08/2021 DONELL BLACK Long-term current use of anticoagul 04/08/2021 DONELL BLACK Peripheral neuropathic pain M79.2 04/08/2021 DONELL BLACK Peripheral vascular disease I73.9 04/08/2021 DONELL BLACK Cancer of the back, squamous cell C 04/08/2021 SHAHID SUNG Gout M10.9 04/08/2021 SHAHID SUNG Obesity [facility] [id number]) E66.9 04/08/2021 SHAHID SUNG GERD - Gastro-Esophageal Reflux Dis 04/08/2021 SHAHID SUNG Active Out Patient medications: Active Outpatient Medications (including Supplies): Active Outpatient [...] ONE TABLET BY MOUTH ACTIVE AT BEDTIME Imaging reports: Lab Data: CHEM 7 TREND LAB CUMULATIVE SELECTED Collection DT Spec GLUCOSE BUN CREATIN Sodium K+/Pot CL CO2 01/02/2023 12:12 SERUM 173 H 23 1.34 138 4.4 102 26 11/02/2022 14:48 SERUM 170 H 40 H 1.67 H 138 4.5 105 24 04/27/2022 15:39 SERUM 107 H 29 H 1.39 139 4.5 105 28 08/13/2021 10:37 SERUM 122 H 26 H 1.45 H 137 4.6 103 25 04/28/2021 11:58 SERUM 110 H 30 H 1.24 137 5.0 103 24 LAB CUMULATIVE SELECTED 2 No selection items chosen for this component. CHEM 7 Results Collection DT Spec Sodium K+/Pot CL CO2 GLUCOSE BUN 01/02/2023 12:12 SERUM 138 4.4 102 26 173 H 23 11/02/2022 14:48 SERUM 138 4.5 105 24 170 H 40 H 04/27/2022 15:39 SERUM 139 4.5 105 28 107 H 29 H 08/13/2021 10:37 SERUM 137 4.6 103 25 122 H 26 H 04/28/2021 11:58 SERUM 137 5.0 103 24 110 H 30 H 04/09/2021 09:16 SERUM 139 4.7 102 26 104 H 38 H HEMOGLOBIN A1C TREND Collection DT Spec HGBA1c 01/02/2023 12:12 BLOOD 7.4 H 04/27/2022 15:39 BLOOD 6.5 H 08/13/2021 10:37 BLOOD 6.0 H 04/09/2021 09:16 BLOOD 6.1 H ALBUMIN Collection DT Specimen Test Name Result Units Ref Range 11/02/2022 14:48 SERUM !! ALBUMIN 3.6 g/dL 3.5 - 5.0 BMI:BMI: 45.0 PE:General: Morbidly obese awake alert oriented x3 able to stand and transfer. Vascular exam: Dopplerable biphasic posterior tibial pulses trace DP pulses 2+ leg ankle edema tense nonpitting extends moderately to forefoot bilateral Trophic skin changes, no venous staining or ulcers present. Toes warm and pink x10, dystrophic nails. No pedal ankle or leg hair. Ortho: Unremarkable Integument: Again noted dystrophic nails Xerosis cutis improved since using ammonium lactate Sensation diminished significantly in the forefoot unchanged from exam in April. No apparent motor component. PAVE:2-mainly vascular and neuropathic issues but does not appear to have critical limb ischemia or severe venous stasis disease. Impression: -Diabetic with vascular and neuropathic issues, no structural integrity issues, no high pressure calluses or other lesions, nail dystrophy. Plan: -Interval exam -Aseptic debridement of nails left and right 1 through 5 without incident using sterile instrumentation which was reprocessed according to [facility] policy for RME -Continue with ammonium lactate daily avoid between toes -Follow-up with private vascular consults Return here in 4 months for nail care Return sooner if any clinical signs of infection such as redness, swelling drainage fever chills nausea , or go to nearest hospital emergency / urgent care for evaluation. -As part of the service the pertinent primary care, specialty care and urgent care notes have been reviewed as well as the patient's medication list, problem list, and current imaging as well as past imaging, laboratory data and other pertinent contributory consults. -All new and discontinued medications have been discussed in detail with the patient and or caregiver, including indications for additions and deletions, as well as possible side effects, interactions as foreseen, and risk of not taking as prescribed If applicable, the patient was advised clearly on application of wound care agents how to apply and when to apply. The patient was able to recitethis information back to the prescriber with good understanding and agreed to the plan of care as indicated above. -Plan of care discuss with the patient and or caregiver, including medical decision making which includes discussion of abnormal lab results, imaging and other diagnostic modalities as well as results of the physical exam and java consultant opinions and recommendations as sought. Alternatives to surgery or outlined care above as appropriate have also been discussed. -The patient/ caregiver has displayed good understanding of above and with no further questions at this time. Patient is aware of next appointment and agrees to follow-up interval. Patient agrees to seek sooner follow up if any irregular events occur in between such as cardinal signs of infection, increased pain or deformity. -The on this visit was given information [email or web address] service and encouraged to enroll if not already having done so. /[email or web address]/ JORDIN MEYER DPM PODIATRY ATTENDING Signed: 12/29/2023 16:50 JORDIN MEYER [place] [facility]
--- OUTSIDE RECORDS SUMMARY | 2024-08-01 14:09 | XMS_ITS | Encounter Summary ---
Author Name [facility] [place] Organization [place] Address [address] [place] [address] Care Team Providers Care Operator Maintainer Name Role Phone CHRIS HUNTER Primary Care [...] Torres's Name Patient's Relationship to Policy Torres [facility] ([facility]) MEDICARE ADVANTAGE MCR ([facility]) Jun 12, 2017 [id number] STELLA CABELLO PATIENT [facility] ([facility]) MEDICARE ADVANTAGE MCR ([facility]) Jan 05, 2024 DO NOT BILL [id number] 4 STELLA CABELLO PATIENT [facility] ([facility]) MEDICARE ADVANTAGE MCR ([facility]) May 12, 2022 [id number] STELLA CABELLO PATIENT [facility] ([facility]) MEDICARE ADVANTAGE MCR ([facility]) Aug 10, 2021 [id number] STELLA CABELLO PATIENT Selected Encounter This section includes the information on record at [place] for the Encounter. Date/Time Encounter Type Encounter Description Reason Pro vider Source Jul 18, 2024 11:37 AM Outpatient Encounter TELEPHONE TRIAGE IHE Encounter Template Text not used by [place] Plan of Treatment: Future Appointments (+ 6 months) and Future Tests (+/- 45 days) The Plan of Treatment section includes future care activities for the patient from all [place] [facility]. This section includes future appointments and future orders which are active, pending or scheduled. Future Appointments This section includes appointments that were scheduled to occur 6 months from the date of the Encounter, up to a maximum of 20 appointments. The data comes from all [facility] Appointment Date/Time Appointment Type Appointme nt Facility Name Jul 19, 2024 11:30 AM [facility] Aug 02, 2024 02:15 PM [facility] Aug 29, 2024 01:00 PM AMBULAT[facility] Sep 19, 2024 01:30 PM AMBULATORY MEDICINE [facility] Active, Pending, and Scheduled Orders This section includes a listing of several types of active, pending, and scheduled orders, including clinic medications orders, diagnostic test orders, procedure orders and consult orders; where the start date of the order is 45 days before the date of the Encounter or 45 days after the date of theEncounter. The data comes from all [facility]. Test Date/Time Test Type Test Details Facility Name Jul 04, 2024 12:00 AM Laboratory - Chemistry Order MICROALBUMIN CREATININE RATIO PANEL URINE (RANDOM) [facility] Jul 04, 2024 12:00 AM Laboratory - Chemistry Order DIGOXIN BLOOD (LAV-PLASMA) [facility] Jul 04, 2024 12:00 AM Laboratory - Chemistry Order HEMOGLOBIN A1C PANEL BLOOD (LAV-BLOOD) [facility] Jul 04, 2024 12:00 AM Laboratory - Chemistry Order URINALYSIS URINE [facility] Jul 19, 2024 12:00 AM Laboratory - Chemistry Order BASIC METABOLIC PANEL (fasting) BLOOD (SST-SERUM) [facility] Jul 19, 2024 12:00 AM Laboratory - Chemistry Order LIVER FUNCTION BLOOD (SST-SERUM) [facility] Jul 19, 2024 12:00 AM Laboratory - Chemistry Order LIPID PANEL FASTING [facility]LO[facility]UM) [facility] Jul 23, 2024 02:37 PM Consult Order [facility]-NEPHROLOGY Cons Boarding House Manager's [facility] Aug 28, 2024 12:00 AM Laboratory - Chemistry Order BASIC METABOLIC PANEL (fasting) [facility] Aug 28, 2024 12:00 AM Laboratory - Chemistry Order LIVER FUNCTION BLOOD (SST-SERUM) [facility] Aug 28, 2024 12:00 AM Laboratory - Chemistry Order LIPID PANEL FASTING BLOOD (SST-SERUM) [facility] Social History: Smoking Status (Most current) and Tobacco Use (All prior to encounter date) This section includes the most current, and the historical, smoking and tobacco- related health factors from the [place] facility where the Encounter took place. Current Smoking Status This section includes the most current smoking, or tobacco-related health factor, from the [place] facility where the Encounter took place. Date/Time Current Smoking Status Comment Facil ity May 31, 2023 03:30 PM [place]-TOBACCO NEVER USED [facility] Tobacco Use History This section includes a history of the smoking, or tobacco-related health factors, that were collected on or before the date of the Encounter. The data comes from the [place] facility where the Encounter took place. Date/Time Smoking Status/Tobacco Use Comment F acility Mar 15, 2022 11:30 AM [place]-TOBACCO NEVER USED [facility] Apr 08, 2021 02:00 [facility] Advance Directives: All historical and current Section Date Range: From patient's date of to the date document was created. This section includes ALL of a patient's completed or amended [place] Advance and Rescinded Directives. The entries below indicate that a directive exists for the patient, but an actual copy is not included with this document. The data comes from all [place] facilities. Date Advance Directives Provider Source Dec 07, 2023 ADVANCE DIRECTIVE RASHID VALENCIA [place] C [facility] Mar 20, 2014 ADVANCE DIRECTIVE DISCUSSION EZEQUIEL MORANREESE [facility] Jun 16, 2011 ADVANCE DIRECTIVE DISCUSSION BARRIE ISLAS [facility] Encounter Notes: All associated encounter notes This section contains the clinical notes associated to the Encounter. Date/Time Encounter Note(s) Provider Source Jul 18, 2024 11:38 AM RN PROGRESS NOTE: LOCAL TITLE: CCC: CLINICAL TRIAGE STANDARD TITLE: RN PROGRESS NOTE DATE OF NOTE: JUL 18, 2024@11:38:04 ENTRY DATE: JUL 18, 2024@11:38:04 AUTHOR: DANY SAPP COSIGNER: URGENCY: STATUS: COMPLETED CCC: CLINICAL TRIAGE Has ADDENDA Patient Demographics Patient Name: SHAKILA CABELLO Patient Primary [address]: [address] [place] [id number] Patient Primary Phone: [phone] Patient : 1955 Patient Age: 69 Current Location: home Call Back Number: verified Caller/Recipient Relation to Patient: Self Caller Name: SHAKILA CABELLO Emergency Contact: NULL NULL Triage Summary Conducted triage/discussed symptoms Pain Score: 5 (Moderate to Severe Pain) Utilized the Triage Tool: Yes Chief Complaint: Ear Ache System WHEN: Within 24 Hours Nurse's Recommendation / WHEN: Within 24 Hours System WHERE: Clinic Nurse's Recommendation / WHERE: [facility] Patient Disposition Patient/Caregiver agrees to plan of care: Yes Patient WHERE: Clinic/[facility] Patient WHEN: Within 24 hours Other - Patient When Disposition: ok with CCC SPECIAL EDUCATION TUTOR appt tele Nursing Plan and Disposition Referred Patient for In-Person Appt Transferred patient to Sched & Admin-Apt No appt avail Advised Urgent Care Other Description: declines to go to local urgent care Other course(s) of action Generated msg to PACT/Provider Alternative course of action Alternative courses of action: PACT to call back if no appt available (? RN appt could be made to flush his ears) Nurse Summary Nurse Summary: Whitman states that he has had clogged ears for the past 1 1/2 months with what he feels is wax. States he has no drainage or bleeding from his ears and is now at a level 4-5 pain and some redness to the ear canal but not sure if ear canal is swollen. Clinical Contact Center Codes Clinic/Location: V1 [facility] PHONE [facility] RN Decision Support System Output: Triage Complete Triage Date: 07/18/2024, 11:31 AM Triage Note: Decision Support Tool Used: [facility] Phone Triage Paula, 18 Jul 2024 16:29:24 +0000 [facility] Demographics 69 y/o Male Results CC: Ear Ache Software suggested: Within 24 Hours Software suggested follow-up location: Clinic, [facility] Values and Measures Duration of CC: 1 Months Positive Responses HPI: ear canal erythema, worsening HPI: ear pain, moderate to severe PMH: diabetes VS: temperature not taken Negative Responses Denies: HPI: ear canal discharge, exudative Denies: HPI: ear canal swelling Denies: HPI: ear pain, severe Denies: HPI: ear pinna erythema, worsening Denies: HPI: vomiting Denies: MEDS: chemotherapy Denies: MEDS: insulin Denies: PMH: HIV positive Denies: PSH: organ transplant IMPORTANT: This note was created by [facility] Clinical Contact Center staff. Please do not alert the staff member by adding them as a signer for future communications. Alerts are not monitored by this user. /julien/ DANY SAPP VISN1 TRACI RN Signed: 07/18/2024 11:38 Receipt Acknowledged By: 07/18/2024 11:51 /julien/ BRITTNEY CHACKO, RN REGISTERED NURSE 07/18/2024 13:07 /julien/ BLU ISRAEL LPN 07/18/2024 ADDENDUM STATUS: COMPLETED Appt with PCP tomorrow to antoinette. /julien/ BRITTNEY CHACKO, RN REGISTERED NURSE Signed: 07/18/2024 11:52 DANY SAPP [place] [facility]
--- OUTSIDE RECORDS SUMMARY | 2024-08-01 14:09 | XMS_ITS | Encounter Summary ---
Author Name [facility] [place] Organization [place] Address [address] [place] [address] Care Team Providers Care Head Of Training And Development Name Role Phone TORIBIO BILLINGSLEY Primary Care [...] Torres's Name Patient's Relationship to Policy Torres [facility] ([facility]) MEDICARE ADVANTAGE MCR ([facility]) Jun 12, 2017 [id number] STELLA CABELLO PATIENT [facility] ([facility]) MEDICARE ADVANTAGE MCR ([facility]) Jan 05, 2024 DO NOT BILL [id number] STELLA CABELLO PATIENT [facility] ([facility]) MEDICARE ADVANTAGE MCR ([facility]) May 12, 2022 [id number] STELLA CABELLO PATIENT [facility] ([facility]) MEDICARE ADVANTAGE MCR ([facility]) Aug 10, 2021 [id number] TSELLA CABELLO PATIENT Selected Encounter This section includes the information on record at [place] for the Encounter. Date/Time Encounter Type Encounter Description Reason Pro vider Source May 16, 2024 05:51 PM Outpatient Encounter ADMIN PAT ACTIVTIES (MASNONCT) IHE Encounter Template Text not used by [place] Plan of Treatment: Future Appointments (+ 6 months) and Future Tests (+/- 45 days) The Plan of Treatment section includes future care activities for the patient [facility] [place] [facility] This section includes future appointments and future orders which are active, pending or scheduled. Future Appointments This section includes appointments that were scheduled to occur 6 months from the date of the Encounter, up to a maximum of 20 appointments. The data comes from all [place] treatment facilities. Appointment Date/Time Appointment Type Appointme nt Facility Name May 21, 2024 02:00 PM AMBULATORY - MEDICINE [place] [facility] [place] [facility] May 30, 2024 11:00 AM AMBULATORY - MEDICINE [place] [facility] [place] [facility] May 30, 2024 11:45 AM AMBULATORY - MEDICINE [place] C [facility] [place] [facility] Jun 03, 2024 01:00 PM AMBULATORY - MEDICINE [place] C [facility] [place] [facility] Jun 13, 2024 01:00 PM AMBULATORY - MEDICINE [place] C [facility] [place] [facility] Jul 19, 2024 11:30 AM AMBULATORY - MEDICINE [place] C [facility] [place] [facility] Aug 02, 2024 02:15 PM AMBULATORY - MEDICINE [place] C [facility] [place] [facility] Aug 29, 2024 01:00 PM AMBULATORY - MEDICINE [place] C [facility] [place] [facility] Sep 19, 2024 01:30 PM AMBULATORY - MEDICINE [place] C [facility] [place] [facility] Social History: Smoking Status (Most current) and Tobacco Use (All prior to encounter date) This section includes the most current, and the historical, smoking and tobacco- related health factors from the [place] facility where the Encounter took place. Current Smoking Status This section includes the most current smoking, or tobacco-related health factor, from the [place] facility where the Encounter took place. Date/Time Current Smoking Status Comment Sebastian cordova May 31, 2023 03:30 PM [place]-TOBACCO NEVER USED [facility] [place] [facility] Tobacco Use History This section includes a history of the smoking, or tobacco-related health factors, that were collected on or before the date of the Encounter. The data comes from the [place] facility where the Encounter took place. Date/Time Smoking Status/Tobacco Use Comment F acility Mar 15, 2022 11:30 AM [place]-TOBACCO [facility] Apr 08, 2021 02:00 PM VA-TOBACCO NEVER USED [facility] Advance Directives: All historical and current Section Date Range: From patient's date of to the date document was created. This section includes ALL of a patient's completed or amended [place] Advance and Rescinded Directives. The entries below indicate that a directive exists for the patient, but an actual copy is not included with this document. The data comes from all [place] facilities. Date Advance Directives Provider Source Dec 07, 2023 ADVANCE DIRECTIVE RASHID VALENCIA [place] [facility] Mar 20, 2014 ADVANCE DIRECTIVE DISCUSSION [facility] Jun 16, 2011 ADVANCE DIRECTIVE DISCUSSION [facility] Encounter Notes: All associated encounter notes This section contains the clinical notes associated to the Encounter. Date/Time Encounter Note(s) Provider Source May 16, 2024 05:51 PM PHARMACY NOTE: LOCAL TITLE: PHARMACY CUSTOMER CARE MEDICATION RENEWAL STANDARD TITLE: PHARMACY NOTE DATE OF NOTE: MAY 16, 2024@17:51 ENTRY DATE: MAY 16, 2024@17:51:36 AUTHOR: WHIT FRANCOIS EXP COSIGNER: URGENCY: STATUS: COMPLETED Date: May Division: [place] Pt referred by Pharmacy Call Center for medication renewal: Non-controlled/maintenanc e medication Medications requested: [id number] DIGOXIN 0.125MG TAB Defer to primary care provider To be mailed . Please review and renew if appropriate. *This note was generated by [facility] Customer Care. If you have any questions or need assistance, do not contact this author. Please refer all questions to your local, on-site pharmacy departments. /julien/ WHIT FRANCOIS CPhT ELECTRICITY TRADING ANALYST, [place]/PHARMACY CUSTOMER CARE Signed: 05/16/2024 17:51 Receipt Acknowledged By: 05/21/2024 07:46 /julien/ BRITTNEY CHACKO RN REGISTERED NURSE 05/20/2024 16:38 /julien/ Toribio Billingsley PA-C STAFF PHYSICIAN EMERGENCY MEDICAL DISPATCHER [facility]
--- OUTSIDE RECORDS SUMMARY | 2024-08-01 14:09 | XMS_ITS ---
Author Name [facility] [place] [facility] [place] Address [address] [place] [address] Care Team Providers Care Uke Operator Name Role Phone TORIBIO BILLINGSLEY Primary Care [...] Torres's Name Patient's Relationship to Policy Torres [facility] ([facility]) MEDICARE ADVANTAGE MCR ([facility]) Jun 12, 2017 [id number] STELLA CABELLO PATIENT [facility] ([facility]) MEDICARE ADVANTAGE MCR ([facility]) Jan 05, 2024 DO NOT BILL [id number] STELLA CABELLO PATIENT [facility] ([facility]) MEDICARE ADVANTAGE MCR ([facility]) May 12, 2022 [id number] STELLA CABELLO PATIENT [facility] ([facility]) MEDICARE ADVANTAGE MCR ([facility]) Aug 10, 2021 [id number] STELLA CABELLO PATIENT Selected Encounter This section includes the information on record at [place] for the Encounter. Date/Time Encounter Type Encounter Description Reason Provider Source Jan 15, 2024 02:00 PM OFFICE O/P EST LOW 20 MIN PRIMARY CARE/MEDICINE ICD-10-CM I48.91 Unspecified atrial fibrillation GAUTAM BILLINGSLEY [facility] Encounter Template Text not used by [place] Assessments - Encounter Diagnoses This section includes the primary and secondary diagnoses documented for the Encounter. Date/Time Primary/Secondary Diagnosis Diagnosis Name Provider Source Jan 15, 2024 03:05 PM PRIMARY Unspecified atrial fibrillation GAUTAM BILLINGSLEY [place] [facility] [place] [facility] Jan 15, 2024 03:05 PM SECONDARY Essential (primary) hypertension GAUTAM BILLINGSLEY [place] [facility] [place] [facility] Plan of Treatment: Future Appointments (+ 6 months) and Future Tests (+/- 45 days) The Plan of Treatment section includes [facility] care activities [facility] the [facility] [place] [facility] This section includes future appointments and future orders which are active, pending or scheduled. Future Appointments This section includes appointments that were scheduled to occur 6 months from the date of the Encounter, up to a maximum of 20 appointments. The data comes from all [place] treatment facilities. Appointment Date/Time Appointment Type Appointme nt Facility Name Feb 06, 2024 02:15 PM AMBULATORY - MEDICINE [place] [facility] [place] [facility] Feb 29, 2024 08:00 AM AMBULATORY - MEDICINE [place] [facility] [place] [facility] May 21, 2024 02:00 PM AMBULATORY - MEDICINE [place] [facility] [place] [facility] May 30, 2024 11:00 AM AMBULATORY - MEDICINE [place] [facility] [place] [facility] May 30, 2024 11:45 AM AMBULATORY - MEDICINE [place] [facility] [place] [facility] Jun 03, 2024 01:00 PM AMBULATORY - MEDICINE [place] [facility] [place] [facility] Jun 13, 2024 01:00 PM AMBULATORY - MEDICINE [place] [facility] [place] [facility] Vital Signs: All taken on the encounter date This section contains inpatient and outpatient Vital Signs collected on the date of the Encounter. Date/Time Temperature Pulse Blood Pressure Respiratory Rate SP02 Pain Height Weight Body Mass Index Source Jan 15, 2024 02:15 PM 97.8 80 120/80 15 91 0 320 43 [place] [facility] [place] [facility] Social History: Smoking Status (Most current) and Tobacco Use (All prior to encounter date) This section includes the most current, and the historical, smoking and tobacco- related health factors from the [place] facility where the Encounter took place. Current Smoking Status This section includes the most current smoking, or tobacco-related health factor, from the [place] facility where the Encounter took place. Date/Time Current Smoking Status Comment Facil ity May 31, 2023 03:30 PM VA-TOBACCO NEVER USED [facility] Tobacco Use History This section includes a history of the smoking, or tobacco-related health factors, that were collected on or before the date of the Encounter. The data comes from the [place] facility where the Encounter took place. Date/Time Smoking Status/Tobacco Use Comment F acility Mar 15, 2022 11:30 AM VA-TOBACCO NEVER USED [place] [facility] Apr 08, 2021 02:00 PM VA-TOBACCO [facility] Advance Directives: All historical and current Section Date Range: From patient's date of to the date document was created. This section includes ALL of a patient's completed or amended [place] Advance and Rescinded Directives. The entries below indicate that a directive exists for the patient, but an actual copy is not included with this document. The data comes from all [place] facilities. Date Advance Directives Provider Source Dec 07, 2023 ADVANCE DIRECTIVE RASHID [facility] Mar 20, 2014 ADVANCE DIRECTIVE DISCUSSION [facility] Jun 16, 2011 ADVANCE DIRECTIVE DISCUSSION BARRIE [facility] Encounter Notes: All associated encounter notes This section contains the clinical notes associated to the Encounter. Date/Time Encounter Note(s) Provider Source Jan 15, 2024 04:32 PM ADDENDUM: LOCAL TITLE: Addendum STANDARD TITLE: ADDENDUM DATE OF NOTE: JAN 15, 2024@16:32:40 ENTRY DATE: JAN 15, 2024@16:32:41 AUTHOR: TORIBIO BILLINGSLEY COSIGNER: URGENCY: STATUS: COMPLETED Please call his eye dr above and request most recent dilated retinal exam? [place] [facility] eyes in [facility] in the [facility]. [phone] /es/ Toribio Billingsley PA-C STAFF PHYSICIAN ENVIRONMENTAL PLANNING ENGINEER Signed: 01/15/2024 16:33 Receipt Acknowledged By: 01/16/2024 08:24 /julien/ BLU ISRAEL LPN --- Original Document --- 01/15/24 LISBET NOTE: CC/HPI/A/P: 69 year old MALE here in follow-up for; [place] [employer] eyes in [facility], [place] in the [facility].He will send the phone number. We need his last retinal exam to consider weight loss meds. Diabetic neuropathy, Reports frequent falls, Has, but doesn't use cane, etc. I offer to change gapapentine rx (taking 900mg twice a day only) but since he added ropinarole last week, we defer any changes. Declines TID dosing. His aid is here today, but of no help witgh history. Review of systems: Patient reports no changes from [facility]ual State [facility] Health/[place], in meds or any admissions. Active problems - Computerized Problem List is the source for the followin. Benign prostatic hyperplasia 2. Diabetic - poor control 3. Peripheral venous insufficiency 4. Obstructive sleep apnea 5. AF- Atrial Fibrillation ([facility] [id number]) 6. HTN - Hypertension ([facility] [id number]) 7. Long-term current use of anticoagulant 8. Peripheral neuropathic pain 9. Peripheral vascular disease 10. Cancer of the back, squamous cell multiple sites/ see notes in [facility] at [place] in [place] 11. Gout 12. Obesity ([facility] [id number]) 13. GERD - Gastro-Esophageal Reflux Disease ([facility] [id number]) SERVICE CONNECTED % - NONE FOUND VA and Non VA meds were reconciled with the patient who left with a corrected copy. See medication page for details. Active and Recently Outpatient Medications (excluding Supplies): Active Outpatient Medications Status 1) AMMONIUM LACTATE 12% LOTION APPLY SMALL AMOUNT ACTIVE TOPICALLY ONCE DAILY FOR DRY IRRITATED SKIN APPLY TO SKIN LEGS AND FEET DAILY 2) APIXABAN 5MG TAB TAKE ONE TABLET BY MOUTH TWICE DAILY ACTIVE 3) CARVEDILOL 3.125MG TAB TAKE ONE TABLET BY MOUTH TWICE ACTIVE DAILY 4) DIGOXIN 0.125MG TAB TAKE ONE TABLET BY MOUTH ONCE ACTIVE DAILY 5) DULOXETINE HCL 20MG EC CAP TAKE ONE CAPSULE BY MOUTH ACTIVE AT BEDTIME 6) EMPAGLIFLOZIN 25MG TAB TAKE ONE-HALF TABLET BY MOUTH ACTIVE ONCE DAILY 7) FINASTERIDE 5MG TAB TAKE ONE TABLET BY MOUTH ONCE ACTIVE DAILY 8) FOLIC ACID 1MG TAB TAKE ONE TABLET BY MOUTH ONCE ACTIVE DAILY VITAMIN/NUTRITION SUPPLEMENT 9) FUROSEMIDE 40MG TAB TAKE ONE TABLET BY MOUTH ONCE ACTIVE DAILY TO REMOVE FLUID/CONTROL BLOOD PRESSURE 10) GABAPENTIN 300MG CAP TAKE ONE CAPSULE BY MOUTH THREE ACTIVE TIMES A DAY 11) HYDRALAZINE HCL 50MG TAB TAKE ONE TABLET BY MOUTH ACTIVE TWICE DAILY FOR BLOOD PRESSURE 12) LIDOCAINE 5% PATCH APPLY 1 PATCH TOPICALLY AT BEDTIME ACTIVE (LEAVE PATCH ON FOR 12 HOURS, THEN REMOVE PATCH) 13) LOSARTAN 50MG TAB TAKE ONE TABLET BY MOUTH ONCE DAILY ACTIVE FOR BLOOD PRESSURE/HEART 14) MULTIVITAMIN/MINERALS CAP/TAB TAKE 1 TABLET BY MOUTH ACTIVE ONCE DAILY FOR VITAMIN SUPPLEMENTATION 15) PANTOPRAZOLE NA 40MG EC TAB TAKE ONE TABLET BY MOUTH ACTIVE EVERY MORNING 30 MINUTES BEFORE BREAKFAST 16) ROPINIROLE HCL 2MG TAB TAKE ONE TABLET BY MOUTH AT ACTIVE BEDTIME TAKE 1-3 HOURS BEFORE BEDTIME 17) SPIRONOLACTONE 25MG TAB TAKE ONE TABLET BY MOUTH ONCE ACTIVE DAILY 18) TAMSULOSIN HCL 0.4MG CAP TAKE TWO CAPSULES BY MOUTH ACTIVE AT BEDTIME FOR ENLARGED PROSTATE 19) ZOLPIDEM TARTRATE 10MG TAB TAKE ONE TABLET BY MOUTH ACTIVE AT BEDTIME FOR SLEEP Inactive Outpatient Medications Status 1) CARBAMIDE PEROXIDE 6.5% OTIC SOLN INSTILL 5 TO 10 DROPS INTO THE AFFECTED EAR(S) TWICE DAILY FOR EAR WAX BLOCKAGE Active Non-VA Medications Status 1) Non-VA OTHER CAP/TAB GUMMIES FROM [place] BY MOUTH ACTIVE 21 Total Medications 97.8 F [36.6 C] (01/15/2024 14:15) 80 (01/15/2024 14:15) 15 (01/15/2024 14:15) 120/80 (01/15/2024 14:15) 0 (01/15/2024 14:15) 72 in [182.9 cm] (01/06/2023 13:34) 320 lb [145.15 kg] (01/15/2024 14:15) BMI: 43.5 Neuro: Alert and oriented times three, grossly nonfocal, nasolabial folds intact. A difficult historian, who manages to be argumentative, evasive and condescending simultaneously. Recent labs reviewed with patient today:yes Please call his eye dr above and request most recent dilated retinal exam? /julien/ Toribio Billingsley PA-C STAFF PHYSICIAN ENVIRONMENTAL PLANNING ENGINEER Signed: 01/15/2024 15:05 TORIBIO BILLINGSLEY [place] [facility] Jan 15, 2024 02:54 PM PHYSICIAN ENVIRONMENTAL PLANNING ENGINEER NOTE: LOCAL TITLE: LISBET NOTE STANDARD TITLE: PHYSICIAN ENVIRONMENTAL PLANNING ENGINEER NOTE DATE OF NOTE: JAN 15, 2024@14:54 ENTRY DATE: JAN 15, 2024@14:54:04 AUTHOR: TORIBIO BILLINGSLEY EXP COSIGNER: URGENCY: STATUS: COMPLETED LISBET NOTE Has ADDENDA CC/HPI/A/P: 69 year old MALE here in follow-up for; [place] [employer] [facility] in [facility], [facility] in the [facility].He will send the phone number. We need his last retinal exam to consider weight loss meds. Diabetic neuropathy, Reports frequent falls, Has, but doesn't use cane, etc. I offer to change gapapentine rx (taking 900mg twice a day only) but since he added ropinarole last week, we defer any changes. Declines TID dosing. His aid is here today, but of no help witgh history. Review of systems: Patient reports no changes from [facility]ual [facility] Health/[facility], in meds or any admissions. Active problems - Computerized Problem List is the source for the followin. Benign prostatic hyperplasia 2. Diabetic - poor control 3. Peripheral venous insufficiency 4. Obstructive sleep apnea 5. AF- Atrial Fibrillation ([facility] [id number]) 6. HTN - Hypertension ([facility] [id number]) 7. Long-term current use of anticoagulant 8. Peripheral neuropathic pain 9. Peripheral vascular disease 10. Cancer of the back, squamous cell multiple sites/ see notes in [facility] at [place] 11. Gout 12. Obesity ([facility] [id number]) 13. GERD - Gastro-Esophageal Reflux Disease ([facility] [id number]) SERVICE CONNECTED % - NONE FOUND VA and Non VA meds were reconciled with the patient who left with a corrected copy. See medication page for details. Active and Recently Outpatient Medications (excluding Supplies): Active Outpatient Medications Status 1) AMMONIUM LACTATE 12% LOTION APPLY SMALL AMOUNT ACTIVE TOPICALLY ONCE DAILY FOR DRY IRRITATED SKIN APPLY TO SKIN LEGS AND FEET DAILY 2) APIXABAN 5MG TAB TAKE ONE TABLET BY MOUTH TWICE DAILY ACTIVE 3) CARVEDILOL 3.125MG TAB TAKE ONE TABLET BY MOUTH TWICE ACTIVE DAILY 4) DIGOXIN 0.125MG TAB TAKE ONE TABLET BY MOUTH ONCE ACTIVE DAILY 5) DULOXETINE HCL 20MG EC CAP TAKE ONE CAPSULE BY MOUTH ACTIVE AT BEDTIME 6) EMPAGLIFLOZIN 25MG TAB TAKE ONE-HALF TABLET BY MOUTH ACTIVE ONCE DAILY 7) FINASTERIDE 5MG TAB TAKE ONE TABLET BY MOUTH ONCE ACTIVE DAILY 8) FOLIC ACID 1MG TAB TAKE ONE TABLET BY MOUTH ONCE ACTIVE DAILY VITAMIN/NUTRITION SUPPLEMENT 9) FUROSEMIDE 40MG TAB TAKE ONE TABLET BY MOUTH ONCE ACTIVE DAILY TO REMOVE FLUID/CONTROL BLOOD PRESSURE 10) GABAPENTIN 300MG CAP TAKE ONE CAPSULE BY MOUTH THREE ACTIVE TIMES A DAY 11) HYDRALAZINE HCL 50MG TAB TAKE ONE TABLET BY MOUTH ACTIVE TWICE DAILY FOR BLOOD PRESSURE 12) LIDOCAINE 5% PATCH APPLY 1 PATCH TOPICALLY AT BEDTIME ACTIVE (LEAVE PATCH ON FOR 12 HOURS, THEN REMOVE PATCH) 13) LOSARTAN 50MG TAB TAKE ONE TABLET BY MOUTH ONCE DAILY ACTIVE FOR BLOOD PRESSURE/HEART 14) MULTIVITAMIN/MINERALS CAP/TAB TAKE 1 TABLET BY MOUTH ACTIVE ONCE DAILY FOR VITAMIN SUPPLEMENTATION 15) PANTOPRAZOLE NA 40MG EC TAB TAKE ONE TABLET BY MOUTH ACTIVE EVERY MORNING 30 MINUTES BEFORE BREAKFAST 16) ROPINIROLE HCL 2MG TAB TAKE ONE TABLET BY MOUTH AT ACTIVE BEDTIME TAKE 1-3 HOURS BEFORE BEDTIME 17) SPIRONOLACTONE 25MG TAB TAKE ONE TABLET BY MOUTH ONCE ACTIVE DAILY 18) TAMSULOSIN HCL 0.4MG CAP TAKE TWO CAPSULES BY MOUTH ACTIVE AT BEDTIME FOR ENLARGED PROSTATE 19) ZOLPIDEM TARTRATE 10MG TAB TAKE ONE TABLET BY MOUTH ACTIVE AT BEDTIME FOR SLEEP Inactive Outpatient Medications Status 1) CARBAMIDE PEROXIDE 6.5% OTIC SOLN INSTILL 5 TO 10 DROPS INTO THE AFFECTED EAR(S) TWICE DAILY FOR EAR WAX BLOCKAGE Active Non-VA Medications Status 1) Non-VA OTHER CAP/TAB GUMMIES FROM [place] BY MOUTH ACTIVE 21 Total Medications 97.8 F [36.6 C] (01/15/2024 14:15) 80 (01/15/2024 14:15) 15 (01/15/2024 14:15) 120/80 (01/15/2024 14:15) 0 (01/15/2024 14:15) 72 in [182.9 cm] (01/06/2023 13:34) 320 lb [145.15 kg] (01/15/2024 14:15) BMI: 43.5 Neuro: Alert and oriented times three, grossly nonfocal, nasolabial folds intact. A difficult historian, who manages to be argumentative, evasive and condescending simultaneously. Recent labs reviewed with patient today:yes Please call his eye dr above and request most recent dilated retinal exam? /julien/ Toribio Billingsley PA-C STAFF PHYSICIAN ENVIRONMENTAL PLANNING ENGINEER Signed: 01/15/2024 15:05 01/15/2024 ADDENDUM STATUS: COMPLETED Please call his eye dr above and request most recent dilated retinal exam? [place] [facility] eyes in [facility] in the [facility]. [phone] /julien/ Toribio Billingsley PA-C STAFF PHYSICIAN ENVIRONMENTAL PLANNING ENGINEER Signed: 01/15/2024 16:33 Receipt Acknowledged By: * AWAITING SIGNATURE * BLU ISRAEL [facility] Jan 15, 2024 02:53 PM ACCOUNTING OF DISCLOSURES NOTE: LOCAL TITLE: STATE PRESCRIPTION DRUG MONITORING PROGRAM STANDARD TITLE: ACCOUNTING OF DISCLOSURES NOTE DATE OF NOTE: JAN 15, 2024@14:53:49 ENTRY DATE: JAN 15, 2024@14:53:49 AUTHOR: TORIBIO BILLINGSLEY EXP COSIGNER: URGENCY: STATUS: COMPLETED This PDMP query was submitted by Toribio Billingsley. The clinical justification for this PDMP query is to review controlled substances prescribed outside of the [facility], and any additional information that may become available, as an important component of standard clinical care, and in accordance with [facility] policy. Patient information was shared with the PDMP [employer] [place]. No prescription(s) for controlled substances outside the [facility] were found in the last 90 days. /julien/ Toribio Billingsley PA-C STAFF PHYSICIAN ENVIRONMENTAL PLANNING ENGINEER Signed: 01/15/2024 15:04 TORIBIO BILLINGSLEY [facility]
--- OUTSIDE RECORDS SUMMARY | 2024-08-01 14:09 | XMS_ITS ---
Author Name [facility] [place] Address [address] [place] [address] Care Team Providers Care Manager Semiconductor Name Role Phone CHRIS HUNTER Primary Care [...] Torres's Name Patient's Relationship to Policy Torres [facility] ([facility]) MEDICARE ADVANTAGE MCR ([facility]) Jun 12, 2017 [id number] STELLA CABELLO PATIENT [facility] ([facility]) MEDICARE ADVANTAGE MCR ([facility]) Jan 05, 2024 DO NOT BILL [id number] STELLA CABELLO PATIENT [facility] ([facility]) MEDICARE ADVANTAGE MCR ([facility]) May 12, 2022 [id number] STELLA CABELLO PATIENT [facility] ([facility]) MEDICARE ADVANTAGE MCR ([facility]) Aug 10, 2021 [id number] [phone] STELLA CABELLO PATIENT Selected Encounter This section includes the information on record at [place] for the Encounter. Date/Time Encounter Type Encounter Description Reason Provider Source Dec 07, 2023 02:00 PM MANUAL THERAPY 1/> [facility] CUTTER ICD-10-CM M54.59 Other low back pain STEPHANIE KINNEY [facility] Encounter Template Text not used by [place] Assessments - Encounter Diagnoses This section includes the primary and secondary diagnoses documented for the Encounter. Date/Time Primary/Secondary Diagnosis Diagnosis Name Provider Source Dec 07, 2023 03:35 PM PRIMARY Other low back pain STEPHANIE KINNEY [place] [facility] [place] [facility] Plan of Treatment: Future Appointments (+ 6 months) and Future Tests (+/- 45 days) The Plan of Treatment section includes future care activities for the patient from all [place] treatmentfacilities. This section includes future appointments and future orders which are active, pending or scheduled. Future Appointments This section includes appointments that were scheduled to occur 6 months from the date of the Encounter, up to a maximum of 20 appointments. The data comes from all [place] treatment facilities. Appointment Date/Time Appointment Type Appointme nt Facility Name Dec 12, 2023 01:00 PM AMBULATORY - MEDICINE [place] [facility] [place] [facility] Dec 18, 2023 08:00 AM AMBULATORY - MEDICINE [place] [facility] [facility] Dec 27, 2023 02:00 PM AMBULATORY - MEDICINE [place] [facility] [facility] Dec 28, 2023 01:00 PM AMBULATORY - MEDICINE [place] [facility] [facility] Jan 15, 2024 02:00 PM AMBULATORY - MEDICINE [place] [facility] [facility] Feb 06, 2024 02:15 PM AMBULATORY - MEDICINE [place] [facility] [facility] Feb 29, 2024 08:00 AM AMBULATORY - MEDICINE [place] [facility] [place] [facility] May 21, 2024 02:00 PM AMBULATORY - MEDICINE [place] [facility] [facility] May 30, 2024 11:00 AM AMBULATORY - MEDICINE [place] [facility] [facility] May 30, 2024 11:45 AM AMBULATORY - MEDICINE [place] [facility] [facility] Jun 03, 2024 01:00 PM AMBULATORY - MEDICINE [place] [facility] [place] [facility] Lab Results: +/- 30 days of the encounter This section includes the Chemistry and Hematology Lab Results on record with [place] for the patient. Radiology Reports and Pathology Reports are provided separately, in subsequent sections. Lab Results This section contains the Chemistry/Hematology Results that were resulted 30 days before or 30 daysafter the date of the Encounter. Date/Time Source Result Type Result - Unit Interpretation Reference Range Comment Dec 12, 2023 01:45 PM [facility] URIC ACID Specimen Type: SERUM No comment entered. Ordering Provider: JEFF HUNTERM F Report Released Date/Time: October 16, 2023 08:23 AM Reporting Lab: [facility] [address] Performing Lab: [facility] [address] URIC ACID 8.5 mg/dL H 3.5-7.2 Dec 12, 2023 01:45 PM [facility] DIGOXIN Specimen Type: PLASMA No comment entered. Ordering Provider: JEFF HUNTERM F Report Released Date/Time: October 16, 2023 08:23 AM Reporting Lab: [facility] [address] Performing Lab: [facility] [address] DIGOXIN 0.74 ng/mL L 0.8-2.0 Dec 12, 2023 01:45 PM [facility] LIPID PANEL FASTING Specimen Type: SERUM No comment entered. Ordering Provider: JEFF HUNTER F Report Released Date/Time: October 16, 2023 08:23 AM Reporting Lab: [facility] [address] [address] Performing Lab: [facility] [address] CHOLESTEROL 153 mg/dL TRIGLYCERIDE 189 mg/dL H 0-150 LDL calculated 77 mg/dL 0-129 CHOL/HDL 4.0 HDL CHOLESTEROL 38 mg/dL L 40-60 Dec 12, 2023 01:45 PM [facility] MICROALBUMIN CREATININE RATIO PANEL Specimen Type: URINE No comment entered. Ordering Provider: JEFF HUNTER F Report Released Date/Time: October 16, 2023 08:23 AM Reporting Lab: [facility] [address] [address] Performing Lab: [facility] [address] [address] MICROALBUMIN/C REATININE RATIO canc mg/g 0-29.9 MICROALBUMIN,Q UANTITATIVE < 0.5 mg/dL RR UNAVAIL CREATININE URINE 29.59 mg/dL Dec 12, 2023 01:45 PM [facility] HEMOGLOBIN A1C PANEL Specimen Type: BLOOD Comment: Values obtained from A1C measurements can vary. For atypical A1C assays, a reported value of 7.0 could actually be between 6.72 and 7.28 if measured by a reference method. A reported value of 9.0 could actually be between 8.73 and 9.27. Ref: http://www.ngs p.org/CAPdata. asp Ordering Provider: JEFF HUNTER F Report Released Date/Time: October 16, 2023 08:23 AM Reporting Lab: [address] [address] Performing Lab: [address] [address] HEMOGLOBIN A1C 6.3 H 4.0-5.6 Dec 12, 2023 01:45 PM [facility] LIVER FUNCTION Specimen Type: SERUM No comment entered. Ordering Provider: JEFF HUNTER F Report Released Date/Time: October 16, 2023 08:23 AM Reporting Lab: [facility] [address] [address] Performing Lab: [address] [address] PROTEIN,TOTAL 7.3 g/dL 6.0-8.3 ALBUMIN 3.6 g/dL 3.5-5.0 ALKALINE PHOSPHATASE 58 U/L 40-150 AST 16 U/L 5-34 ALT 19 U/L BILIRUBIN, TOTAL 0.5 mg/dL 0.2-1.2 Dec 12, 2023 01:45 PM [facility] BASIC METABOLIC PANEL (fasting) Specimen Type: SERUM No comment entered. Ordering Provider: JEFF HUNTER F Report Released Date/Time: October 16, 2023 08:23 AM Reporting Lab: [facility] [address] [address] Performing Lab: [facility] [address] [address] UREA NITROGEN 32 mg/dL H 7-25 GLUCOSE 103 mg/dL H 65-100 SODIUM 138 mmol/L 135-145 POTASSIUM 4.5 mmol/L 3.5-5.0 CHLORIDE 101 mmol/L 100-110 CO2 28 meq/L 20-30 CREATININE, Serum 1.49 mg/dL H 0.50-1.40 eGFR(CKD-EPI 2020) 51 mL/min L >60 Dec 12, 2023 01:45 PM [facility] CBC AND DIFF (AUTO) Specimen Type: BLOOD No comment entered. Ordering Provider: JEFF HUNTER F Report Released Date/Time: October 16, 2023 08:23 AM Reporting Lab: [facility] [address] [address] Performing Lab: [address] [address] WBC 8.68 10*3/uL 4.50-11.00 RBC 5.14 10*6/uL [...] 10*3/uL 0.00-0.00 Dec 12, 2023 01:45 PM [facility] VITAMIN D (25-OH) Specimen Type: SERUM No comment entered. Ordering Provider: MARGIE KENDRICK Report Released Date/Time: Dec 13, 2023 02:50 PM Reporting Lab: [address] [address] Performing Lab: [facility] [address] VITAMIN D (25-OH) 29 ng/mL 20-50 Social History: Smoking Status (Most current) and Tobacco Use (All prior to encounter date) This section includes the most current, and the historical, smoking and tobacco- related health factors from the [place] facility where the Encounter took place. Current Smoking Status This section includes the most current smoking, or tobacco-related health factor, from the [place] facility where the Encounter took place. Date/Time Current Smoking Status Comment Sebastian ity May 31, 2023 03:30 PM VA-TOBACCO NEVER USED [facility] [employer] Tobacco Use History This section includes a history of the smoking, or tobacco-related health factors, that were collected on or before the date of the Encounter. The data comes from the [place] facility where the Encounter took place. Date/Time Smoking Status/Tobacco Use Comment F acility Mar 15, 2022 11:30 AM VA-TOBACCO NEVER USED [facility]ENTER[facility]ETS [facility] Apr 08, 2021 02:00 PM VA-TOBACCO NEVER USED [facility] Advance Directives: All historical and current Section Date Range: From patient's date of to the date document was created. This section includes ALL of a patient's completed or amended [place] Advance and Rescinded Directives. The entries below indicate that a directive exists for the patient, but an actual copy is not included with this document. The data comes from all [place] facilities. Date Advance Directives Provider Source Dec 07, 2023 ADVANCE DIRECTIVE ERIKMILDREDRASHID J [place] C N[facility] [place] [facility] Mar 20, 2014 ADVANCE DIRECTIVE DISCUSSION EDISON [facility] Jun 16, 2011 ADVANCE DIRECTIVE DISCUSSION BARRIE ISLAS [facility] Encounter Notes: All associated encounter notes This section contains the clinical notes associated to the Encounter. 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 Service Connected Disabilities with % Eligibility: Active Problem Peripheral venous insufficiency I87 03/15/2022 BINU BOSE Obstructive sleep apnea G47.33 01/06/2022 BINU BOSE AF- Atrial Fibrillation ([facility] [id number] 04/08/2021 DONELL BLACK HTN - Hypertension ([facility] [id number]) I 04/08/2021 DONELL BLACK Long-term current use of anticoagul 04/08/2021 DONELL BLACK Peripheral neuropathic pain M79.2 04/08/2021 DONELL BLACK Peripheral vascular disease I73.9 04/08/2021 DONELL BLACK Cancer of the back, squamous cell C 04/08/2021 SHAHID SUNG Gout M10.9 04/08/2021 SHAHID SUNG Obesity ([facility] [id number]) E66.9 04/08/2021 SHAHID SUNG GERD - Gastro-Esophageal Reflux Dis 04/08/2021 SHAHID SUNG The patient C/O low back pain that he rates 6/10. It was an 8/10 but it calmed down. Patient went to [place] recently to visit his daughters Vet went three months between the last visit and today. Today he shows stitches in his lower neck area from dermatological procedure. Provocative: turning makes it sharp in neck; prolonged sitting; standing more that 25 minutes; sitting about 30 minutes. Palliative: relief with facet injections. However a week ago the facet jt, about 6 injections and the next morning the R leg pain was worse. He tried to call them but never got through. Patient denies recent fevers, infections, night sweats, nausea, unexplained weight loss, bowel/bladder problems, saddle anesthesia, dizziness, blurred vision , double vision Past surgeries: none Patient can't sleep in bed because of the position that his legs are elevated and he has difficulty breathing and the N/T in his legs increases. Initial EXAM NPRS Neck 10/10 Active LUMBAR ROM limited and provocative into: Flexion and Lateral Bending WNL - Extension Rotation Peripheral Neuro-Muscular Exam Lower Extremity Gross motor 4/5 and sensory exam is intact without abnormality Patellar Reflex 2+ Bilat Achilles not obtained No ankle clonus Lumbar Orthopedic testing: Valsalva Maneuver: Neg SLR/seated slump POS Kemps POS SI provocation testing Fabere's pos Emil Supine SLR C/O lbp at 40 degrees on R; and at 20 degrees on left Direct S-I palpation Cervical ROMs Limited and provocative into extenion and lateral bending Cervical Orthopedic testing: Compression - Distraction + Shoulder depression + Peripheral Neuro-muscular Exam Upper Extemity Motor 5/5; 4/5 due to pain in left shoulder DTR's not obtained sensory to light touch intact emil Soft tissue palpation reveals hypertonicity and tenderness in Bilat C/sp paraspinal mm. Motion palpation reveals intersegmental lumbar somatic dysfunction with relative joint hypomobility. IMPRESSION: Neck pain associated with segmental jt dysfunction and hypertonicity. Low back pain. It is reasonable in this case to apply a conservative course of manual therapy to address myofascial and joint findings while encouraging activity and stretching specific to the patient's presentation. PLAN: Treatment #1. I explained all of this to the patient and the patient seemed to understand. Treatment options from least invasive to most with the associated risks, benefits, alternatives, and potential outcomes were discussed in detail. Potential risks associated with spinal manipulative therapy, the following were shared with the patient: Likely (transient mild post-treatment soreness); Less Likely (Bruising, sprain/strain); Rare but potentially serious (disc herniation, fracture); Extremely Rare but serious (epidural spinal hematoma, cauda equina syndrome). Informed consent obtained to provide management consisting of: ~ Lumbar F/D decompression manipulation with the intended goal of the reduction of LBP and limitations related to LBP through the mechanical action of lumbar flexion with a gentle distractive force. ~ MFR as per palpation (10 minutes) ~ Mobilization/SMT to Cervical, Thoracic, and/or Lumbar and S-I regions in lateral decubitus posture ~ Prone or supine thoracic mobilization/SMT ~ Prone hip flexor/quadriceps stretching as per palpation ~ Supine gluteal stretching as per palpation Objectives: 12/07/23 Tender hypertonic L.S paraspinal mm into SI jt area, emil Restrictions L/S, SI jts Treatment: Corrective/Active Manual therapy, 8 min, lumbar TrPt release CMT low force AT cervical thoracic and lumbar spine prone Treatment carried out today and well tolerated with relief expressed. Patient has much difficulty getting on and off the table The prognosis at this time is fair to good. Short term goals include improvement in excess 25% on regional disability questionnaire and/or NRS over the first 3-4 treatment visits. It was explained to the patient that resolution of soft tissue complaints through conservative management requires compliance with at home recommendations and avoidance of aggravating factors. Self-Care Recommendations: Recommended healthy food choices. Continue walking as much as possible. Plan: Patient agrees that he can self manage. He decr weight by 52 pounds and has been walking daily. He agreed to attend the [facility] to whole Health class ~Patient encouraged to engage in activities such as a walking program with established goals to reduce fear-avoidance behaviors with regard to movement,and improve overall health and fitness. emphasis placed upon function over pain with effort made each day to remain active understanding that normal daily activities may temporarily increase pain experience but are not inherently injurious and should be explored to the extent possible. ~ Activity such as Yoga encouraged to enhance relaxation, flexibility, posture, core stability, balance, and pain modulation. Visit 10 F/U NA will call if needed Seek urgent care as needed. /julien/ STEPHANIE KINNEY D.C. CHIROPRACTOR Signed: 12/07/2023 15:36 STEPHANIE KINNEY [place] [facility] [employer]
--- OUTSIDE RECORDS SUMMARY | 2024-08-01 14:09 | XMS_ITS ---
Author Name Department [place] Organization [place] Address [address] [place] [address] Care Team Providers Care Television Technician Name Role Phone TORIBIO BILLINGSLEY Primary Care [...] Torres's Name Patient's Relationship to Policy Torres [facility] ([facility]) MEDICARE ADVANTAGE MCR ([facility]) Jun 12, 2017 [id number] STELLA CABELLO PATIENT [facility] ([facility]) MEDICARE ADVANTAGE MCR ([facility]) Jan 05, 2024 DO NOT BILL [id number] STELLA CABELLO PATIENT [facility] ([facility]) MEDICARE ADVANTAGE MCR ([facility]) May 12, 2022 [id number] STELLA CABELLO PATIENT [facility] ([facility]) MEDICARE ADVANTAGE MCR ([facility]) Aug 10, 2021 [id number] STELLA CABELLO PATIENT Selected Encounter This section includes the information on record at [place] for the Encounter. Date/Time Encounter Type Encounter Description Reason Pro vider Source Feb 28, 2024 01:20 PM Outpatient Encounter ADMIN PAT ACTIVTIES (MASNONCT) IHE Encounter Template Text not used by [place] Plan of Treatment: Future Appointments (+ 6 months) and Future Tests (+/- 45 days) The Plan of Treatment section includes future care activities for the patient from all [place] [facility] This section includes future appointments and future orders which are active, pending or scheduled. Future Appointments This section includes appointments that were scheduled to occur 6 months from the date of the Encounter, up to a maximum of 20 appointments. The data comes from all [place] treatment facilities. Appointment Date/Time Appointment Type Appointme nt Facility Name Feb 29, 2024 08:00 AM AMBULATORY - MEDICINE [place] [place] [facility] May 21, 2024 02:00 PM AMBULATORY MEDICINE [place] C [facility] [place] [facility] May 30, 2024 11:00 AM AMBULATORY - MEDICINE [place] C [facility] [place] [facility] May 30, 2024 11:45 AM AMBULATORY - MEDICINE [place] C [facility] [place] [facility] Jun 03, 2024 01:00 PM AMBULATORY - MEDICINE ND C [facility] [place] [facility] Jun 13, 2024 01:00 PM AMBULATORY - MEDICINE [place] C [facility] [place] [facility] Jul 19, 2024 11:30 AM AMBULATORY - MEDICINE [place] C [facility] [place] [facility] Aug 02, 2024 02:15 PM AMBULATORY - MEDICINE [facility]L [place] [facility] Social History: Smoking Status (Most current) and Tobacco Use (All prior to encounter date) This section includes the most current, and the historical, smoking and tobacco- related health factors from the [place] facility where the Encounter took place. Current Smoking Status This section includes the most current smoking, or tobacco-related health factor, from the [place] facility where the Encounter took place. Date/Time Current Smoking Status Comment Sebastian ity May 31, 2023 03:30 PM [place]-TOBACCO NEVER USED [facility] Tobacco Use History This section includes a history of the smoking, or tobacco-related health factors, that were collected on or before the date of the Encounter. The data comes from the [place] facility where the Encounter took place. Date/Time Smoking Status/Tobacco Use Comment F acility Mar 15, 2022 11:30 AM [facility]ACCO [facility] Apr 08, 2021 02:00 PM VA-TOBACCO NEVER USED [facility] Advance Directives: All historical and current Section Date Range: From patient's date of to the date document was created. This section includes ALL of a patient's completed or amended [place] Advance and Rescinded Directives. The entries below indicate that a directive exists for the patient, but an actual copy is not included with this document. The data comes from all [place] facilities. Date Advance Directives Provider Source Dec 07, 2023 ADVANCE DIRECTIVE RASHID VALENCIA [place] C NTRL [facility] Mar 20, 2014 ADVANCE DIRECTIVE DISCUSSION EDISON MORAN [facility] Jun 16, 2011 ADVANCE DIRECTIVE DISCUSSION BARRIE ISLAS [facility] Encounter Notes: All associated encounter notes This section contains the clinical notes associated to the Encounter. Date/Time Encounter Note(s) Provider Source Feb 28, 2024 01:20 PM MEDICATION MGT NOT E: LOCAL TITLE: MEDICATION RENEWAL STANDARD TITLE: MEDICATION MGT NOTE DATE OF NOTE: FEB 28, 2024@13:20 ENTRY DATE: FEB 28, 2024@13:20:31 AUTHOR: BRENDA WEBER EXP COSIGNER: URGENCY: STATUS: COMPLETED CALLED PHARMACY [facility] ASKING FOR A TABLET CUTTER TO BE SENT TO THEM. PLEASE ENTER AN ORDER FOR ONE IF APPROPRIATE AND PHARMACY WILL MAIL TO . THANK YOU. /julien/ BRENDA WEBER [facility] Signed: 02/28/2024 13:22 Receipt Acknowledged By: 02/28/2024 15:17 /julien/ Toribio Billingsley PA-C STAFF PHYSICIAN LATEX SPOOLER BRENDA WEBER [facility]
--- OUTSIDE RECORDS SUMMARY | 2024-08-01 14:10 | XMS_ITS | Encounter Summary ---
Author Name [facility] [place] Address [address] [place] [address] Care Team Providers Care Outpatient Surgery Rn Name Role Phone TORIBIO BILLINGSLEY Primary Care [...] Name Patient's Relationship to Policy Torres [facility] ([facility]) MEDICARE ADVANTAGE MCR ([facility]) Jun 12, 2017 [id number] STELLA CABELLO PATIENT [facility] ([facility]) MEDICARE ADVANTAGE MCR ([facility]) Jan 05, 2024 DO NOT BILL [id number] STELLA CABELLO PATIENT [facility] ([facility]) MEDICARE [facility] ([facility]) May 12, 2022 [id number] STELLA CABELLO PATIENT [facility] ([facility]) MEDICARE ADVANTAGE MCR ([facility]) Aug 10, 2021 [id number] DESTINEYSTELLA PATIENT Selected Encounter This section includes the information on record at [place] for the Encounter. Date/Time Encounter Type Encounter Description Reason Pro vider Source Jul 04, 2024 09:51 AM Outpatient Encounter PRIMARY CARE/MEDICINE IHE Encounter Template Text not used by [place] Plan of Treatment: Future Appointments (+ 6 months) and Future Tests (+/- 45 days) The Plan of Treatment section includes future care activities for the patient from all [place] [facility] This section includes future appointments and future orders which are active, pending or scheduled. Future Appointments This section includes appointments that were scheduled to occur 6 months from the date of the Encounter, up to a maximum of 20 appointments. The data comes from all [facility]. Appointment Date/Time Appointment Type Appointme nt Facility Name Jul 19, 2024 11:30 AM AMBULATORY - MEDICINE [facility] Aug 02, 2024 02:15 PM [facility] Aug 29, 2024 01:00 PM [facility] Sep 19, 2024 01:30 PM AMBULATORY MEDICINE [facility] Active, Pending, and Scheduled Orders This section includes a listing of several types of active, pending, and scheduled orders, including clinic medications orders, diagnostic test orders, procedure orders and consult orders; where the start date of the order is 45 days before the date of the Encounter or 45 days after the date of theEncounter. The data comes from all [facility]. Test Date/Time Test Type Test Details Facility Name Jul 04, 2024 12:00 AM Laboratory - Chemistry Order MICROALBUMIN CREATININE RATIO PANEL URINE (RANDOM) [facility] Jul 04, 2024 12:00 AM Laboratory - Chemistry Order DIGOXIN BLOOD (LAV-PLASMA) [facility] Jul 04, 2024 12:00 AM Laboratory - Chemistry Order HEMOGLOBIN A1C PANEL BLOOD (LAV-BLOOD) [facility] Jul 04, 2024 12:00 AM Laboratory - Chemistry Order URINALYSIS URINE [facility] Jul 19, 2024 12:00 AM Laboratory - Chemistry Order BASIC METABOLIC PANEL (fasting) BLOOD (SST-SERUM) [facility] Jul 19, 2024 12:00 AM Laboratory - Chemistry Order LIVER FUNCTION BLOOD (SST-SERUM) [facility] [place] [facility] Jul 19, 2024 12:00 AM Laboratory - Chemistry Order LIPID PANEL FASTING BLOOD (SST-SERUM) [facility] Jul 23, 2024 02:37 PM Consult Order [facility]-NEPHROLOGY Cons Intelligent Systems Engineer's Choice [facility] Social History: Smoking Status (Most current) [...] Facil ity May 31, 2023 03:30 PM [place]-TOBACCO NEVER USED [facility] Tobacco Use History This section includes a history of the smoking, or tobacco-related health factors, that were collected on or before the date of the Encounter. The data comes from the [place] facility where the Encounter took place. Date/Time Smoking Status/Tobacco Use Comment F acility Mar 15, 2022 11:30 AM [place]-TOBACCO NEVER [facility]ED [facility] Apr 08, 2021 02:00 PM [place]-TOBACCO NEVER USED [facility] Advance Directives: All historical and current [...] Dec 07, [address] RASHID [address] [facility] Mar 20, 2014 ADVANCE DIRECTIVE DISCUSSION [facility] Jun 16, 2011 ADVANCE DIRECTIVE DISCUSSION BARRIE ISLAS [facility] Encounter Notes: All associated encounter notes This section contains the clinical notes associated to the Encounter. Date/Time Encounter Note(s) Provider Source Jul 04, 2024 09:51 AM PRIMARY CARE TELEPHONE ENCOUNTER NOTE: LOCAL TITLE: TELEPHONE NOTE/PRIMARY CARE STANDARD TITLE: PRIMARY CARE TELEPHONE ENCOUNTER NOTE DATE OF NOTE: JUL 04, 2024@09:51 ENTRY DATE: JUL 04, 2024@09:52:03 AUTHOR: BLU ISRAELIGNER: URGENCY: STATUS: COMPLETED TELEPHONE NOTE/PRIMARY CARE Has ADDENDA Call placed to to discuss statin use in diabetes. [place] states takes enough medication already, does not want another medication added to his med list, states he is happy wit his numbers as they are and does not feel he is susceptable to Mi or CVA as a result of not taking statin Assess Statin Use - Lipids (CVD/DM): The patient declines to be treated with a statin. Comment: see note Homelessness/Food Insecurity Screen: In the past 2 months, have you been living in stable housing that you own, rent, or stay in as part of a household? Yes - Living in stable housing. Are you worried or concerned that in the next 2 months you may NOT have stable housing that you own, rent, or stay in as part of a household? No - Not worried about housing near future The reports the following: Within the past 12 months, you worried whether your food would run out before you got money to buy more. Never true Within the past 12 months, the food you bought just didn't last and you didn't have money to get more. Never true /julien/ BLU ISRAEL LPN Signed: 07/04/2024 09:55 Receipt Acknowledged By: 07/04/2024 12:33 /julien/ Toribio Billingsley PA-C STAFF PHYSICIAN WOOD BOATBUILDER APPRENTICE 07/04/2024 ADDENDUM STATUS: COMPLETED Eye Care At-Risk Screen : Patient identified to be at risk for the following eye condition(s): DIABETIC RETINOPATHY: Diabetes Diagnosis Information: Encounter Diagnosis: 05/30/2024@11:00 E11.8 (ICD-10-CM) Type 2 Diabetes Mellitus with unspecified Complications rank: SECONDARY Prov. Narr. - Diabetic - poor control ([facility] [id number]) Action: No Referral Ordered: Eye exam completed elsewhere by an Coding Clerk or Senior Information Security Consultant Diabetic retinal exam result: Negative for Retinopathy Date: April 05, 2024 Location: Outside Healthcare Provider Comment: return in 1 year /es/ BLU ISRAEL LPN Signed: 07/04/2024 15:17 BLU ISRAEL CNTRL WSN [facility]
--- OUTSIDE RECORDS SUMMARY | 2024-08-01 14:10 | XMS_ITS | Encounter Summary ---
Author Name [place] Address [address] [place] [address] Care Team Providers Care Community Action Worker Name Role Phone CHRIS BILLINGSLEY Primary Care [...] Torres's Name Patient's Relationship to Policy Torres [facility] ([facility]) MEDICARE ADVANTAGE MCR ([facility]) Jun 12, 2017 [id number] STELLA CABELLO PATIENT [facility] ([facility]) MEDICARE [facility] ([facility]) Jan 05, 2024 DO NOT BILL [id number] STELLA CABELLO PATIENT [facility] ([facility]) MEDICARE ADVANTAGE [facility] ([facility]) May 12, 2022 [id number] STELLA CABELLO PATIENT [facility] ([facility]) MEDICARE [facility] ([facility]) Aug 10, 2021 [id number] STELLA CABELLO PATIENT Selected Encounter This section includes the information on record at [place] for the Encounter. Date/Time Encounter Type Encounter Description Reason Pro vider Source Jul 23, 2024 02:27 PM Outpatient Encounter COMMUNITY CARE CONSULT IHE Encounter Template Text not used by [place] Plan of Treatment: Future Appointments (+ 6 months) and Future Tests (+/- 45 days) The Plan of Treatment section includes future care activities for the patient from all [place] [facility]. This section includes future appointments and future orders which are active, pending or scheduled. Future Appointments This section includes appointments that were scheduled to occur 6 months from the date of the Encounter, up to a maximum of 20 appointments. The data comes from all [facility]. Appointment Date/Time Appointment Type Appointme nt Facility Name Aug 02, 2024 02:15 PM AMBULATORY - MEDICINE [facility] Aug 29, 2024 01:00 PM AMBULATORY - MEDICINE [facility] Sep 19, 2024 01:30 PM AMBULATORY - MEDICINE [facility] Active, Pending, and Scheduled Orders This section includes a listing of several types of active, pending, and scheduled orders, including clinic medications orders, diagnostic test orders, procedure orders and consult orders; where the start date of the order is 45 days before the date of the Encounter or 45 days after the date of theEncounter. The data comes from all [facility]. Test Date/Time Test Type Test Details Facility Name Jul 04, 2024 12:00 AM Laboratory - Chemistry Order MICROALBUMIN CREATININE RATIO PANEL URINE (RANDOM) [facility] Jul 04, 2024 12:00 AM Laboratory - Chemistry Order DIGOXIN BLOOD (LAV-PLASMA) [facility] Jul 04, 2024 12:00 AM Laboratory - Chemistry Order HEMOGLOBIN A1C PANEL BLOOD (LAV-BLOOD) [facility] Jul 04, 2024 12:00 AM Laboratory - Chemistry Order URINALYSIS URINE [facility] Jul 19, 2024 12:00 AM Laboratory - Chemistry Order BASIC METABOLIC PANEL (fasting) BLOOD (SST-SERUM) [facility] Jul 19, 2024 12:00 AM Laboratory - Chemistry Order LIVER FUNCTION BLOOD (SST-SERUM) [facility] Jul 19, 2024 12:00 AM Laboratory - Chemistry Order LIPID PANEL FASTING BLOOD (SST-SERUM) [facility] Jul 23, 2024 02:37 PM Consult Order [facility]-NEPHROLOGY Cons Social Insurance Analyst's Choice [facility] Aug 28, 2024 12:00 AM Laboratory - Chemistry Order BASIC METABOLIC PANEL (fasting) [facility]LO[facility]) [facility] Aug 28, 2024 12:00 AM Laboratory - Chemistry Order LIVER FUNCTION BLOOD (SST-SERUM) SP [facility] Aug 28, 2024 12:00 AM Laboratory - Chemistry Order LIPID PANEL FASTING BLOOD (SST-SERUM) [facility] Social History: Smoking Status (Most current) and Tobacco Use (All prior to encounter date) This section includes the most current, and the historical, smoking and tobacco- related health factors from the [place] facility where the Encounter took place. Current Smoking Status This section includes the most current smoking, or tobacco-related health factor, from the [place] facility where the Encounter took place. Date/Time Current Smoking Status Comment Facil ity May 31, 2023 03:30 PM [place]-TOBAC[place] USED [facility] Tobacco Use History This section includes a history of the smoking, or tobacco-related health factors, that were collected on or before the date of the Encounter. The data comes from the [place] facility where the Encounter took place. Date/Time Smoking Status/Tobacco Use Comment F acility Mar 15, 2022 11:30 AM [place]-TOBACCO NEVER USED [facility] Apr 08, 2021 02:00 PM [place]-TOBACCO [place] USED [facility] Advance Directives: All historical and current Section Date Range: From patient's date of to the date document was created. This section includes ALL of a patient's completed or amended [place] Advance and Rescinded Directives. The entries below indicate that a directive exists for the patient, but an actual copy is not included with this document. The data comes from all [place] facilities. Date Advance Directives Provider Source Dec 07, 2023 ADVANCE DIRECTIVE RASHID VALENCIA [facility] Mar 20, 2014 ADVANCE DIRECTIVE DISCUSSION EDISON [facility]ORAN [facility] Jun 16, 2011 ADVANCE DIRECTIVE DISCUSSION BARRIE ISLAS MARIA FERNANDA [facility] Encounter Notes: All associated encounter notes This section contains the clinical notes associated to the Encounter. Date/Time Encounter Note(s) Provider Source Jul 23, 2024 02:27 PM ADMINISTRATIVE NOT E: LOCAL TITLE: ADMINISTRATIVE NOTE STANDARD TITLE: ADMINISTRATIVE NOTE DATE OF NOTE: JUL 23, 2024@14:27 ENTRY DATE: JUL 23, 2024@14:29:01 AUTHOR: KALYANI PENA EXP COSIGNER: URGENCY: STATUS: COMPLETED KADEN FROM [facility] is looking for a nephrology consult for continuation of care. The has a follow up appt on 08/02/2024 at 2:15 pm. PLease call him at [phone], his fax: [phone]. /julien/ KALYANI PENA ADVANCED FIRE CREW WORKER Signed: 07/23/2024 14:31 Receipt Acknowledged By: 07/23/2024 15:10 /julien/ Brittny Rene RN, BSN Primary Care Nurse Housing Management Representative for BRITTNEY CHACKO 07/23/2024 15:11 /julien/ Brittny Rene RN, BSN Primary Care Nurse Housing Management Representative for BLU Kruse JHONATAN 07/23/2024 14:37 /julien/ Chris Billingsley PA-C STAFF PHYSICIAN CARE PROFESSIONAL KALYANI PENA [facility]L [facility]
--- OUTSIDE RECORDS SUMMARY | 2024-08-01 14:10 | XMS_ITS | Continuity of Care Document ---
Author Organization [facility] Address [address] [place] [address] Phone Care Team Providers Care Nursery Helper Name Role Phone Ivan Haynes. D Pharm D, Torrey Unavailab le Unavailable Procedures Procedure Date MTMS BY PHARM EST 15 MIN MTMS BY PHARM ADDL 15 MIN Void Ticket [facility] MED/CURRENT MED MERGE Hospital discharge day care Followup hospital care, brief 1 Followup hospital care, brief 1 Followup hospital care, brief 1 Initial hospital care, low E/M service NEC MTMS BY PHARM BUYER ASSISTANT 15 MIN MTMS BY PHARM ADDL 15 MIN Void Ticket [facility] MED/CURRENT MED MERGE MTMS BY PHARM BUYER ASSISTANT 15 MIN MTMS BY PHARM ADDL 15 MIN Void Ticket [facility] MED/CURRENT MED MERGE Initial hospital care, low Followup hospital care, brief 0 Hospital discharge day care E/M service NEC SUBSEQUENT OBSERVATION CARE LOW 015 Observation care discharge day mgt Initial observation care, low 5 Advance Directives Directive Yes / No Effective Date File Name No Information Encounters Encounter Description Practice Location Reason(s) For Visit Diagnoses Date Provider Providers Copied on Encounter MTMS BY PHARM EST 15 MIN [facility], [address], [place], [place], [id number], [place] tel:[phone] Pharmacy Encounter for therapeutic drug level monitoringVoid Ticket 1 Ivan PharmMahad D Torrey . [address] [facility], [address], [place], [place], [id number], [place]. Hospital discharge day care [facility], [address], [place], [place], [id number], [place] tel:[phone] [facility] No Information 1 [facility]. [address] [place] [address], [id number], [place]. tel:[phone] Followup hospital care, brief [facility], [address], [place], [place], [id number], [place] tel:[phone] [facility] No Information 1 [facility]. [address] [place] [address], [id number], [place]. tel:[phone] Followup hospital care, brief [facility], [address], [place], [place], [id number], [place] tel:[phone] [facility] No Information 1 Sylharjit Hollis. [address] [place] [address], [id number], [place]. tel:[phone] Followup hospital care, brief [facility], [address], [place], [place], [id number], [place] tel:[phone] [facility] No Information 1 Don Shafer. [address] [place] [address], [id number], [place]. tel:[phone] Initial hospital care, low [facility], [address], [place], [place], [id number], [place] tel:[phone] [facility] No Information 1 Don Shafer. [address] [place] [address], [id number], [place]. tel:[phone] MTMS BY PHARM BUYER ASSISTANT 15 MIN [facility], [address], [place], [place], [id number], [place] tel:[phone] Pharmacy Encounter for therapeutic drug level monitoringVoid Ticket 1 [facility] Dharagauri . [address] [facility], [address], [place], [place], [id number], [place]. MTMS BY PHARM BUYER ASSISTANT 15 MIN [facility], [address], [place], [place], [id number], [place] tel:[phone] Pharmacy Encounter for therapeutic drug level monitoringVoid Ticket 0 [facility] . [address] [facility] [facility] [address], [place], [place], [id number], [place]. Initial hospital care, low [facility], [address], [place], [place], [id number], [place] tel:[phone] [facility] No Information 0 Roshan Mcdonald. [address] [place] [address], [facility], . tel:[phone] SUBSEQUENT OBSERVATION CARE LOW [facility], [address], [place], [place], [id number], [place] tel:[phone] [facility] No Information Susan Pawel. [address] [place] [address], [facility], . tel:[phone] Initial observation care, low [facility], [address], [place], [place], [id number], [place] tel:[phone] [facility] No Information 5 Roshan Mcdonald. [address] [place] [address], [facility], . tel:[phone] Family History Family Member Type Diagnosis Age At Onset No Information Payers Payer name Insurance type Covered alliance party ID Authoriza tion(s) No Information Social History Type Description Quantity Date Captured Comments Sex Male Smoking Status No Information Chief Complaint And Reason For Visit No Information Reason For Referral Reason For Referral No Information History Of Present Illness Encounter Date Complaint History Of Prese nt Illness No Information Functional Status Date Functional Assessmen t No Information Instructions Date Instruction Additional Infor kelsey Luis Mejia is 66 YO male who is discharged from [facility] on 12/30/2020 after admission for unconsciousness and hypertensive crisis 2/2 drug abuse, intracranial hemorrhage and lower extremity cellulitis. Patient's discharge medication reconciliation has been reviewed and following has been identified: PMH: Afib, hx of DVT, polysubstance abuseMedication Profile (1)Medications documented in home med list that are not documented on hospital discharge med rec: NoneRecommendation (i)Please clarify if the patient is taking the above medications (2)Medications documented on the hospital discharge med rec that are not documented in home med list: (i)Aspirin 81 mg 2 tabs PO daily (new prescription)(ii)Cefuroxime 500 mg PO BID (new prescription)(iii)Clonidine 0.2 mg PO BID (new prescription)(iv)Losartan 50 mg PO BID (new prescription)Recommendation: (i)Please clarify if the patient is taking the above medications (3)Medication Discrepancies. The following medications are documented differently in home med list compared with the hospital discharge med rec: (i)Diltiazem 240mg ER unclear sig (home) vs diltiazem 300mg ER PO daily (discharge)(ii)Pantoprazole 40 mg unclear sig (home) vs pantoprazole 40 mg PO daily (discharge)(iii)Quetiapine 25 mg unclear sig (home) vs quetiapine 25 mg 2 tabs PO HS (discharge)Recommendation: (i)Please clarify how the patient is taking the above medications (4)Following medications are listed in both home med list and hospital discharge med rec:(i)Randlett 5-325mg unclear sig(ii)Calcium carbonate chewable - discontinued at discharge(iii)Clotrimazole 1% topical cream - discontinued at discharge(iv)Digoxin - discontinued at discharge(v)Docusate - discontinued at discharge(vi)Gabapentin - discontinued at discharge(vii)Hydralazine - discontinued at discharge(viii)Labetalol - discontinued at discharge(ix)Lactulose - discontinued at discharge(x)Lisinopril - discontinued at discharge(xi)Sodium chloride nasal spray - discontinued at dischargeVaccinations Per the medical records available to me, patient's age, patient's disease states, and the current ACIP guidelines, following vaccines are indicated: COVID-19 vaccinePneumococcal Tdap Zoster Related to Encounter for therapeutic drug level monitoring Luis Mejia is 65 YO male who was admitted to [facility] from 07/24/2020 - 07/26/2020. The patient was admitted to this facility after recent hospital admission for duodenal peritoneal hemorrhage and meningitis. The patient left AMA from the [facility] on 07/26/2020. PMH: hx of PE, Afib, HTN, GERD, morbid obesity, basal cell carcinoma of the skin multiple excisional surgeriesMedication Profile The patient left AMA from the SNF and therefore there is not discharge medications list provided. The following medications are documented in home med list prior to the hospital admission. (i)Randlett 5-325 mg unclear sig(ii)Clotrimazole 1% topical cream unclear sig(iii)Diltiazem 240mg ER unclear sig(iv)Lisinopril unclear dose and sig(v)Calcium carbonate 500 mg 2 tabs TID prn heartburn(vi)Digoxin 250 mcg PO daily(vii)Docusate 100 mg PO BID(viii)Gabapentin 100 mg PO TID(ix)Hydralazine 20 mg/ml 1ml IV push q6h prn(x)Labetalol 10mg/2ml IV push q6h prn(xi)Lactulose 10g/15ml 30ml PO QID prn constipation(xii)Pantoprazole 40 mg PO daily(xiii)Quetiapine 25 mg 2 tabs PO HS(xiv)Sodium chloride 0.65% nasal solution in each nostril 6 times per day prn congestion. Recommendation (i)Please clarify if the patient is to continue taking these medications or discontinueVaccinations Per the medical records available to me, patient's age, patient's disease states, and the current ACIP guidelines, following vaccines are indicated: Annual Influenza Tdap Zoster Related to Encounter for therapeutic drug level monitoring Luis Mejia is 65 YO male who is discharged from [facility] on 03/22/2020. The patient was admitted to this facility after recent hospital admission for altered mental status, likely 2/2 meth abuse. Patient's discharge medication reconciliation has been reviewed and following has been identified: PMH: Afib, HTN, PE, obesity, GERD1.AcetaminophenPer d/c med rec take Tylenol 325 mg 2 tabs PO q6h prn pain and Randlett 5-325mg PO q4h prn moderate pain. Maximum recommended acetaminophen dose from all sources is 4 grams/day. Recommendation(i)Please ensure patient does not exceed maximum recommended acetaminophen dose from all sources2.Medication Profile (1)Medications documented in home med list that are not documented on SNF discharge med rec: (i)Cephalexin 250 mg PO QID(ii)Furosemide 20 mg PO dailyRecommendation (i)Please clarify if the patient is taking the above medications (2)Medications documented on the SNF discharge med rec that are not documented in home med list: (i)Tylenol 325 mg 2 tabs PO q6h prn pain(ii)Milk of magnesia 30 ml PO daily prn constipation(iii)Clotrimazole 1% apply to affected area BID(iv)Diltiazem ER 240 mg PO daily(v)Melatonin 3 mg PO HS prn insomniaRecommendation: (i)Please clarify if the patient is taking the above medications (3)Medication Discrepancies. The following medications are documented differently in home med list compared with the SNF discharge med rec: (i)Randlett 5-325 mg unclear sig (home) vs Randlett 5-325 mg PO q4h prn moderate pain (discharge)(ii)Eliquis 5 mg unclear sig (home) vs Eliquis 5 mg PO BID (discharge)(iii)Lisinopril unclear dose and sig (home) vs lisinopril 20 mg PO BID (discharge)Recommendation: (i)Please clarify how the patient is taking the above medications (4)Following medications are listed in both home med list and SNF discharge med rec:(i)Omeprazole 20 mg PO daily3.Vaccinations Per the medical records available to me, patient's age, patient's disease states, and the current ACIP guidelines, following vaccines are indicated: Annual Influenza Tdap Zoster Related to Encounter for therapeutic drug level monitoring Assessments Type Assessment Date assessment Encounter for therapeutic drug l evel monitoring assessment Void Ticket Patient Care Teams Name Effective Dates (start - stop) Status Members No Information
--- OUTSIDE RECORDS SUMMARY | 2024-08-01 14:10 | XMS_ITS ---
Author Name [facility] [facility] [facility] [place] Address [address] [place] [address] Care Team Providers Care Maintenance Inspector Name Role Phone CHRIS BILLINGSLEY Primary Care [...] Torres's Name Patient's Relationship to Policy Torres [facility] ([facility]) MEDICARE ADVANTAGE MCR ([facility]) Jun 12, 2017 [id number] STELLA CABELLO PATIENT [facility] ([facility]) MEDICARE ADVANTAGE MCR ([facility]) Jan 05, 2024 DO NOT BILL [id number] [phone] STELLA CABELLO PATIENT [facility] ([facility]) MEDICARE ADVANTAGE MCR ([facility]) May 12, 2022 [id number] STELLA CABELLO PATIENT [facility] ([facility]) MEDICARE ADVANTAGE MCR ([facility]) Aug 10, 2021 [id number] STELLA CABELLO PATIENT Selected Encounter This section includes the information on record at [place] for the Encounter. Date/Time Encounter Type Encounter Description Reason Pro vider Source Dec 05, 2023 08:38 PM Outpatient Encounter ADMIN PAT ACTIVTIES ([facility]ASNONCT) IHE Encounter Template Text not used by [facility] Plan of Treatment: Future Appointments (+ 6 months) and Future Tests (+/- 45 days) The Plan of Treatment section includes future care activities for the [facility] [place] [facility] This section includes future appointments and future orders which are active, pending or scheduled. Future Appointments This section includes appointments that were scheduled to occur 6 months from the date of the Encounter, up to a maximum of 20 appointments. The data comes from all [place] treatment facilities. Appointment Date/Time Appointment Type Appointme nt Facility Name Dec 07, 2023 02:00 PM [place]ULATORY [place]ICINE [place] [facility] [place] [facility] Dec 12, 2023 01:00 PM [place] [facility] [place] [facility] Dec 18, 2023 08:00 AM AMBULATORY - [place]ICINE [place] [facility] [place] [facility] Dec 27, 2023 02:00 PM AMBULATORY - [place]ICINE [place] [facility] [place] [facility] Dec 28, 2023 01:00 PM AMBULATORY [place]ICINE [place] [facility] [place] [facility] Jan 15, 2024 02:00 PM AMBULATORY - [place]ICINE [place] [facility] [place] [facility] Feb 06, 2024 02:15 PM AMBULATORY [place]ICINE [place] [facility] [place] [facility] Feb 29, 2024 08:00 AM AMBULATORY - [place]ICINE [place] [facility] [place] [facility] May 21, 2024 02:00 PM AMBULATORY - [place]ICINE [place] [facility] [place] [facility] May 30, 2024 11:00 AM AMBULATORY - [place]ICINE [place] [facility] [place] [facility] May 30, 2024 11:45 AM AMBULATORY - [place]ICINE [place] [facility] [place] [facility] Jun 03, 2024 01:00 PM AMBULATORY - [place]ICINE [place] [facility] [place] [place] [facility] Lab Results: +/- 30 days of the [...] Range Comment Dec 12, 2023 01:45 PM [facility] URIC ACID Specimen Type: SERUM No comment entered. Ordering Provider: JEFF BILLINGSLEY F Report Released Date/Time: October 16, 2023 08:23 AM Reporting Lab: [facility] [place] [facility] [address] [address] Performing Lab: [place] [address] [address] URIC ACID 8.5 mg/dL H 3.5-7.2 Dec 12, 2023 01:45 PM [facility] DIGOXIN Specimen Type: PLASMA No comment entered. Ordering Provider: JEFF BILLINGSLEY F Report Released Date/Time: October 16, 2023 08:23 AM Reporting Lab: [facility] [address] [address] Performing Lab: [facility] [address] [address] DIGOXIN 0.74 ng/mL L 0.8-2.0 Dec 12, 2023 01:45 PM [facility] LIPID PANEL FASTING Specimen Type: SERUM No comment entered. Ordering Provider: JEFF BILLINGSLEY F Report Released Date/Time: October 16, 2023 08:23 AM Reporting Lab: [facility] [address] [address] Performing Lab: [facility] [address] [address] CHOLESTEROL 153 mg/dL TRIGLYCERIDE 189 mg/dL H 0-150 LDL calculated 77 mg/dL 0-129 CHOL/HDL 4.0 HDL CHOLESTEROL 38 mg/dL L 40-60 Dec 12, 2023 01:45 PM [facility] MICROALBUMIN CREATININE RATIO PANEL Specimen Type: URINE No comment entered. Ordering Provider: JEFF BILLINGSLEY F Report Released Date/Time: October 16, 2023 08:23 AM Reporting Lab: [facility] [place] [place] [address] [address] Performing Lab: [facility] [address] [address] MICROALBUMIN/C REATININE RATIO canc mg/g 0-29.9 MICROALBUMIN,Q UANTITATIVE < 0.5 mg/dL RR UNAVAIL CREATININE URINE 29.59 mg/dL Dec 12, 2023 01:45 PM [facility] HEMOGLOBIN A1C PANEL Specimen Type: BLOOD Comment: Values obtained from A1C measurements can vary. For atypical A1C assays, a reported value of 7.0 could actually be between 6.72 and 7.28 if measured by a reference method. A reported value of 9.0 could actually be between 8.73 and 9.27. Ref: http://www.ngs p.org/CAPdata. asp Ordering Provider: JEFF BILLINGSLEY Report Released Date/Time: October 16, 2023 08:23 AM Reporting Lab: [address] [address] Performing Lab: [address] [address] HEMOGLOBIN A1C 6.3 H 4.0-5.6 Dec 12, 2023 01:45 PM [facility] LIVER FUNCTION Specimen Type: SERUM No comment entered. Ordering Provider: JEFF BILLINGSLEY Report Released Date/Time: October 16, 2023 08:23 AM Reporting Lab: [address] [address] Performing Lab: [address] [address] PROTEIN,TOTAL 7.3 g/dL 6.0-8.3 ALBUMIN 3.6 g/dL 3.5-5.0 ALKALINE PHOSPHATASE 58 U/L 40-150 AST 16 U/L 5-34 ALT 19 U/L BILIRUBIN, TOTAL 0.5 mg/dL 0.2-1.2 Dec 12, 2023 01:45 PM [facility] BASIC METABOLIC PANEL (fasting) Specimen Type: SERUM No comment entered. Ordering Provider: JEFF BILLINGSLEY Report Released Date/Time: October 16, 2023 08:23 AM Reporting Lab: [facility] [address] [address] Performing Lab: [address] [address] UREA NITROGEN 32 mg/dL H 7-25 GLUCOSE 103 mg/dL H 65-100 SODIUM 138 mmol/L 135-145 POTASSIUM 4.5 mmol/L 3.5-5.0 CHLORIDE 101 mmol/L 100-110 CO2 28 meq/L 20-30 CREATININE, Serum 1.49 mg/dL H 0.50-1.40 eGFR(CKD-EPI 2020) 51 mL/min L >60 Dec 12, 2023 01:45 PM [facility] CBC AND DIFF (AUTO) Specimen Type: BLOOD No comment entered. Ordering Provider: JEFF BILLINGSLEY Report Released Date/Time: October 16, 2023 08:23 AM Reporting Lab: [address] [address] Performing Lab: [address] [address] WBC 8.68 10*3/uL 4.50-11.00 RBC 5.14 10*6/uL [...] 10*3/uL 0.00-0.00 Dec 12, 2023 01:45 PM [facility] VITAMIN D (25-OH) Specimen Type: SERUM No comment entered. Ordering Provider: MARGIE KENDRICK Report Released Date/Time: Dec 13, 2023 02:50 PM Reporting Lab: [facility] [address] [address] Performing Lab: [address] [address] VITAMIN D (25-OH) 29 ng/mL 20-50 Social [...] 31, 2023 03:30 PM VA-TOBACCO NEVER USED [facility] Tobacco Use History This section includes a history of the smoking, or tobacco-related health factors, that were collected on or before the date of the Encounter. The data comes from the [place] facility where the Encounter took place. Date/Time Smoking Status/Tobacco Use Comment F acility Mar 15, 2022 11:30 AM VA-TOBACCO NEVER USED [facility] Apr 08, 2021 02:00 PM VA-TOBACCO NEVER USED [facility] Advance Directives: All historical and current [...] Provider Source Dec 07, 2023 ADVANCE DIRECTIVE ERIK,RASHID J [place] [facility] Mar 20, 2014 ADVANCE DIRECTIVE DISCUSSION [facility] Jun 16, 2011 ADVANCE DIRECTIVE DISCUSSION [facility] Encounter Notes: All associated encounter notes This section contains the clinical notes associated to the Encounter. Date/Time Encounter Note(s) Provider Source Dec 05, 2023 08:38 PM PHARMACY NOTE: LOCAL TITLE: V1 PHARMACY CUSTOMER CARE MEDICATION RENEWAL STANDARD TITLE: PHARMACY NOTE DATE OF NOTE: DEC 05, 2023@20:38 ENTRY DATE: DEC 05, 2023@20:38:27 AUTHOR: TORRIE GARVIN COSIGNER: URGENCY: STATUS: COMPLETED V1 PHARMACY CUSTOMER CARE MEDICATION RENEWAL Has ADDENDA Date: Nov Division: [facility] referred by Pharmacy Call Center for medication renewal: Controlled substance Medications requested: [id number] ZOLPIDEM TARTRATE 10MG TAB Defer to primary care provider To be mailed . Please review and renew if appropriate. *This note was generated by [facility] [facility] Customer [facility]. If you have any questions or need assistance, do not contact this author. Please refer all questions to your local, on-site pharmacy departments. /segundo GARVIN CPhT Distribution Specialist, [place]/Pharmacy Customer Care Signed: 12/05/2023 20:38 Receipt Acknowledged By: 12/07/2023 10:04 /julien/ BRITTNEY CHACKO RN REGISTERED NURSE 12/07/2023 10:03 /julien/ Chris Billingsley PA-C STAFF PHYSICIAN FISH HATCHERY SPECIALIST 12/05/2023 ADDENDUM STATUS: COMPLETED Patient would like to chicken picker from the [facility] on 12/07/2023 if possible. /segundo GARVIN CPhT Distribution Specialist, [place]/Pharmacy Customer Care Signed: 12/05/2023 20:39 TORRIE GARVIN [place] [facility]
--- OUTSIDE RECORDS SUMMARY | 2024-08-01 14:10 | XMS_ITS | Encounter Summary ---
Author Name [place] Address [address] [place] [address] Care Team Providers Care Application Packaging Specialist Name Role Phone CHRIS HUNTER Primary Care [...] Policy Torres [facility] ([facility]) MEDICARE ADVANTAGE MCR ([facility]) Jun 12, 2017 [id number] STELLA CABELLO PATIENT [facility] ([facility]) MEDICARE [facility] ([facility]) Jan 05, 2024 DO NOT BILL [id number] STELLA CABELLO PATIENT [facility] ([facility]) MEDICARE [facility] ([facility]) May 12, 2022 [id number] STELLA CABELLO PATIENT [facility] ([facility]) MEDICARE ADVANTAGE MCR ([facility]) Aug 10, 2021 [id number] [phone] STELLA CABELLO PATIENT Selected Encounter This section includes the information on record at [place] for the Encounter. Date/Time Encounter Type Encounter Description Reason Pro vider Source Aug 25, 2023 11:35 AM Outpatient Encounter COMMUNITY CARE CONSULT IHE Encounter Template Text not used by [place] Plan of Treatment: Future Appointments (+ 6 months) and Future Tests (+/- 45 days) The Plan of Treatment section includes future care activities for the patient from all [place] [facility]. This section includes future appointments and future orders which are active, pending or scheduled. Future Appointments This section includes appointments that were scheduled to occur 6 months from the date of the Encounter, up to a maximum of 20 appointments. The data comes from all [place] treatment facilities. Appointment Date/Time Appointment Type Appointme nt Facility Name Sep 01, 2023 02:00 PM AMBULATORY - MEDICINE [place] [facility] Sep 06, 2023 02:00 PM AMBULATORY - MEDICINE [place] [facility] Sep 08, 2023 11:00 AM AMBULATORY - MEDICINE [place] [facility] Nov 20, 2023 02:00 PM AMBULATORY - MEDICINE [place] [facility] Dec 07, 2023 02:00 PM AMBULATORY - MEDICINE [place] [facility] Dec 12, 2023 01:00 PM AMBULATORY - MEDICINE [place] [facility] Dec 18, 2023 08:00 AM AMBULATORY - MEDICINE [place] [facility] Dec 27, 2023 02:00 PM AMBULATORY - MEDICINE [place] [facility] Dec 28, 2023 01:00 PM AMBULATORY - MEDICINE [place] [facility] Jan 15, 2024 02:00 PM AMBULATORY - MEDICINE [place] [facility] Feb 06, 2024 02:15 PM AMBULATORY - MEDICINE [place] [facility] Social History: Smoking Status (Most current) [...] Sebastian cordova May 31, 2023 03:30 PM VA-TOBACCO [facility] [place] [facility] Tobacco Use History This section includes a history of the smoking, or tobacco-related health factors, that were collected on or before the date of the Encounter. The data comes from the [place] facility where the Encounter took place. Date/Time Smoking Status/Tobacco Use Comment F acility Mar 15, 2022 11:30 AM VA-TOBACCO NEVER USED [place] [facility] Apr 08, 2021 02:00 PM [facility] Advance Directives: All historical and current Section Date Range: From patient's date of to the date document was created. This section includes ALL of a patient's completed or amended [place] Advance and Rescinded Directives. The entries below indicate that a directive exists for the patient, but an actual copy is not included with this document. The data comes from all [place] facilities. Date Advance Directives Provider Source Dec 07, 2023 ADVANCE DIRECTIVE RASHID [facility]ENCIA [facility] Mar 20, 2014 ADVANCE DIRECTIVE DISCUSSION EDISON MORAN [facility] Jun 16, 2011 ADVANCE DIRECTIVE DISCUSSION BARRIE ISLAS [facility] Encounter Notes: All associated encounter notes This section contains the clinical notes associated to the Encounter. Date/Time Encounter Note(s) Provider Source Aug 25, 2023 11:35 AM ADMINISTRATIVE NOTE: LOCAL TITLE: ADMINISTRATIVE NOTE STANDARD TITLE: ADMINISTRATIVE NOTE DATE OF NOTE: AUG 25, 2023@11:35 ENTRY DATE: AUG 25, 2023@11:35:21 AUTHOR: STEPHANIE RAMIREZ EXP COSIGNER: URGENCY: STATUS: COMPLETED Community Provider seeking referral. Community Care - Neurology [facility] Cardiology/Neurology Dept. [address] [place] [id number] Central Scheduling Central Scheduling [place] has scheduled appt. on 09/08/23 @ 11am /julien/ STEPHANIE RAMIREZ [facility]ITY RELATIONS Signed: 08/25/2023 11:36 Receipt Acknowledged By: 08/25/2023 13:51 /es/ LESLIE BALTAZAR D.O. PHYSICIAN [facility] 08/25/2023 14:46 /es/ BRAULIO SHEPARD REGISTERED NURSE 09/04/2023 10:48 /es/ JEFFERSON DIAZ,RN REGISTERED NURSE STEPHANIE RAMIREZ [facility]
--- OUTSIDE RECORDS SUMMARY | 2024-08-01 14:10 | XMS_ITS ---
Author Name [facility] [place] Address [address] [place] [address] Care Team Providers Care Loan Processor Name Role Phone CHRIS HUNTER Primary Care [...] Torres's Name Patient's Relationship to Policy Torres [facility] ([facility]) MEDICARE ADVANTAGE MCR ([facility]) Jun 12, 2017 [id number] STELLA CABELLO PATIENT [facility] ([facility]) MEDICARE ADVANTAGE MCR ([facility]) Jan 05, 2024 DO NOT BILL [id number] STELLA CABELLO PATIENT [facility] ([facility]) MEDICARE ADVANTAGE MCR ([facility]) May 12, 2022 [id number] STELLA CABELLO PATIENT [facility] ([facility]) MEDICARE ADVANTAGE MCR ([facility]) Aug 10, 2021 [id number] [phone] STELLA CABELLO PATIENT Selected Encounter This section includes the information on record at [place] for the Encounter. Date/Time Encounter Type Encounter Description Reason Provider Source Sep 01, 2023 02:00 PM MANUAL THERAPY 1/> [facility] CAREER DEVELOPMENT MANAGER ICD-10-CM M54.2 Cervicalgia STEPHANIE KINNEY [facility] Encounter Template Text not used by [place] Assessments - Encounter Diagnoses This section includes the primary and secondary diagnoses documented for the Encounter. Date/Time Primary/Secondary Diagnosis Diagnosis Name Provider Source Sep 01, 2023 02:31 PM PRIMARY Cervicalgia STEPHANIE KINNEY [place] [facility] [place] [facility] Sep 01, 2023 02:31 PM SECONDARY Other low back pain STEPHANIE KINNEY [place] [facility] [place] [facility] Plan of Treatment: Future Appointments (+ 6 months) and Future Tests (+/- 45 days) The Plan of Treatment section includes future care activities for the patient from all [place] [facility]. This section includes future appointments and future orders which are active, pending or scheduled. Future Appointments This section includes appointments that were scheduled to occur 6 months from the date of the Encounter, up to a maximum of 20 appointments. The data comes from all [place] treatment facilities. Appointment Date/Time Appointment Type Appointme nt Facility Name Sep 06, 2023 02:00 PM AMBULATORY - MEDICINE [place] [facility] [place] [facility] Sep 08, 2023 11:00 AM AMBULATORY - MEDICINE [place] [facility] [place] [facility] Nov 20, 2023 02:00 PM AMBULATORY - MEDICINE [place] [facility] [place] [facility] Dec 07, 2023 02:00 PM AMBULATORY - MEDICINE [place] [facility] [place] [facility] Dec 12, 2023 01:00 PM AMBULATORY - MEDICINE [place] [facility] [place] [facility] Dec 18, 2023 08:00 AM AMBULATORY - MEDICINE [place] [facility] [place] [facility] Dec 27, 2023 02:00 PM AMBULATORY - MEDICINE [place] [facility] [place] [facility] Dec 28, 2023 01:00 PM AMBULATORY - MEDICINE [place] [facility] [place] [facility] Jan 15, 2024 02:00 PM AMBULATORY - MEDICINE [place] [facility] [place] [facility] Feb 06, 2024 02:15 PM AMBULATORY - MEDICINE [place] [facility] [place] [facility] Feb 29, 2024 08:00 AM AMBULATORY - MEDICINE [place] [facility] [place] [facility] Social History: Smoking Status (Most current) and Tobacco Use (All prior to encounter date) This section includes the most current, and the historical, smoking and tobacco- related health factors from the [place] facility where the Encounter took place. Current Smoking Status This section includes the most current smoking, or tobacco-related health factor, from the [place] facility where the Encounter took place. Date/Time Current Smoking Status Comment Facil ity May 31, 2023 03:30 PM VA-TOBACCO NEVER USED [place] CNTR [facility] Tobacco Use History This section includes a history of the smoking, or tobacco-related health factors, that were collected on or before the date of the Encounter. The data comes from the [place] facility where the Encounter took place. Date/Time Smoking Status/Tobacco Use Comment F acility Mar 15, 2022 11:30 AM VA-TOBACCO NEVER USED [place] [facility] [place] [facility] Apr 08, 2021 02:00 PM VA-TOBACCO NEVER USED [place] CNTR [facility] Advance Directives: All historical and current Section Date Range: From patient's date of to the date document was created. This section includes ALL of a patient's completed or amended [place] Advance and Rescinded Directives. The entries below indicate that a directive exists for the patient, but an actual copy is not included with this document. The data comes from all [place] facilities. Date Advance Directives Provider Source Dec 07, 2023 ADVANCE DIRECTIVE RAHSID VALENCIA [facility] [place] [facility] Mar 20, 2014 ADVANCE DIRECTIVE DISCUSSION EDISON MORAN [facility] Jun 16, 2011 ADVANCE DIRECTIVE DISCUSSION BARRIE ISLAS [facility] Encounter Notes: All associated encounter notes This section contains the clinical notes associated to the Encounter. 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: [employer] 2 years Service Connected Disabilities with % Eligibility: Active Problem Peripheral venous insufficiency I87 03/15/2022 BINU BOSE Obstructive sleep apnea G47.33 01/06/2022 BINU BOSE AF- Atrial Fibrillation (SCT 042817 04/08/2021 DONELL BLACK HTN - Hypertension ([facility] [id number]) I 04/08/2021 DONELL BLACK Long-term current use of anticoagul 04/08/2021 DONELL BLACK Peripheral neuropathic pain M79.2 04/08/2021 DONELL BLACK Peripheral vascular disease I73.9 04/08/2021 DONELL BLACK Cancer of the back, squamous cell C 04/08/2021 SHAHID SUNG Gout M10.9 04/08/2021 SHAHID SUNG Obesity ([facility] [id number]) E66.9 04/08/2021 SHAHID SUNG GERD - Gastro-Esophageal Reflux Dis 04/08/2021 SHAHID SUNG The patient C/O persistent pain in neck and soreness in low back. He started taking marijuana gummy bears that helped decr the sx. He is able to get about 3 hours of sleep now and he has been exercising since he is able due to feeling better. The walking and incr moving has helped his mental outlook. Patient went to [place] recently to visit his daughter Berylt feels relief from the treatment but it is temporary Provocative: turning makes it sharp in neck; [...] ~ Supine gluteal stretching as per palpation Objectives:09/01/23 Tender hypertonic C/sp mm, bilat, Bilat SI jts. Restrictions cervical, upper thoracic, SI Treatment: Corrective/Active Manual therapy, 8 min, cervical, lumbar TrPt release CMT low force AT [...] walking as much as possible. Plan: Patient states that weight loss program at a local hospital will not take him because he needed to decr weight by 35 obs to show motivation. Offered patient Whole Health strategies to decr mm tightness. He agreed to Biofeedback. ~Patient encouraged to engage in activities such [...] core stability, balance, and pain modulation. Visit 8 F/U 6 weeks Seek urgent care as needed. /julien/ STEPHANIE KINNEY D.C. CHIROPRACTOR Signed: 09/01/2023 14:33 [facility]
--- OUTSIDE RECORDS SUMMARY | 2024-08-01 14:10 | XMS_ITS | Continuity of Care Document ---
Author Name [facility] Organization [facility] Care Team Providers Care Glazier Artist Name Role Phone [facility] Unavailable Unavailable Problems Combined list of problems from Department of Defense and Veterans Affairs facilities. It does not include entries that were removed or entered in error. Problem Status Onset Date Problem Type Date of Resolution Comments Source Abscess Active Condition [facility] AF- Atrial Fibrillation (SCT 39394914) Active Condition [place] [facility] Alcohol Dependence * (ICD-9-CM 303.90/303.91) Active Condition [facility] Back Pain, Low Active Condition [facility] Basal cell carcinoma of neck Active Condition [facility] Basal Cell Carcinoma of Skin, site unspecified (ICD-9-CM 173.91) Active Condition [facility] Benign prostatic hyperplasia Active Condition [facility] Cancer of the back, squamous cell Active Condition Apr 08, 2021 Entered By: SHAHID KEEN Comment: multiple sites/ see notes in [place] at [place] in [facility] Chronic Kidney Disease Stage 3 (SCT 732396291) Active Condition [facility] Diabetic - poor control Active Condition [place] [facility] Epidermal Cyst * (ICD-9-CM 706.2) Active Condition [facility] ETOH Active Condition Dec 11, 2001 Entered By: FLAQUITA AMAYA Comment: 12/11 - 6 beers a day, doesn't want to quit drinking [facility] Gastroesophageal Reflux Disease (SNOMED CT 500401442) Active Condition [facility] - Gastro-Esophageal Reflux Disease (SCT 077837605) Active Condition [facility] Gout Active Condition [facility] HTN - Hypertension (SCT 50823460) Active Condition [facility] Hypertension * (ICD-9-CM 401.9) Active Condition [facility] Long-term current use of anticoagulant Active Condition [facility] Lumbar radiculopathy Active Condition [facility] C Male erectile disorder (ICD-9-CM 302.72/607.[address]) [address] [facility] Myofascial pain Active Condition [facility] Obesity (SCT 227624434) Active Condition [facility] Obstructive sleep apnea Active Condition [facility] Pain in limb (ICD-9-CM 729.5) Active Condition [facility] Peripheral neuropathic pain Active Condition [facility] Peripheral vascular disease Active Condition [facility] Peripheral venous insufficiency Active Condition [facility] Pulmonary embolism and infarction (ICD-9-CM 415.19) Active Condition [facility] Sexual Dysfunction NOS (ICD-9-CM 302.9/302.70) Active Condition [facility] Skin lesion (SNOMED CT 75841788) Active Condition [facility] Sprains and strains of sacroiliac region (ICD-9-CM 846.9) Active Condition [facility] Squamous cell carcinoma in situ of skin Active Condition [facility] Stiffness of joint, not elsewhere classified, involving pelvic region and thigh Active Condition [facility] Treatment Compliance Problem * (ICD-9-CM V62.6) Active Condition [facility] Counseling NEC (ICD-9-CM V65.9) Inactive Condition 04/16/2004 [facility] Diagnosis: ICD-10-CM N18.30 Chronic kidney disease, stage 3 unspecified Active Diagnosis [facility] Diagnosis: ICD-10-CM I73.9 Peripheral vascular disease, unspecified Active Diagnosis [facility] Diagnosis: ICD-10-CM E11.43 Type 2 diabetes w diabetic autonomic (poly)neuropathy Active Diagnosis [facility] Diagnosis: ICD-10-CM I48.91 Unspecified atrial fibrillation Active Diagnosis [facility] [place] [facility] Diagnosis: ICD-10-CM E11.8 Type 2 diabetes mellitus with unspecified complications Active Diagnosis [facility] Diagnosis: ICD-10-CM M54.59 Other low back pain Active Diagnosis [facility] Diagnosis: ICD-10-CM M79.2 Neuralgia and neuritis, unspecified Active Diagnosis [facility] Diagnosis: ICD-10-CM M54.2 Cervicalgia Active Diagnosis [facility] Diagnosis: ICD-10-CM L60.3 Nail dystrophy Active Diagnosis [facility] Diagnosis: ICD-10-CM Z71.89 Other specified counseling Active Diagnosis [facility] [place] [facility] Diagnosis: ICD-10-CM H61.23 Impacted cerumen, bilateral [facility] [place] [facility] Medications Combined list of outpatient medications from Department of Defense and Veterans Affairs facilities.Medications provided include 1) outpatient medications from the last 15 months, and 2) patient-reported medications. Medication Details Route Status Patient Instructions Prescription Expires Prescription Number Last Dispense Date Ordering Provider Order Date Order Qty Source AMMONIUM LACTATE 12% LOTION APPLY SMALL AMOUNT TOPICALL Y ONCE DAILY FOR DRY IRRITATE D SKIN APPLY TO SKIN LEGS AND FEET DAILY TOPICA L ACTIVE 02/16/2025 [id number] 4 ANNA NOBLES 2023 240 [facility] AMMONIUM LACTATE 12% LOTION APPLY SMALL AMOUNT TOPICALL Y ONCE DAILY FOR DRY IRRITATE D SKIN APPLY TO SKIN LEGS AND FEET DAILY TOPICA L DISCONT INUED 02/13/2025 [id number] 4 ANNA NOBLES 2023 240 [facility] AMMONIUM LACTATE 12% LOTION APPLY SMALL AMOUNT TOPICALL Y ONCE DAILY FOR DRY IRRITATE D SKIN APPLY TO SKIN LEGS AND FEET DAILY TOPICA L DISCONT INUED 05/09/2024 [id number] 4 ANNA NOBLES 2022 240 [facility] APIXABAN 5MG TAB TAKE ONE TABLET BY MOUTH TWICE DAILY ORAL ACTIVE 01/15/2025 [id number] 4 CHRIS HUNTER 2023 180 [place] [facility] APIXABAN 5MG TAB TAKE ONE TABLET BY MOUTH TWICE DAILY ORAL DISCONT INUED 09/06/2024 [id number] 4 [facility] 2023 180 [facility] APIXABAN 5MG TAB TAKE ONE TABLET BY MOUTH TWICE DAILY ORAL DISCONT INUED 03/30/2024 [id number] 4 [facility] 2022 180 [facility] CARVEDILOL 3.125MG TAB TAKE ONE TABLET BY MOUTH TWICE DAILY ORAL ACTIVE 12/27/2024 [id number] LISE CHIRINOS NESTOR 2023 60 [facility] CARVEDILOL 3.125MG TAB TAKE ONE TABLET BY MOUTH TWICE DAILY FOR HIGH BLOOD PRESSURE ORAL DISCONT INUED 12/27/2024 [id number] CHRIS HUNTER 2023 180 [place] [facility] CARVEDILOL 6.25MG TAB TAKE ONE TABLET BY MOUTH TWICE DAILY ORAL DISCONT INUED (EDIT) 11/20/2024 [id number] 4 CHRIS HUNTER 2023 180 [place] [facility] CARVEDILOL 6.25MG TAB TAKE ONE TABLET BY MOUTH TWICE DAILY ORAL DISCONT INUED 08/01/2024 [id number] 4 NIDIA BOSE JAWED 2023 180 [facility] DIGOXIN 125MCG TAB TAKE ONE TABLET BY MOUTH ONCE DAILY ORAL ACTIVE 11/20/2024 [id number] 4 CHRIS HUNTER 2023 90 [place] [facility] DIGOXIN 125MCG TAB TAKE ONE TABLET BY MOUTH ONCE DAILY ORAL DISCONT INUED 07/18/2024 [id number] 4 [facility] JAWED 2023 90 [facility] DULOXETINE HCL 20MG CAP,EC TAKE ONE CAPSULE BY MOUTH AT BEDTIME ORAL ACTIVE 09/06/2024 [id number] 4 [facility] JAWED 2023 90 [facility] EMPAGLIFLOZ IN 25MG TAB TAKE ONE-HALF TABLET BY MOUTH ONCE DAILY ORAL ACTIVE 09/06/2024 [id number] 4 [facility] JAWED 2023 45 [facility] EMPAGLIFLOZ IN 25MG TAB TAKE ONE-HALF TABLET BY MOUTH ONCE DAILY ORAL DISCONT INUED 02/08/2024 [id number] [facility] JAWED 2022 45 [facility] FINASTERIDE 5MG TAB TAKE ONE TABLET BY MOUTH ONCE DAILY ORAL ACTIVE 09/06/2024 [id number] 5 [facility] AMMED JAWED 2023 90 [facility] FINASTERIDE 5MG TAB TAKE ONE TABLET BY MOUTH ONCE DAILY ORAL DISCONT INUED 05/31/2024 [id number] [facility] AMMED JAWED 2022 90 [facility] FOLIC ACID 1MG TAB TAKE ONE TABLET BY MOUTH ONCE DAILY VITAMIN/ NUTRITIO N SUPPLEME NT ORAL ACTIVE 09/06/2024 [id number] [facility] AMMED JAWED 2023 90 [facility] FOLIC ACID 1MG TAB TAKE ONE TABLET BY MOUTH ONCE DAILY VITAMIN/ NUTRITIO N SUPPLEME NT ORAL DISCONT INUED 07/13/2023 [id number] [facility] AMMED JAWED 2022 90 [facility] FUROSEMIDE 40MG TAB TAKE ONE TABLET BY MOUTH ONCE DAILY TO REMOVE FLUID/CO NTROL BLOOD PRESSURE ORAL ACTIVE 09/06/2024 [id number] [facility] GABAPENTIN 300MG CAP TAKE THREE CAPSULES BY MOUTH TWICE DAILY FOR NERVE PAIN ORAL ACTIVE 01/15/2025 [id number] CHRIS HUNTER 2023 180 [facility] GABAPENTIN 300MG CAP TAKE ONE CAPSULE BY MOUTH THREE TIMES A DAY ORAL DISCONT INUED (EDIT) 02/08/2024 [id number] 270 [place] [facility] HYDRALAZINE HCL 50MG TAB TAKE ONE TABLET BY MOUTH TWICE DAILY FOR BLOOD PRESSURE ORAL ACTIVE 01/15/2025 [id number] 4 CHRIS HUNTER 2023 180 [facility] HYDRALAZINE HCL 50MG TAB TAKE ONE TABLET BY MOUTH TWICE DAILY FOR BLOOD PRESSURE ORAL DISCONT INUED 09/06/2024 [id number] [facility] HYDRALAZINE HCL 50MG TAB TAKE ONE TABLET BY MOUTH TWICE DAILY FOR BLOOD PRESSURE ORAL DISCONT INUED 03/30/2024 [id number] 4 [facility] CHALOMED JAWED 2022 180 [place] [facility] LIDOCAINE 5% PATCH APPLY 1 PATCH TOPICALL Y AT BEDTIME (LEAVE PATCH ON FOR 12 HOURS, THEN REMOVE PATCH) TOPICA L ACTIVE 09/06/2024 [id number] 4 [facility] AMMED JAWED 2023 90 [facility] LOSARTAN 50MG TAB TAKE ONE TABLET BY MOUTH ONCE DAILY FOR BLOOD PRESSURE /HEART ORAL ACTIVE 09/06/2024 [id number] [facility] AMMED JAWED 2023 90 [facility] LOSARTAN 50MG TAB TAKE ONE TABLET BY MOUTH ONCE DAILY FOR BLOOD PRESSURE /HEART ORAL DISCONT INUED 07/13/2023 [id number] 3 NIDIA BOSE [facility]AL[facility]A JAWED 2022 90 [facility] MULTIVITAMI NS W/MINERALS CAP/TAB TAKE 1 TABLET BY MOUTH ONCE DAILY FOR VITAMIN SUPPLEME NTATION ORAL ACTIVE 01/15/2025 [id number] CHRIS HUNTER 2023 100 [facility] MULTIVITAMI NS W/MINERALS CAP/TAB TAKE 1 TABLET BY MOUTH ONCE DAILY FOR VITAMIN SUPPLEME NTATION ORAL DISCONT INUED 09/06/2024 [id number] 4 NIDIA BOSE [place] JAWED 2023 100 [facility] OTHER CAP/TAB TAKE GUMMIES FROM [place] BY MOUTH ORAL ACTIVE CHRIS HUNTER 2023 [facility] PANTOPRAZOL E NA 40MG TAB,EC TAKE ONE TABLET BY MOUTH EVERY MORNING 30 MINUTES BEFORE BREAKFAS T ORAL ACTIVE 01/15/2025 [id number] 4 CHRIS HUNTER 2023 90 [facility] PANTOPRAZOL E NA 40MG TAB,EC TAKE ONE TABLET BY MOUTH EVERY MORNING 30 MINUTES BEFORE BREAKFAS T ORAL DISCONT INUED 09/06/2024 [id number] 4 [facility] JAWED 2023 90 [facility] PANTOPRAZOL E NA 40MG TAB,EC TAKE ONE TABLET BY MOUTH EVERY MORNING 30 MINUTES BEFORE BREAKFAS T ORAL DISCONT INUED 07/18/2024 [id number] 4 NIDIA BOSE CHALOMED JAWED 2023 90 [facility] ROPINIROLE HCL 2MG TAB TAKE ONE TABLET BY MOUTH AT BEDTIME TAKE 1-3 HOURS BEFORE BEDTIME ORAL ACTIVE 01/04/2025 [id number] Pam MORALES MD 2023 30 [facility] SPIRONOLACT ONE 25MG TAB TAKE ONE TABLET BY MOUTH ONCE DAILY ORAL ACTIVE 08/01/2024 [id number] 4 NIDIA BOSE JAWED 2023 90 [facility] TAMSULOSIN HCL 0.4MG CAP TAKE TWO CAPSULES BY MOUTH AT BEDTIME FOR ENLARGED PROSTATE ORAL ACTIVE 05/22/2025 [id number] 5 CHRIS HUNTER 2023 180 [facility] TAMSULOSIN HCL 0.4MG CAP TAKE TWO CAPSULES BY MOUTH AT BEDTIME FOR ENLARGED PROSTATE ORAL DISCONT INUED 10/16/2024 [id number] 4 CHRIS HUNTER 2023 180 [facility] TAMSULOSIN HCL 0.4MG CAP TAKE TWO CAPSULES BY MOUTH AT BEDTIME ORAL DISCONT INUED 05/31/2024 [id number] NIDIA BOSE JAWED 2022 60 [facility] TERBINAFINE HCL 1% CREAM,TOP APPLY A THIN LAYER TOPICALL Y ONCE DAILY FOR ATHLETE' S FOOT TOPICA L ACTIVE 07/20/2025 [id number] CHRIS HUNTER 2024 60 [facility] ZOLPIDEM TARTRATE 10MG TAB TAKE ONE TABLET BY MOUTH AT BEDTIME FOR SLEEP ORAL ACTIVE 01/11/2025 [id number] 5 CHRSI HUNTER 2024 30 [facility] ZOLPIDEM TARTRATE 10MG TAB TAKE ONE TABLET BY MOUTH AT BEDTIME FOR SLEEP ORAL DISCONT INUED 06/08/2024 [id number] CHRIS HUNTER 2023 30 [facility] ZOLPIDEM TARTRATE 10MG TAB TAKE ONE TABLET BY MOUTH AT BEDTIME ORAL DISCONT INUED 02/15/2024 [id number] 4 NIDIA BOSE JAWED 2023 30 [place] [facility] [place] ZOLPIDEM TARTRATE 10MG TAB TAKE ONE TABLET BY MOUTH AT BEDTIME ORAL DISCONT INUED 10/20/2023 [id number] 4 CHRIS HUNTER 2022 30 [facility] Allergies, Adverse Reactions, Alerts Combined list of allergies from Department of Defense and Veterans Affairs facilities. It does not include entries that were removed or entered in error. Substance Category Reaction Severity Reaction type Status Date Reported Comments Source OXYCODONE Propensity to adverse reactions to drug (finding) Dizziness MODERATE active 07/18/2012 [facility] Immunizations Combined list of available immunizations from the Department of Defense and Veterans Affairs facilities. Immunization Series Date Given Administered By Site Reaction Lot Number CVX Code Drug Rn Cardiac Status Comments Source RSV, BIVALENT, PROTEIN SUBUNIT RSVPREF, DILUENT RECONSTITUTED , 0.5 ML, PF 2024 ASAEL ISRAEL RIGHT DELTO ID [id number] 305 complet ed [facility] COVID-19 (MODERNA), MRNA, LNP-S, PF, 50 MCG/0.5 ML (AGES 12+ YEARS) 2023 PADDY SANDOVAL RIGHT DELTO ID [id number] 312 complet ed [facility] INFLUENZA, HIGH-DOSE, TRIVALENT, PF 2023 PADDY SANDOVAL RIGHT DELTO ID [id number] 135 complet ed [facility] COVID-19 (MODERNA), MRNA, LNP-S, PF, 50 MCG/0.5 ML (AGES 12+ YEARS) 5 2022 PADDY SANDOVAL LEFT DELTO ID [id number] 312 complet ed [facility] INFLUENZA, HIGH-DOSE, QUADRIVALENT 2022 NERY JEAN-BAPTISTE LEFT DELTO ID [id number] 197 complet ed [facility] PNEUMOCOCCAL CONJUGATE PCV20, POLYSACCHARID E [id number] CONJUGATE, ADJUVANT, PF 2022 MALIA LEGGETT I LEFT DELTO ID [id number] 216 complet ed [facility] COVID-19 (MODERNA), MRNA, LNP-S, BIVALENT BOOSTER, PF, 50 MCG/0.5 ML OR 25MCG/0.25 ML DOSE 1 2022 NERY JEAN-BAPTISTE LEFT DELTO ID [id number] 229 complet ed [facility] INFLUENZA VACCINE, QUADRIVALENT, ADJUVANTED 2021 205 complet ed [facility] ZOSTER RECOMBINANT 1 2021 187 complet ed [facility] COVID-19 (MODERNA), MRNA, LNP-S, PF, 100 MCG OR 50 MCG DOSE 3 2020 207 complet ed MOD; [id number]; 2 [facility] TDAP 2020 115 complet ed [facility] ZOSTER RECOMBINANT 1 2020 187 complet ed [facility] INFLUENZA VACCINE, QUADRIVALENT, ADJUVANTED 2020 205 complet ed [facility] PNEUMOCOCCAL POLYSACCHARID E PPV23 2020 33 complet ed [facility] COVID-19 (MODERNA), MRNA, LNP-S, PF, 100 MCG/0.5 ML DOSE 2 2020 207 complet ed [facility] COVID-19 (MODERNA), MRNA, LNP-S, PF, 100 MCG/0.5 ML DOSE 1 2020 207 complet ed [facility] TD(ADULT) UNSPECIFIED FORMULATION 2011 139 complet ed [facility] Results Combined list of recent chemistry, hematology and other laboratory results from Department of Defense and Veterans Affairs, ranging from 15 months to all on record, depending upon the facility. Order Name Results Value Reference Range Date Interpretation Specimen Comments Source URIC ACID URATE [MASS/VOLUM E] IN SERUM OR PLASMA 8.5 mg/dL 3.5 - 7.2 12/11 H Specimen Type: SERUM No comment entered. Ordering Provider: Li HUNTER Report Released Date/Time: October 16, 2023 08:23 AM Reporting Lab: [facility] [place] [facility] [address] [address] Performing Lab: [facility] [place] [facility] [address] [address] [facility] [place] [facility] DIGOXIN DIGOXIN [MASS/VOLUM E] IN SERUM OR PLASMA 0.74 ng/mL 0.8 - 2.0 12/11 L Specimen Type: PLASMA No comment entered. Ordering Provider: Li HUNTER Report Released Date/Time: October 16, 2023 08:23 AM Reporting Lab: [place] [facility] [facility] [address] [address] Performing Lab: [place] [facility] [facility] [address] [address] [facility] [place] [facility] LIPID PANEL FASTING CHOLESTEROL [MASS/VOLUM E] IN SERUM OR PLASMA 153 mg/dL 12/11 Specimen Type: SERUM No comment entered. Ordering Provider: Li HUNTER Report Released Date/Time: October 16, 2023 08:23 AM Reporting Lab: [facility] [place] [facility] [address] [address] Performing Lab: [facility] [place] [facility] [address] [address] [facility] [place] [facility] LIPID PANEL FASTING TRIGLYCERID E [MASS/VOLUM E] IN SERUM OR PLASMA 189 mg/dL 0 - 150 12/11 H Specimen Type: SERUM No comment entered. Ordering Provider: Li HUNTER Report Released Date/Time: October 16, 2023 08:23 AM Reporting Lab: [facility] [place] [facility] [address] [address] Performing Lab: [place] [facility] [facility] [address] [address] [place] [facility] [facility] LIPID PANEL FASTING CHOLESTEROL IN LDL [MASS/VOLUM E] IN SERUM OR PLASMA BY CALCULATION 77 mg/dL 0 - 129 12/11 Specimen Type: SERUM No comment entered. Ordering Provider: Li HUNTER Report Released Date/Time: October 16, 2023 08:23 AM Reporting Lab: [facility] [address] Performing Lab: [place] [facility] [address] [facility] LIPID PANEL FASTING CHOLESTEROL .TOTAL/CHOL ESTEROL IN HDL [MASS RATIO] IN SERUM OR PLASMA 4.0 12/11 Specimen Type: SERUM No comment entered. Ordering Provider: Li HUNTER Report Released Date/Time: October 16, 2023 08:23 AM Reporting Lab: [facility] [address] Performing Lab: [facility] TRN [facility] [address] [facility] TRN [facility] LIPID PANEL FASTING CHOLESTEROL IN HDL [MASS/VOLUM E] IN SERUM OR PLASMA 38 mg/dL 40 - 60 12/11 L Specimen Type: SERUM No comment entered. Ordering Provider: Li HUNTER Report Released Date/Time: October 16, 2023 08:23 AM Reporting Lab: [facility] [place] [address] [address] Performing Lab: [facility] [place] [address] [address] [facility] [place] [facility] MICROALBU MIN CREATININ E RATIO PANEL MICROALBUMI N/CREATININ E [MASS RATIO] IN URINE cancmg /g 0 - 29.9 12/11 Specimen Type: URINE No comment entered. Ordering Provider: Li HUNTER Report Released Date/Time: October 16, 2023 08:23 AM Reporting Lab: [facility] [address] Performing Lab: [place] [facility] [place] [facility] [address] [address] [place] [facility] [place] [facility] MICROALBU MIN CREATININ E RATIO PANEL MICROALBUMI N [MASS/VOLUM E] IN URINE < 0.5mg/ dL 12/11 Specimen Type: URINE No comment entered. Ordering Provider: Li HUNTER Report Released Date/Time: October 16, 2023 08:23 AM Reporting Lab: [place] [facility] [place] [facility] [address] [address] Performing Lab: [place] [facility] [address] [address] [place] [facility] [place] [facility] MICROALBU MIN CREATININ E RATIO PANEL CREATININE [MASS/VOLUM E] IN URINE 29.59 mg/dL 12/11 Specimen Type: URINE No comment entered. Ordering Provider: Li HUNTER Report Released Date/Time: October 16, 2023 08:23 AM Reporting Lab: [facility] [place] [facility] [address] [address] Performing Lab: [place] [facility] [place] [facility] [address] [address] [place] [facility] [facility] HEMOGLOBI N A1C PANEL HEMOGLOBIN A1C/HEMOGLO BIN.TOTAL IN BLOOD BY HPLC 6.3 4.0 - 5.6 12/11 H Specimen Type: BLOOD Comment: Values obtained from A1C measurement s can vary. For atypical A1C assays, a reported value of 7.0 could actually be between 6.72 and 7.28 if measured by a reference method. A reported value of 9.0 could actually be between 8.73 and 9.27. Ref: [email or web address]://[email or web address]/[place] Pdata.asp Ordering Provider: Li HUNTER Report Released Date/Time: October 16, 2023 08:23 AM Reporting Lab: [place] [facility] [place] [address] [address] Performing Lab: [place] [facility] [place] [address] [address] [place] [facility] [place] [facility] LIVER FUNCTION PROTEIN [MASS/VOLUM E] IN SERUM OR PLASMA 7.3 g/dL 6.0 - 8.3 12/11 Specimen Type: SERUM No comment entered. Ordering Provider: Li HUNTER Report Released Date/Time: October 16, 2023 08:23 AM Reporting Lab: [facility] [place] [facility] [address] [facility] [address] Performing Lab: [facility] [place] [facility] [address] [facility] [address] [place] [facility] [place] [facility] LIVER FUNCTION ALBUMIN [MASS/VOLUM E] IN SERUM OR PLASMA 3.6 g/dL 3.5 - 5.0 12/11 Specimen Type: SERUM No comment entered. Ordering Provider: Li HUNTER Report Released Date/Time: October 16, 2023 08:23 AM Reporting Lab: [facility] [place] [address] [address] Performing Lab: [facility] [place] [facility] [address] [facility] [address] [place] [facility] [place] [facility] LIVER FUNCTION ALKALINE PHOSPHATASE [ENZYMATIC ACTIVITY/VO LUME] IN SERUM OR PLASMA 58 U/L 40 - 150 12/11 Specimen Type: SERUM No comment entered. Ordering Provider: Li HUNTER Report Released Date/Time: October 16, 2023 08:23 AM Reporting Lab: [facility] [place] [facility] [address] [facility] [address] Performing Lab: [facility] [place] [facility] [address] [facility] [address] [facility] [place] [facility] LIVER FUNCTION ASPARTATE AMINOTRANSF ERASE [ENZYMATIC ACTIVITY/VO LUME] IN SERUM OR PLASMA 16 U/L 5 - 34 12/11 Specimen Type: SERUM No comment entered. Ordering Provider: Li HUNTER Report Released Date/Time: October 16, 2023 08:23 AM Reporting Lab: [facility] [place] [facility] [address] [facility] [address] Performing Lab: [facility] [place] [facility] [address] [address] [facility] [facility] LIVER FUNCTION ALANINE AMINOTRANSF ERASE [ENZYMATIC ACTIVITY/VO LUME] IN SERUM OR PLASMA 19 U/L 12/11 Specimen Type: SERUM No comment entered. Ordering Provider: Li HUNTER Report Released Date/Time: October 16, 2023 08:23 AM Reporting Lab: [facility] [place] [facility] [address] [facility] [address] Performing Lab: [facility] [place] [facility] [address] [facility] [address] [facility] [place] [facility] LIVER FUNCTION BILIRUBIN.T OTAL [MASS/VOLUM E] IN SERUM OR PLASMA 0.5 mg/dL 0.2 - 1.2 12/11 Specimen Type: SERUM No comment entered. Ordering Provider: Li HUNTER Report Released Date/Time: October 16, 2023 08:23 AM Reporting Lab: [facility] [place] [facility] [address] [facility] [address] Performing Lab: [facility] [place] [facility] [address] [facility] [address] [facility] [place] [facility] BASIC METABOLIC PANEL (fasting) UREA NITROGEN [MASS/VOLUM E] IN SERUM OR PLASMA 32 mg/dL 7 - 25 12/11 H Specimen Type: SERUM No comment entered. Ordering Provider: Li HUNTER Report Released Date/Time: October 16, 2023 08:23 AM Reporting Lab: [facility] [place] [facility] [address] [facility] [address] Performing Lab: [facility] [place] [facility] [address] [facility] [address] [facility] [place] [facility] BASIC METABOLIC PANEL (fasting) GLUCOSE [MASS/VOLUM E] IN SERUM OR PLASMA 103 mg/dL 65 - 100 12/11 H Specimen Type: SERUM No comment entered. Ordering Provider: Li HUNTER Report Released Date/Time: October 16, 2023 08:23 AM Reporting Lab: [facility] [place] [facility] [address] [address] Performing Lab: [facility] [place] [facility] [address] [facility] [address] [facility] [place] [facility] BASIC METABOLIC PANEL (fasting) SODIUM [MOLES/VOLU ME] IN SERUM OR PLASMA 138 mmol/L 135 - 145 12/11 Specimen Type: SERUM No comment entered. Ordering Provider: Li HUNTER Report Released Date/Time: October 16, 2023 08:23 AM Reporting Lab: [facility] [place] [facility] [address] [facility] [address] Performing Lab: [facility] [place] [facility] [address] [facility] [address] [facility] [place] [facility] BASIC METABOLIC PANEL (fasting) POTASSIUM [MOLES/VOLU ME] IN SERUM OR PLASMA 4.5 mmol/L 3.5 - 5.0 12/11 Specimen Type: SERUM No comment entered. Ordering Provider: Li HUNTER Report Released Date/Time: October 16, 2023 08:23 AM Reporting Lab: [facility] [place] [facility] [address] [facility] [address] Performing Lab: [facility] [place] [facility] [address] [facility] [address] [facility] [place] [facility] BASIC METABOLIC PANEL (fasting) CHLORIDE [MOLES/VOLU ME] IN SERUM OR PLASMA 101 mmol/L 100 - 110 12/11 Specimen Type: SERUM No comment entered. Ordering Provider: Li UHNTER Report Released Date/Time: October 16, 2023 08:23 AM Reporting Lab: [facility] [place] [facility] [address] [facility] [address] Performing Lab: [facility] [place] [facility] [address] [facility] [address] [facility] [place] [facility] BASIC METABOLIC PANEL (fasting) CARBON DIOXIDE, TOTAL [MOLES/VOLU ME] IN SERUM OR PLASMA 28 meq/L 20 - 30 12/11 Specimen Type: SERUM No comment entered. Ordering Provider: Li HUNTER Report Released Date/Time: October 16, 2023 08:23 AM Reporting Lab: [facility] [address] [address] Performing Lab: [facility] [address] [facility] [address] [facility] BASIC METABOLIC PANEL (fasting) CREATININE [MASS/VOLUM E] IN SERUM OR PLASMA 1.49 mg/dL 0.50 - 1.40 12/11 H Specimen Type: SERUM No comment entered. Ordering Provider: Li HUNTER Report Released Date/Time: October 16, 2023 08:23 AM Reporting Lab: [facility] [address] [address] Performing Lab: [facility] [address] [address] [facility] BASIC METABOLIC PANEL (fasting) GLOMERULAR FILTRATION RATE/1.73 SQ M.PREDICTED [VOLUME RATE/AREA] IN SERUM, PLASMA OR BLOOD BY CREATININE- BASED FORMULA (CKD-EPI 2020) 51 mL/min 60 12/11 L Specimen Type: SERUM No comment entered. Ordering Provider: Li HUNTER Report Released Date/Time: October 16, 2023 08:23 AM Reporting Lab: [facility] [address] [address] Performing Lab: [address] [address] [facility] CBC AND DIFF (AUTO) LEUKOCYTES [#/VOLUME] IN BLOOD BY AUTOMATED COUNT 8.68 10*3/u L 4.50 - 11.00 12/11 Specimen Type: BLOOD No comment entered. Ordering Provider: Li HUNTER Report Released Date/Time: October 16, 2023 08:23 AM Reporting Lab: [facility] [place] [facility] [address] [facility] [address] Performing Lab: [facility] [place] [facility] [address] [facility] [address] [facility] CBC AND DIFF (AUTO) ERYTHROCYTE S [#/VOLUME] IN BLOOD BY AUTOMATED COUNT 5.14 10*6/u L 4.23 - 5.66 12/11 Specimen Type: BLOOD No comment entered. Ordering Provider: Li HUNTER Report Released Date/Time: October 16, 2023 08:23 AM Reporting Lab: [facility] [place] [facility] [address] [facility] [address] Performing Lab: [facility] [place] [facility] [address] [facility] [address] [facility] [place] [facility] CBC AND DIFF (AUTO) HEMOGLOBIN [MASS/VOLUM E] IN BLOOD 16.1 g/dL 12.8 - 17 12/11 Specimen Type: BLOOD No comment entered. Ordering Provider: Li HUNTER Report Released Date/Time: October 16, 2023 08:23 AM Reporting Lab: [facility] [place] [facility] [address] [facility] [address] Performing Lab: [facility] [place] [facility] [address] [facility] [address] [facility] [place] [facility] CBC AND DIFF (AUTO) HEMATOCRIT [VOLUME FRACTION] OF BLOOD BY AUTOMATED COUNT 48.8 39.2 - 50.4 12/11 Specimen Type: BLOOD No comment entered. Ordering Provider: Li HUNTER Report Released Date/Time: October 16, 2023 08:23 AM Reporting Lab: [facility] [place] [facility] [address] [facility] [address] Performing Lab: [facility] [place] [facility] [address] [address] [facility] CBC AND DIFF (AUTO) MCV [ENTITIC VOLUME] BY AUTOMATED COUNT 94.9 fL 82 - 99 12/11 Specimen Type: BLOOD No comment entered. Ordering Provider: Li HUNTER Report Released Date/Time: October 16, 2023 08:23 AM Reporting Lab: [facility] [address] [facility] [address] Performing Lab: [facility] [place] [facility] [address] [address] [facility] CBC AND DIFF (AUTO) MCHC [MASS/VOLUM E] BY AUTOMATED COUNT 33.0 g/dL 30.8 - 35.1 12/11 Specimen Type: BLOOD No comment entered. Ordering Provider: Li HUNTER Report Released Date/Time: October 16, 2023 08:23 AM Reporting Lab: [facility] [place] [facility] [address] [facility] [address] Performing Lab: [facility] [place] [facility] [address] [facility] [address] [facility] [place] [facility] CBC AND DIFF (AUTO) PLATELETS [#/VOLUME] IN BLOOD BY AUTOMATED COUNT 249 10*3/u L 140 - 360 12/11 Specimen Type: BLOOD No comment entered. Ordering Provider: Li HUNTER Report Released Date/Time: October 16, 2023 08:23 AM Reporting Lab: [facility] [place] [facility] [address] [facility] [address] Performing Lab: [facility] [place] [facility] [address] [facility] [address] [facility] [place] [facility] CBC AND DIFF (AUTO) ERYTHROCYTE DISTRIBUTIO N WIDTH [RATIO] BY AUTOMATED COUNT 12.4 12.0 - 16.0 12/11 Specimen Type: BLOOD No comment entered. Ordering Provider: Li HUNTER Report Released Date/Time: October 16, 2023 08:23 AM Reporting Lab: [facility] [place] [facility] [address] [facility] [address] Performing Lab: [facility] [place] [facility] [address] [facility] [address] [facility] CBC AND DIFF (AUTO) MONOCYTES [#/VOLUME] IN BLOOD BY AUTOMATED COUNT 0.67 10*3/u L 0.30 - 1.10 12/11 Specimen Type: BLOOD No comment entered. Ordering Provider: Li HUNTER Report Released Date/Time: October 16, 2023 08:23 AM Reporting Lab: [facility] [address] [facility] [address] Performing Lab: [facility] [place] [facility] [address] [address] [facility] CBC AND DIFF (AUTO) MCH [ENTITIC MASS] BY AUTOMATED COUNT 31.3 pg 26.2 - 32.6 12/11 Specimen Type: BLOOD No comment entered. Ordering Provider: Li HUNTER Report Released Date/Time: October 16, 2023 08:23 AM Reporting Lab: [facility] [address] [facility] [address] Performing Lab: [facility] [place] [facility] [address] [facility] [address] [facility] CBC AND DIFF (AUTO) NEUTROPHILS /100 LEUKOCYTES IN BLOOD BY AUTOMATED COUNT 65.7 43.7 - 75.8 12/11 Specimen Type: BLOOD No comment entered. Ordering Provider: Li HUNTER Report Released Date/Time: October 16, 2023 08:23 AM Reporting Lab: [facility] [place] [facility] [address] [facility] [address] Performing Lab: [facility] [place] [address] [facility] [address] [facility] CBC AND DIFF (AUTO) LYMPHOCYTES /100 LEUKOCYTES IN BLOOD BY AUTOMATED COUNT 22.2 14.0 - 42.3 12/11 Specimen Type: BLOOD No comment entered. Ordering Provider: Li HUNTER Report Released Date/Time: October 16, 2023 08:23 AM Reporting Lab: [facility] [place] [facility] [address] [facility] [address] Performing Lab: [facility] [place] [facility] [address] [facility] [address] [facility] [place] CBC AND DIFF (AUTO) MONOCYTES/1 00 LEUKOCYTES IN BLOOD BY AUTOMATED COUNT 7.7 5.1 - 13.7 12/11 Specimen Type: BLOOD No comment entered. Ordering Provider: Li HUNTER Report Released Date/Time: October 16, 2023 08:23 AM Reporting Lab: [facility] [place] [facility] [address] [facility] [address] Performing Lab: [facility] [place] [facility] [address] [facility] [address] [facility] [place] [facility] CBC AND DIFF (AUTO) EOSINOPHILS /100 LEUKOCYTES IN BLOOD BY AUTOMATED COUNT 3.3 0.4 - 6.8 12/11 Specimen Type: BLOOD No comment entered. Ordering Provider: Li HUNTER Report Released Date/Time: October 16, 2023 08:23 AM Reporting Lab: [facility] [place] [facility] [address] [facility] [facility] [address] Performing Lab: [facility] [place] [facility] [address] [facility] [address] [facility] [place] [facility] CBC AND DIFF (AUTO) BASOPHILS/1 00 LEUKOCYTES IN BLOOD BY AUTOMATED COUNT 0.9 0.1 - 2.0 12/11 Specimen Type: BLOOD No comment entered. Ordering Provider: Li HUNTER Report Released Date/Time: October 16, 2023 08:23 AM Reporting Lab: [facility] [place] [facility] [address] [facility] [address] Performing Lab: [facility] [place] [facility] [address] [facility] [address] [facility] CBC AND DIFF (AUTO) NEUTROPHILS [#/VOLUME] IN BLOOD BY AUTOMATED COUNT 5.69 10*3/u L 2.20 - 7.60 12/11 Specimen Type: BLOOD No comment entered. Ordering Provider: Li HUNTER Report Released Date/Time: October 16, 2023 08:23 AM Reporting Lab: [facility] [place] [facility] [address] [address] Performing Lab: [facility] [place] [facility] [address] [facility] [address] [facility] CBC AND DIFF (AUTO) LYMPHOCYTES [#/VOLUME] IN BLOOD BY AUTOMATED COUNT 1.93 10*3/u L 1.00 - 3.20 12/11 Specimen Type: BLOOD No comment entered. Ordering Provider: Li HUNTER Report Released Date/Time: October 16, 2023 08:23 AM Reporting Lab: [facility] [place] [address] [address] Performing Lab: [facility] [place] [address] [address] [facility] CBC AND DIFF (AUTO) EOSINOPHILS [#/VOLUME] IN BLOOD BY AUTOMATED COUNT 0.29 10*3/u L 0.03 - 0.44 12/11 Specimen Type: BLOOD No comment entered. Ordering Provider: Li HUNTER Report Released Date/Time: October 16, 2023 08:23 AM Reporting Lab: [facility] [place] [facility] [address] [facility] [address] Performing Lab: [facility] [place] [facility] [address] [facility] [address] [facility] CBC AND DIFF (AUTO) BASOPHILS [#/VOLUME] IN BLOOD BY AUTOMATED COUNT 0.08 10*3/u L 0.01 - 0.13 12/11 Specimen Type: BLOOD No comment entered. Ordering Provider: Li HUNTER Report Released Date/Time: October 16, 2023 08:23 AM Reporting Lab: [facility] [place] [address] [address] Performing Lab[facility] [place] [facility] [address] [facility] [address] [place] [facility] [place] [facility] CBC AND DIFF (AUTO) IMMATURE GRANULOCYTE S/100 LEUKOCYTES IN BLOOD BY AUTOMATED COUNT 0.2 0.0 - 0.7 12/11 Specimen Type: BLOOD No comment entered. Ordering Provider: Li HUNTER Report Released Date/Time: October 16, 2023 08:23 AM Reporting Lab: [place] [facility] [place] [facility] [address] [facility] [address] Performing Lab: [place] [facility] [place] [facility] [address] [facility] [address] [facility] [place] [facility] CBC AND DIFF (AUTO) IMMATURE GRANULOCYTE S [#/VOLUME] IN BLOOD 0.02 10*3/u L 0.00 - 0.06 12/11 Specimen Type: BLOOD No comment entered. Ordering Provider: Li HUNTER Report Released Date/Time: October 16, 2023 08:23 AM Reporting Lab: [facility] [place] [facility] [address] [facility] [address] [facility] Lab: [facility] [address] [address] [facility] [place] [facility] CBC AND DIFF (AUTO) NRBC % 0.0 0.0 - 0.0 12/11 Specimen Type: BLOOD No comment entered. Ordering Provider: Li HUNTER Report Released Date/Time: October 16, 2023 08:23 AM Reporting Lab: [facility] [place] [facility] [address] [address] Performing Lab: [facility] [place] [address] [address] [place] [facility] [place] [facility] CBC AND DIFF (AUTO) NRBC, ABS 0.00 10*3/u L 0.00 - 0.00 12/11 Specimen Type: BLOOD No comment entered. Ordering Provider: Li HUNTER Report Released Date/Time: October 16, 2023 08:23 AM Reporting Lab: [facility] [address] [facility] [address] Performing Lab: [facility] [address] [facility] [address] [facility] VITAMIN D (25-OH) 25-HYDROXYV ITAMIN D3 [MASS/VOLUM E] IN SERUM OR PLASMA 29 ng/mL 20 - 50 12/11 Specimen Type: SERUM No comment entered. Ordering Provider: MARGIE KENDRICK Report Released Date/Time: Dec 13, 2023 02:50 PM Reporting Lab: [facility] [address] [facility] [address] Performing Lab: [facility] [place] [facility] [address] [facility] [address] [facility] URIC ACID URATE [MASS/VOLUM E] IN SERUM OR PLASMA 8.0 mg/dL 3.5 - 7.2 10/16 H Specimen Type: SERUM No comment entered. Ordering Provider: NEETA BOSE Report Released Date/Time: Aug 18, 2023 11:23 AM Reporting Lab: [facility] [place] [facility] [address] [facility] [address] Performing Lab: [facility] [place] [facility] [address] [facility] [address] [place] [facility] [place] [facility] Vital Signs Combined list of inpatient and outpatient Vital Signs from Department of Defense and Veterans Affairs, ranging from 12 months to all on record, depending upon the facility. Vital Sign Value Date Comments Source SYSTOLIC BLOOD PRESSURE 150 07/19/19 25 11:24:14 [facility] [place] [facility] DIASTOLIC BLOOD PRESSURE 96 025 11:24:14 [facility] [place] [facility] PULSE OXIMETRY 98 07/19/2024 11:24:14 [facility] WEIGHT 299 07/19/2024 11:24:14 [facility] BMI 41 kg/m2 07/19/2024 11:24:14 [facility] PAIN 0 07/19/2024 11:24:14 [facility] TEMPERATURE 98.6 07/19/2024 11:24:14 [facility] PULSE 100 07/19/2024 11:24:14 [facility] RESPIRATION 16 07/19/2024 11:24:14 [facility] SYSTOLIC BLOOD PRESSURE 148 05/30/20 24 11:08:58 [facility] DIASTOLIC BLOOD PRESSURE 96 024 11:08:58 [facility] PULSE OXIMETRY 94 05/30/2024 11:08:58 [facility] WEIGHT 310 05/30/2024 11:08:58 [facility] BMI 42 kg/m2 05/30/2024 11:08:58 [facility] PAIN 5 05/30/2024 11:08:58 [facility] TEMPERATURE 98.3 05/30/2024 11:08:58 [facility] PULSE 96 05/30/2024 11:08:58 [facility] RESPIRATION 16 05/30/2024 11:08:58 [facility] SYSTOLIC BLOOD PRESSURE 120 01/15/20 24 14:15:54 [facility] DIASTOLIC BLOOD PRESSURE 80 024 14:15:54 [facility] PULSE OXIMETRY 91 01/15/2024 14:15:54 [facility] WEIGHT 320 01/15/2024 14:15:54 [facility] BMI 43 kg/m2 01/15/2024 14:15:54 [facility] PAIN 0 01/15/2024 14:15:54 [facility] TEMPERATURE 97.8 01/15/2024 14:15:54 [facility] PULSE 80 01/15/2024 14:15:54 [facility] RESPIRATION 15 01/15/2024 14:15:54 [facility] SYSTOLIC BLOOD PRESSURE 116 12/12/19 24 13:05:08 [facility] DIASTOLIC BLOOD PRESSURE 70 024 13:05:08 [facility] PULSE OXIMETRY 95 12/12/2023 13:05:08 [facility] WEIGHT 316 12/12/2023 13:05:08 [facility] BMI 43 kg/m2 12/12/2023 13:05:08 [facility] PAIN 0 12/12/2023 13:05:08 [facility] TEMPERATURE 98.2 12/12/2023 13:05:08 [facility] PULSE 77 12/12/2023 13:05:08 [facility] RESPIRATION 16 12/12/2023 13:05:08 [facility] SYSTOLIC BLOOD PRESSURE 150 11/20/19 24 14:05:19 [facility] DIASTOLIC BLOOD PRESSURE 90 024 14:05:19 [facility] PULSE OXIMETRY 97 11/20/2023 14:05:19 [facility] WEIGHT 314 11/20/2023 14:05:19 [facility] BMI 43 kg/m2 11/20/2023 14:05:19 [facility] PAIN 8 11/20/2023 14:05:19 [facility] TEMPERATURE 98.1 11/20/2023 14:05:19 [facility] PULSE 70 11/20/2023 14:05:19 [facility] RESPIRATION 18 11/20/2023 14:05:19 [facility] Encounters Combined list of: 1) Encounters from Department of Veterans Affairs facilities going backup to the last 18 months, not all VA inpatient encounters are included; 2) Encounters from the Department of Defense facilities going backup to 280 months. Location Location Details Encounter Type Encounter Number Reason For Visit Attending Provider ADM Date DC Date Status Disposition Source [facility] Out[facility] Encounter [id number] 01/30 [facility] Outpatient [facility]counter [id number] 01/31 [facility] Outpatient [facility]counter [id number] 01/31 [facility] Out[facility]counter [id number] 02/02 [facility] Out[facility]counter [id number] 02/03 [facility] OFFICE O/P EST MOD 30-39 MIN [id number] Diagnos is: ICD-10- CM E11.8 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 EMMIE BOSE MMED JAWED 02/07 [facility] Out[facility] Encounter [id number] 02/08 [facility] Out[facility] Encounter [id number] 02/10 [facility] MANUAL THERAPY 1/> REGIONS [id number] Diagnos is: ICD-10- CM M54.59 Other low back pain HERMAN KINNEY RA 02/14 [facility] Out[facility] Encounter [id number] CORRINE EUBANKS 02/22 [facility] MANUAL THERAPY 1/> REGIONS [id number] Diagnos is: ICD-10- CM M54.2 Cervica lgia HERMAN KINNEY RA 02/28 [facility] OFF/OP EST MAY X REQ PHY/QHP [id number] Diagnos is: ICD-10- CM H61.23 Impacte d soni omalley M ELISSA H 02/28 [facility] Out[facility] Encounter [id number] 03/03 [facility] OFF/OP EST MAY X REQ PHY/QHP [id number] Diagnos is: ICD-10- CM Z71.89 Other specifi ed tariff counsel Vilma Nair 03/08 [facility] Out[facility]counter [id number] 03/14 [facility] Out[facility] Encounter [id number] 03/14 [facility]counter [id number] 03/17 [facility] Out[facility] Encounter [id number] 03/21 [facility] Out[facility]counter [id number] 03/27 [facility] Out[facility] Encounter [id number] 03/30 [facility] Out[facility]counter [id number] 03/30 [facility] Out[facility]counter [id number] 04/03 [facility] Out[facility]counter [id number] 04/06 [facility]counter [id number] 04/06 [facility]counter [id number] 04/10 [facility]counter [id number] 04/13 [facility]patient Encounter [id number] 04/18 [facility]counter [id number] 04/19 [facility] Encounter [id number] 04/20 [facility] Encounter [id number] 04/20 [facility] Out[facility] Encounter [id number] 05/03 [facility] OFFICE O/P EST LOW 20-29 MIN [id number] Diagnos is: ICD-10- CM L60.3 Nail dystrop hy MARCELO NOBLES D 05/09 [facility] MANUAL THERAPY 1/> REGIONS [id number] Diagnos is: ICD-10- CM M54.2 Cervica HERMAN Randall RA 05/12 [facility] Out[facility] Encounter [id number] 05/16 [facility] Out[facility] Encounter [id number] 05/17 [facility] Out[facility] Encounter [id number] 05/24 [facility] Out[facility] Encounter [id number] 05/26 [facility] Out[facility] Encounter [id number] 05/30 [facility] OFFICE O/P EST MOD 30-39 MIN [id number] Diagnos is: ICD-10- CM E11.8 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 AHMED,MOHA MMED JAWED 05/31 [facility] Out[facility] Encounter [id number] 06/20 [facility] Out[facility] Encounter [id number] 06/25 [facility] Out[facility] Encounter [id number] 07/08 [facility] Out[facility] Encounter [id number] 07/18 [facility] ESW [place] SYS NOS [id number] Diagnos is: ICD-10- CM M54.2 Cervica lgia HERMAN KINNEY RA 07/21 [facility] Out[facility] Encounter [id number] 07/29 [facility] Out[facility] Encounter [id number] 07/29 [facility] DEBRIDE NAIL 6 OR MORE [id number] Diagnos is: ICD-10- CM E11.43 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 ic (poly)n europat hy MARCELO NOBLES RLES D 08/08 [facility] Out[facility] Encounter [id number] 08/10 [facility] Out[facility] Encounter [id number] 08/14 [facility] Out[facility]counter [id number] 08/14 [facility] Out[facility]counter [id number] 08/15 [facility] Out[facility] Encounter [id number] 08/24 [facility] Out[facility]counter [id number] 08/29 [facility] MANUAL THERAPY 1/> REGIONS [id number] Diagnos is: ICD-10- CM M54.2 Cervica lgHERMAN Toussaint RA 08/31 [facility] OFFICE O/P EST MOD 30 MIN [id number] Diagnos is: ICD-10- CM M79.2 Neuralg ia and neuriti s, unspeci fiEMMIE Dang MMED JAWED 09/05 [facility] Encounter [id number] 09/07 [facility] Out[facility] Encounter [id number] 09/11 [facility] Out[facility]counter [id number] 09/17 [facility] Out[facility]counter [id number] 09/19 [facility] Out[facility] Encounter [id number] 09/24 [facility] Out[facility] Encounter [id number] 10/01 [facility] Out[facility]counter [id number] 10[facility]01 [facility] Out[facility] Encounter [id number] 10/03 [facility] Out[facility] Encounter [id number] 10/05 [facility] Out[facility] Encounter [id number] 10/08 [facility] Out[facility] Encounter [id number] 10/11 [facility] Out[facility] Encounter [id number] 10/14 [facility] Out[facility] Encounter [id number] 10/17 [facility] Out[facility]counter [id number] 10/29 [facility] Out[facility]counter [id number] 11/08 [facility] Out[facility] Encounter [id number] 11/15 [facility] OFFICE O/P EST LOW 20 MIN [id number] Diagnos is: ICD-10- CM E11.8 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 CHRIS HUNTER 11/19 [facility] Encounter [id number] 11/20 [facility] Out[facility]counter [id number] 11/26 [facility] Out[facility]counter [id number] 12/04 [facility] Out[facility] Encounter [id number] 12/06 [facility] MANUAL THERAPY 1/> REGIONS [id number] Diagnos is: ICD-10- CM M54.59 Other low back pain HERMAN KINNEY 12/06 [facility] Out[facility] Encounter [id number] 12/06 [facility] Out[facility] Encounter [id number] 12/07 [facility] Encounter [id number] 12/10 [facility] Out[facility] Encounter [id number] 12/10 [facility] Out[facility] Encounter [id number] 12/11 [facility] OFFICE O/P EST LOW 20 MIN [id number] Diagnos is: ICD-10- CM E11.8 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 CHRIS HUNTER 12/11 [facility] Encounter [id number] YEMI WORLEY 12/11 [facility] Out[facility] Encounter [id number] 12/11 [facility]counter [id number] 12/25 [facility] Out[facility] Encounter [id number] 12/26 [facility] OFFICE O/P EST LOW 20 MIN [id number] Diagnos is: ICD-10- CM E11.43 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 ic (poly)n europat hy MARCELO NOBLES RLANN D 12/27 [facility] Out[facility] Encounter [id number] YEMI WORLEY JENNIFER 12/31 [facility] Encounter [id number] 12/31 [facility] Out[facility] Encounter [id number] 01/01 [facility] OFFICE O/P EST LOW 20 MIN [id number] Diagnos is: ICD-10- CM I48.91 Unspeci fied atrial fibrill alicia CHRIS HUNTER 01/14 [facility] Encounter [id number] 01/18 [facility] Out[facility] Encounter [id number] 01/18 [facility] Out[facility]counter [id number] 02/03 [facility] Out[facility]counter [id number] 02/04 [facility] Out[facility] Encounter [id number] 02/05 [facility] Out[facility] Encounter [id number] [facility] Encounter [id number] 1.02/27 [facility] Out[facility]counter [id number] [facility] Encounter [id number] 1[facility]03/04 [facility] Out[facility] Encounter [id number] 1.03/25 [facility] Encounter [id number] 1.03/27 [facility] Out[facility]counter [id number] [facility] Out[facility] Encounter [id number] 1.04/01 [facility]counter [id number] 04/05 [facility] Out[facility] Encounter [id number] 1.04/05 [facility] Out[facility] Encounter [id number] 04/10 [facility]counter [id number] 04/11 [facility]counter [id number] 04/15 [facility] Encounter [id number] 05/03 [facility] Out[facility] Encounter [id number] [facility] Out[facility] Encounter [id number] 05/16 [facility]counter [id number] 05/16 [facility]counter [id number] 05/21 [facility] OFFICE O/P EST LOW 20 MIN [id number] Diagnos is: ICD-10- CM E11.43 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 ic (poly)n europat hy GIULIANO,MARCELO WISDOM D 05/21 [facility] OFFICE O/P EST LOW 20 MIN [id number] Diagnos is: ICD-10- CM N18.30 Chronic kidney disease , stage 3 unspeci CHRIS Jackson 05/30 [facility] DIABETIC CUSTOM MOLDED SHOE [id number] Diagnos is: ICD-10- CM I73.9 Periphe ral vascula r disease , unspeci fied GILBERT OBANDO 05/30 [facility] Out[facility] Encounter [id number] 06/13 [facility] Out[facility] Encounter [id number] [facility] Out[facility] Encounter [id number]/14 [facility] Out[facility] Encounter [id number] 06/24 [facility] Out[facility] Encounter [id number] [facility] Out[facility] Encounter [id number] [facility] Outpatient Encounter [id number] [facility] OFFICE O/P EST LOW 20 MIN [id number] Diagnos is: ICD-10- CM N18.30 Chronic kidney disease , stage 3 unspeci CHRIS Jackson 07/19 [facility] Out[facility] Encounter [id number] [facility] Social History Combined list of available smoking, tobacco, and other social history from Department of Defense and Veterans Affairs facilities. Social History Type Response Date Comment Sourc e Tobacco smoking status NHIS VA-TOBACCO NEVER USED 05/31/2023 [place] [facility] [place] [facility] History of tobacco use VA-TOBACCO NEVER USED 03/15/2022 [place] [facility] [place] [facility] History of tobacco use VA-TOBACCO NEVER USED 04/08/2021 [place] [facility] [place] [facility] History of tobacco use LIFETIME NON-USER OF TOBACCO 06/23/2012 [facility] History of tobacco use LIFETIME NON-USER OF TOBACCO 02/28/2008 [facility] History of tobacco use TOBACCO USE PT NEVER USED 04/10/2006 [facility] History of tobacco use TOBACCO USE PT USED BUT QUIT 12/11/2001 5 y/a [facility] Plan of Care List of future care activities from Department of Veterans Affairs facilities. Additional future care activities may be listed in the Assessment and Plan section. Date/Time Care Activity Care Activity Detail Facili ty 08/02/2024 AMBULATORY - MEDICINE AMBULATORY - MEDICI [facility] [place] [facility] 08/29/2024 AMBULATORY - MEDICINE AMBULATORY - MEDICI [facility] [place] [facility] 09/19/2024 AMBULATORY - MEDICINE AMBULATORY - MEDICI NE [place] [facility] [facility] 07/04/2024 Laboratory - Design Assistant ry Order MICROALBUMIN CREATININE RATIO PANEL URINE (RANDOM) SP [place] [facility] [place] [facility] 07/04/2024 Laboratory - Design Assistant ry Order DIGOXIN BLOOD (LAV-PLASMA) SP [place] [facility] [place] [facility] 07/04/2024 Laboratory - Design Assistant ry Order URINALYSIS URINE SP [facility] [place] [facility] 07/04/2024 Laboratory - Design Assistant ry Order HEMOGLOBIN A1C PANEL BLOOD (LA[facility]BLOOD) [facility] [place] [facility] 07/19/2024 Laboratory - Design Assistant ry Order BASIC METABOLIC PANEL (fasting) BLOOD (SST-SERUM) [facility] [place] [facility] 07/19/2024 Laboratory - Design Assistant ry Order LIPID PANEL FASTING BLOOD (SST-SERUM) [facility] [place] [facility] 07/19/2024 Laboratory - Design Assistant ry Order LIVER FUNCTION BLOOD (SST-SERUM) [facility] [place] [facility] 07/23/2024 Consult Order COMMUNITY CARE-N EPHROLOGY Cons Senior Linux Unix Engineer's Choice [place] [facility] [place] [facility] 08/28/2024 Laboratory - Design Assistant ry Order BASIC METABOLIC PANEL (fasting) BLOOD (SST-SERUM) [facility] [place] [facility] 08/28/2024 Laboratory - Design Assistant ry Order LIVER FUNCTION BLOOD (SST-SERUM) [facility]28[facility] Laboratory - Design Assistant ry Order LIPID PANEL FASTING BLOOD (SST-SERUM) [facility] Advance Directives List of completed, amended, or rescinded Advance Directives on record at Department of Veterans Affairs facilities. An actual copy of the Directive is not included. Date Advance Directive Provider Source 12/07/2023 ADVANCE DIRECTIVE RASHID VALENCIA [facility] 03/20/2014 ADVANCE DIRECTIVE DISCUSSION EDISON MORAN CB 06/16/2011 ADVANCE DIRECTIVE DISCUSSION BARRIE ISLAS [facility]
--- OUTSIDE RECORDS SUMMARY | 2024-08-01 14:10 | XMS_ITS ---
Author Name [facility] [place] [facility] [place] Address [address] [place] [address] Care Team Providers Care Foreclosure Specialist Name Role Phone CHRIS HUNTER Primary [...] Torres's Name Patient's Relationship to Policy Torres [facility] MEDICARE ADVANTAGE MCR ([facility] [place]) Jun 12, 2017 [id number] STELLA CABELLO PATIENT [facility] ([facility] [place] MEDICARE ADVANTAGE MCR ([facility] [place] Jan 05, 2024 DO NOT BILL [id number] STELLA CABELLO PATIENT [facility] ([facility] [place] MEDICARE ADVANTAGE MCR ([facility] [place] May 12, 2022 [id number] STELLA CABELLO PATIENT [facility] ([facility] [place] MEDICARE ADVANTAGE MCR ([facility] Aug 10, 2021 [id number] [phone] STELLA CABELLO PATIENT Selected Encounter This section includes the information on record at [place] for the Encounter. Date/Time Encounter Type Encounter Description Reason Provider Source Aug 08, 2023 03:00 PM DEBRIDE NAIL 6 OR MORE PODIATRY ICD-10-CM E11.43 Type 2 diabetes w diabetic autonomic (poly)neuropath y GIULIANOJORDIN Wesley Aixa Encounter Template Text not used by [place] Assessments - Encounter Diagnoses This section includes the primary and secondary diagnoses documented for the Encounter. Date/Time Primary/Secondary Diagnosis Diagnosis Name Provider Source Aug 08, 2023 03:33 PM PRIMARY Type 2 diabetes w diabetic autonomic (poly)neuropathy JENNI MEYER [place] [facility] [place] [facility] Aug 08, 2023 03:33 PM SECONDARY Nail dystrophy JENNI MEYER [place] [facility] [place] 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 Plan of Treatment: Future Appointments (+ 6 months) and Future Tests (+/- 45 days) The Plan of Treatment section includes future care activities for the patient from all [place] [facility]. This section includes future appointments and future [...] 16, 2023 06:00 AM AM[place]ULATORY [place]ICINE [place] [place] [facility] Sep 01, 2023 02:00 PM AM[place]ATORY [place]ICINE [place] [facility] Sep 06, 2023 02:00 PM AM[place]ATORY [place] [facility] Sep 08, 2023 11:00 AM [place] [facility] Nov 20, 2023 02:00 PM [place]ORY [place]ICINE [place] [facility] Dec 07, 2023 02:00 PM [place]INE [place] [facility] Dec 12, 2023 01:00 PM [place] [facility] Dec 18, 2023 08:00 AM [place] [facility] Dec 27, 2023 02:00 PM [place] [facility] Dec 28, 2023 01:00 PM [facility] Jan 15, 2024 02:00 PM AMBULATORY - MEDICINE [facility] Feb 06, 2024 02:15 PM [facility] Social History: Smoking Status (Most current) [...] 2023 03:30 PM VA-TOBACCO NEVER USED [facility] Tobacco Use History This section includes a history of the smoking, or tobacco-related health factors, that were collected on or before the date of the Encounter. The data comes from the [place] facility where the Encounter took place. Date/Time Smoking Status/Tobacco Use Comment F acility Mar 15, 2022 11:30 AM [facility] Apr 08, 2021 02:00 PM [facility] Advance Directives: All historical and current Section [...] Dec 07, 2023 ADVANCE DIRECTIVE RASHID [facility] Mar 20, 2014 ADVANCE DIRECTIVE DISCUSSION EDISON MORAN CB Jun 16, 2011 ADVANCE DIRECTIVE DISCUSSION BARRIE ISLAS [facility] Encounter Notes: All associated encounter notes This section contains the clinical notes associated to the Encounter. Date/Time Encounter Note(s) Provider Source Aug 08, 2023 03:13 PM PODIATRY NOTE: LOCAL TITLE: PODIATRY NOTE STANDARD TITLE: PODIATRY NOTE DATE OF NOTE: AUG 08, 2023@15:13 ENTRY DATE: AUG 08, 2023@15:13:11 AUTHOR: JORDIN MEYER COSIGNER: URGENCY: STATUS: COMPLETED Podiatry High Risk Foot Encounter [facility] provider: Jordin Meyer DPM Date: AUG 08, 2023 SHAKILA CABELLO MALE [phone] Dec Primary Care:BINU BOSE Subjective: 68-year-old type II morbidly obese diabetic male with painful peripheral neuropathy seen here in April with biphasic PT pulses 2+ leg ankle edema no open wounds or sores, received foot care and diabetic foot education returning today for follow-up. No reported incidents or admissions or surgeries since last visit, reports that he is going to see [facility] for an exam previously has been [...] G47.33 01/06/2022 BINU BOSE AF- Atrial Fibrillation ([facility] [id number] 04/08/2021 DONELL BLACK HTN - Hypertension ([facility] [id number]) I 04/08/2021 DONELL BLACK Long-term current use of anticoagul 04/08/2021 DONELL BLACK Peripheral neuropathic pain M79.2 04/08/2021 DONELL BLACK Peripheral vascular disease I73.9 04/08/2021 DONELL BLACK Cancer of the back, squamous cell C 04/08/2021 SHAHID SUNG Gout M10.9 04/08/2021 SHAHID SUNG Obesity ([facility] [id number]) E66.9 04/08/2021 SHAHID SUNG GERD - Gastro-Esophageal [...] lesions, nail dystrophy. Plan: -Interval exam -Aseptic reduction of nails left and right 1 through 5 without incident using sterile instrumentation which was reprocessed according to [facility] policy for RME -Continue with ammonium [...] as results of the physical exam and delivery consultant opinions and recommendations as sought. Alternatives [...] -The on this visit was given information [employer] service and encouraged to enroll if not already having done so. /[email or web address]/ JORDIN MEYER DPM PODIATRY ATTENDING Signed: 08/08/2023 15:33 JORDIN MEYER [place] [facility]
--- OUTSIDE RECORDS SUMMARY | 2024-08-01 14:10 | XMS_ITS | Encounter Summary ---
Author Name [facility] [place] [facility] [place] Address [address] [place] [address] Care Team Providers Care Client Success Specialist Name Role Phone CHRIS BILLINGSLEY Primary Care [...] Torres's Name Patient's Relationship to Policy [facility] ([facility]) MEDICARE ADVANTAGE MCR ([facility]) Jun 12, 2017 [id number] STELLA CABELLO PATIENT [facility] ([facility]) MEDICARE ADVANTAGE MCR ([facility]) Jan 05, 2024 DO NOT BILL [id number] STELLA CABELLO PATIENT [facility] ([facility]) MEDICARE ADVANTAGE MCR ([facility]) May 12, 2022 [id number] STELLA CABELLO PATIENT [facility] ([facility]) MEDICARE ADVANTAGE MCR ([facility]) Aug 10, 2021 [id number] STELLA CABELLO PATIENT Selected Encounter This section includes the information on record at [place] for the Encounter. Date/Time Encounter Type Encounter Description Reason Provider Source Nov 20, 2023 02:00 PM OFFICE O/P EST LOW 20 MIN PRIMARY CARE/MEDICINE ICD-10-CM E11.8 Type 2 diabetes mellitus with unspecified complications DALEGAUTAM NILDA Bladimir [facility] Encounter Template Text not used by [place] Assessments - Encounter Diagnoses This section includes the primary and secondary diagnoses documented for the Encounter. Date/Time Primary/Secondary Diagnosis Diagnosis Name Provider Source Nov 20, 2023 02:55 PM PRIMARY Type 2 diabetes mellitus with unspecified complications GAUTAM BILLINGSLEYYuliya Garrison [place] [facility] [place] [facility] Nov 20, 2023 02:55 PM SECONDARY Essential (primary) hypertension GAUTAM BILLINGSLEYYuliya [place]arrison [place] [facility] [place] [facility] Nov 20, 2023 02:55 PM SECONDARY Neuralgia and neuritis, unspecified GAUTAM BILLINGSLEYYuliya [place] [facility] [place] [facility] Nov 20, 2023 02:55 PM SECONDARY Peripheral vascular disease, unspecified GAUTAM BILLINGSLEYYuliya [place] [facility] [place] [facility] Nov 20, 2023 02:55 PM SECONDARY Unspecified atrial fibrillation GAUTAM BILLINGSLEYYuliya [place] [facility] [place] [facility] Nov 20, 2023 02:55 PM SECONDARY Venous insufficiency (chronic) (peripheral) GAUTAM BILLINGSLEY NILDA [place] [facility] [place] [facility] Plan of Treatment: Future Appointments (+ 6 months) and Future Tests (+/- 45 days) The Plan of Treatment section includes future care activities for the patient from all [place] treatmentfacilities. This section includes future appointments and [...] 07, 2023 02:00 PM AMBULATORY - MEDICINE [place] [facility] [place] [facility] Dec 12, 2023 01:00 PM AMBULATORY - MEDICINE [place] [facility] [place] [facility] Dec 18, 2023 08:00 AM AMBULATORY - MEDICINE [place] [facility] [place] [facility] Dec 27, 2023 02:00 PM AMBULATORY - MEDICINE [place] [facility] [place] [facility] Dec 28, 2023 01:00 PM AMBULATORY - MEDICINE [place] [facility] [place] [facility] Jan 15, 2024 02:00 PM AMBULATORY - MEDICINE [place] [facility] [place] [facility] Feb 06, 2024 02:15 PM AMBULATORY - MEDICINE [place] [facility] [place] [facility] Feb 29, 2024 08:00 AM AMBULATORY - MEDICINE [place] [facility] [place] [facility] May 21, 2024 02:00 PM AMBULATORY - [facility] Lab Results: +/- 30 days of the encounter This section includes the Chemistry and Hematology Lab Results on record with [place] for the patient. Radiology Reports and Pathology Reports are provided separately, in subsequent sections. Lab Results This section contains the Chemistry/Hematology Results that were resulted 30 days before or 30 daysafter the date of the Encounter. Date/Time Source Result Type Result - Unit Interpretation Reference Range Comment Dec 12, 2023 01:45 PM [facility] URIC ACID Specimen Type: SERUM No comment entered. Ordering Provider: JEFF BILLINGSLEY F Report Released Date/Time: October 16, 2023 08:23 AM Reporting Lab: [facility] [address] [address] Performing Lab: [facility] [address] [address] URIC ACID 8.5 mg/dL H 3.5-7.2 Dec 12, 2023 01:45 PM [facility] DIGOXIN Specimen Type: PLASMA No comment entered. Ordering Provider: JEFF BILLINGSLEY F Report Released Date/Time: October 16, 2023 08:23 AM Reporting Lab: [facility] [address] [address] Performing Lab: [facility] [address] [address] DIGOXIN 0.74 ng/mL L 0.8-2.0 Dec 12, 2023 01:45 PM [facility] LIPID PANEL FASTING Specimen Type: SERUM No comment entered. Ordering Provider: JEFF BILLINGSLEY F Report Released Date/Time: October 16, 2023 08:23 AM Reporting Lab: [facility] [address] [address] Performing Lab: [facility] [address] [address] CHOLESTEROL 153 mg/dL TRIGLYCERIDE 189 mg/dL H 0-150 LDL calculated 77 mg/dL 0-129 CHOL/HDL 4.0 HDL CHOLESTEROL 38 mg/dL L 40-60 Dec 12, 2023 01:45 PM [facility] MICROALBUMIN CREATININE RATIO PANEL Specimen Type: URINE No comment entered. Ordering Provider: JEFF BILLINGSLEY F Report Released Date/Time: October 16, 2023 08:23 AM Reporting Lab: [facility] [address] [address] Performing Lab: [address] [address] MICROALBUMIN/C REATININE RATIO canc mg/g 0-29.9 MICROALBUMIN,Q UANTITATIVE < 0.5 mg/dL RR UNAVAIL CREATININE URINE 29.59 mg/dL Dec 12, 2023 01:45 PM [facility] HEMOGLOBIN A1C PANEL Specimen Type: BLOOD Comment: Values obtained from A1C measurements can vary. For atypical A1C assays, a reported value of 7.0 could actually be between 6.72 and 7.28 if measured by a reference method. A reported value of 9.0 could actually be between 8.73 and 9.27. Ref: http://www.ngs p.org/CAPdata. asp Ordering Provider: JEFF BILLINGSLEY F Report Released Date/Time: October 16, 2023 08:23 AM Reporting Lab: [facility] [address] [address] Performing Lab: [address] [address] HEMOGLOBIN A1C 6.3 H 4.0-5.6 Dec 12, 2023 01:45 PM [facility] LIVER FUNCTION Specimen Type: SERUM No comment entered. Ordering Provider: JEFF BILLINGSLEY F Report Released Date/Time: October 16, 2023 08:23 AM Reporting Lab: [facility] [address] [address] Performing Lab: [address] [address] PROTEIN,TOTAL 7.3 g/dL 6.0-8.3 ALBUMIN 3.6 g/dL 3.5-5.0 ALKALINE PHOSPHATASE 58 U/L 40-150 AST 16 U/L 5-34 ALT 19 U/L BILIRUBIN, TOTAL 0.5 mg/dL 0.2-1.2 Dec 12, 2023 01:45 PM [facility] BASIC METABOLIC PANEL (fasting) Specimen Type: SERUM No comment entered. Ordering Provider: JEFF BILLINGSLEYM F Report Released Date/Time: October 16, 2023 08:23 AM Reporting Lab: [address] [address] Performing Lab: [address] [address] UREA NITROGEN 32 mg/dL H 7-25 GLUCOSE 103 mg/dL H 65-100 SODIUM 138 mmol/L 135-145 POTASSIUM 4.5 mmol/L 3.5-5.0 CHLORIDE 101 mmol/L 100-110 CO2 28 meq/L 20-30 CREATININE, Serum 1.49 mg/dL H 0.50-1.40 eGFR(CKD-EPI 2020) 51 mL/min L >60 Dec 12, 2023 01:45 PM [facility] CBC AND DIFF (AUTO) Specimen Type: BLOOD No comment entered. Ordering Provider: JEFF BILLINGSLEY F Report Released Date/Time: October 16, 2023 08:23 AM Reporting Lab: [address] [address] Performing Lab: [address] [address] WBC 8.68 10*3/uL 4.50-11.00 RBC 5.14 10*6/uL [...] 10*3/uL 0.00-0.00 Dec 12, 2023 01:45 PM [facility] VITAMIN D (25-OH) Specimen Type: SERUM No comment entered. Ordering Provider: MARGIE KENDRICK Report Released Date/Time: Dec 13, 2023 02:50 PM Reporting Lab: [facility] [address] [address] Performing Lab: [address] [address] VITAMIN D (25-OH) 29 ng/mL 20-50 Vital Signs: All taken on the encounter date This section contains inpatient and outpatient Vital Signs collected on the date of the Encounter. Date/Time Temperature Pulse Blood Pressure Respiratory Rate SP02 Pain Height Weight Body Mass Index Source Nov 20, 2023 02:05 PM 98.1 70 150/90 18 97 8 [phone] 43 [employer] [employer] Social History: Smoking Status (Most current) and [...] 31, 2023 03:30 PM VA-TOBACCO NEVER USED [facility] Tobacco Use History This section includes a history of the smoking, or tobacco-related health factors, that were collected on or before the date of the Encounter. The data comes from the [place] facility where the Encounter took place. Date/Time Smoking Status/Tobacco Use Comment F acility Mar 15, 2022 11:30 AM [facility] Apr 08, 2021 02:00 PM VA-TOBACCO NEVER USED [facility] Advance Directives: All historical and current [...] Dec 07, 2023 ADVANCE DIRECTIVE [facility] Mar 20, 2014 ADVANCE DIRECTIVE DISCUSSION [facility] Jun 16, 2011 ADVANCE DIRECTIVE DISCUSSION [facility] Encounter Notes: All associated encounter notes This section contains the clinical notes associated to the Encounter. Date/Time Encounter Note(s) Provider Source Dec 01, 2023 03:46 PM ADDENDUM: LOCAL TITLE: Addendum STANDARD TITLE: ADDENDUM DATE OF NOTE: DEC 01, 2023@15:46:09 ENTRY DATE: DEC 01, 2023@15:46:11 AUTHOR: MARGIE KENDRICK COSIGNER: URGENCY: STATUS: COMPLETED Pt is coming in on 12/07/23 since he will be here for chiropractor exam. Could we please have him fill out a release of information for for [facility] to get optometry notes? /es/ MARGIE KENDRICK PHARMD,BCPS CLINICAL PHARMACY PRACTITIONER Signed: 12/01/2023 15:53 Receipt Acknowledged By: 12/04/2023 14:36 /es/ BRITTNEY CHACKO RN REGISTERED NURSE --- Original Document --- 11/20/23 PA NOTE: CC/HPI/A/P: 68 year old MALE here in follow-up for; htn, not at goal. Demands I check it a few more times when I broach this issue. Dm, 'they say I do and I don't on empaglofozin. obesity, graph weight loss I eat less, smaller portions, we (with his obese dog) pigged out when my significant other (4 years ago) asks for weight loss drugs. I order urine micro, which he will do next week. Review of systems: Patient reports no changes from [facility]ual [facility], in meds or any admissions. Active problems - Computerized Problem List is the source for the followin. Benign prostatic hyperplasia 2. Diabetic - poor control 3. Peripheral venous insufficiency 4. Obstructive sleep apnea 5. AF- Atrial Fibrillation ([facility] [id number]) 6. HTN - Hypertension ([facility] [id number]) 7. Long-term current use of anticoagulant 8. Peripheral neuropathic pain 9. Peripheral vascular disease 10. Cancer of the back, squamous cell multiple sites/ see notes in [facility] at [place] in [place] 11. Gout 12. Obesity ([facility] [id number]) 13. GERD - Gastro-Esophageal Reflux Disease ([facility] [id number]) SERVICE CONNECTED % - NONE FOUND VA [...] TABLET BY MOUTH TWICE ACTIVE DAILY 5) DIGOXIN 0.125MG TAB TAKE ONE TABLET BY MOUTH ONCE ACTIVE DAILY 6) DULOXETINE HCL 20MG EC CAP TAKE ONE CAPSULE BY MOUTH ACTIVE AT BEDTIME 7) EMPAGLIFLOZIN 25MG TAB TAKE ONE-HALF TABLET BY MOUTH ACTIVE ONCE DAILY 8) FINASTERIDE 5MG TAB TAKE ONE TABLET BY MOUTH ONCE ACTIVE DAILY 9) FOLIC ACID 1MG TAB TAKE ONE TABLET BY MOUTH ONCE ACTIVE DAILY VITAMIN/NUTRITION SUPPLEMENT 10) FUROSEMIDE 40MG TAB TAKE ONE TABLET BY MOUTH ONCE ACTIVE DAILY TO REMOVE FLUID/CONTROL BLOOD PRESSURE 11) GABAPENTIN 300MG CAP TAKE ONE CAPSULE BY MOUTH THREE ACTIVE TIMES A DAY 12) HYDRALAZINE HCL 50MG TAB TAKE ONE TABLET BY MOUTH ACTIVE TWICE DAILY FOR BLOOD PRESSURE 13) LIDOCAINE 5% PATCH APPLY 1 PATCH TOPICALLY AT BEDTIME ACTIVE (LEAVE PATCH ON FOR 12 HOURS, THEN REMOVE PATCH) 14) LOSARTAN 50MG TAB TAKE ONE TABLET BY MOUTH ONCE DAILY ACTIVE FOR BLOOD PRESSURE/HEART 15) MULTIVITAMIN/MINERALS CAP/TAB TAKE 1 TABLET BY MOUTH ACTIVE ONCE DAILY FOR VITAMIN SUPPLEMENTATION 16) PANTOPRAZOLE NA 40MG EC TAB TAKE ONE TABLET BY MOUTH ACTIVE EVERY MORNING 30 MINUTES BEFORE BREAKFAST 17) SPIRONOLACTONE 25MG TAB TAKE ONE TABLET BY MOUTH ONCE ACTIVE DAILY 18) TAMSULOSIN HCL 0.4MG CAP TAKE TWO CAPSULES BY MOUTH ACTIVE AT BEDTIME FOR ENLARGED PROSTATE 19) ZOLPIDEM TARTRATE 10MG TAB TAKE ONE TABLET BY MOUTH ACTIVE AT BEDTIME 98.1 F [36.7 C] (11/20/2023 14:05) 70 (11/20/2023 14:05) 18 (11/20/2023 14:05) 150/90 (11/20/2023 14:05) 8 (11/20/2023 14:05) 72 in [182.9 cm] (01/06/2023 13:34) 314 lb [142.43 kg] (11/20/2023 14:05) BMI: 42.7 Neuro: Alert and oriented times three, grossly nonfocal, nasolabial folds intact. Recent labs reviewed with patient today:yes He agrees to get outside eye exam and send. Please review for weight loss drugs in [place] (mild), obesity, htn. He agrees to labs (urine micro) next week adn will get outside eye exam done and sent to us. /julien/ Chris Billingsley PA-C STAFF PHYSICIAN TITLE SEARCHER Signed: 11/20/2023 14:55 Receipt Acknowledged By: 11/22/2023 14:33 /segundo KENDRICK PHARMD,[facility] CLINICAL PHARMACY PRACTITIONER 11/20/2023 ADDENDUM STATUS: COMPLETED He reports a recent vascular study of his lower extrems. The newest vascular in [place] is a note from May, Please obtain updated docs, enter CC consult as well. /julien/ Chris Billingsley PA-C STAFF PHYSICIAN TITLE SEARCHER Signed: 11/20/2023 14:56 Receipt Acknowledged By: 11/22/2023 09:29 /julien/ BRITTNEY CHACKO RN REGISTERED NURSE 11/22/2023 ADDENDUM STATUS: COMPLETED Requested Records /segundo CHACKO RN REGISTERED NURSE Signed: 11/22/2023 09:25 12/04/2023 ADDENDUM STATUS: COMPLETED Requested records. /julien/ BRITTNEY CHACKO RN REGISTERED NURSE Signed: 12/04/2023 14:37 MARGIE KENDRICK [place] [facility] [place] [facility] Nov 20, 2023 02:55 PM ADDENDUM: LOCAL TITLE: Addendum STANDARD TITLE: ADDENDUM DATE OF NOTE: NOV 20, 2023@14:55:37 ENTRY DATE: NOV 20, 2023@14:55:37 AUTHOR: CHRIS BILLINGSLEYIGNER: URGENCY: STATUS: COMPLETED He reports a recent vascular study of his lower extrems. The newest vascular in [place] is a note from May, Please obtain updated docs, enter CC consult as well. /segundo Billingsley PA-C STAFF PHYSICIAN TITLE SEARCHER Signed: 11/20/2023 14:56 Receipt Acknowledged By: 11/22/2023 09:29 /es/ BRITTNEY CHACKO, JULIA REGISTERED NURSE --- Original Document --- 11/20/23 LISBET NOTE: CC/HPI/A/P: 68 year old MALE here in follow-up for; htn, not at goal. Demands I check it a few more times when I broach this issue. Dm, 'they say I do and I don't on empaglofozin. obesity, graph weight loss I eat less, smaller portions, we (with his obese dog) pigged out when my significant other (4 years ago) asks for weight loss drugs. I order urine micro, which he will do next week. Review of systems: Patient reports no changes from [facility]ual [facility], in meds or any admissions. Active problems - Computerized Problem List is the source for the followin. Benign prostatic hyperplasia 2. Diabetic - poor control 3. Peripheral venous insufficiency 4. Obstructive sleep apnea 5. AF- Atrial Fibrillation ([facility] [id number]) 6. HTN - Hypertension ([facility] [id number]) 7. Long-term current use of anticoagulant 8. Peripheral neuropathic pain 9. Peripheral vascular disease 10. Cancer of the back, squamous cell multiple sites/ see notes in JLV at [place] in [place] 11. Gout 12. Obesity ([facility] [id number]) 13. GERD - Gastro-Esophageal Reflux Disease ([facility] [id number]) SERVICE CONNECTED % - NONE FOUND VA [...] TABLET BY MOUTH TWICE ACTIVE DAILY 5) DIGOXIN 0.125MG TAB TAKE ONE TABLET BY MOUTH ONCE ACTIVE DAILY 6) DULOXETINE HCL 20MG EC CAP TAKE ONE CAPSULE BY MOUTH ACTIVE AT BEDTIME 7) EMPAGLIFLOZIN 25MG TAB TAKE ONE-HALF TABLET BY MOUTH ACTIVE ONCE DAILY 8) FINASTERIDE 5MG TAB TAKE ONE TABLET BY MOUTH ONCE ACTIVE DAILY 9) FOLIC ACID 1MG TAB TAKE ONE TABLET BY MOUTH ONCE ACTIVE DAILY VITAMIN/NUTRITION SUPPLEMENT 10) FUROSEMIDE 40MG TAB TAKE ONE TABLET BY MOUTH ONCE ACTIVE DAILY TO REMOVE FLUID/CONTROL BLOOD PRESSURE 11) GABAPENTIN 300MG CAP TAKE ONE CAPSULE BY MOUTH THREE ACTIVE TIMES A DAY 12) HYDRALAZINE HCL 50MG TAB TAKE ONE TABLET BY MOUTH ACTIVE TWICE DAILY FOR BLOOD PRESSURE 13) LIDOCAINE 5% PATCH APPLY 1 PATCH TOPICALLY AT BEDTIME ACTIVE (LEAVE PATCH ON FOR 12 HOURS, THEN REMOVE PATCH) 14) LOSARTAN 50MG TAB TAKE ONE TABLET BY MOUTH ONCE DAILY ACTIVE FOR BLOOD PRESSURE/HEART 15) MULTIVITAMIN/MINERALS CAP/TAB TAKE 1 TABLET BY MOUTH ACTIVE ONCE DAILY FOR VITAMIN SUPPLEMENTATION 16) PANTOPRAZOLE NA 40MG EC TAB TAKE ONE TABLET BY MOUTH ACTIVE EVERY MORNING 30 MINUTES BEFORE BREAKFAST 17) SPIRONOLACTONE 25MG TAB TAKE ONE TABLET BY MOUTH ONCE ACTIVE DAILY 18) TAMSULOSIN HCL 0.4MG CAP TAKE TWO CAPSULES BY MOUTH ACTIVE AT BEDTIME FOR ENLARGED PROSTATE 19) ZOLPIDEM TARTRATE 10MG TAB TAKE ONE TABLET BY MOUTH ACTIVE AT BEDTIME 98.1 F [36.7 C] (11/20/2023 14:05) 70 (11/20/2023 14:05) 18 (11/20/2023 14:05) 150/90 (11/20/2023 14:05) 8 (11/20/2023 14:05) 72 in [182.9 cm] (01/06/2023 13:34) 314 lb [142.43 kg] (11/20/2023 14:05) BMI: 42.7 Neuro: Alert and oriented times three, grossly nonfocal, nasolabial folds intact. Recent labs reviewed with patient today:yes He agrees to get outside eye exam and send. Please review for weight loss drugs in [place] (mild), obesity, htn. He agrees to labs (urine micro) next week adn will get outside eye exam done and sent to us. /julien/ Chris Billingsley PA-C STAFF PHYSICIAN TITLE SEARCHER Signed: 11/20/2023 14:55 Receipt Acknowledged By: * AWAITING SIGNATURE * MARGIE KENDRICK 11/22/2023 ADDENDUM STATUS: COMPLETED Requested Records /julien/ BRITTNEY CHACKO, JULIA REGISTERED NURSE Signed: 11/22/2023 09:25 CH[facility] BILLINGSLEY [facility] Nov 20, 2023 02:51 PM ACCOUNTING OF DISCLOSURES NOTE: LOCAL TITLE: STATE PRESCRIPTION DRUG MONITORING PROGRAM STANDARD TITLE: ACCOUNTING OF DISCLOSURES NOTE DATE OF NOTE: NOV 20, 2023@14:51:19 ENTRY DATE: NOV 20, 2023@14:51:19 AUTHOR: CHRIS BILLINGSLEY EXP COSIGNER: URGENCY: STATUS: COMPLETED This PDMP query was submitted by Chris Billingsley. The clinical justification for this PDMP query is to review controlled substances prescribed outside of the [facility], and any additional information that may become available, as an important component of standard clinical care, and in accordance with [facility] policy. Patient information was shared with the PDMP [place]. No prescription(s) for controlled substances outside the [facility] were found in the last 90 days. /julien/ Chris Billingsley PA-C STAFF PHYSICIAN TITLE SEARCHER Signed: 11/20/2023 14:52 CHRIS BILLINGSLEY [facility] [place] [facility] Nov 20, 2023 02:47 PM PHYSICIAN TITLE SEARCHER NOTE: LOCAL TITLE: PA NOTE STANDARD TITLE: PHYSICIAN TITLE SEARCHER NOTE DATE OF NOTE: NOV 20, 2023@14:47 ENTRY DATE: NOV 20, 2023@14:47:27 AUTHOR: CHRIS BILLINGSLEY EXP COSIGNER: URGENCY: STATUS: COMPLETED PA NOTE Has ADDENDA CC/HPI/A/P: 68 year old MALE here in follow-up for; htn, not at goal. Demands I check it a few more times when I broach this issue. Dm, 'they say I do and I don't on empaglofozin. obesity, graph weight loss I eat less, smaller portions, we (with his obese dog) pigged out when my significant other (4 years ago) asks for weight loss drugs. I order urine micro, which he will do next week. Review of systems: Patient reports no changes from [facility], in meds or any admissions. Active problems - Computerized Problem List is the source for the followin. Benign prostatic hyperplasia 2. Diabetic - poor control 3. Peripheral venous insufficiency 4. Obstructive sleep apnea 5. AF- Atrial Fibrillation ([facility] [id number]) 6. HTN - Hypertension ([facility] [id number]) 7. Long-term current use of anticoagulant 8. Peripheral neuropathic pain 9. Peripheral vascular disease 10. Cancer of the back, squamous cell multiple sites/ see notes in [facility]LV at [place] 11. Gout 12. Obesity ([facility] [id number]) 13. GERD - Gastro-Esophageal Reflux Disease ([facility] [id number]) SERVICE CONNECTED % - NONE FOUND VA [...] TABLET BY MOUTH TWICE ACTIVE DAILY 5) DIGOXIN 0.125MG TAB TAKE ONE TABLET BY MOUTH ONCE ACTIVE DAILY 6) DULOXETINE HCL 20MG EC CAP TAKE ONE CAPSULE BY MOUTH ACTIVE AT BEDTIME 7) EMPAGLIFLOZIN 25MG TAB TAKE ONE-HALF TABLET BY MOUTH ACTIVE ONCE DAILY 8) FINASTERIDE 5MG TAB TAKE ONE TABLET BY MOUTH ONCE ACTIVE DAILY 9) FOLIC ACID 1MG TAB TAKE ONE TABLET BY MOUTH ONCE ACTIVE DAILY VITAMIN/NUTRITION SUPPLEMENT 10) FUROSEMIDE 40MG TAB TAKE ONE TABLET BY MOUTH ONCE ACTIVE DAILY TO REMOVE FLUID/CONTROL BLOOD PRESSURE 11) GABAPENTIN 300MG CAP TAKE ONE CAPSULE BY MOUTH THREE ACTIVE TIMES A DAY 12) HYDRALAZINE HCL 50MG TAB TAKE ONE TABLET BY MOUTH ACTIVE TWICE DAILY FOR BLOOD PRESSURE 13) LIDOCAINE 5% PATCH APPLY 1 PATCH TOPICALLY AT BEDTIME ACTIVE (LEAVE PATCH ON FOR 12 HOURS, THEN REMOVE PATCH) 14) LOSARTAN 50MG TAB TAKE ONE TABLET BY MOUTH ONCE DAILY ACTIVE FOR BLOOD PRESSURE/HEART 15) MULTIVITAMIN/MINERALS CAP/TAB TAKE 1 TABLET BY MOUTH ACTIVE ONCE DAILY FOR VITAMIN SUPPLEMENTATION 16) PANTOPRAZOLE NA 40MG EC TAB TAKE ONE TABLET BY MOUTH ACTIVE EVERY MORNING 30 MINUTES BEFORE BREAKFAST 17) SPIRONOLACTONE 25MG TAB TAKE ONE TABLET BY MOUTH ONCE ACTIVE DAILY 18) TAMSULOSIN HCL 0.4MG CAP TAKE TWO CAPSULES BY MOUTH ACTIVE AT BEDTIME FOR ENLARGED PROSTATE 19) ZOLPIDEM TARTRATE 10MG TAB TAKE ONE TABLET BY MOUTH ACTIVE AT BEDTIME 98.1 F [36.7 C] (11/20/2023 14:05) 70 (11/20/2023 14:05) 18 (11/20/2023 14:05) 150/90 (11/20/2023 14:05) 8 (11/20/2023 14:05) 72 in [182.9 cm] (01/06/2023 13:34) 314 lb [142.43 kg] (11/20/2023 14:05) BMI: 42.7 Neuro: Alert and oriented times three, grossly nonfocal, nasolabial folds intact. Recent labs reviewed with patient today:yes He agrees to get outside eye exam and send. Please review for weight loss drugs in [place] (mild), obesity, htn. He agrees to labs (urine micro) next week adn will get outside eye exam done and sent to us. /julien/ Chris Billingsley PA-C STAFF PHYSICIAN TITLE SEARCHER Signed: 11/20/2023 14:55 Receipt Acknowledged By: 11/22/2023 14:33 /julien/ MARGIE KENDRICK, PHARMD,BCPS CLINICAL PHARMACY PRACTITIONER 11/20/2023 ADDENDUM STATUS: COMPLETED He reports a recent vascular study of his lower extrems. [facility], Please obtain updated docs, enter CC consult as well. /julien/ Chris Billingsley PA-C STAFF PHYSICIAN TITLE SEARCHER Signed: 11/20/2023 14:56 Receipt Acknowledged By: 11/22/2023 09:29 /julien/ BRITTNEY CHACKO RN REGISTERED NURSE 11/22/2023 ADDENDUM STATUS: COMPLETED Requested Records /julien/ BRITTNEY CHACKO RN REGISTERED NURSE Signed: 11/22/2023 09:25 12/01/2023 ADDENDUM STATUS: COMPLETED Pt is coming in on 12/07/23 since he will be here for chiropractor exam. Could we please have him fill out a release of information for for [facility] to get optometry notes? /julien/ MARGIE KENDRICK, PHARMD,BCPS CLINICAL PHARMACY PRACTITIONER Signed: 12/01/2023 15:53 Receipt Acknowledged By: 12/04/2023 14:36 /julien/ BRITTNEY CHACKO RN REGISTERED NURSE 12/04/2023 ADDENDUM STATUS: COMPLETED Requested records. /julien/ BRITTNEY CHACKO RN REGISTERED NURSE Signed: 12/04/2023 14:37 CHRIS BILLINGSLEY CNTRL [facility]
--- OUTSIDE RECORDS SUMMARY | 2024-08-01 14:10 | XMS_ITS ---
Author Name [place] Address [address] [place] [address] Care Team Providers Care Lead Generation Representative Name Role Phone CHRIS BILLINGSLEY Primary Care [...] Torres's Name Patient's Relationship to Policy Torres [facility] ([facility]) MEDICARE ADVANTAGE MCR ([facility]) Jun 12, 2017 [id number] STELLA CABELLO PATIENT [facility] ([facility]) MEDICARE ADVANTAGE MCR ([facility]) Jan 05, 2024 DO NOT BILL [id number] STELLA CABELLO PATIENT [facility] ([facility]) MEDICARE ADVANTAGE MCR ([facility]) May 12, 2022 [id number] STELLA CABELLO PATIENT [facility] ([facility]) MEDICARE ADVANTAGE MCR ([facility]) Aug 10, 2021 [id number] STELLA CABELLO PATIENT Selected Encounter This section includes the information on record at [place] for the Encounter. Date/Time Encounter Type Encounter Description Reason Provider Source May 30, 2024 11:00 AM OFFICE O/P EST LOW 20 MIN PRIMARY CARE/MEDICINE ICD-10-CM N18.30 Chronic kidney disease, stage 3 unspecified JEFF BILLINGSLEYYuliya Garrison Aixa Encounter Template Text not used by [place] Assessments - Encounter Diagnoses This section includes the primary and secondary diagnoses documented for the Encounter. Date/Time Primary/Secondary Diagnosis Diagnosis Name Provider Source May 30, 2024 11:34 AM PRIMARY Chronic kidney disease, stage 3 unspecified GAUTAM BILLINGSLEY [place] [facility] [facility] [facility] May 30, 2024 11:34 AM SECONDARY Encounter for immunization PADDY SANDOVAL [place] [facility] [facility] [facility] May 30, 2024 11:34 AM SECONDARY Essential (primary) hypertension GAUTAM BILLINGSLEY [place] [facility] [facility] [facility] May 30, 2024 11:34 AM SECONDARY Obesity, unspecified GAUTAM BILLINGSLEY [place] [facility] [facility] [facility] May 30, 2024 11:34 AM SECONDARY Obstructive sleep apnea (adult) (pediatric) GAUTAM BILLINGSLEY [place] [facility] [facility] [facility] May 30, 2024 11:34 AM SECONDARY Type 2 diabetes mellitus with unspecified complications GAUTAM BILLINGSLEY Bladimir [place] [facility] [facility] [facility] Plan of Treatment: Future Appointments (+ 6 months) and Future Tests (+/- 45 days) The Plan of Treatment section includes future care activities for the patient from all [place] [facility]. This section includes future appointments and future orders which are active, pending or scheduled. Future Appointments This section includes appointments that were scheduled to occur 6 months from the date of the Encounter, up to a maximum of 20 appointments. The data comes from all [place] treatment facilities. Appointment Date/Time Appointment Type Appointme nt Facility Name Jun 03, 2024 01:00 PM AMBULATORY - MEDICINE [place] C [place] [facility] Jun 13, 2024 01:00 PM AMBULATORY - MEDICINE [place] C [place] [facility] Jul 19, 2024 11:30 AM AMBULATORY - MEDICINE [place] C [place] [facility] Aug 02, 2024 02:15 PM AMBULATORY - MEDICINE [place] C [place] [facility] Aug 29, 2024 01:00 PM AMBULATORY - MEDICINE [facility] Sep 19, 2024 01:30 PM AMBULATORY - MEDICINE [facility] Active, Pending, and Scheduled Orders This section includes a listing of several types of active, pending, and scheduled orders, including clinic medications orders, diagnostic test orders, procedure orders and consult orders; where the start date of the order is 45 days before the date of the Encounter or 45 days after the date of theEncounter. The data comes from all [place] treatment facilities. Test Date/Time Test Type Test Details Facility Name Jul 04, 2024 12:00 AM Laboratory - Chemistry Order DIGOXIN BLOOD (LAV-PLASMA) [facility] Jul 04, 2024 12:00 AM Laboratory - Chemistry Order MICROALBUMIN CREATININE RATIO PANEL URINE (RANDOM) [facility] Jul 04, 2024 12:00 AM Laboratory - Chemistry Order URINALYSIS URINE [facility] Jul 04, 2024 12:00 AM Laboratory - Chemistry Order HEMOGLOBIN A1C PANEL BLOOD (LAV-BLOOD) [facility] Vital Signs: All taken on the encounter date This section contains inpatient and outpatient Vital Signs collected on the date of the Encounter. Date/Time Temperature Pulse Blood Pressure Respiratory Rate SP02 Pain Height Weight Body Mass Index Source May 30, 2024 11:08 AM 98.3 96 148/96 16 94 5 310 42 [facility] Immunizations: All administered on the encounter date This section contains immunizations associated to the Encounter. Immunization Series Date Issued Reaction Comments COVID-19 (MODERNA), MRNA, LN P-S, PF, 50 MCG/0.5 ML (AGES 12+ YEARS) May 30, 2024 INFLUENZA, HIGH-DOSE, TRIVALENT, PF May 30 Social History: Smoking Status (Most current) and Tobacco Use (All prior to encounter date) This section includes the most current, and the historical, smoking and tobacco- related health factors from the [place] facility where the Encounter took place. Current Smoking Status This section includes the most current smoking, or tobacco-related health factor, from the [place] facility where the Encounter took place. Date/Time Current Smoking Status Comment Sebastian cordova May 31, 2023 03:30 PM VA-TOBACCO NEVER USED [facility] Tobacco Use History This section includes a history of the smoking, or tobacco-related health factors, that were collected on or before the date of the Encounter. The data comes from the [place] facility where the Encounter took place. Date/Time Smoking Status/Tobacco Use Comment F acility Mar 15, 2022 11:30 AM [place]TO[place]ACCO [facility] [place] [facility] Apr 08, 2021 02:00 PM VA-TOBACCO NEVER USED [facility] Advance Directives: All historical and current Section Date Range: From patient's date of to the date document was created. This section includes ALL of a patient's completed or amended [place] Advance and Rescinded Directives. The entries below indicate that a directive exists for the patient, but an actual copy is not included with this document. The data comes from all [place] facilities. Date Advance Directives Provider Source Dec 07, 2023 ADVANCE DIRECTIVE RASHID VALENCIA [facility] Mar 20, 2014 ADVANCE DIRECTIVE DISCUSSION EDISON MORAN [facility] Jun 16, 2011 ADVANCE DIRECTIVE DISCUSSION BARRIE ISLAS [facility] Encounter Notes: All associated encounter notes This section contains the clinical notes associated to the Encounter. Date/Time Encounter Note(s) Provider Source May 30, 2024 11:31 AM PHYSICIAN CLAMP REMOVER NOTE: LOCAL TITLE: PA NOTE STANDARD TITLE: PHYSICIAN CLAMP REMOVER NOTE DATE OF NOTE: MAY 30, 2024@11:31 ENTRY DATE: MAY 30, 2024@11:31:16 AUTHOR: CHRIS BILLINGSLEY COSIGNER: URGENCY: STATUS: COMPLETED CC/HPI/A/P: 69 year old MALE here in follow-up for; Htn, forgot his meds this am.. Bp check two weeks. His dog is in our lobby with his friend ishaan, cannot tolerate mask etc. to podiatry and lab today. obesity, declines move 'no will power'. Review of systems: Patient reports no changes from [facility], in meds or any admissions. Active problems - Computerized Problem List is the source for the followin. Chronic Kidney Disease Stage 3 (SCT [id number]) 2. Benign prostatic hyperplasia 3. Diabetic - poor control 4. Peripheral venous insufficiency 5. Obstructive sleep apnea 6. AF- Atrial Fibrillation ([facility] [id number]) 7. HTN - Hypertension ([facility] [id number]) 8. Long-term current use of anticoagulant 9. Peripheral neuropathic pain 10. Peripheral vascular disease 11. Cancer of the back, squamous cell multiple sites/ see notes in [place] 12. Gout 13. Obesity ([facility] [id number]) 14. GERD - Gastro-Esophageal Reflux Disease ([facility] [id number]) SERVICE CONNECTED % - NONE FOUND VA [...] AT ACTIVE BEDTIME Indication: FOR ENLARGED PROSTATE 19) ZOLPIDEM TARTRATE 10MG TAB TAKE ONE TABLET BY MOUTH AT ACTIVE (S) BEDTIME Indication: FOR SLEEP Active Non-VA Medications Status 1) Non-VA OTHER CAP/TAB GUMMIES FROM [place] BY MOUTH ACTIVE 20 Total Medications 98.3 F [36.8 C] (05/30/2024 11:08) 96 (05/30/2024 11:08) 16 (05/30/2024 11:08) 148/96 (05/30/2024 11:08) 5 (05/30/2024 11:08) 72 in [182.9 cm] (01/06/2023 13:34) 310 lb [140.61 kg] (05/30/2024 11:08) BMI: 42.1 Neuro: Alert and oriented times three, grossly nonfocal, nasolabial folds intact. Blue W/C: /julien/ Chris Billingsley PA-C STAFF PHYSICIAN CLAMP REMOVER Signed: 05/30/2024 11:34 CHRIS BILLINGSLEY [place] [facility] [facility] May 30, 2024 11:26 AM PREVENTIVE MEDICINE NURSING NOTE: LOCAL TITLE: CLINICAL REMINDERS/NURSING STANDARD TITLE: PREVENTIVE MEDICINE NURSING NOTE DATE OF NOTE: MAY 30, 2024@11:26 ENTRY DATE: MAY 30, 2024@11:27:02 AUTHOR: PADDY SANDOVAL EXP COSIGNER: URGENCY: STATUS: COMPLETED Influenza Immunization: Influenza, High-Dose, Trivalent, Preservative Free (Fluzone-Syringe) Administered: INFLUENZA, HIGH-DOSE, TRIVALENT, PF Date Administered: May 30, 2024 11:00 Series: Complete Corduroy Cutter Operator: SANOFI PASTEUR Lot: [id number] Exp Date: Dec 09, 2024 NDC: [id number] Admin Route/Site: INTRAMUSCULAR/RIGHT DELTOID Dosage: 0.5mL Vaccine Information Statement(s): INFLUENZA(FLU) VACC(INACTIVATED OR RECOMBINANT)VIS Jan 15, 2021 (UPPER SORBIAN) Order By: Policy Administered By: Paddy Sandoval The Influenza Vaccine Information Statement (VIS) was reviewed with the patient/caregiver which lists the benefits and risks of the vaccine and the risks of not receiving the Influenza vaccine. The patient/caregiver denied any prior severe reaction to this vaccine or its components or a severe allergic reaction, such as anaphylaxis, to any vaccine or any injectable therapy. The patient/caregiver gave verbal consent to receive the vaccine. COVID-19 Immunization: Moderna Monovalent (Spikevax) Administered: COVID-19 (MODERNA), MRNA, LNP-S, PF, 50 MCG/0.5 ML (AGES 12+ YEARS) Date Administered: May 30, 2024 11:00 Series: Complete Corduroy Cutter Operator: MODERNA Aquacue. Lot: [id number] Exp Date: November 09, 2024 NDC: [id number] Admin Route/Site: INTRAMUSCULAR/RIGHT DELTOID Dosage: 0.5mL Vaccine Information Statement(s): COVID-19 MRNA VACCINE (12+ YRS) VIS Mar 28, 2024 (UPPER SORBIAN) Order By: Policy Administered By: Paddy Sandoval Vaccine administered without complications. /julien/ PADDY SANDOVAL LPN License Practical Nurse Signed: 05/30/2024 11:28 [facility]ADD[facility]
--- OUTSIDE RECORDS SUMMARY | 2024-08-01 14:10 | XMS_ITS ---
Author Name [place] Address [address] [place] [address] Care Team Providers Care Senior Financial Consultant Name Role Phone CHRIS HUNTER Primary Care [...] Torres's Name Patient's Relationship to Policy Torres [facility] ([facility]) MEDICARE ADVANTAGE MCR ([facility]) Jun 12, 2017 [id number] 66 STELLA CABELLO PATIENT [facility] ([facility]) MEDICARE ADVANTAGE MCR ([facility]) Jan 05, 2024 DO NOT BILL [id number] STELLA CABELLO PATIENT [facility] ([facility]) MEDICARE ADVANTAGE MCR ([facility]) May 12, 2022 [id number] STELLA CABELLO PATIENT [facility] ([facility]) MEDICARE ADVANTAGE MCR ([facility]) Aug 10, 2021 [id number] STELLA CABELLO PATIENT Selected Encounter This section includes the information on record at [place] for the Encounter. Date/Time Encounter Type Encounter Description Reason Pro vider Source Feb 04, 2024 02:54 PM Outpatient Encounter ADMIN PAT ACTIVTIES (MASNONCT) IHE Encounter Template Text not used by [place] Plan of Treatment: Future Appointments (+ 6 months) and Future Tests (+/- 45 days) The Plan of Treatment section includes future care activities for the patient from all [place] [facility]. This section includes future appointments and future orders which are active, pending or scheduled. Future Appointments This section includes appointments that were scheduled to occur 6 months from the date of the Encounter, up to a maximum of 20 appointments. The data comes from all [place] treatment facilities. Appointment Date/Time Appointment Type Appointme nt Facility Name Feb 06, 2024 02:15 PM AMBULATORY - [place]ICINE [place] [facility] Feb 29, 2024 08:00 AM AMBULATORY - MEDICINE [place] [facility] May 21, 2024 02:00 PM AMBULATORY - MEDICINE [place] [facility] May 30, 2024 11:00 AM AMBULATORY - MEDICINE [place] [facility] May 30, 2024 11:45 AM AMBULATORY - MEDICINE [place] [facility] Jun 03, 2024 01:00 PM AMBULATORY - MEDICINE [place] [facility] Jun 13, 2024 01:00 PM AMBULATORY - MEDICINE [place] [facility] Jul 19, 2024 11:30 AM AMBULATORY - MEDICINE [place] [facility] Aug 02, 2024 02:15 PM AMBULATORY - MEDICINE [facility] NTRL [place] [place] [facility] Social History: Smoking Status (Most current) and Tobacco Use (All prior to encounter date) This section includes the most current, and the historical, smoking and tobacco- related health factors from the [place] facility where the Encounter took place. Current Smoking Status This section includes the most current smoking, or tobacco-related health factor, from the [place] facility where the Encounter took place. Date/Time Current Smoking Status Comment Sebastian cordova May 31, 2023 03:30 PM [place]-TOBACCO NEVER USED [facility] [place] [facility] Tobacco Use History This section includes a history of the smoking, or tobacco-related health factors, that were collected on or before the date of the Encounter. The data comes from the [place] facility where the Encounter took place. Date/Time Smoking Status/Tobacco Use Comment F acility Mar 15, 2022 11:30 AM VA-TOBACCO NEVER USED [facility] Apr 08, 2021 02:00 PM VA-TOBACCO NEVER USED [facility] Advance Directives: All historical and current Section Date Range: From patient's date of to the date document was created. This section includes ALL of a patient's completed or amended [place] Advance and Rescinded Directives. The entries below indicate that a directive exists for the patient, but an actual copy is not included with this document. The data comes from all [place] facilities. Date Advance Directives Provider Source Dec 07, 2023 ADVANCE DIRECTIVE RASHID [facility]IA [facility] Mar 20, 2014 ADVANCE DIRECTIVE DISCUSSION EDISON MORAN [facility] Jun 16, 2011 ADVANCE DIRECTIVE DISCUSSION BARRIE ISLAS [facility] Encounter Notes: All associated encounter notes This section contains the clinical notes associated to the Encounter. Date/Time Encounter Note(s) Provider Source Feb 04, 2024 02:54 PM PHARMACY NOTE: LOCAL TITLE: PHARMACY CUSTOMER CARE MEDICATION RENEWAL STANDARD TITLE: PHARMACY NOTE DATE OF NOTE: FEB 04, 2024@14:54 ENTRY DATE: FEB 04, 2024@14:54:12 AUTHOR: BUFFY CABRERA I EXP COSIGNER: URGENCY: STATUS: COMPLETED Date: Jan Division: [facility] referred by Pharmacy Call Center for medication renewal: Non-controlled/maintenanc e medication Medications requested: [id number] AMMONIUM LACTATE 12% LOTION Defer to specialty clinic To be mailed . Please review and renew if appropriate. *This note was generated by [facility]/[place] Pharmacy Customer Care. If you have any questions or need assistance, do not contact this author. Please refer all questions to your local, on-site pharmacy departments. /julien/ Buffy Cbarera CPhT Stave Machine Tender, [place]/Pharmacy Customer Care Signed: 02/04/2024 14:54 Receipt Acknowledged By: 02/16/2024 16:48 /julien/ ABDIRASHID NOBLES DPM PODIATRY ATTENDING BUFFY CABRERA I [facility]
--- OUTSIDE RECORDS SUMMARY | 2024-08-01 14:11 | XMS_ITS | Encounter Summary ---
Author Name [place] Address [address] [place] [address] Care Team Providers Care Oyster Washer Name Role Phone TORIBIO BILLINGSLEY Primary Care [...] Torres's Name Patient's Relationship to Policy Torres [facility] ([facility]) MEDICARE ADVANTAGE MCR ([facility]) Jun 12, 2017 [id number] 65 STELLA CABELLO PATIENT [facility] ([facility]) MEDICARE ADVANTAGE MCR ([facility]) Jan 05, 2024 DO NOT BILL [id number] STELLA CABELLO PATIENT [facility] ([facility]) MEDICARE ADVANTAGE MCR ([facility]) May 12, 2022 [id number] [phone] 4 STELLA CABELLO PATIENT [facility] ([facility]) MEDICARE ADVANTAGE MCR ([facility]) Aug 10, 2021 [id number] STELLA CABELLO PATIENT Selected Encounter This section includes the information on record at [place] for the Encounter. Date/Time Encounter Type Encounter Description Reason Pro vider Source Jul 10, 2024 10:11 PM Outpatient Encounter ADMIN PAT ACTIVTIES (MASNONCT) I[facility] Encounter Template Text not used by [place] Plan of Treatment: Future Appointments (+ 6 months) and Future Tests (+/- 45 days) The Plan of Treatment section includes future care activities for the patient from all [place] [facility]. This section includes future appointments and future orders which are active, pending or scheduled. Future Appointments This section includes appointments that were scheduled to occur 6 months from the date of the Encounter, up to a maximum of 20 appointments. The data comes from all [facility]. Appointment Date/Time Appointment Type Appointme nt Facility Name Jul 19, 2024 11:30 AM [facility] Aug 02, 2024 02:15 PM AMBULATORY MEDICINE [facility] NTR WSTRN [facility] Aug 29, 2024 01:00 PM AMBULATORY - MEDICINE [facility] [place] Sep 19, 2024 01:30 PM AMBULATORY MEDICINE [facility] Active, Pending, and Scheduled Orders This section includes a listing of several types of active, pending, and scheduled orders, including clinic medications orders, diagnostic test orders, procedure orders and consult orders; where the start date of the order is 45 days before the date of the Encounter or 45 days after the date of theEncounter. The data comes from all [facility]. Test Date/Time Test Type Test Details Facility Name Jul 04, 2024 12:00 AM Laboratory - Chemistry Order DIGOXIN BLOOD (LAV-PLASMA) [facility] Jul 04, 2024 12:00 AM Laboratory - Chemistry Order MICROALBUMIN CREATININE RATIO PANEL URINE (RANDOM) [facility] Jul 04, 2024 12:00 AM Laboratory - Chemistry Order URINALYSIS URINE [facility] Jul 04, 2024 12:00 AM Laboratory - Chemistry Order HEMOGLOBIN A1C PANEL BLOOD (LAV-BLOOD) [facility] Jul 19, 2024 12:00 AM Laboratory - Chemistry Order BASIC METABOLIC PANEL (fasting) BLOOD (SST-SERUM) [facility] Jul 19, 2024 12:00 AM Laboratory - Chemistry Order LIVER FUNCTION BLOOD (SST-SERUM) [place] [facility] Jul 19, 2024 12:00 AM Laboratory - Chemistry Order LIPID PANEL FASTING BLOOD (SST-SERUM) [facility] Jul 23, 2024 02:37 PM Consult Order [facility] Cons Clinic Physician [facility]'s [facility] Social History: Smoking Status (Most current) and [...] 31, 2023 03:30 PM VA-TOBACCO NEVER USED [facility] Tobacco Use History This section includes a history of the smoking, or tobacco-related health factors, that were collected on or before the date of the Encounter. The data comes from the [place] facility where the Encounter took place. Date/Time Smoking Status/Tobacco Use Comment F acility Mar 15, 2022 11:30 AM VA-TOBACCO [facility] USED [facility] Apr 08, 2021 02:00 PM [place]-TOBACCO NEVER USED [facility] Advance Directives: All historical and current Section [...] Dec 07, 2023 ADVANCE DIRECTIVE RASHID VALENCIA [facility] Mar 20, 2014 ADVANCE DIRECTIVE DISCUSSION EDISON MORAN [facility] Jun 16, 2011 ADVANCE DIRECTIVE DISCUSSION BARRIE ISLAS [facility] Encounter Notes: All associated encounter notes This section contains the clinical notes associated to the Encounter. Date/Time Encounter Note(s) Provider Source Jul 10, 2024 10:11 PM PHARMACY NOTE: LOCAL TITLE: V1 PHARMACY CUSTOMER CARE MEDICATION RENEWAL STANDARD TITLE: PHARMACY NOTE DATE OF NOTE: JUL 10, 2024@22:11 ENTRY DATE: JUL 10, 2024@22:11:09 AUTHOR: WILIAM RAMIREZ COSIGNER: URGENCY: STATUS: COMPLETED Date: Jun Division: [facility] referred by Pharmacy Call Center for medication renewal: Controlled substance Medications requested: [id number] ZOLPIDEM TARTRATE 10MG TAB Defer to primary care provider To be mailed . Please review and renew if appropriate. *This note was generated by [facility]/[place] Pharmacy Customer Care. If you have any questions or need assistance, do not contact this author. Please refer all questions to your local, on-site pharmacy departments. /julien/ WILIAM RAMIREZ CPhT Press Set Up Person, [place]/Pharmacy Customer Care Signed: 07/10/2024 22:11 Receipt Acknowledged By: 07/11/2024 07:56 /julien/ Toribio Billingsley PA-C STAFF PHYSICIAN HEAD WRESTLING COACH 07/11/2024 08:04 /julien/ BRITTNEY CHACKO, JULIA REGISTERED NURSE WILIAM RAMIREZ [place] CNT[facility] W[facility]
--- OUTSIDE RECORDS SUMMARY | 2024-08-01 14:11 | XMS_ITS ---
Author Name [facility] [place] [facility] [place] Address [address] [place] [address] Care Team Providers Care Flat Drier Name Role Phone CHRIS HUNTER Primary Care [...] Relationship to Policy Torres [facility] ([facility]) MEDICARE ADVANTAGE MCR ([facility]) Jun 12, 2017 [id number] STELLA CABELLO PATIENT [facility] ([facility]) MEDICARE ADVANTAGE MCR ([facility]) Jan 05, 2024 DO NOT BILL [id number] STELLA CABELLO PATIENT [facility] ([facility]) MEDICARE ADVANTAGE MCR ([facility]) May 12, 2022 [id number] STELLA CABELLO PATIENT [facility] ([facility]) MEDICARE ADVANTAGE MCR ([facility]) Aug 10, 2021 [id number] STELLA CABELLO PATIENT Selected Encounter This section includes the information on record at [place] for the Encounter. Date/Time Encounter Type Encounter Description Reason Provider Source May 21, 2024 02:00 PM OFFICE O/P EST LOW 20 MIN PODIATRY ICD-10-CM E11.43 Type 2 diabetes w diabetic autonomic (poly)neuropath y JORDIN MEYER Aixa Encounter Template Text not used by [place] Assessments - Encounter Diagnoses This section includes the primary and secondary diagnoses documented for the Encounter. 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 This section includes future appointments and future orders which are active, pending or scheduled. Future Appointments This section includes appointments that were scheduled to occur 6 months from the date of the Encounter, up to a maximum of 20 appointments. The data comes from all [place] treatment facilities. Appointment Date/Time Appointment Type Appointme nt Facility Name May 30, 2024 11:00 AM AMBULATORY - MEDICINE [place] [facility] May 30, 2024 11:45 AM AMBULATORY - MEDICINE [facility] Jun 03, 2024 01:00 PM AMBULATORY - MEDICINE [facility] Jun 13, 2024 01:00 PM AMBULATORY - MEDICINE RI [facility] Jul 19, 2024 11:30 AM AMBULATORY - MEDICINE RI [facility] Aug 02, 2024 02:15 PM AMBULATORY - MEDICINE RI [facility] Aug 29, 2024 01:00 PM AMBULATORY - MEDICINE RI [facility] Sep 19, 2024 01:30 PM AMBULATORY - MEDICINE RI [facility] Active, Pending, and Scheduled Orders This section includes a listing of several types of active, pending, and scheduled orders, including clinic medications orders, diagnostic test orders, procedure orders and consult orders; where the start date of the order is 45 days before the date of the Encounter or 45 days after the date of theEncounter. The data comes from all [place] treatment facilities. Test Date/Time Test Type Test Details Facility Name Jul 04, 2024 12:00 AM Laboratory - Chemistry Order MICROALBUMIN CREATININE RATIO PANEL URINE (RANDOM) [facility] Jul 04, 2024 12:00 AM Laboratory - Chemistry Order DIGOXIN BLOOD (LAV-PLASMA) [facility] Jul 04, 2024 12:00 AM Laboratory - Chemistry Order URINALYSIS URINE [facility] Jul 04, 2024 12:00 AM Laboratory - Chemistry Order HEMOGLOBIN A1C PANEL BLOOD (LAV-BLOOD) [facility] Social History: Smoking Status (Most current) and Tobacco Use (All prior to encounter date) This section includes the most current, and the historical, smoking and tobacco- related health factors from the [place] facility where the Encounter took place. Current Smoking Status This section includes the most current smoking, or tobacco-related health factor, from the [place] facility where the Encounter took place. Date/Time Current Smoking Status Comment Facil ity May 31, 2023 03:30 [facility] Tobacco Use History This section includes a history of the smoking, or tobacco-related health factors, that were collected on or before the date of the Encounter. The data comes from the [place] facility where the Encounter took place. Date/Time Smoking Status/Tobacco Use Comment F acility Mar 15, 2022 11:30 AM [facility] Apr 08, 2021 02:00 PM [facility] Advance Directives: All historical and current Section Date Range: From patient's date of to the date document was created. This section includes ALL of a patient's completed or amended [place] Advance and Rescinded Directives. The entries below indicate that a directive exists for the patient, but an actual copy is not included with this document. The data comes from all [place] facilities. Date Advance Directives Provider Source Dec 07, 2023 ADVANCE DIRECTIVE RASHID VALENCIA [facility] Mar 20, 2014 ADVANCE DIRECTIVE DISCUSSION EDISON MORAN [facility] Jun 16, 2011 ADVANCE DIRECTIVE DISCUSSION ROSHANBARRIE [facility] Encounter Notes: All associated encounter notes This section contains the clinical notes associated to the Encounter. Date/Time Encounter Note(s) Provider Source May 28, 2024 04:07 PM NURSING OUTPATIENT NOTE: LOCAL TITLE: NURSING/SPECIALTY CLINIC NOTE STANDARD TITLE: NURSING OUTPATIENT NOTE DATE OF NOTE: MAY 28, 2024@16:07 ENTRY DATE: MAY 28, 2024@16:07:15 AUTHOR: CRISTINA OBANDO EXP COSIGNER: URGENCY: STATUS: COMPLETED informed that sneakers have arrived. Shoe fitting appointment made for 05/30/24. /julien/ CRISTINA OBANDO [facility] [employer] Signed: 05/28/2024 16:08 CRISTINA OBANDO [place] [facility] May 21, 2024 01:57 PM PODIATRY NOTE: LOCAL TITLE: PODIATRY NOTE STANDARD TITLE: PODIATRY NOTE DATE OF NOTE: MAY 21, 2024@13:57 ENTRY DATE: MAY 21, 2024@13:57:43 AUTHOR: JORDIN MEYER EXP COSIGNER: URGENCY: STATUS: COMPLETED Podiatry High Risk Foot Encounter [facility] provider: Jordin Meyer DP Date: May 21, 2024 SHAKILA CABELLO MALE [id number] Dec [birth year] Primary Care:BINU BOSE Subjective: 69-year-old type II morbidly obese diabetic male with painful peripheral neuropathy seen here in April with biphasic PT pulses 2+ leg ankle edema no open wounds or sores, received foot care and diabetic foot education returning today for follow-up. No reported incidents or admissions since last visit, but did have vein ablation on the right side [facility]. Unsure if this did much or not according to him. He still states he is able to walk approximately 100 [...] G47.33 01/06/2022 BINU BOSE AF- Atrial Fibrillation ([facility] [id number] 04/08/2021 DONELL BLACK HTN - Hypertension ([facility] [id number]) I 04/08/2021 DONELL BLACK Long-term current use of anticoagul 04/08/2021 DONELL BLACK Peripheral neuropathic pain M79.2 04/08/2021 DONELL BLACK Peripheral vascular disease I73.9 04/08/2021 DONELL BLACK Cancer of the back, squamous cell C 04/08/2021 SHAHID SUNG Gout M10.9 04/08/2021 SHAHID SUNG Obesity ([facility] [id number]) E66.9 04/08/2021 SHAHID SUNG GERD - Gastro-Esophageal [...] ankle or leg hair. Ortho: Unremarkable Integument: dystrophic nails 1 through 5 bilateral Xerosis cutis improved since using ammonium lactate Sensation diminished significantly in the forefoot unchanged from exam in April. No apparent motor component. Unable to perceive monofilament at 10 test sites. Normalizes may be at the ankle bilateral PAVE:2-mainly vascular and neuropathic issues but does [...] avoid between toes -Follow-up with private vascular providers -Consult for extra-depth footwear soft diabetic inserts-qualifies with neuropathy Return here in 4 months for nail [...] as results of the physical exam and service delivery consultant opinions and recommendations as sought. [...] -The on this visit was given information [employer] service and encouraged to enroll if not already having done so. /julien/ JORDIN MEYER DPM PODIATRY ATTENDING Signed: 05/21/2024 16:17 JORDIN MEYER [place] [facility]
== END 2024-08-01 13:37 | disposition home or self-care (01) ==
PROVIDERS: PCP Internal Medicine; Visit Provider Surgery Vascular Surgery
DX: I83.11 Varicose veins of right lower extremity with inflammation (principal); I89.0 Lymphedema, not elsewhere classified
CPT/HCPCS: 99214

== ENCOUNTER 2024-08-01 13:15 | Outpatient (REF) | payer OTHER, SELFPAY ==
[2024-08-01 14:30] LABS: MANUAL DIFF FLAG NO
--- OUTSIDE RECORDS SUMMARY | 2024-08-01 15:09 | XMS_ITS | Continuity of Care Document ---
Author Organization [facility] Address [address] [place] [address] Phone Care Team Providers Care Sas Developer Name Role Phone Ivan Haynes. D Pharm D, [place] Unavailab le Unavailable Procedures Procedure Date MTMS BY PHARM EST 15 MIN MTMS BY PHARM ADDL 15 MIN Void Ticket [facility] MED/CURRENT MED MERGE Hospital discharge day care Followup hospital care, brief 1 Followup hospital care, brief 1 Followup hospital care, brief 1 Initial hospital care, low E/M service NEC MTMS BY PHARM RESTAURANT MANAGING [employer]NER 15 MIN MTMS BY PHARM ADDL 15 MIN Void Ticket [facility] MED/CURRENT MED MERGE MTMS BY PHARM RESTAURANT MANAGING [employer]NER 15 MIN MTMS BY PHARM ADDL 15 [...] EST 15 MIN [facility], [address], [place], [place], [id number], [place] tel:[phone] Pharmacy Encounter for therapeutic drug level monitoringVoid Ticket 1 Ivan PharmMahad D Torrey . [address], [address], [place], [place], [id number], [place]. Hospital discharge day care [facility], [address], [place], [place], [id number], [place] tel:[phone] [facility] No Information 1 [facility]. [address] [place] [address], [id number], [place]. tel:[phone] Followup hospital care, brief [facility], [address], [place], [place], [id number], [place] tel:[phone] [facility] No Information 1 [facility]. [address] [place] [address], [id number], [place]. tel:[phone] Followup hospital care, brief [facility], [address], [place], [place], [id number], [place] tel:[phone] [facility] No Information 1 Sylharjit Hollis. [address] [place] [address], [id number], [place]. tel:[phone] Followup hospital care, brief [facility], [address], [place], [place], [id number], [place] tel:[phone] [facility] No Information 1 Don Shafer. [address] [place] [address], [id number], [place]. tel:[phone] Initial hospital care, low [facility], [address], [place], [place], [id number], [place] tel:[phone] [facility] No Information 1 Don Shafer. [address] [place] [address], [id number], [place]. tel:[phone] MTMS BY PHARM RESTAURANT MANAGING PARTNER 15 MIN [facility], [address], [place], [place], [id number], [place] tel:[phone] Pharmacy Encounter for therapeutic drug level monitoringVoid Ticket 1 [facility] Dharagauri . [address], [address], [place], [place], [id number], [place]. MTMS BY PHARM RESTAURANT MANAGING PARTNER 15 MIN [facility], [address], [place], [place], [id number], [place] tel:[phone] Pharmacy Encounter for therapeutic drug level monitoringVoid Ticket 0 [facility] . [address], [address] [facility] [address], [place], [place], [id number], [place]. Initial hospital care, low [facility], [address], [place], [place], [id number], [place] tel:[phone] [facility] No Information 0 Roshan Mcdonald. [address] [place] [address], [facility], . tel:[phone] SUBSEQUENT OBSERVATION CARE LOW [facility], [address], [place], [place], [id number], [place] tel:[phone] [facility] No Information Susan Pawel. [address] [place] [address], [facility], . tel:[phone] Initial observation care, low [facility], [address], [place], [place], [id number], [place] tel:[phone] [facility] No Information 5 Roshan Mcdonald. [address] [place] [address], [facility], . tel:[phone] Family History Family Member Type Diagnosis Age At Onset No Information Payers Payer name Insurance type Covered libertarian ID Authoriza tion(s) No Information Social History [...] 66 YO male who is discharged from [facility] on 12/30/2020 after admission for unconsciousness and [...] home med list and hospital discharge med rec:(i)Pitcairn 5-325mg unclear sig(ii)Calcium carbonate chewable - discontinued [...] 65 YO male who was admitted to [facility] from 07/24/2020 - 07/26/2020. The patient was admitted to this facility after recent hospital admission for duodenal peritoneal hemorrhage and meningitis. The patient left AMA from the [facility] on 07/26/2020. PMH: hx of PE, Afib, HTN, GERD, morbid obesity, basal cell carcinoma of the skin multiple excisional surgeriesMedication Profile The patient left AMA from the SNF and therefore there is not discharge medications list provided. The following medications are documented in home med list prior to the hospital admission. (i)Pitcairn 5-325 mg unclear sig(ii)Clotrimazole 1% topical cream [...] 65 YO male who is discharged from [facility] on 03/22/2020. The patient was admitted to this facility after recent hospital admission for altered mental status, likely 2/2 meth abuse. Patient's discharge medication reconciliation has been reviewed and following has been identified: PMH: Afib, HTN, PE, obesity, GERD1.AcetaminophenPer d/c med rec take Tylenol 325 mg 2 tabs PO q6h prn pain and Pitcairn 5-325mg PO q4h prn moderate pain. Maximum [...] compared with the SNF discharge med rec: (i)Pitcairn 5-325 mg unclear sig (home) vs Pitcairn 5-325 mg PO q4h prn moderate pain [...]
--- OUTSIDE RECORDS SUMMARY | 2024-08-01 15:10 | XMS_ITS | Continuity of Care Document ---
Author Name [facility] Organization [facility] Care Team Providers Care Rn Document Improvement Specialist Name Role Phone [facility] Unavailable Unavailable Problems Combined list of problems from Department of Defense and Veterans Affairs facilities. It does not include entries that were removed or entered in error. Problem Status Onset Date Problem Type Date of Resolution Comments Source Abscess Active Condition [facility] AF- Atrial Fibrillation (SCT 83908658) Active Condition [facility] Alcohol Dependence * (ICD-9-CM 303.90/303.91) Active Condition [facility] Back Pain, Low Active Condition [facility] Basal cell carcinoma of neck Active Condition [facility] Basal Cell Carcinoma of Skin, site unspecified (ICD-9-CM 173.91) Active Condition [facility] Benign prostatic hyperplasia Active Condition [facility] Cancer of the back, squamous cell Active Condition Apr 08, 2021 Entered By: SHAHID KEEN Comment: multiple sites/ [place] [facility] Chronic Kidney Disease Stage 3 (SCT 802316970) Active Condition [facility] Diabetic - poor control Active Condition [facility] Epidermal Cyst * (ICD-9-CM 706.2) Active Condition [facility] ETOH Active Condition Dec 11, 2001 Entered By: FLAQUITA AMAYA Comment: 12/11 - 6 beers a day, doesn't want to quit drinking [facility] Gastroesophageal Reflux Disease (SNOMED CT 805455293) Active Condition [facility] - Gastro-Esophageal Reflux Disease (SCT 486534777) Active Condition [facility] Gout Active Condition [facility] HTN - Hypertension (SCT 42725662) Active Condition [facility] Hypertension * (ICD-9-CM 401.9) Active Condition [facility] Long-term current use of anticoagulant Active Condition [facility] Lumbar radiculopathy Active Condition [facility] Male erectile disorder (ICD-9-CM 302.72/607.84) Active Condition [facility] Myofascial pain Active Condition [facility] Obesity (SCT 057354306) Active Condition [facility] Obstructive sleep apnea Active Condition [facility] Pain in limb (ICD-9-CM 729.5) Active Condition [facility] Peripheral neuropathic pain Active Condition [facility] Peripheral vascular disease Active Condition [facility] Peripheral venous insufficiency Active Condition [facility] Pulmonary embolism and infarction (ICD-9-CM 415.19) Active Condition [facility] Sexual Dysfunction NOS (ICD-9-CM 302.9/302.70) Active Condition [facility] Skin lesion (SNOMED CT 73425383) Active Condition [facility] Sprains and strains of sacroiliac region (ICD-9-CM 846.9) Active Condition [facility] Squamous cell carcinoma in situ of skin Active Condition [facility] Stiffness of joint, not elsewhere classified, involving pelvic region and thigh Active Condition [facility] Treatment Compliance Problem * (ICD-9-CM V62.6) Active Condition [facility] Counseling NEC (ICD-9-CM V65.9) Inactive Condition 04/16/2004 [facility] Diagnosis: ICD-10-CM N18.30 Chronic kidney disease, stage 3 unspecified Active Diagnosis [facility] Diagnosis: ICD-10-CM I73.9 Peripheral vascular disease, unspecified Active Diagnosis [facility] Diagnosis: ICD-10-CM E11.43 Type 2 diabetes w diabetic autonomic (poly)neuropathy Active Diagnosis [facility] Diagnosis: ICD-10-CM I48.91 Unspecified atrial fibrillation Active Diagnosis [facility] [place] [facility] Diagnosis: ICD-10-CM E11.8 Type 2 diabetes [...] counseling Active Diagnosis [facility] [place] [facility] Diagnosis: ICD-10-CM H61.23 Impacted cerumen, bilateral [facility] [place] [facility] Medications Combined list of outpatient medications [...] AND FEET DAILY TOPICA L ACTIVE 02/16/2025 [id number] 4 ANNA NOBLES 2023 240 [facility] AMMONIUM LACTATE 12% LOTION APPLY SMALL AMOUNT TOPICALL Y ONCE DAILY FOR DRY IRRITATE D SKIN APPLY TO SKIN LEGS AND FEET DAILY TOPICA L DISCONT INUED 02/13/2025 [id number] 4 ANNA NOBLES 2023 240 [facility] AMMONIUM LACTATE 12% LOTION APPLY SMALL AMOUNT TOPICALL Y ONCE DAILY FOR DRY IRRITATE D SKIN APPLY TO SKIN LEGS AND FEET DAILY TOPICA L DISCONT INUED 05/09/2024 [id number] 4 ANNA NOBLES 2022 240 [facility] APIXABAN 5MG TAB TAKE ONE TABLET BY MOUTH TWICE DAILY ORAL ACTIVE 01/15/2025 [id number] 4 CHRIS HUNTER 2023 180 [facility] APIXABAN 5MG TAB TAKE ONE TABLET BY MOUTH TWICE DAILY ORAL DISCONT INUED 09/06/2024 [id number] 4 [facility] 180 [facility] APIXABAN 5MG TAB TAKE ONE TABLET BY MOUTH TWICE DAILY ORAL DISCONT INUED 03/30/2024 [id number] 4 [facility] 180 [facility] CARVEDILOL 3.125MG TAB TAKE ONE TABLET BY MOUTH TWICE DAILY ORAL ACTIVE 12/27/2024 [id number] LISE CHIRINOS NESTOR 2023 60 [facility] CARVEDILOL 3.125MG TAB TAKE ONE TABLET BY MOUTH TWICE DAILY FOR HIGH BLOOD PRESSURE ORAL DISCONT INUED 12/27/2024 [id number] CHRIS HUNTER 2023 180 [facility] CARVEDILOL 6.25MG TAB TAKE ONE TABLET BY MOUTH TWICE DAILY ORAL DISCONT INUED (EDIT) 11/20/2024 [id number] 4 CHRIS HUNTER 2023 180 [facility] CARVEDILOL 6.25MG TAB TAKE ONE TABLET BY MOUTH TWICE DAILY ORAL DISCONT INUED 08/01/2024 [id number] 4 NIDIA BOSE JAWED 2023 180 [facility] DIGOXIN 125MCG TAB TAKE ONE TABLET BY MOUTH ONCE DAILY ORAL ACTIVE 11/20/2024 [id number] 4 CHRIS HUNTER 2023 90 [facility] DIGOXIN 125MCG TAB TAKE ONE TABLET BY MOUTH ONCE DAILY ORAL DISCONT INUED 07/18/2024 [id number] 4 [facility] JAWED 2023 90 [facility] DULOXETINE HCL 20MG CAP,EC TAKE ONE CAPSULE BY MOUTH AT BEDTIME ORAL ACTIVE 09/06/2024 [id number] 4 [facility] JAWED 2023 90 [facility] EMPAGLIFLOZ IN 25MG TAB TAKE ONE-HALF TABLET BY MOUTH ONCE DAILY ORAL ACTIVE 09/06/2024 [id number] 4 [facility] J[facility] 2023 45 [facility] EMPAGLIFLOZ IN 25MG TAB TAKE ONE-HALF TABLET BY MOUTH ONCE DAILY ORAL DISCONT INUED 02/08/2024 [id number] 4 [facility] 2022 45 [facility] FINASTERIDE 5MG TAB TAKE ONE TABLET BY MOUTH ONCE DAILY ORAL ACTIVE 09/06/2024 [id number] 5 [facility] AMMED JAWED 2023 90 [facility] FINASTERIDE 5MG TAB TAKE ONE TABLET BY MOUTH ONCE DAILY ORAL DISCONT INUED 05/31/2024 [id number] 4 [facility] AMMED JAWED 2022 90 [facility] FOLIC ACID 1MG TAB TAKE ONE TABLET BY MOUTH ONCE DAILY VITAMIN/ NUTRITIO N SUPPLEME NT ORAL ACTIVE 09/06/2024 [id number] 5 [facility] AMMED JAWED 2023 90 [facility] FOLIC ACID 1MG TAB TAKE ONE TABLET BY MOUTH ONCE DAILY VITAMIN/ NUTRITIO N SUPPLEME NT ORAL DISCONT INUED 07/13/2023 [id number] 3 [facility] AMMED JAWED 2022 90 [facility] FUROSEMIDE 40MG TAB TAKE ONE TABLET BY MOUTH ONCE DAILY TO REMOVE FLUID/CO NTROL BLOOD PRESSURE ORAL ACTIVE 09/06/2024 [id number] [facility] GABAPENTIN 300MG CAP TAKE THREE CAPSULES BY MOUTH TWICE DAILY FOR NERVE PAIN ORAL ACTIVE 01/15/2025 [id number] 5 CHRIS HUNTER 2023 180 [facility] GABAPENTIN 300MG CAP TAKE ONE CAPSULE BY MOUTH THREE TIMES A DAY ORAL DISCONT INUED (EDIT) 02/08/2024 [id number] [facility] 270 [facility] HYDRALAZINE HCL 50MG TAB TAKE ONE TABLET BY MOUTH TWICE DAILY FOR BLOOD PRESSURE ORAL ACTIVE 01/15/2025 [id number] 4 CHRIS HUNTER 2023 180 [facility] HYDRALAZINE HCL 50MG TAB TAKE ONE TABLET BY MOUTH TWICE DAILY FOR BLOOD PRESSURE ORAL DISCONT INUED 09/06/2024 [id number] 4 [facility] HYDRALAZINE HCL 50MG TAB TAKE ONE TABLET BY MOUTH TWICE DAILY FOR BLOOD PRESSURE ORAL DISCONT INUED 03/30/2024 [id number] 4 [facility] CHALOMED JAWED 2022 180 [facility] LIDOCAINE 5% PATCH APPLY 1 PATCH TOPICALL Y AT BEDTIME (LEAVE PATCH ON FOR 12 HOURS, THEN REMOVE PATCH) TOPICA L ACTIVE 09/06/2024 [id number] 4 [facility] AMMED JAWED 2023 90 [facility] LOSARTAN 50MG TAB TAKE ONE TABLET BY MOUTH ONCE DAILY FOR BLOOD PRESSURE /HEART ORAL ACTIVE 09/06/2024 [id number] 4 [facility] AMMED JAWED 2023 90 [facility] LOSARTAN 50MG TAB TAKE ONE TABLET BY MOUTH ONCE DAILY FOR BLOOD PRESSURE /HEART ORAL DISCONT INUED 07/13/2023 [id number] 3 NIDIA BOSE [facility] JAWED 2022 90 [facility] MULTIVITAMI NS W/MINERALS CAP/TAB TAKE 1 TABLET BY MOUTH ONCE DAILY FOR VITAMIN SUPPLEME NTATION ORAL ACTIVE 01/15/2025 [id number] 4 CHRIS HUNTER 2023 100 [facility] MULTIVITAMI NS W/MINERALS CAP/TAB TAKE 1 TABLET BY MOUTH ONCE DAILY FOR VITAMIN SUPPLEME NTATION ORAL DISCONT INUED 09/06/2024 [id number] 4 NIDIA BOSE [facility] JAWED 2023 100 [facility] OTHER CAP/TAB TAKE GUMMIES FROM [place] BY MOUTH ORAL ACTIVE CHRIS HUNTER 2023 [facility] PANTOPRAZOL E NA 40MG TAB,EC TAKE ONE TABLET BY MOUTH EVERY MORNING 30 MINUTES BEFORE BREAKFAS T ORAL ACTIVE 01/15/2025 [id number] 4 CHRIS HUNTER 2023 90 [facility] PANTOPRAZOL E NA 40MG TAB,EC TAKE ONE TABLET BY MOUTH EVERY MORNING 30 MINUTES BEFORE BREAKFAS T ORAL DISCONT INUED 09/06/2024 [id number] 4 [facility] MEGHA JAWED 2023 90 [facility] PANTOPRAZOL E NA 40MG TAB,EC TAKE ONE TABLET BY MOUTH EVERY MORNING 30 MINUTES BEFORE BREAKFAS T ORAL DISCONT INUED 07/18/2024 [id number] 4 NIDIA BOSE [facility]AL[facility]ED JAWED 2023 90 [facility] ROPINIROLE HCL 2MG TAB TAKE ONE TABLET BY MOUTH AT BEDTIME TAKE 1-3 HOURS BEFORE BEDTIME ORAL ACTIVE 01/04/2025 [id number] Pam MORALES MD 2023 30 [facility] SPIRONOLACT ONE 25MG TAB TAKE ONE TABLET BY MOUTH ONCE DAILY ORAL ACTIVE 08/01/2024 [id number] 4 NIDIA BOSE JAWED 2023 90 [facility] TAMSULOSIN HCL 0.4MG CAP TAKE TWO CAPSULES BY MOUTH AT BEDTIME FOR ENLARGED PROSTATE ORAL ACTIVE 05/22/2025 [id number] 5 CHRIS HUNTER 2023 180 [facility] TAMSULOSIN HCL 0.4MG CAP TAKE TWO CAPSULES BY MOUTH AT BEDTIME FOR ENLARGED PROSTATE ORAL DISCONT INUED 10/16/2024 [id number] 4 CHRIS HUNTER 2023 180 [facility] TAMSULOSIN HCL 0.4MG CAP TAKE TWO CAPSULES BY MOUTH AT BEDTIME ORAL DISCONT INUED 05/31/2024 [id number] 4 NIDIA BOSE JAWED 2022 60 [facility] TERBINAFINE HCL 1% CREAM,TOP APPLY A THIN LAYER TOPICALL Y ONCE DAILY FOR ATHLETE' S FOOT TOPICA L ACTIVE 07/20/2025 [id number] CHRIS HUNTER 2024 60 [facility] ZOLPIDEM TARTRATE 10MG TAB TAKE ONE TABLET BY MOUTH AT BEDTIME FOR SLEEP ORAL ACTIVE 01/11/2025 [id number] 5 CHRIS HUNTER 2024 30 [facility] ZOLPIDEM TARTRATE 10MG TAB TAKE ONE TABLET BY MOUTH AT BEDTIME FOR SLEEP ORAL DISCONT INUED 06/08/2024 [id number] CHRIS HUNTER 2023 30 [facility] ZOLPIDEM TARTRATE 10MG TAB TAKE ONE TABLET BY MOUTH AT BEDTIME ORAL DISCONT INUED 02/15/2024 [id number] 4 NIDIA BOSE JAWED 2023 30 [facility] ZOLPIDEM TARTRATE 10MG TAB TAKE ONE TABLET BY MOUTH AT BEDTIME ORAL DISCONT INUED 10/20/2023 [id number] 4 CHRIS HUNTER 2022 30 [facility] Allergies, Adverse Reactions, Alerts Combined list of allergies from Department of Defense and Veterans Affairs facilities. It does not include entries that were removed or entered in error. Substance Category Reaction Severity Reaction type Status Date Reported Comments Source OXYCODONE Propensity to adverse reactions to drug (finding) Dizziness MODERATE active 07/18/2012 [facility] Immunizations Combined list of available immunizations from the Department of Defense and Veterans Affairs facilities. Immunization Series Date Given Administered By Site Reaction Lot Number CVX Code Drug Disability Attorney Status Comments Source RSV, BIVALENT, PROTEIN SUBUNIT RSVPREF, DILUENT RECONSTITUTED , 0.5 ML, PF 2024 ASAEL ISRAEL RIGHT DELTO ID [id number] 305 complet ed [facility] COVID-19 (MODERNA), MRNA, LNP-S, PF, 50 MCG/0.5 ML (AGES 12+ YEARS) 2023 PADDY SANDOVAL RIGHT DELTO ID [id number] 312 complet ed [facility] INFLUENZA, HIGH-DOSE, TRIVALENT, PF 2023 PADDY SANDOVAL RIGHT DELTO ID [id number] 135 complet ed [facility] COVID-19 (MODERNA), MRNA, LNP-S, PF, 50 MCG/0.5 ML (AGES 12+ YEARS) 5 2022 PADDY SANDOVAL LEFT DELTO ID [id number] 312 complet ed [facility] INFLUENZA, HIGH-DOSE, QUADRIVALENT 2022 NERY JEAN-BAPTISTE LEFT DELTO ID [id number] 197 complet ed [facility] PNEUMOCOCCAL CONJUGATE PCV20, POLYSACCHARID E [id number] CONJUGATE, ADJUVANT, PF 2022 MALIA LEGGETT I LEFT DELTO ID [id number] 216 complet ed [facility] COVID-19 (MODERNA), MRNA, LNP-S, BIVALENT BOOSTER, PF, 50 MCG/0.5 ML OR 25MCG/0.25 ML DOSE 1 2022 NERY JEAN-BAPTISTE LEFT DELTO ID [id number] 229 complet ed [facility] INFLUENZA VACCINE, QUADRIVALENT, ADJUVANTED 2021 205 complet ed [facility] ZOSTER RECOMBINANT 1 2021 187 complet ed [facility] COVID-19 (MODERNA), MRNA, LNP-S, PF, 100 MCG OR 50 MCG DOSE 3 2020 207 complet ed MOD; [id number]; 2 [facility] [...] TD(ADULT) UNSPECIFIED FORMULATION 2011 139 complet ed [facility] Results Combined list of recent chemistry, hematology and other laboratory results from Department of Defense and Veterans Affairs, ranging from 15 months to all on record, depending upon the facility. Order Name Results Value Reference Range Date Interpretation Specimen Comments Source BASIC METABOLIC PANEL (fasting) UREA NITROGEN [MASS/VOLUM E] IN SERUM OR PLASMA 32 mg/dL 7 - 25 12/11 H Specimen Type: SERUM No comment entered. Ordering Provider: Li HUNTER Report Released Date/Time: October 16, 2023 08:23 AM Reporting Lab: [facility] [place] [facility] [address] [facility] [address] Performing Lab: [facility] [place] [facility] [address] [address] [facility] BASIC METABOLIC PANEL (fasting) GLUCOSE [MASS/VOLUM E] IN SERUM OR PLASMA 103 mg/dL 65 - 100 12/11 H Specimen Type: SERUM No comment entered. Ordering Provider: Li HUNTER Report Released Date/Time: October 16, 2023 08:23 AM Reporting Lab: [facility] [place] [facility] [address] [address] Performing Lab: [facility] [address] [address] [facility] [place] [facility] BASIC METABOLIC PANEL (fasting) SODIUM [MOLES/VOLU ME] IN SERUM OR PLASMA 138 mmol/L 135 - 145 12/11 Specimen Type: SERUM No comment entered. Ordering Provider: Li HUNTER Report Released Date/Time: October 16, 2023 08:23 AM Reporting Lab: [facility] [place] [facility] [address] [address] Performing Lab: [facility] [place] [facility] [address] [facility] [address] [facility] [place] [facility] BASIC METABOLIC PANEL (fasting) POTASSIUM [MOLES/VOLU ME] IN SERUM OR PLASMA 4.5 mmol/L 3.5 - 5.0 12/11 Specimen Type: SERUM No comment entered. Ordering Provider: Li HUNTER Report Released Date/Time: October 16, 2023 08:23 AM Reporting Lab: [facility] [place] [facility] [address] [facility] [address] Performing Lab: [facility] [place] [facility] [address] [address] [facility] BASIC METABOLIC PANEL (fasting) CHLORIDE [MOLES/VOLU ME] IN SERUM OR PLASMA 101 mmol/L 100 - 110 12/11 Specimen Type: SERUM No comment entered. Ordering Provider: Li HUNTER Report Released Date/Time: October 16, 2023 08:23 AM Reporting Lab: [facility]TRN [facility]USE[address] [address] Performing Lab: [facility]N [facility]USE[facility] [address] [phone] [place], [place] [address] [facility] BASIC METABOLIC PANEL (fasting) CARBON DIOXIDE, TOTAL [MOLES/VOLU ME] IN SERUM OR PLASMA 28 meq/L 20 - 30 12/11 Specimen Type: SERUM No comment entered. Ordering Provider: Li HUNTER Report Released Date/Time: October 16, 2023 08:23 AM Reporting Lab: [facility]ITALR[facility]OM[facility] CENTERTRN [address]SE[address] [address] Performing Lab: [facility]ITALRTHOM[facility]ENTERTRN [facility]ITALUSE[address] [phone] [place], [place] [address]N [facility] BASIC METABOLIC PANEL (fasting) CREATININE [MASS/VOLUM E] IN SERUM OR PLASMA 1.49 mg/dL 0.50 - 1.40 12/11 H Specimen Type: SERUM No comment entered. Ordering Provider: Li HUNTER Report Released Date/Time: October 16, 2023 08:23 AM Reporting Lab: [facility]ITALRL W[facility]N [address] [address] Performing Lab: [facility]RL [facility] [address] [facility]ITALRNORTHPORT MEDICAL CENTERN [facility]PITALUSE [facility] BASIC METABOLIC PANEL (fasting) GLOMERULAR FILTRATION RATE/1.73 SQ M.PREDICTED [VOLUME RATE/AREA] IN SERUM, PLASMA OR BLOOD BY CREATININE- BASED FORMULA (CKD-EPI 2020) 51 mL/min 60 12/11 L Specimen Type: SERUM No comment entered. Ordering Provider: VANWAGNER,W ILLIAM F Report Released Date/Time: October 16, 2023 08:23 AM Reporting Lab: [facility] [place] [facility] [address] [address] Performing Lab: [facility] [place] [facility] [address] [facility] [address] [facility] [place] CBC AND DIFF (AUTO) LEUKOCYTES [#/VOLUME] IN BLOOD BY AUTOMATED COUNT 8.68 10*3/u L 4.50 - 11.00 12/11 Specimen Type: BLOOD No comment entered. Ordering Provider: Li HUNTER Report Released Date/Time: October 16, 2023 08:23 AM Reporting Lab: [facility] [place] [facility] [address] [address] Performing Lab: [facility] [place] [facility] [address] [facility] [address] [facility] CBC AND DIFF (AUTO) ERYTHROCYTE S [#/VOLUME] IN BLOOD BY AUTOMATED COUNT 5.14 10*6/u L 4.23 - 5.66 12/11 Specimen Type: BLOOD No comment entered. Ordering Provider: Li HUNTER Report Released Date/Time: October 16, 2023 08:23 AM Reporting Lab: [facility] [place] [facility] [address] [facility] [address] Performing Lab: [facility] [place] [facility] [address] [facility] [address] [facility] CBC AND DIFF (AUTO) HEMOGLOBIN [MASS/VOLUM E] IN BLOOD 16.1 g/dL 12.8 - 17 12/11 Specimen Type: BLOOD No comment entered. Ordering Provider: Li HUNTER Report Released Date/Time: October 16, 2023 08:23 AM Reporting Lab: [facility] [place] [facility] [address] [address] Performing Lab: [facility] [place] [facility] [address] [address] [facility] CBC AND DIFF (AUTO) HEMATOCRIT [VOLUME FRACTION] OF BLOOD BY AUTOMATED COUNT 48.8 39.2 - 50.4 12/11 Specimen Type: BLOOD No comment entered. Ordering Provider: Li HUNTER Report Released Date/Time: October 16, 2023 08:23 AM Reporting Lab: [facility] [place] [facility] [address] [address] Performing Lab: [facility] [place] [facility] [address] [address] [facility] [place] [facility] CBC AND DIFF (AUTO) MCV [ENTITIC VOLUME] BY AUTOMATED COUNT 94.9 fL 82 - 99 12/11 Specimen Type: BLOOD No comment entered. Ordering Provider: Li HUNTER Report Released Date/Time: October 16, 2023 08:23 AM Reporting Lab: [facility] [place] [facility] [address] [facility] [address] Performing Lab: [facility] [place] [facility] [address] [address] [facility] [place] [facility] CBC AND DIFF (AUTO) MCHC [MASS/VOLUM E] BY AUTOMATED COUNT 33.0 g/dL 30.8 - 35.1 12/11 Specimen Type: BLOOD No comment entered. Ordering Provider: Li HUNTER Report Released Date/Time: October 16, 2023 08:23 AM Reporting Lab: [facility] [place] [facility] [address] [facility] [address] Performing Lab: [facility] [place] [facility] [address] [address] [facility] [place] [facility] CBC AND DIFF (AUTO) PLATELETS [#/VOLUME] IN BLOOD BY AUTOMATED COUNT 249 10*3/u L 140 - 360 12/11 Specimen Type: BLOOD No comment entered. Ordering Provider: Li HUNTER Report Released Date/Time: October 16, 2023 08:23 AM Reporting Lab: [facility] [place] [facility] [address] [facility] [address] Performing Lab: [facility] [place] [facility] [address] [address] [facility] [place] [facility] CBC AND DIFF (AUTO) ERYTHROCYTE DISTRIBUTIO N WIDTH [RATIO] BY AUTOMATED COUNT 12.4 12.0 - 16.0 12/11 Specimen Type: BLOOD No comment entered. Ordering Provider: Li HUNTER Report Released Date/Time: October 16, 2023 08:23 AM Reporting Lab: [facility] [place] [facility] [address] [facility] [address] Performing Lab: [facility] [place] [facility] [address] [address] [facility] [place] [facility] CBC AND DIFF (AUTO) MONOCYTES [#/VOLUME] IN BLOOD BY AUTOMATED COUNT 0.67 10*3/u L 0.30 - 1.10 12/11 Specimen Type: BLOOD No comment entered. Ordering Provider: Li HUNTER Report Released Date/Time: October 16, 2023 08:23 AM Reporting Lab: [facility] [place] [facility] [address] [facility] [address] Performing Lab: [facility] [place] [facility] [address] [address] [facility] [place] [facility] CBC AND DIFF (AUTO) MCH [ENTITIC MASS] BY AUTOMATED COUNT 31.3 pg 26.2 - 32.6 12/11 Specimen Type: BLOOD No comment entered. Ordering Provider: Li HUNTER Report Released Date/Time: October 16, 2023 08:23 AM Reporting Lab: [facility] [address] [facility] [facility] [address] Performing Lab: [facility] [address] [facility] [facility] [address] [facility] CBC AND DIFF (AUTO) NEUTROPHILS /100 LEUKOCYTES IN BLOOD BY AUTOMATED COUNT 65.7 43.7 - 75.8 12/11 Specimen Type: BLOOD No comment entered. Ordering Provider: Li HUNTER Report Released Date/Time: October 16, 2023 08:23 AM Reporting Lab: [facility] [address] [facility] [address] Performing Lab: [facility] [address] [facility] [address] [facility] CBC AND DIFF (AUTO) LYMPHOCYTES /100 LEUKOCYTES IN BLOOD BY AUTOMATED COUNT 22.2 14.0 - 42.3 12/11 Specimen Type: BLOOD No comment entered. Ordering Provider: Li HUNTER Report Released Date/Time: October 16, 2023 08:23 AM Reporting Lab: [facility] [address] [facility] [address] Performing Lab: [facility] [address] [facility] [address] [facility] CBC AND DIFF (AUTO) MONOCYTES/1 00 LEUKOCYTES IN BLOOD BY AUTOMATED COUNT 7.7 5.1 - 13.7 12/11 Specimen Type: BLOOD No comment entered. Ordering Provider: Li HUNTER Report Released Date/Time: October 16, 2023 08:23 AM Reporting Lab: [facility] [address] [facility] [address] Performing Lab: [facility] [address] [facility] [address] [facility] CBC AND DIFF (AUTO) EOSINOPHILS /100 LEUKOCYTES IN BLOOD BY AUTOMATED COUNT 3.3 0.4 - 6.8 12/11 Specimen Type: BLOOD No comment entered. Ordering Provider: Li HUNTER Report Released Date/Time: October 16, 2023 08:23 AM Reporting Lab: [facility] [address] [facility] [address] Performing Lab: [facility] [address] [facility] [address] [facility] CBC AND DIFF (AUTO) BASOPHILS/1 00 LEUKOCYTES IN BLOOD BY AUTOMATED COUNT 0.9 0.1 - 2.0 12/11 Specimen Type: BLOOD No comment entered. Ordering Provider: Li HUNTER Report Released Date/Time: October 16, 2023 08:23 AM Reporting Lab: [facility] [place] [facility] [address] [facility] [facility] [address] Performing Lab: [facility] [address] [address] [facility] CBC AND DIFF (AUTO) NEUTROPHILS [#/VOLUME] IN BLOOD BY AUTOMATED COUNT 5.69 10*3/u L 2.20 - 7.60 12/11 Specimen Type: BLOOD No comment entered. Ordering Provider: Li HUNTER Report Released Date/Time: October 16, 2023 08:23 AM Reporting Lab: [facility] [address] [address] Performing Lab: [facility] [address] [address] [facility] [place] CBC AND DIFF (AUTO) LYMPHOCYTES [#/VOLUME] IN BLOOD BY AUTOMATED COUNT 1.93 10*3/u L 1.00 - 3.20 12/11 Specimen Type: BLOOD No comment entered. Ordering Provider: Li HUNTER Report Released Date/Time: October 16, 2023 08:23 AM Reporting Lab: [facility] [address] [address] Performing Lab: [facility] [address] [address] [facility] CBC AND DIFF (AUTO) EOSINOPHILS [#/VOLUME] IN BLOOD BY AUTOMATED COUNT 0.29 10*3/u L 0.03 - 0.44 12/11 Specimen Type: BLOOD No comment entered. Ordering Provider: Li HUNTER Report Released Date/Time: October 16, 2023 08:23 AM Reporting Lab: [facility] [address] [address] Performing Lab: [facility] [address] [facility] [address] [facility] CBC AND DIFF (AUTO) BASOPHILS [#/VOLUME] IN BLOOD BY AUTOMATED COUNT 0.08 10*3/u L 0.01 - 0.13 12/11 Specimen Type: BLOOD No comment entered. Ordering Provider: Li HUNTER Report Released Date/Time: October 16, 2023 08:23 AM Reporting Lab: [facility] [place] [facility] [address] [facility] [facility] [address] Performing Lab: [facility] [place] [facility] [address] [facility] [facility] [address] [facility] CBC AND DIFF (AUTO) IMMATURE GRANULOCYTE S/100 LEUKOCYTES IN BLOOD BY AUTOMATED COUNT 0.2 0.0 - 0.7 12/11 Specimen Type: BLOOD No comment entered. Ordering Provider: Li HUNTER Report Released Date/Time: October 16, 2023 08:23 AM Reporting Lab: [facility] [place] [facility] [address] [facility] [facility] [address] Performing Lab: [facility] [place] [facility] [address] [facility] [address] [facility] [place] CBC AND DIFF (AUTO) IMMATURE GRANULOCYTE S [#/VOLUME] IN BLOOD 0.02 10*3/u L 0.00 - 0.06 12/11 Specimen Type: BLOOD No comment entered. Ordering Provider: Li HUNTER Report Released Date/Time: October 16, 2023 08:23 AM Reporting Lab: [facility] [place] [facility] [address] [facility] [facility] [address] Performing Lab: [facility] [place] [facility] [address] [facility] [address] [facility] CBC AND DIFF (AUTO) NRBC % 0.0 0.0 - 0.0 12/11 Specimen Type: BLOOD No comment entered. Ordering Provider: Li HUNTER Report Released Date/Time: October 16, 2023 08:23 AM Reporting Lab: [address] [address] Performing Lab: [address] [phone] [place] [address] CBC AND DIFF (AUTO) NRBC, ABS 0.00 10*3/u L 0.00 - 0.00 12/11 Specimen Type: BLOOD No comment entered. Ordering Provider: Li HUNTER Report Released Date/Time: October 16, 2023 08:23 AM Reporting Lab: [address] [address] Performing Lab: [address] [phone] [place] [address] DIGOXIN DIGOXIN [MASS/VOLUM E] IN SERUM OR PLASMA 0.74 ng/mL 0.8 - 2.0 12/11 L Specimen Type: PLASMA No comment entered. Ordering Provider: Li HUNTER Report Released Date/Time: October 16, 2023 08:23 AM Reporting Lab: [address] [address] Performing Lab: [phone] [place] [address] HEMOGLOBI N A1C PANEL HEMOGLOBIN A1C/HEMOGLO BIN.TOTAL [...] AM Reporting Lab: [facility] [facility] [address] [facility] [address] Performing Lab: [facility] [place] [facility] [address] [facility] [address] [facility] LIPID PANEL FASTING CHOLESTEROL [MASS/VOLUM E] IN SERUM OR PLASMA 153 mg/dL 12/11 Specimen Type: SERUM No comment entered. Ordering Provider: Li HUNTER Report Released Date/Time: October 16, 2023 08:23 AM Reporting Lab: [facility] [place] [facility] [address] [facility] [address] Performing Lab: [facility] [place] [facility] [address] [facility] [facility] [address] [facility] LIPID PANEL FASTING TRIGLYCERID E [MASS/VOLUM E] IN SERUM OR PLASMA 189 mg/dL 0 - 150 12/11 H Specimen Type: SERUM No comment entered. Ordering Provider: Li HUNTER Report Released Date/Time: October 16, 2023 08:23 AM Reporting Lab: [facility] [place] [facility] [address] [facility] [facility] [address] Performing Lab: [facility] [place] [facility] [address] [facility] [facility] [address] [facility] [place] LIPID PANEL FASTING CHOLESTEROL IN LDL [MASS/VOLUM E] IN SERUM OR PLASMA BY CALCULATION 77 mg/dL 0 - 129 12/11 Specimen Type: SERUM No comment entered. Ordering Provider: Li HUNTER Report Released Date/Time: October 16, 2023 08:23 AM Reporting Lab: [facility] [place] [facility] [address] [facility] [facility] [address] Performing Lab: [facility] [place] [facility] [address] [facility] [facility] [address] [facility] [place] [facility] LIPID PANEL FASTING CHOLESTEROL .TOTAL/CHOL ESTEROL IN HDL [MASS RATIO] IN SERUM OR PLASMA 4.0 12/11 Specimen Type: SERUM No comment entered. Ordering Provider: Li HUNTER Report Released Date/Time: October 16, 2023 08:23 AM Reporting Lab: [facility] [place] [facility] [address] [facility] [address] Performing Lab: [facility] [address] [facility] [address] [facility] LIPID PANEL FASTING CHOLESTEROL IN HDL [MASS/VOLUM E] IN SERUM OR PLASMA 38 mg/dL 40 - 60 12/11 L Specimen Type: SERUM No comment entered. Ordering Provider: Li HUNTER Report Released Date/Time: October 16, 2023 08:23 AM Reporting Lab: [facility] [place] [facility] [address] [facility] [address] Performing Lab: [facility] [place] [facility] [address] [facility] [address] [facility] [place] LIVER FUNCTION PROTEIN [MASS/VOLUM E] IN SERUM OR PLASMA 7.3 g/dL 6.0 - 8.3 12/11 Specimen Type: SERUM No comment entered. Ordering Provider: Li HUNTER Report Released Date/Time: October 16, 2023 08:23 AM Reporting Lab: [facility] [place] [facility] [address] [facility] [address] Performing Lab: [facility] [place] [facility] [address] [facility] [address] [facility] [place] LIVER FUNCTION ALBUMIN [MASS/VOLUM E] IN SERUM OR PLASMA 3.6 g/dL 3.5 - 5.0 12/11 Specimen Type: SERUM No comment entered. Ordering Provider: Li HUNTER Report Released Date/Time: October 16, 2023 08:23 AM Reporting Lab: [facility] [place] [facility] [address] [facility] [address] Performing Lab: [facility] [place] [facility] [address] [facility] [address] [facility] LIVER FUNCTION ALKALINE PHOSPHATASE [ENZYMATIC ACTIVITY/VO LUME] IN SERUM OR PLASMA 58 U/L 40 - 150 07/02 /2024 Specimen Type: SERUM No comment entered. Ordering Provider: Li HUNTER Report Released Date/Time: October 16, 2023 08:23 AM Reporting Lab: [facility] [place] [facility] [address] [facility] [address] Performing Lab: [facility] [place] [facility] [address] [facility] [address] [facility] LIVER FUNCTION ASPARTATE AMINOTRANSF ERASE [ENZYMATIC ACTIVITY/VO LUME] IN SERUM OR PLASMA 16 U/L 5 - 34 12/11 Specimen Type: SERUM No comment entered. Ordering Provider: Li HUNTER Report Released Date/Time: October 16, 2023 08:23 AM Reporting Lab: [facility] [place] [facility] [address] [facility] [address] Performing Lab: [facility] [place] [facility] [address] [facility] [address] [facility] LIVER FUNCTION ALANINE AMINOTRANSF ERASE [ENZYMATIC ACTIVITY/VO LUME] IN SERUM OR PLASMA 19 U/L 12/11 Specimen Type: SERUM No comment entered. Ordering Provider: Li HUNTER Report Released Date/Time: October 16, 2023 08:23 AM Reporting Lab: [facility] [address] [address] Performing Lab[facility] [place] [facility] [address] [facility] [address] [facility] [place] LIVER FUNCTION BILIRUBIN.T OTAL [MASS/VOLUM E] IN SERUM OR PLASMA 0.5 mg/dL 0.2 - 1.2 12/11 Specimen Type: SERUM No comment entered. Ordering Provider: Li HUNTER Report Released Date/Time: October 16, 2023 08:23 AM Reporting Lab: [facility] [place] [facility] [address] [facility] [address] Performing Lab: [facility] [place] [address] [address] [facility] MICROALBU MIN CREATININ E RATIO PANEL MICROALBUMI N/CREATININ E [MASS RATIO] IN URINE cancmg /g 0 - 29.9 12/11 Specimen Type: URINE No comment entered. Ordering Provider: Li HUNTER Report Released Date/Time: October 16, 2023 08:23 AM Reporting Lab: [facility] [place] [facility] [address] [facility] [address] Performing Lab: [facility] [place] [facility] [address] [facility] [address] [facility] MICROALBU MIN CREATININ E RATIO PANEL MICROALBUMI N [MASS/VOLUM E] IN URINE < 0.5mg/ dL 12/11 Specimen Type: URINE No comment entered. Ordering Provider: Li HUNTER Report Released Date/Time: October 16, 2023 08:23 AM Reporting Lab: [facility] [place] [facility] [address] [facility] [address] Performing Lab: [facility] [place] [facility] [address] [facility] [address] [facility] MICROALBU MIN CREATININ E RATIO PANEL CREATININE [MASS/VOLUM E] IN URINE 29.59 mg/dL 12/11 Specimen Type: URINE No comment entered. Ordering Provider: Li HUNTER Report Released Date/Time: October 16, 2023 08:23 AM Reporting Lab: [facility] [place] [facility] [address] [facility] [address] Performing Lab: [facility] [place] [facility] [address] [facility] [address] [facility] URIC ACID URATE [MASS/VOLUM E] IN SERUM OR PLASMA 8.5 mg/dL 3.5 - 7.2 12/11 H Specimen Type: SERUM No comment entered. Ordering Provider: Li HUNTER Report Released Date/Time: October 16, 2023 08:23 AM Reporting Lab: [facility] [address] [facility] [address] Performing Lab: [facility] [address] [facility] [address] [facility] VITAMIN D (25-OH) 25-HYDROXYV ITAMIN D3 [MASS/VOLUM E] IN SERUM OR PLASMA 29 ng/mL 20 - 50 12/11 Specimen Type: SERUM No comment entered. Ordering Provider: MARGIE KENDRICK Report Released Date/Time: Dec 13, 2023 02:50 PM Reporting Lab: [facility] [address] [facility] [address] Performing Lab: [facility] [place] [facility] [address] [facility] [address] [facility] URIC ACID URATE [MASS/VOLUM E] IN SERUM OR PLASMA 8.0 mg/dL 3.5 - 7.2 10/16 H Specimen Type: SERUM No comment entered. Ordering Provider: NEETA BOSE Report Released Date/Time: Aug 18, 2023 11:23 AM Reporting Lab: [facility] [place] [facility] [address] [facility] [address] Performing Lab: [facility] [place] [facility] [address] [facility] [address] [facility] [place] [facility] Vital Signs Combined list of inpatient and outpatient Vital Signs from Department of Defense and Veterans Affairs, ranging from 12 months to all on record, depending upon the facility. Vital Sign Value Date Comments Source SYSTOLIC BLOOD PRESSURE 150 07/19/19 25 11:24:14 [facility] [place] DIASTOLIC BLOOD PRESSURE 96 025 11:24:14 [facility] [place] [facility] PULSE OXIMETRY 98 07/19/2024 11:24:14 [facility] [id number] 01/30 [facility] [id number] 01/31 [facility] [id number] 01/31 [facility] Encounter [id number] 02/02 [facility] En[facility] [id number] 02/03 [facility] OFFICE O/P EST MOD 30-39 MIN [id number] Diagnos is: ICD-10- CM E11.8 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 EMMIE BOSE MMED JAWED 02/07 [facility] En[facility] [id number] 02/08 [facility] En[facility] [id number] 02/10 [facility] MANUAL THERAPY 1/> REGIONS [id number] Diagnos is: ICD-10- CM M54.59 Other low back pain HERMAN KINNEY RA 02/14 [facility] En[facility] [id number] CORRINE EUBANKS 02/22 [facility] MANUAL THERAPY 1/> [place]IONS [id number] Diagnos is: ICD-10- CM M54.2 Cervica lgia HERMAN KINNEY RA 02/28 [facility] OFF/OP EST MAY X REQ PHY/QHP [id number] Diagnos is: ICD-10- CM H61.23 Impacte d soni omalley M ELISSA H 02/28 [facility] En[facility] [id number] 03/03 [facility] OFF/OP EST MAY X REQ PHY/QHP [id number] Diagnos is: ICD-10- CM 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 Vilma Nair 03/08 [facility] En[facility] [id number] 03/14 [facility] Encounter [id number] 03/14 [facility] Encounter [id number] 03/17 [facility] En[facility] [id number] 03/21 [facility] En[facility] [id number] 03/27 [facility] Encounter [id number] 03/30 [facility]counter [id number] 03/30 [facility] Encounter [id number] 04/03 [facility] Encounter [id number] 04/06 [facility] En[facility] [id number] 04/06 [facility] Encounter [id number] 04/10 [facility] Encounter [id number] 04/13 [facility] Encounter [id number] 04/18 [facility] Encounter [id number] 04/19 [facility] En[facility] [id number] 04/20 [facility] Encounter [id number] 04/20 [facility] Encounter [id number] 05/03 [facility] OFFICE O/P EST LOW 20-29 MIN [id number] Diagnos is: ICD-10- CM L60.3 Nail dystrop hy MARCELO NOBLES D 05/09 [facility] MANUAL THERAPY 1/> [place]IONS [id number] Diagnos is: ICD-10- CM M54.2 Cervica HERMAN Randall RA 05/12 [facility] En[facility] [id number] 05/16 [facility] Encounter [id number] 05/17 [facility] En[facility] [id number] 05/24 [facility] En[facility] [id number] 05/26 [facility] Encounter [id number] 05/30 [facility] OFFICE O/P EST MOD 30-39 MIN [id number] Diagnos is: ICD-10- CM E11.8 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 AHMED,MOHA MMED JAWED 05/31 [facility] En[facility] [id number] 06/20 [facility]counter [id number] 06/25 [facility]counter [id number] 07/08 [facility] En[facility] [id number] 07/18 [facility] [place] [id number] Diagnos is: ICD-10- CM M54.2 Cervica lgia HERMAN KINNEY RA 07/21 [facility] Out[facility] Encounter [id number] 07/29 [facility]counter [id number] 07/29 [facility] [place] NAIL 6 OR MORE [id number] Diagnos is: ICD-10- CM E11.43 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 ic (poly)n europat hy MARCELO NOBLES RLES D 08/08 [facility] Out[facility] Encounter [id number] 08/10 [facility]counter [id number] 08/14 [facility]counter [id number] 08/14 [facility] [id number] 08/15 [facility] [id number] 08/24 [facility] En[facility] [id number] 08/29 [facility] MANUAL THERAPY 1/> REGIONS [id number] Diagnos is: ICD-10- CM M54.2 Cervica lgHERMAN Toussaint RA 08/31 [facility] OFFICE O/P EST MOD 30 MIN [id number] Diagnos is: ICD-10- CM M79.2 Neuralg ia and neuriti s, unspeci fiEMMIE Dang MMED JAWED 09/05 [facility] [id number] 09/07 [facility] [id number] 09/11 [facility] [id number] 09/17 [facility] [id number] 09/19 [facility] [id number] 09/24 [facility]counter [id number] 10/01 [facility]counter [id number] 10/01 [facility]counter [id number] 10/03 [facility] [id number] 10/05 [facility]counter [id number] 10/08 [facility] [id number] 10/11 [facility] [id number] 10/14 [facility] [id number] 10/17 [facility] [facility] Encounter [id number] 10/29 [facility] En[facility] [id number] 11/08 [facility] Encounter [id number] 11/15 [facility] OFFICE O/P EST LOW 20 MIN [id number] Diagnos is: ICD-10- CM E11.8 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 CHRIS HUNTER 11/19 [facility] Encounter [id number] 11/20 [facility] En[facility] [id number] 11/26 [facility] Encounter [id number] 12/04 [facility] Encounter [id number] 12/06 [facility] MANUAL THERAPY 1/> REGIONS [id number] Diagnos is: ICD-10- CM M54.59 Other low back pain HERMAN KINNEY 12/06 [facility] Encounter [id number] 12/06 [facility] Encounter [id number] 12/07 [facility] Encounter [id number] 12/10 [facility] Encounter [id number] 12/10 [facility] Encounter [id number] 12/11 [facility] OFFICE O/P EST LOW 20 MIN [id number] Diagnos is: ICD-10- CM E11.8 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 CHRIS HUNTER 12/11 [facility] En[facility] [id number] YEMI WORLEY 12/11 [facility] Encounter [id number] 12/11 [facility] Encounter [id number] 12/25 [facility] Encounter [id number] 12/26 [facility] OFFICE O/P EST LOW 20 MIN [id number] Diagnos is: ICD-10- CM E11.43 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 ic (poly)n europat hy MARCELO NOBLES RLANN D 12/27 [facility] Encounter [id number] YEMI WORLEY JENNIFER 12/31 [facility] Encounter [id number] 12/31 [facility] Out[facility] Encounter [id number] 01/01 [facility] OFFICE O/P EST LOW 20 MIN [id number] Diagnos is: ICD-10- CM I48.91 Unspeci fied atrial fibrill alicia CHRIS HUNTER 01/14 [facility] En[facility] [id number] 01/18 [facility] Out[facility] Encounter [id number] 01/18 [facility] Encounter [id number] 02/03 [facility] Encounter [id number] 02/04 [facility] Encounter [id number] 02/05 [facility] Encounter [id number] [facility] Encounter [id number] 1.02/27 [facility] Encounter [id number] [facility] [id number] 1.03/04 [facility] Encounter [id number] 1.03/25 [facility] Encounter [id number] 1.03/27 [facility] Encounter [id number] [facility] Encounter [id number] 1.04/01 [facility] Encounter [id number] 04/05 [facility] Encounter [id number] 1.04/05 [facility] Encounter [id number] 04/10 [facility] Encounter [id number] 04/11 [facility] Encounter [id number] 04/15 [facility] Encounter [id number] 05/03 [facility] Encounter [id number] [facility] Encounter [id number] 05/16 [facility] Encounter [id number] 05/16 [facility] Out[facility] Encounter [id number] 05/21 [facility] OFFICE O/P EST LOW 20 MIN [id number] Diagnos is: ICD-10- CM E11.43 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 ic (poly)n europat hy GIULIANO,MARCELO WISDOM D 05/21 [facility] OFF[facility] O/P EST LOW 20 MIN [id number] Diagnos is: ICD-10- CM N18.30 Chronic kidney disease , stage 3 unspeci CHRIS Jackson 05/30 [facility] DIABETIC CUSTOM MOLDED SHOE [id number] Diagnos is: ICD-10- CM I73.9 Periphe ral vascula r disease , unspeci fied GILBERT OBANDO 05/30 [facility] Out[facility] En[facility] [id number] 06/13 [facility] Out[facility] Encounter [id number] [facility] Out[facility] Encounter [id number] [facility] Out[facility] Encounter [id number] 06/24 [facility] Out[facility] Encounter [id number] [facility] Out[facility] Encounter [id number] [facility] Out[facility] Encounter [id number] [facility] OFFICE O/P EST LOW 20 MIN [id number] Diagnos is: ICD-10- CM N18.30 Chronic kidney disease , stage 3 unspeci CHRIS Jackson 07/19 [facility] Encounter [id number] [facility] Social History Combined list of available smoking, tobacco, and other social history from Department of Defense and Veterans Affairs facilities. Social History Type Response Date Comment Sourc e Tobacco smoking status NHIS VA-TOBACCO NEVER USED 05/31/2023 [place] [facility] History of tobacco use VA-TOBACCO NEVER USED 03/15/2022 [facility] [facility] History of tobacco use VA-TOBACCO NEVER USED 04/08/2021 [place] [facility] [facility] History of tobacco use LIFETIME NON-USER OF TOBACCO 06/23/2012 [facility] History of tobacco use LIFETIME NON-USER OF TOBACCO 02/28/2008 [facility] History of tobacco use TOBACCO USE PT NEVER USED 04/10/2006 [facility] History of tobacco use TOBACCO USE PT USED BUT QUIT 12/11/2001 5 y/a [facility] Plan of Care List of future care activities from Department of Veterans Affairs facilities. Additional future care activities may be listed in the Assessment and Plan section. Date/Time Care Activity Care Activity Detail Facili ty 08/02/2024 AMBULATORY - MEDICINE AMBULATORY - MEDICI [facility] [place] [facility] 08/29/2024 AMBULATORY - MEDICINE AMBULATORY - MEDICI [facility] [place] [facility] 09/19/2024 AMBULATORY - MEDICINE AMBULATORY - MEDICI [place] [facility] [place] [facility] 07/04/2024 Laboratory - Cooker Soda ry Order MICROALBUMIN CREATININE RATIO PANEL URINE (RANDOM) SP [place] [facility] [place] [facility] 07/04/2024 Laboratory - [place]er S[place] ry Order DIGOXIN BLOOD (LAV-PLASMA) SP [facility] [place] [facility] 07/04/2024 Laboratory - Cooker Soda ry Order URINALYSIS URINE [facility] [place] [facility] 07/04/2024 Laboratory - Cooker Soda ry Order HEMOGLOBIN A1C PANEL BLOOD (LAV-BLOOD) [facility] [place] [facility] 07/19/2024 Laboratory - [place]er S[place] ry Order BASIC METABOLIC PANEL (fasting) BLOOD (SST-SERUM) [facility] [place] [facility] 07/19/2024 Laboratory - Cooker Soda ry Order LIPID PANEL FASTING BLOOD (SST-SERUM) [facility] [place] [facility] 07/19/2024 Laboratory - Cooker Soda ry Order LIVER FUNCTION BLOOD (SST-SERUM) [facility] [place] [facility] 07/23/2024 Consult Order [facility]-N EPHROLOGY Cons Tester Wafer Substrate's Choice [place] [facility] [place] [facility] 08/28/2024 Laboratory - [place]er S[place] ry Order BASIC METABOLIC PANEL (fasting) BLOOD (SST-SERUM) [facility] [place] [facility] 08/28/2024 Laboratory - Cooker Soda ry Order LIVER FUNCTION BLOOD (SST-SERUM) [facility] Laboratory - Cooker Soda ry Order LIPID PANEL FASTING BLOOD (SST-SERUM) [facility] Advance Directives List of completed, amended, or rescinded Advance Directives on record at Department of Veterans Affairs facilities. An actual copy of the Directive is not included. Date Advance Directive Provider Source 12/07/2023 ADVANCE DIRECTIVE RASHID [facility] 03/20/2014 ADVANCE DIRECTIVE DISCUSSION EDISON MORAN CB 06/16/2011 ADVANCE DIRECTIVE DISCUSSION BARRIE [facility]
[2024-08-01 15:27] LABS: Basophils Absolute Auto 0.1 X10*3/uL (0.0-0.2); Basophils Percent Auto 1.5 % (0-2); Eosinophils Absolute Auto 0.4 X10*3/uL (0.0-0.4); Eosinophils Percent Auto 5.2 % (0-4); Hematocrit 51.5 % (42.0-52.0); Hemoglobin 16.7 g/dl (14.0-18.0); Imm Gran Abs Auto 0.03 X10*3/uL (0.00-0.03); Imm Gran Pct Auto 0.4 % (0.0-0.4); Lymphocytes Absolute Auto 2.2 X10*3/uL (1.2-4.9); Lymphocytes Percent Auto 26.4 % (20-40); Mean Corpuscular HGB Conc 32.4 g/dl (31.0-36.0); Mean Corpuscular Hemoglobin 30.8 pg (27.0-33.0); Mean Platelet Volume 8.9 fL (9.4-12.4); Monocytes Absolute Auto 0.8 X10*3/uL (0.1-1.2); Monocytes Percent Auto 9.9 % (2-11); Neutrophils Absolute Auto 4.7 x10*3/uL (2.0-8.3); Neutrophils Percent Auto 56.6 % (45-73); Platelet Count 279 X10*3/uL (160-400); Red Blood Count 5.42 X10*6/uL (4.60-5.80); Red Cell Distribution Width 13.2 % (11.0-16.0); White Blood Count 8.3 X10*3/uL (4.8-10.8)
[2024-08-01 15:55] LABS: Anion Gap 13 (12-20); Blood Urea Nitrogen 27 mg/dL (9-16); Calcium 9.5 mg/dL (8.4-10.2); Carbon Dioxide 29 mmol/L (22-29); Chloride 103 mmol/L (96-108); Estimated Glomerular Filt Rate 57; Potassium 4.4 mmol/L (3.3-5.1); Sodium 141 mmol/L (135-145)
[2024-08-01 16:00] LABS: Parathyroid Hormone Intact 116.5 pg/mL (8.7-77.1)
[2024-08-01 16:15] LABS: Vitamin D 25-OH Total 26.7 ng/mL (>30)
== END 2024-08-01 13:16 | disposition home or self-care (01) ==
LOC: HO.LAB 13:15
PROVIDERS: Absent Provider Internal Medicine Nephrology; Visit Provider Surgery Vascular Surgery
DX: I83.11 Varicose veins of right lower extremity with inflammation (principal); I89.0 Lymphedema, not elsewhere classified; N18.31 Chronic kidney disease, stage 3a; I10 Essential (primary) hypertension
CPT/HCPCS: 36415; 80051; 82306; 82310; 82565; 83970; 84520; 85025; 99212

== ENCOUNTER → 2024-08-02 14:08 | Outpatient (AMB) | payer OTHER, SELFPAY ==
--- NOTE | 2024-08-02 14:14 | HO.NEPHOV_ITS ---
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 He has history of systolic heart failure. His echocardiogram has shown improvement. He denies any chest pain, shortness of breath, orthopnea. He had a seen a vascular MD. He avoids nonsteroidal anti- inflammatory medications. He has prostatic issues and has seen Dr. Cotsa Cash. He is not strict with sodium restriction in the diet. He doesn't use his CPAP [facility] Medical History Foot pain, bilateral HTN (hypertension) Heart failure with reduced ejection fraction LAWANDA (obstructive sleep apnea) Lymphadenopathy Pleural effusion Hypertension Atrial fibrillation Surgical History History of ankle surgery Hx of appendectomy Family History Mother No problems noted. Father Stroke Heart attack Atrial fibrillation Social History Household Members: Children Housing: House Do you presently have visiting nurse or other home services: No Alcohol intake: former Comment: pt refuses bed alarm Patient Tobacco Use Status: Never used Tobacco Advance Directives Date on File: 03/18/21 service: Yes Current occupational status: disabled Review of Systems Const All systems reviewed & are unremarkable except as noted in HPI and below Physical Exam Const General: comfortable and no acute distress Orientation/consciousness: patient oriented x3 HEENT Head: Yes normocephalic Mouth: Normal oral and palatal mucosa present Eyes EOM: EOMs intact bilaterally Neck Neck: Yes supple Resp Auscultation: clear to auscultation bilaterally Cardio Jugular venous distension: no JVD Rate: regular rate GI Palpation (GI): Soft to palpation Auscultation: normal bowel sounds General: Yes no CVA tenderness Back/Spine/Pelvis Back: no CVA tenderness Skin General skin exam: no rashes or lesions noted Neuro General: patient oriented x3 and moves all extremities Extrem General: Yes no pedal edema Results Reviewed Nephrology Results: Hgb 16.7 g/dl (14.0-18.0) 08/01/24 WBC 8.3 X10*3/uL (4.8-10.8) 08/01/24 Plt Count 279 X10*3/uL (160-400) 08/01/24 Sodium 141 mmol/L (135-145) 08/01/24 Potassium 4.4 mmol/L (3.3-5.1) 08/01/24 Chloride 103 mmol/L (96-108) 08/01/24 Carbon Dioxide 29 mmol/L (22-29) 08/01/24 BUN 27 mg/dL (9-16) H 08/01/24 Creatinine 1.26 mg/dL (0.5-1.4) 08/01/24 Calcium 9.5 mg/dL (8.4-10.2) 08/01/24 PTH Intact 116.5 pg/mL (8.7-77.1) H 08/01/24 Assessment & Plan Assessment & Plan (1) CKD (chronic kidney disease) stage 3, GFR 30-59 ml/min: Code(s): N18.30 - Chronic kidney disease, stage 3 unspecified Category: Medical Qualifiers: Chronic kidney disease stage 3 subtype: stage 3a (GFR 45-59) Qualified Code(s): N18.31 - Chronic kidney disease, stage 3a (2) HTN (hypertension): Code(s): I10 - Essential (primary) hypertension Category: Medical Qualifiers: Hypertension type: primary hypertension Qualified Code(s): I10 - Essential (primary) hypertension Plan Luis has stage III CKD and hypertension. His renal function had been stable . He has no clinical signs of heart failure. His echocardiogram has improved. He should avoid nonsteroidal anti-inflammatory medications. He needs to go back on CPAP. He is on Jardiance. I did not make any other medication changes today. He should be on a low-sodium diet .He should lose weight. 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
[2024-08-02 14:25] VITALS: BP 116/80; PULSE 75; O2SAT 99; BMI 43.3
--- OUTSIDE RECORDS SUMMARY | 2024-08-02 14:35 | XMS_ITS | Continuity of Care Document ---
Author Organization [facility] Address [address] [place] [address] Phone Care Team Providers Care Automotive Tire Technician Name Role Phone Ivan Haynes. D Pharm D, [place] Unavailab le Unavailable Procedures Procedure Date MTMS BY PHARM EST 15 MIN MTMS BY PHARM ADDL 15 MIN Void Ticket [facility] MED/CURRENT MED MERGE Hospital discharge day care Followup hospital care, brief 1 Followup hospital care, brief 1 Followup hospital care, brief 1 Initial hospital care, low E/M service NEC MTMS BY PHARM PRESENTATION SPECIALIST 15 MIN MTMS BY PHARM ADDL 15 MIN Void Ticket [facility] MED/CURRENT MED MERGE MTMS BY PHARM PRESENTATION SPECIALIST 15 MIN MTMS BY PHARM ADDL 15 [...] EST 15 MIN [facility], [address], [place], [place], [id number], [place] tel:[phone] Pharmacy Encounter for therapeutic drug level monitoringVoid Ticket 1 Ivan PharmMahad D Torrey . [address], [address], [place], [place], [id number], [place]. Hospital discharge day care [facility], [address], [place], [place], [id number], [place] tel:[phone] [facility] No Information 1 [facility]. [address] [place] [address], [address], [place]. tel:[phone] Followup hospital care, brief [facility], [address], [place], [place], [id number], [place] tel:[phone] [facility] No Information 1 [facility]. [address] [place] [address], [address], [place]. tel:[phone] Followup hospital care, brief [facility], [address], [place], [place], [id number], [place] tel:[phone] [facility] No Information 1 Sylharjit Hollis. [address] [place] [address], [id number], [place]. tel:[phone] Followup hospital care, brief [facility], [address], [place], [place], [id number], [place] tel:[phone] [facility] No Information 1 Don Shafer. [address] [place] [address], [id number], [place]. tel:[phone] Initial hospital care, low [facility], [address], [place], [place], [id number], [place] tel:[phone] [facility] No Information 1 Don Shafer. [address] [place] [address], [id number], [place]. tel:[phone] MTMS BY PHARM PRESENTATION SPECIALIST 15 MIN [facility], [address], [place], [place], [id number], [place] tel:[phone] Pharmacy Encounter for therapeutic drug level monitoringVoid Ticket 1 [facility]. D Dharagauri . [address], [address], [place], [place], [id number], [place]. MTMS BY PHARM PRESENTATION SPECIALIST 15 MIN [facility], [address], [place], [place], [id number], [place] tel:[phone] Pharmacy Encounter for therapeutic drug level monitoringVoid Ticket 0 [facility]. D [facility] . [address], [facility] [address], [place], [place], [id number], [place]. Initial hospital care, low [facility], [address], [place], [place], [id number], [place] tel:[phone] [facility] No Information 0 Roshan Mcdonald. [address] [place] [address], [facility], . tel:[phone] SUBSEQUENT OBSERVATION CARE LOW [facility], [address], [place], [place], [id number], [place] tel:[phone] [facility] No Information Susan Pawel. [address] [place] [address], [facility], . tel:[phone] Initial observation care, low [facility], [address], [place], [place], [id number], [place] tel:[phone] [facility] No Information 5 Roshan Mcdonald. [address] [place] [address], [facility], . tel:[phone] Family History Family Member Type Diagnosis Age [...] 66 YO male who is discharged from [facility] on 12/30/2020 after admission for [...] home med list and hospital discharge med rec:(i)[place] 5-325mg unclear sig(ii)Calcium carbonate chewable - discontinued [...] 65 YO male who was admitted to [facility] from 07/24/2020 - 07/26/2020. The patient was admitted to this facility after recent hospital admission for duodenal peritoneal hemorrhage and meningitis. The patient left AMA from the [facility] on 07/26/2020. PMH: hx of PE, Afib, HTN, GERD, morbid obesity, basal cell carcinoma of the skin multiple excisional surgeriesMedication Profile The patient left AMA from the SNF and therefore there is not discharge medications list provided. The following medications are documented in home med list prior to the hospital admission. (i)[place] 5-325 mg unclear sig(ii)Clotrimazole 1% topical cream [...] 65 YO male who is discharged from [facility] on 03/22/2020. The patient was admitted to this facility after recent hospital admission for altered mental status, likely 2/2 meth abuse. Patient's discharge medication reconciliation has been reviewed and following has been identified: PMH: Afib, HTN, PE, obesity, GERD1.AcetaminophenPer d/c med rec take Tylenol 325 mg 2 tabs PO q6h prn pain and [place] 5-325mg PO q4h prn moderate pain. Maximum [...] compared with the SNF discharge med rec: (i)[place] 5-325 mg unclear sig (home) vs [place] 5-325 mg PO q4h prn moderate pain [...]
--- OUTSIDE RECORDS SUMMARY | 2024-08-02 14:35 | XMS_ITS | Encounter Summary ---
Author Organization [facility] Address [address] [place] [address] Phone Care Team Providers Care Commutator Repairer Name Role Phone Hasmukh Sawyer MD Primary Care Provider [phone] Encounter Details Date Type Department Care Team (Late st Contact Info) Description 09/08/2021 Telephone [facility] [address] [place] [address] Adalberto Che MD Social History Tobacco Use Types Packs/Day Years Used Date Smoking Tobacco: Never Smokeless Tobacco: Never Alcohol Use Standard Drinks/Week Comments Not Currently 0 (1 standard drink = 0.6 oz pur e alcohol) Sex and Gender Information Value Date Recorded Sex Assigned at Not on file Legal Sex Male 12:55 PM EDT Gender Identity Not on file Sexual Orientation Not on file documented as of this encounter Miscellaneous Notes * Telephone Encounter - Myla Negrete - 09/08/2021 1:58 PM EDT Brittny called back with some of the pts recent lab result. She also faxed over the complete report. BUN 26 Creat 1.45 Potassium 4.6 Sodium 137 Hmg A1C 6 Total protein 7.5 Alb 3.87 documented in this encounter Plan of Treatment Not on file documented as of this encounter Visit Diagnoses Not on filedocumented in this encounter Care Teams Commutator Repairer Relationship Specialty Start Date End Date Hasmukh Sawyer MD [address] [place] [address] [id number] PCP - General 09/08/21 documented as of this encounter
--- OUTSIDE RECORDS SUMMARY | 2024-08-02 14:35 | XMS_ITS | Clinical Summary ---
Author Organization [facility] Address [address] [place] [address] Phone Care Team Providers Care Automation And Controls Supervisor Name Role Phone Hasmukh Sawyer MD Primary Care Provider [phone] Allergies Active Allergy Reactions Criticality Noted Date Comments Oxycodone 09/08/2021 Medications carvedilol (COREG) 6.25 MG tablet Take 6.25 mg by mouth 2 (two) times a day with meals Active hydrALAZINE 50 MG tablet Take 50 mg by mouth twice a day Active digoxin (LANOXIN) 125 MCG tablet Take 125 mcg by mouth 1 (one) time each day Active apixaban (ELIQUIS) 5 MG tablet Take 5 mg by mouth 2 (two) times a day Active spironolactone (ALDACTONE) 25 MG tablet Take 25 mg by mouth 1 (one) time each day Active pantoprazole (PROTONIX) 40 MG EC tablet Take 40 mg by mouth 1 (one) time each day before breakfast Do not crush, chew, or split. Active allopurinol (ZYLOPRIM) 100 MG tablet Take 200 mg by mouth 1 (one) time each day 2 Active losartan (COZAAR) 50 MG tablet Take 50 mg by mouth 1 (one) time each day 2 Active pregabalin (LYRICA) 150 MG capsule Take 150 mg by mouth in the morning and 150 mg in the evening. 2 Active tamsulosin (FLOMAX) 0.4 MG 24 hr capsule Take 0.4 mg by mouth 1 (one) time each day 2 Active furosemide (LASIX) 40 MG tablet Take 40 mg by mouth 1 (one) time each day 2 Active Active Problems Problem Noted Date Diagnosed Date Adult failure to thrive 04/13/2023 04/13/20 23 Atrial fibrillation 04/13/2023 04/13/2023 Basal cell carcinoma of skin 04/13/202307/2022 Bilateral impacted cerumen 04/13/202304/13 Counseling 04/13/2023 04/13/2023 Diabetic - poor control 04/13/2023 04/13/20 23 Disorder of skin and/or subcutaneous tissue 07/202204/13/2023 Encounter for examination an d observation for other specified reasons 04/13/2023 04/13/2023 Encounter for immunization 04/13/202304/13 Epidermoid cyst of skin 04/13/2023 04/13/20 23 Gastroesophageal reflux disease 04/13/2023 04/13/2023 Gout 04/13/2023 04/13/2023 Long-term current use of anticoagulant 04/13/2023 Myalgia and myositis, unspecified 04/13/2023 04/13/2023 Obstructive sleep apnea 04/13/2023 04/13/20 23 Other and unspecified alcoho l dependence, unspecified drinking behavior 04/13/2023 04/13/2023 Other and unspecified malign ant neoplasm of skin, site unspecified 04/13/2023 04/13/2023 Other insomnia 04/13/2023 04/13/2023 Other low back pain 04/13/2023 04/13/2023 Other pulmonary embolism and infarction 04/13/20 23 04/13/2023 Other unknown and unspecifie d cause of morbidity or mortality 04/13/2023 04/13/2023 Overview (04/13/2023): Dec 11, 2001 Entered By: ANDRES AMAYA Comment: 12/11 - 6 beers a day, doesn't want to quit drinking Idiopathic progressive neuropathy 04/13/2023 04/13/2023 Pain in left toe 04/13/2023 04/13/2023 Neuralgia and neuritis, unspecified 04/13/2023 04/13/2023 Peripheral neuropathic pain 04/13/2023 11/0 07/2022 Peripheral venous insufficiency 04/13/2023 04/13/2023 Psychosexual disorder 04/13/2023 04/13/2023 Thoracic or lumbosacral neur itis or radiculitis, unspecified 04/13/2023 04/13/2023 Stiffness of joint, not else where classified, involving pelvic region and thigh 04/13/2023 04/13/2023 Squamous cell carcinoma of back 04/13/2023 04/13/2023 Overview (04/13/2023): Apr 08, 2021 Entered By: SHAHID SUNG Comment: multiple sites/ see notes [place] [facility] [place] Spiritual beliefs conflicting with healthcare pl an 04/13/2023 04/13/2023 Psychosexual dysfunction ass ociated with inhibited sexual excitement 04/13/2023 04/13/2023 Sprain of sacroiliac region 04/13/202307/2022 Type 2 diabetes mellitus with complication 04/1304/13/2023 Chronic kidney disease due to benign hypertensio n 04/13/2023 Severe obesity 03/09/2022 Obese class II 09/08/2021 Hypertension 09/08/2021 Stage 3a chronic kidney disease 04/30/2021 Acute nontraumatic kidney injury 04/29/2021 Immunizations Name Administration Dates Next Due Influenza Vaccine, Quadrival ent, Adjuvanted 04/27/2022,04/08/2021 Influenza, Unspecified 02/28/2023 Moderna SARS-COV-2 07/01/2022,,11/12/2020,10/14 Pneumococcal Conjugate 01/09/2023 Pneumococcal Polysaccharide 04/08/2021 Shingrix 08/16/2021,04/28/2021 Td, Unspecified 06/12/2011 Tdap 04/28/2021 Social History Tobacco Use Types Packs/Day Years Used Date Smoking Tobacco: Never Smokeless Tobacco: Never Tobacco Cessation:Counseling Given: Not Answered Alcohol Use Standard Drinks/Week Comments Not Currently 0 (1 standard drink = 0.6 oz pur e alcohol) Sex and Gender Information Value Date Recorded Sex Assigned at Not on file Legal Sex Male 12:55 PM EDT Gender Identity Not on file Sexual Orientation Not on file Last Filed Vital Signs Vital Sign Reading Time Taken Comments Blood Pressure 141/80 04/13/2023 2:15 PM EDT Pulse 96 04/13/2023 2:15 PM EDT Temperature - - Respiratory Rate - - Oxygen Saturation 96% 04/13/2023 2:15 PM EDT Inhaled Oxygen Concentration - - Weight 145 kg (320 lb) 09/14/2022 2:03 PM EDT Height - - Body Mass Index - - Plan of Treatment Health Maintenance Due Date Last Done Comments Colorectal Cancer Screening: Annual FOBT 01/06/2005 Colorectal Cancer Screening: Colonoscopy 01/06/2005 Colorectal Cancer Screening: Sigmoidoscopy 01/06/2005 Diabetes: Hemoglobin A1C 03/27/2023 022, 08/13/2021 Diabetes: Ophthalmology Exam 03/27/2023 Diabetes: Pedal Pulse Checked 03/27/2023 Diabetes: Sensory Foot Exam 03/27/2023 Diabetes: Visual Foot Exam 03/27/2023 Pneumococcal Vaccine: 65+ Years (2 of 2 - PCV) 01/10/2024 01/09/2023, 04/08/2021 Influenza Vaccine (#1) 2024 3, 04/27/2022, 04/08/2021 Hepatitis B Vaccine Aged Out No longe r eligible based on patient's age to complete this topic Procedures Procedure Name Priority Date/Time Associated Diagnosis Comments EXT RESULT ENTRY Routine 09/03/2021 from Last 3 Months or Most Recently Relevant to Health Maintenance Results * (ABNORMAL) EXT RESULT ENTRY (09/03/2021) Sodium Potassium Chloride Bicarbonate (CO2) Glucose (A) BUN (A) Creatinine (A) Hemoglobin A1C (A) 09/03/2021 Historical Provider LAB BLOOD ORDERABLES Edit ed Result - Final from Last 3 Months or Most Recently Relevant to Health Maintenance Insurance [facility] 1,2,3 (VACCN) [employer] MEDICARE [employer] MEDICARE [facility] 1,2,3 (VACCN) Care Teams Automation And Controls Supervisor Relationship Specialty Start Date End Date Hasmukh Sawyer MD [address] [place] [id number] PCP - General 09/08/21
== END ==
PROVIDERS: PCP Internal Medicine; Visit Provider Internal Medicine Nephrology
DX: N18.31 Chronic kidney disease, stage 3a (principal); I10 Essential (primary) hypertension
CPT/HCPCS: 99214

== ENCOUNTER → 2024-08-02 14:08 | Outpatient (BNVA) | payer OTHER, SELFPAY | PROVIDERS: PCP Internal Medicine; Visit Provider Internal Medicine Nephrology | DX: I12.9 Hypertensive chronic kidney disease with stage 1 through stage 4 chronic kidney disease, or unspecified chronic kidney disease (principal); N18.31 Chronic kidney disease, stage 3a | CPT/HCPCS: 99212 ==

== ENCOUNTER 2024-08-21 14:10 | Outpatient (AMB) | payer OTHER, SELFPAY ==
--- NOTE | 2024-08-21 14:13 | MHC.OFFVIS ---
Vital Signs 08/21/24 14:14 Height 5 ft 11 in Weight 310 lb BMI 43.2 Intake Visit Reasons: Lymphedema clinic Intake Note: Lymphedema clinic for LE swelling Right LE swelling worse than the Left LE. Local Owner Operator Truck Driver Required: No Accompanied by: Self / Same As Patient Allergies No Known Allergies Allergy (Verified 08/21/24 14:16) [facility] Lymphedema clinic: Details: Luis is presenting today for our lymphedema clinic. He has a medical hx significant for lymphedema and has been treated for it before, in [place], with pumps and massage, when he lived there. He continues with bilateral lower extremity swelling and discomfort. He denies any wounds/injuries. [facility] Medical History Foot pain, bilateral HTN (hypertension) Heart failure with reduced ejection fraction LAWANDA (obstructive sleep apnea) Lymphadenopathy Pleural effusion Hypertension Atrial fibrillation Surgical History History of ankle surgery Hx of appendectomy Family History Mother No problems noted. Father Stroke Heart attack Atrial fibrillation Social History Household Members: Children Housing: House Do you presently have visiting nurse or other home services: No Alcohol intake: former Comment: pt refuses bed alarm Patient Tobacco Use Status: Never used Tobacco Advance Directives Date on File: 03/18/21 service: Yes Current occupational status: disabled Review of Systems ENT Reports Normal hearing present Neuro Reports Normal hearing present and Denies Sensory deficit (Neuro) Physical Exam Vital Signs: BMI result Body Mass Index 43.2 Const General: healthy appearing and no acute distress Orientation/consciousness: patient oriented x3 HEENT Head: Yes normal to inspection Ears: hearing grossly normal bilaterally Mouth: Normal oral and palatal mucosa present Resp Effort & Inspection: normal respiratory effort and able to speak in complete sentences Auscultation: clear to auscultation bilaterally Cardio Jugular venous distension: no JVD Rate: regular rate Rhythm: regular rhythm Heart sounds: S1 normal heart sound present and S2 normal heart sound present Bruits: no abdominal aortic bruits, no carotid bruits, no femoral bruits and no renal bruits Peripheral pulses: Peripheral pulses 2+ throughout GI Inspection: Yes normal to inspection Palpation (GI): No Abdominal aortic bruit present Skin General skin exam: no rashes or lesions noted Wounds: no wounds Hair: normal Neuro General: patient oriented x3 Cranial nerves: Yes CN's II-XII intact bilaterally and Yes Normal hearing present Cognition (Neuro): normal cognition Gait exam (Neuro): Normal gait present Motor exam (neuro): 5/5 motor strength present throughout Sensory Exam: No Sensory deficit (Neuro) Extrem Other: Bilateral lower extremities: + 2 edema noted. Hyperkeratosis, hyperpigmentation, and lymphorrhea from the tibial tuberosity to his ankles. There is dry crusting nails. No wounds noted. General: Yes normal to inspection, Yes full ROM, Yes capillary refill normal and Yes normal gait Assessment & Plan Assessment & Plan (1) Lymphedema: Code(s): I89.0 - Lymphedema, not elsewhere classified Category: Medical Plan: Luis is presenting today to be fitted for lymphedema pumps. They has had more than 3 months, starting on 03/29/24, of conservative treatments with elevation, compression stockings daily use with 20-30mmHg, and physical activity with minimal relief. They continue to have persistent symptoms despite conservative treatments. They are presenting with hyperpigmentation, lymphorrhea, hyperkeratosis, and 2+ pitting edema. They state both legs are effected equally and their is extension into their abdominal area. They also complains of pain and itchiness. It appears that they have stage II lymphedema. August from [employer] will be fitting them for a pneumatic compression device, which will get mailed to their house. The patient has lymphedema that extends to their upper thigh and abdominal region. The basic pneumatic compression device is not adequate for the patient; it is not clinically appropriate due to the extensive lymphedema noted. The advanced compression device will be the best in this case. Thank you allowing us to care for the patient. Coding Level of Care Code Est Pt Level 4 (34088) Diagnoses Lymphedema I89.0
[2024-08-21 14:14] VITALS: BMI 43.2
--- OUTSIDE RECORDS SUMMARY | 2024-08-21 16:45 | XMS_ITS ---
Author Name [facility] [facility] [place] [facility] [place] Address [address] [place] [id number] Care Team Providers Care Physician Aide Name Role Phone TORIBIO BILLINGSLEY Primary Care [...] Torres's Name Patient's Relationship to Policy Torres [facility] (WNR) MEDICARE ADVANTAGE [facility]) Jan 05, 2024 DO NOT BILL [id number] [phone] STELLA CABELLO PATIENT [facility] [facility] (WNR) MEDICARE ADVANTAGE [facility]) May 12, 2022 [id number] [phone] STELLA CABELLO PATIENT Selected Encounter This section includes the information on record at [place] for the Encounter. Date/Time Encounter Type Encounter Description Reason Provider Source Aug 12, 2024 09:35 AM [facility] DIG ASSMT&MGMT 5-10 CLINICAL PHARMACY ICD-10-CM Z04.89 Encounter for examination and observation for oth reasons [facility] Encounter Template Text not used by [place] Assessments - Encounter Diagnoses This section includes the primary and secondary diagnoses documented for the Encounter. Date/Time Primary/Secondary Diagnosis Diagnosis Name Provider Source Aug 12, 2024 09:48 AM PRIMARY Encounter for examination and observation for oth reasons [facility] Plan of Treatment: Future Appointments (+ 6 months) and Future Tests (+/- 45 days) The Plan of Treatment section includes future care activities for the patient from all [place] [facility]. This section includes future appointments and future orders which are active, pending or scheduled. Future Appointments This section includes appointments that were scheduled to occur 6 months from the date of the Encounter, up to a maximum of 20 appointments. The data comes from all [facility]. Appointment Date/Time Appointment Type Appointme nt Facility Name Aug 29, 2024 01:00 PM AMBULATORY - MEDICINE [facility] Sep 19, 2024 01:30 PM AMBULATORY - MEDICINE [facility] Active, Pending, and Scheduled Orders This section includes a listing of several types of active, pending, and scheduled orders, including clinic medications orders, diagnostic test orders, procedure orders and consult orders; where the start date of the order is 45 days before the date of the Encounter or 45 days after the date of theEncounter. The data comes from all [facility]. Test Date/Time Test Type Test Details Facility Name Jul 04, 2024 12:00 AM Laboratory - Chemistry Order MICROALBUMIN CREATININE RATIO PANEL URINE (RANDOM) [facility] Jul 04, 2024 12:00 AM Laboratory - Chemistry Order URINALYSIS URINE [facility] Jul 04, 2024 12:00 AM Laboratory - Chemistry Order DIGOXIN BLOOD (LAV-PLASMA) [facility] Jul 04, 2024 12:00 AM Laboratory - Chemistry Order HEMOGLOBIN A1C PANEL BLOOD (LAV-BLOOD) [facility] Jul 19, 2024 12:00 AM Laboratory - Chemistry Order BASIC METABOLIC PANEL (fasting) BLOOD (SST-SERUM) [facility] Jul 19, 2024 12:00 AM Laboratory - Chemistry Order LIVER FUNCTION BLOOD (SST-SERUM) [facility] Jul 19, 2024 12:00 AM Laboratory - Chemistry Order LIPID PANEL FASTING BLOOD (SST-SERUM) [facility] [place] [facility] Jul 23, 2024 02:37 PM Consult Order COMMUNITY CARE-NEPHROLOGY Cons Quality Control [facility] Social History: Smoking Status (Most current) [...] Facil ity May 31, 2023 03:30 PM [place]-TOBACCO NEVER USED [facility] Tobacco Use History This section includes a history of the smoking, or tobacco-related health factors, that were collected on or before the date of the Encounter. The data comes from the [place] facility where the Encounter took place. Date/Time Smoking Status/Tobacco Use Comment F acility Mar 15, 2022 11:30 AM [place] Apr 08, 2021 02:00 PM [place]-TOBACCO [facility] USED [facility] Advance Directives: All historical and current [...] Dec 07, 2023 ADVANCE DIRECTIVE RASHID [facility] Mar 20, 2014 ADVANCE DIRECTIVE DISCUSSION [facility] Jun 16, 2011 ADVANCE DIRECTIVE DISCUSSION [facility] Encounter Notes: All associated encounter notes This section contains the clinical notes associated to the Encounter. Date/Time Encounter Note(s) Provider Source Aug 12, 2024 09:35 AM PHARMACY MEDICATION MGT NOTE: LOCAL TITLE: PHARMACY ANTICOAGULATION NOTE STANDARD TITLE: PHARMACY MEDICATION MGT NOTE DATE OF NOTE: AUG 12, 2024@09:35 ENTRY DATE: AUG 12, 2024@09:35:35 AUTHOR: KENZIE BOYER EXP COSIGNER: URGENCY: STATUS: COMPLETED PHARMACY ANTICOAGULATION NOTE Has ADDENDA ANTICOAGULATION DOAC MONITORING NOTE SUBJECTIVE: Patient identified through the DOAC population Management Tool based on the following criteria: [ ] Dosing Issue [ ] Critical Drug Interaction [ ] Cancer Treatment [ ] Active NSAID [ ] Labs Overdue [ ] Prosthetic Valve Replacement [ ] Notable Lab Value [ X ] Overdue for Refill [ ] Other: Comments: Pt flagged for being overdue for refill. Rx last filled apixaban x90 days 02/27/24 OBJECTIVE: Indication for anticoagulation: [ X ] Atrial fibrilation [ ] Atrial flutter [ X ] VTE (DVT or PE) [ ] Post-op DVT prophylaxis [ ] Other: Most recent lab values include the following: HGB: HGB Collection DT Specimen Test Name Result Units Ref Range 12/12/2023 13:45 BLOOD HGB 16.1 g/dL 12.8 - 17 PLT: WBC Collection DT Specimen Test Name Result Units Ref Range 12/12/2023 13:45 BLOOD WBC 8.68 K/cmm 4.50 - 11.00 Liver Function Tests No data available for: AST ALT ALKALINE PHOSPHATASE ALBUMIN BILIRUBIN, TOTAL LDH PROTEIN,TOTAL HEIGHT: 72 in [182.9 cm] (01/06/2023 13:34) WEIGHT: 299 lb [135.62 kg] (07/19/2024 11:24) BMI: BMI: 40.6 CREATININE-EGFR 12/12/23 13:45 1.49 H 10/17/23 13:23 1.56 H CRCL IBW: CrCl(est): 63.8 mL/min (Creat:1.49 12/12/23) CRCL ACT: No Creat CRCL ADJ: 63.8 mL/min (12/12/23) ASSESSMENT: refill overdue Action required? [ X ] Yes [ ] No Comments: Per 07/19/24 PCP note: I quit all my pills a few weeks ago out of concern for SEs. Will alert PCP and ask that apixaban be discontinued if is no longer taking. PLAN: [ ] No action required, dismiss flag [ X ] Will intervene: [ ] Patient education via phone/letter [ ] Schedule phone/[id number] follow up [ ] Lab ordered [ ] Discontinue interacting medication [ ] Discontinue DOAC [ ] Change to alternative DOAC [ ] Change DOAC dose [ X ] Notify PCP [ ] Consult cardiology/hematology [ ] Other: Time spent: 5 min /julien/ KENZIE BOYER CPHT Clinical Appeals Assistant Signed: 08/12/2024 09:37 Receipt Acknowledged By: 08/12/2024 09:48 /julien/ Charo Cast PharmD, [facility] Clinical Smooth And Burr Worker [employer]posites 08/13/2024 13:49 /julien/ Toribio Billingsley PA-C STAFF PHYSICIAN GIFTED PROGRAM TEACHER 08/12/2024 ADDENDUM STATUS: COMPLETED Above case reviewed as entered by [facility] Engraver Block. Agree with current assessment and plan of care for this patient's anticoagulation management as noted. /segundo Cast PharmD, [facility] Clinical Smooth And Burr Worker [employer]posites Signed: 08/12/2024 09:49 KENZIE BOYER [place] [facility]
--- OUTSIDE RECORDS SUMMARY | 2024-08-21 16:45 | XMS_ITS | Encounter Summary ---
Author Organization [facility] Address [address] [place] [address] Phone Care Team Providers Care Screen Printer Helper Name Role Phone Hasmukh Sawyer MD Primary Care Provider [phone] Encounter Details Date Type Department Care Team (Late st Contact Info) Description 09/08/2021 Telephone [facility] [address] [place] [address] Adalberto Che MD Social History [...] on filedocumented in this encounter Care Teams Screen Printer Helper Relationship Specialty Start Date End Date Hasmukh Sawyer MD [address] [place] [address] [phone] PCP - General 09/08/21 documented as of this encounter
--- OUTSIDE RECORDS SUMMARY | 2024-08-21 16:45 | XMS_ITS | Encounter Summary ---
Author Name [facility] Organization [facility] [place] Address [address] [place] [address] Care Team Providers Care Sanitary Landfill Operator Name Role Phone TORIBIO BILLINGSLEY Primary [...] Name Patient's Relationship to Policy Torres [facility]CARE [facility] (WNR) MEDICARE ADVANTAGE [facility] (R) Jan 05, 2024 DO NOT BILL [id number] [phone] STELLA CABELLO PATIENT WELLCARE [facility] (WNR) MEDICARE ADVANTAGE [facility] (WN) May 12, 2022 [id number] [phone] STELLA CABELLO PATIENT Selected Encounter This section includes the information on record at [place] for the Encounter. Date/Time Encounter Type Encounter Description Reason Pro vider Source Aug 09, 2024 06:48 PM Outpatient Encounter ADMIN PAT ACTIVTIES (MASNONCT) I[facility] Encounter Template Text not used by [place] Plan of Treatment: Future Appointments (+ 6 months) and Future Tests (+/- 45 days) The Plan of Treatment section includes future care activities for the patient from all [facility] treatment[facility]. This section includes future appointments and future orders which are active, pending or scheduled. Future Appointments This section includes appointments that were scheduled to occur 6 months from the date of the Encounter, up to a maximum of 20 appointments. The data comes from all [facility]. Appointment Date/Time Appointment Type Appointme nt Facility Name Aug 29, 2024 01:00 PM AMBULATORY - MEDICINE [facility] Sep 19, 2024 01:30 PM AMBULATORY - MEDICINE [facility] Active, Pending, and Scheduled Orders This section includes a listing of several types of active, pending, and scheduled orders, including clinic medications orders, diagnostic test orders, procedure orders and consult orders; where the start date of the order is 45 days before the date of the Encounter or 45 days after the date of theEncounter. The data comes from all [facility]. Test Date/Time Test Type Test Details Facility Name Jul 04, 2024 12:00 AM Laboratory - Chemistry Order MICROALBUMIN CREATININE RATIO PANEL URINE (RANDOM) [facility] Jul 04, 2024 12:00 AM Laboratory - Chemistry Order DIGOXIN BLOOD (LAV-PLASMA) [facility] Jul 04, 2024 12:00 AM Laboratory - Chemistry Order URINALYSIS URINE [facility] Jul 04, 2024 12:00 AM Laboratory - Chemistry Order HEMOGLOBIN A1C PANEL BLOOD (LAV-BLOOD) [facility] Jul 19, 2024 12:00 AM Laboratory - Chemistry Order BASIC METABOLIC PANEL (fasting) BLOOD (SST-SERUM) [facility] Jul 19, 2024 12:00 AM Laboratory - Chemistry Order LIVER FUNCTION BLOOD (SST-SERUM) [facility] Jul 19, 2024 12:00 AM Laboratory - Chemistry Order LIPID PANEL FASTING BLOOD (SST-SERUM) [facility] Jul 23, 2024 02:37 PM Consult Order COMMUNITY CARE-NEPHROLOGY Cons Coding Consultant's Choice [facility] Social History: Smoking Status (Most current) and Tobacco Use (All prior to encounter date) This section includes the most current, and the historical, smoking and tobacco- related health factors from the [place] facility where the Encounter took place. Current Smoking Status This section includes the most current smoking, or tobacco-related health factor, from the [place] facility where the Encounter took place. Date/Time Current Smoking Status Comment Sebastian ity May 31, 2023 03:30 PM VA-TOBACCO NEVER USED [facility] Tobacco Use History This section includes a history of the smoking, or tobacco-related health factors, that were collected on or before the date of the Encounter. The data comes from the [place] facility where the Encounter took place. Date/Time Smoking Status/Tobacco Use Comment F acility Mar 15, 2022 11:30 AM [place]-TOBACCO NEVER USED [facility] Apr 08, 2021 02:00 PM [place]-TOBACCO NEVER USED [facility] Advance Directives: All historical and current Section Date Range: From patient's date of to the date document was created. This section includes ALL of a patient's completed or amended [place] Advance and Rescinded Directives. The entries below indicate that a directive exists for the patient, but an actual copy is not included with this document. The data comes from all [place] facilities. Date Advance Directives Provider Source Dec 07, 2023 ADVANCE DIRECTIVE RASHID VALENCIA [facility] Mar 20, 2014 ADVANCE DIRECTIVE DISCUSSION EDISON [facility] Jun 16, 2011 ADVANCE DIRECTIVE DISCUSSION BARRIE ISLAS [facility] Encounter Notes: All associated encounter notes This section contains the clinical notes associated to the Encounter. Date/Time Encounter Note(s) Provider Source Aug 09, 2024 06:48 PM PHARMACY NOTE: LOCAL TITLE: V1 PHARMACY CUSTOMER CARE MEDICATION RENEWAL STANDARD TITLE: PHARMACY NOTE DATE OF NOTE: AUG 09, 2024@18:48 ENTRY DATE: AUG 09, 2024@18:48:36 AUTHOR: LUCILA MCINTOSH COSIGNER: URGENCY: STATUS: COMPLETED Date: Jul Division: [facility] referred by Pharmacy Call Center for medication renewal: Non-controlled/maintenanc e medication Medications requested: [id number] DIGOXIN 0.125MG TAB [id number] SPIRONOLACTONE 25MG TAB Defer to primary care provider To be mailed . Please review and renew if appropriate. *This note was generated by [facility]/[place] Pharmacy Customer Care. If you have any questions or need assistance, do not contact this author. Please refer all questions to your local, on-site pharmacy departments. /julien/ LUCILA MCINTOSH CPhT Telecommunication Equipment Repairer, [place]/Pharmacy Customer Care Signed: 08/09/2024 18:49 Receipt Acknowledged By: 08/12/2024 13:01 /julien/ BRITTNEY CHAKCO RN REGISTERED NURSE 08/10/2024 07:17 /julien/ Toribio Billingsley PA-C STAFF PHYSICIAN CAREER DEVELOPMENT COORDINATOR LUCILA MCINTOSH DE CNTL [facility]
--- OUTSIDE RECORDS SUMMARY | 2024-08-21 16:45 | XMS_ITS | Clinical Summary ---
Author Organization [facility] Address [address] [place] [address] Phone Care Team Providers Care Loom Repairer Name Role Phone Hasmukh Sawyer MD Primary Care Provider [phone] Allergies Active Allergy Reactions Criticality Noted Date [...] multiple sites/ see notes in [facility] [place] Spiritual beliefs conflicting with healthcare pl an [...] Most Recently Relevant to Health Maintenance Insurance [facility] 1,2,3 (VACCN) WELLCARE MEDICARE WELLCARE MEDICARE [facility] 1,2,3 (VACCN) Care Teams Loom Repairer Relationship Specialty Start Date End Date Hasmukh Sawyer MD [address] [place] [id number] PCP - General 09/08/21
--- OUTSIDE RECORDS SUMMARY | 2024-08-21 16:46 | XMS_ITS | Continuity of Care Document ---
Author Name [facility] Organization [facility] Care Team Providers Care Well Services Operator Name Role Phone [facility] Unavailable Unavailable Problems Combined list of problems from Department of Defense and Veterans Affairs facilities. It does not include entries that were removed or entered in error. Problem Status Onset Date Problem Type Date of Resolution Comments Source Abscess Active Condition [facility] AF- Atrial Fibrillation (SCT 53184835) Active Condition [facility] Alcohol Dependence * (ICD-9-CM 303.90/303.91) Active Condition [facility] Back Pain, Low Active Condition [facility] Basal cell carcinoma of neck Active Condition [facility] Basal Cell Carcinoma of Skin, site unspecified (ICD-9-CM 173.91) Active Condition [facility] Benign prostatic hyperplasia Active Condition [facility] Cancer of the back, squamous cell Active Condition Apr 08, 2021 Entered By: SHAHID KEEN Comment: multiple sites/ see notes in [facility] at [facility] Chronic Kidney Disease Stage 3 (SCT 093245791) Active Condition [facility] Diabetic - poor control Active Condition [facility] Epidermal Cyst * (ICD-9-CM 706.2) Active Condition [facility] ETOH Active Condition Dec 11, 2001 Entered By: FLAQUITA AMAYA Comment: 12/11 - 6 beers a day, doesn't want to quit drinking [facility] Gastroesophageal Reflux Disease (SNOMED CT 831988096) Active Condition [facility] - Gastro-Esophageal Reflux Disease (SCT 587356718) Active Condition [facility] Gout Active Condition [facility] HTN - Hypertension (SCT 06366405) Active Condition [facility] Hypertension * (ICD-9-CM 401.9) Active Condition [facility] Long-term current use of anticoagulant Active Condition [facility] Lumbar radiculopathy Active Condition [facility] Male erectile disorder (ICD-9-CM 302.72/607.84) Active Condition [facility] Myofascial pain Active Condition [facility] Obesity (SCT 404250841) Active Condition [facility] Obstructive sleep apnea Active Condition [facility] Pain in limb (ICD-9-CM 729.5) Active Condition [facility] Peripheral neuropathic pain Active Condition [facility] Peripheral vascular disease Active Condition [facility] Peripheral venous insufficiency Active Condition [facility] Pulmonary embolism and infarction (ICD-9-CM 415.19) Active Condition [facility] Sexual Dysfunction NOS (ICD-9-CM 302.9/302.70) Active Condition [facility] Skin lesion (SNOMED CT 05459826) Active Condition [facility] Sprains and strains of sacroiliac region (ICD-9-CM 846.9) Active Condition [facility] Squamous cell carcinoma in situ of skin Active Condition [facility] Stiffness of joint, not elsewhere classified, involving pelvic region and thigh Active Condition [facility] Treatment Compliance Problem * (ICD-9-CM V62.6) Active Condition [facility] Counseling NEC (ICD-9-CM V65.9) Inactive Condition 04/16/2004 [facility] Diagnosis: ICD-10-CM Z04.89 Encounter for examination and observation for oth reasons Active Diagnosis [facility] Diagnosis: ICD-10-CM N18.30 Chronic kidney disease, stage 3 unspecified Active Diagnosis [facility] Diagnosis: ICD-10-CM I73.9 Peripheral vascular disease, unspecified Active Diagnosis [facility] Diagnosis: ICD-10-CM E11.43 Type 2 diabetes w diabetic autonomic (poly)neuropathy Active Diagnosis [facility] Diagnosis: ICD-10-CM I48.91 Unspecified atrial fibrillation Active Diagnosis [facility] Diagnosis: ICD-10-CM E11.8 Type 2 diabetes mellitus with unspecified complications Active Diagnosis [facility] Diagnosis: ICD-10-CM M54.59 Other low back pain Active Diagnosis [facility] Diagnosis: ICD-10-CM M79.2 Neuralgia and neuritis, unspecified Active Diagnosis [facility] Diagnosis: ICD-10-CM M54.2 Cervicalgia Active Diagnosis [facility] Diagnosis: ICD-10-CM L60.3 Nail dystrophy Active Diagnosis [facility] Diagnosis: ICD-10-CM Z71.89 Other specified counseling Active Diagnosis [facility] Diagnosis: ICD-10-CM H61.23 Impacted cerumen, bilateral Active Diagnosis [facility] Medications Combined list of outpatient medications from [...] AND FEET DAILY TOPICA L ACTIVE 02/16/2025 [id number] 4 ANNA NOBLES 2023 240 [facility] AMMONIUM LACTATE 12% LOTION APPLY SMALL AMOUNT TOPICALL Y ONCE DAILY FOR DRY IRRITATE D SKIN APPLY TO SKIN LEGS AND FEET DAILY TOPICA L DISCONT INUED 02/13/2025 [id number] ANNA NOBLES 2023 240 [facility] AMMONIUM LACTATE 12% LOTION APPLY SMALL AMOUNT TOPICALL Y ONCE DAILY FOR DRY IRRITATE D SKIN APPLY TO SKIN LEGS AND FEET DAILY [facility]2024 [id number] ANNA NOBLES 2022 240 [facility] APIXABAN 5MG TAB TAKE ONE TABLET BY MOUTH TWICE DAILY ORAL ACTIVE 01/15/2025 [id number] CHRIS HUNTER 2023 180 [facility] APIXABAN 5MG TAB TAKE ONE TABLET BY MOUTH TWICE DAILY ORAL DISCONT INUED 09/06/2024 [id number] 4 [facility] AMMED JAWED 2023 180 [facility] APIXABAN 5MG TAB TAKE ONE TABLET BY MOUTH TWICE DAILY ORAL DISCONT INUED 03/30/2024 [id number] 4 [facility] JAWED 2022 180 [facility] CARVEDILOL 3.125MG TAB TAKE ONE TABLET BY MOUTH TWICE DAILY ORAL ACTIVE 12/27/2024 [id number] LISE CHIRINOS NESTOR 2023 60 [facility] CARVEDILOL 3.125MG TAB TAKE ONE TABLET BY MOUTH TWICE DAILY FOR HIGH BLOOD PRESSURE ORAL DISCONT INUED 12/27/2024 [id number] CHRIS HUNTER 2023 180 [facility] CARVEDILOL 6.25MG TAB TAKE ONE TABLET BY MOUTH TWICE DAILY ORAL DISCONT INUED (EDIT) 11/20/2024 [id number] CHRIS HUNTER 2023 180 [facility] CARVEDILOL 6.25MG TAB TAKE ONE TABLET BY MOUTH TWICE DAILY ORAL DISCONT INUED 08/01/2024 [id number] 4 [facility] 2023 180 [facility] DIGOXIN 125MCG TAB TAKE ONE TABLET BY MOUTH ONCE DAILY ORAL ACTIVE 08/11/2025 [id number] 5 CHRIS HUNTER 2024 90 [facility] DIGOXIN 125MCG TAB TAKE ONE TABLET BY MOUTH ONCE DAILY ORAL DISCONT INUED 11/20/2024 [id number] 4 CHRIS HUNTER 2023 90 [facility] DIGOXIN 125MCG TAB TAKE ONE TABLET BY MOUTH ONCE DAILY ORAL DISCONT INUED 07/18/[id number] [facility] JAWED 2023 90 [facility] DULOXETINE HCL 20MG CAP,EC TAKE ONE CAPSULE BY MOUTH AT BEDTIME ORAL ACTIVE 09/06/[id number] [facility] JAWED 2023 90 [facility] EMPAGLIFLOZ IN 25MG TAB TAKE ONE-HALF TABLET BY MOUTH ONCE DAILY ORAL ACTIVE 09/06/[id number] [facility] JAWED 2023 45 [facility] EMPAGLIFLOZ IN 25MG TAB TAKE ONE-HALF TABLET BY MOUTH ONCE DAILY ORAL DISCONT INUED 02/08/[id number] [facility] JAWED 2022 45 [facility] FINASTERIDE 5MG TAB TAKE ONE TABLET BY MOUTH ONCE DAILY ORAL ACTIVE 09/06/[id number] [facility] JAWED 2023 90 [facility] FINASTERIDE 5MG TAB TAKE ONE TABLET BY MOUTH ONCE DAILY ORAL DISCONT INUED 05/31/[id number] [facility] JAWED 2022 90 [facility] FOLIC ACID 1MG TAB TAKE ONE TABLET BY MOUTH ONCE DAILY VITAMIN/ NUTRITIO N SUPPLEME NT ORAL ACTIVE 09/06/[id number] [facility] JAWED 2023 90 [facility] FOLIC ACID 1MG TAB TAKE ONE TABLET BY MOUTH ONCE DAILY VITAMIN/ NUTRITIO N SUPPLEME NT ORAL DISCONT INUED 07/13/2023 [id number] [facility] 90 [facility] FUROSEMIDE 40MG TAB TAKE ONE TABLET BY MOUTH ONCE DAILY TO REMOVE FLUID/CO NTROL BLOOD PRESSURE ORAL ACTIVE 09/06/2024 [id number] 5 [facility] 2023 90 [facility] GABAPENTIN 300MG CAP TAKE THREE CAPSULES BY MOUTH TWICE DAILY FOR NERVE PAIN ORAL ACTIVE 01/15/2025 [id number] CHRIS HUNTER 2023 180 [facility] GABAPENTIN 300MG CAP TAKE ONE CAPSULE BY MOUTH THREE TIMES A DAY ORAL DISCONT INUED (EDIT) 02/08/[id number] [facility] JAWED 2022 270 [facility] HYDRALAZINE HCL 50MG TAB TAKE ONE TABLET BY MOUTH TWICE DAILY FOR BLOOD PRESSURE ORAL ACTIVE 01/15/2025 [id number] 5 CHRIS HUNTER 2023 180 [facility] HYDRALAZINE HCL 50MG TAB TAKE ONE TABLET BY MOUTH TWICE DAILY FOR BLOOD PRESSURE ORAL DISCONT INUED 09/06/[id number] [facility] JAWED 2023 180 [facility] HYDRALAZINE HCL 50MG TAB TAKE ONE TABLET BY MOUTH TWICE DAILY FOR BLOOD PRESSURE ORAL DISCONT INUED 03/30/[id number] [facility] JAWED 2022 180 [facility] LIDOCAINE 5% PATCH APPLY 1 PATCH TOPICALL Y AT BEDTIME (LEAVE PATCH ON FOR 12 HOURS, THEN REMOVE PATCH) TOPICA L ACTIVE 09/06/2024 [id number] 4 [facility] 2023 90 [facility] LOSARTAN 50MG TAB TAKE ONE TABLET BY MOUTH ONCE DAILY FOR BLOOD PRESSURE /HEART ORAL ACTIVE 09/06/2024 [id number] 4 NIDIA BOSE JAWED 2023 90 [facility] LOSARTAN 50MG TAB TAKE ONE TABLET BY MOUTH ONCE DAILY FOR BLOOD PRESSURE /HEART ORAL DISCONT INUED 07/13/2023 [id number] 3 [facility] 2022 90 [facility] MULTIVITAMI NS W/MINERALS CAP/TAB TAKE 1 TABLET BY MOUTH ONCE DAILY FOR VITAMIN SUPPLEME NTATION ORAL ACTIVE 01/15/2025 [id number] CHRIS HUNTER 2023 100 [facility] MULTIVITAMI NS W/MINERALS CAP/TAB TAKE 1 TABLET BY MOUTH ONCE DAILY FOR VITAMIN SUPPLEME NTATION ORAL DISCONT INUED 09/06/2024 [id number] 4 [facility] 2023 100 [facility] OTHER CAP/TAB TAKE GUMMIES FROM [place] BY MOUTH ORAL ACTIVE CHRIS HUNTER 2023 [facility] PANTOPRAZOL E NA 40MG TAB,EC TAKE ONE TABLET BY MOUTH EVERY MORNING 30 MINUTES BEFORE BREAKFAS T ORAL ACTIVE 01/15/2025 [id number] 5 CHRIS HUNTER 2023 90 [facility] PANTOPRAZOL E NA 40MG TAB,EC TAKE ONE TABLET BY MOUTH EVERY MORNING 30 MINUTES BEFORE BREAKFAS T ORAL DISCONT INUED 09/06/2024 [id number] 4 [facility] 2023 90 [facility] PANTOPRAZOL E NA 40MG TAB,EC TAKE ONE TABLET BY MOUTH EVERY MORNING 30 MINUTES BEFORE BREAKFAS T ORAL DISCONT INUED 07/18/2024 [id number] 4 [facility] 2023 90 [facility] ROPINIROLE HCL 2MG TAB TAKE ONE TABLET BY MOUTH AT BEDTIME TAKE 1-3 HOURS BEFORE BEDTIME ORAL ACTIVE 01/04/2025 [id number] Pam MORALES MD 2023 30 [facility] SPIRONOLACT ONE 25MG TAB TAKE ONE TABLET BY MOUTH ONCE DAILY ORAL ACTIVE 08/11/2025 [id number] 5 CHRIS HUNTER 2024 90 [facility] SPIRONOLACT ONE 25MG TAB TAKE ONE TABLET BY MOUTH ONCE DAILY ORAL DISCONT INUED 08/01/2024 [id number] 4 [facility] 2023 90 [facility] TAMSULOSIN HCL 0.4MG CAP TAKE TWO CAPSULES BY MOUTH AT BEDTIME FOR ENLARGED PROSTATE ORAL ACTIVE 05/22/2025 [id number] 5 CHRIS HUNTER 2023 180 [facility] TAMSULOSIN HCL 0.4MG CAP TAKE TWO CAPSULES BY MOUTH AT BEDTIME FOR ENLARGED PROSTATE ORAL DISCONT INUED 10/16/2024 [id number] CHRIS HUNTER 2023 180 [facility] TAMSULOSIN HCL 0.4MG CAP TAKE TWO CAPSULES BY MOUTH AT BEDTIME ORAL DISCONT INUED 05/31/2024 [id number] [facility] 2022 60 [facility] TERBINAFINE HCL 1% CREAM,TOP APPLY A THIN LAYER TOPICALL Y ONCE DAILY FOR ATHLETE' S FOOT TOPICA L ACTIVE 07/20/2025 [id number] CHRIS HUNTER 2024 60 [facility] ZOLPIDEM TARTRATE 10MG TAB TAKE ONE TABLET BY MOUTH AT BEDTIME FOR SLEEP ORAL ACTIVE 01/11/2025 [id number] 5 DALE CHRIS Bladimir 2024 30 [facility] ZOLPIDEM TARTRATE 10MG TAB TAKE ONE TABLET BY MOUTH AT BEDTIME FOR SLEEP ORAL DISCONT INUED 06/08/2024 [id number] DALE CHRIS Garrison 2023 30 [facility] ZOLPIDEM TARTRATE 10MG TAB TAKE ONE TABLET BY MOUTH AT BEDTIME ORAL DISCONT INUED 02/15/2024 [id number] NIDIA BOSE JAWED 2023 30 [facility] ZOLPIDEM TARTRATE 10MG TAB TAKE ONE TABLET BY MOUTH AT BEDTIME ORAL DISCONT INUED 10/20/2023 [id number] CHRIS HUNTER 2022 30 [facility] Allergies, Adverse Reactions, Alerts Combined list of allergies from Department of Defense and Veterans Affairs facilities. It does not include entries that were removed or entered in error. Substance Category Reaction Severity Reaction type Status Date Reported Comments Source OXYCODONE Propensity to adverse reactions to drug (finding) Dizziness MODERATE active 07/18/2012 [facility] Immunizations Combined list of available immunizations from the Department of Defense and Veterans Affairs facilities. Immunization Series Date Given Administered By Site Reaction Lot Number CVX Code Drug Port Crane Operator Status Comments Source RSV, BIVALENT, PROTEIN SUBUNIT RSVPREF, DILUENT RECONSTITUTED , 0.5 ML, PF 2024 ASAEL ISRAEL RIGHT DELTO ID [id number] 305 complet ed [facility] COVID-19 (MODERNA), MRNA, LNP-S, PF, 50 MCG/0.5 ML (AGES 12+ YEARS) 2023 PADDY SANDOVAL RIGHT DELTO ID [id number] 312 complet ed [facility] INFLUENZA, HIGH-DOSE, TRIVALENT, PF 2023 PADDY SANDOVAL RIGHT DELTO ID [id number] 135 complet ed [facility] COVID-19 (MODERNA), MRNA, LNP-S, PF, 50 MCG/0.5 ML (AGES 12+ YEARS) 5 2022 LORIPADDY LEFT DELTO ID [id number] 312 complet ed [facility] INFLUENZA, HIGH-DOSE, QUADRIVALENT 2022 NERY JEAN-BAPTISTE LEFT DELTO ID [id number] 197 complet ed [facility] PNEUMOCOCCAL CONJUGATE PCV20, POLYSACCHARID E [id number] CONJUGATE, ADJUVANT, PF 2022 MALIA LEGGETT I LEFT DELTO ID [id number] 216 complet ed [facility] COVID-19 (MODERNA), MRNA, LNP-S, BIVALENT BOOSTER, PF, 50 MCG/0.5 ML OR 25MCG/0.25 ML DOSE 1 2022 NERY JEAN-BAPTISTE LEFT DELTO ID [id number] 229 complet ed [facility] INFLUENZA VACCINE, QUADRIVALENT, ADJUVANTED 2021 205 complet ed [facility] ZOSTER RECOMBINANT 1 2021 187 complet ed [facility] COVID-19 (MODERNA), MRNA, LNP-S, PF, 100 MCG OR 50 MCG DOSE 3 2020 207 complet ed MOD; [id number]; 2 [facility] [...] complet ed [facility] [place] [place] TD(ADULT) UNSPECIFIED FORMULATION 2011 139 complet ed [facility] Results Combined list of recent [...] October 16, 2023 08:23 AM Reporting Lab: [facility] [address] [address] Performing Lab: [facility] [facility] [address] [facility] [address] [facility] DIGOXIN DIGOXIN [MASS/VOLUM E] IN SERUM OR PLASMA 0.74 ng/mL 0.8 - 2.0 12/11 L Specimen Type: PLASMA No comment entered. Ordering Provider: Li HUNTER Report Released Date/Time: October 16, 2023 08:23 AM Reporting Lab: [facility] [address] [address] Performing Lab: [facility] [place] [address] [address] [facility] LIPID PANEL FASTING CHOLESTEROL [MASS/VOLUM E] IN SERUM OR PLASMA 153 mg/dL 12/11 Specimen Type: SERUM No comment entered. Ordering Provider: Li HUNTER Report Released Date/Time: October 16, 2023 08:23 AM Reporting Lab: [facility] [address] [address] Performing Lab: [facility] [address] [facility] [address] [facility] LIPID PANEL FASTING TRIGLYCERID E [MASS/VOLUM E] IN SERUM OR PLASMA 189 mg/dL 0 - 150 12/11 H Specimen Type: SERUM No comment entered. Ordering Provider: Li HUNTER Report Released Date/Time: October 16, 2023 08:23 AM Reporting Lab: [facility] [place] [facility] [address] [facility] [address] Performing Lab: [facility] [place] [facility] [address] [facility] [address] [facility] LIPID PANEL FASTING CHOLESTEROL IN LDL [MASS/VOLUM E] IN SERUM OR PLASMA BY CALCULATION 77 mg/dL 0 - 129 12/11 Specimen Type: SERUM No comment entered. Ordering Provider: Li HUNTER Report Released Date/Time: October 16, 2023 08:23 AM Reporting Lab: [facility] [place] [address] [address] Performing Lab: [facility] [address] [address] [facility] LIPID PANEL FASTING CHOLESTEROL .TOTAL/CHOL ESTEROL IN HDL [MASS RATIO] IN SERUM OR PLASMA 4.0 12/11 Specimen Type: SERUM No comment entered. Ordering Provider: Li HUNTER Report Released Date/Time: October 16, 2023 08:23 AM Reporting Lab: [facility] [place] [facility] [address] [facility] [address] Performing Lab: [facility] [place] [facility] [address] [facility] [address] [facility] [place] [facility] LIPID PANEL FASTING CHOLESTEROL IN HDL [MASS/VOLUM E] IN SERUM OR PLASMA 38 mg/dL 40 - 60 12/11 L Specimen Type: SERUM No comment entered. Ordering Provider: Li HUNTER Report Released Date/Time: October 16, 2023 08:23 AM Reporting Lab: [facility] [place] [facility] [address] [facility] [address] Performing Lab: [facility] [place] [facility] [address] [facility] [address] [facility] [place] [facility] MICROALBU MIN CREATININ E RATIO PANEL MICROALBUMI N/CREATININ E [MASS RATIO] IN URINE cancmg /g 0 - 29.9 12/11 Specimen Type: URINE No comment entered. Ordering Provider: Li HUNTER Report Released Date/Time: October 16, 2023 08:23 AM Reporting Lab: [facility] [place] [facility] [address] [facility] [address] Performing Lab: [facility] [place] [facility] [address] [facility] [address] [facility] [place] [facility] MICROALBU MIN CREATININ E RATIO PANEL MICROALBUMI N [MASS/VOLUM E] IN URINE < 0.5mg/ dL 12/11 Specimen Type: URINE No comment entered. Ordering Provider: Li HUNTER Report Released Date/Time: October 16, 2023 08:23 AM Reporting Lab: [facility] [place] [facility] [address] [facility] [address] Performing Lab: [facility] [place] [facility] [address] [facility] [address] [facility] [place] [facility] MICROALBU MIN CREATININ E RATIO PANEL CREATININE [MASS/VOLUM E] IN URINE 29.59 mg/dL 12/11 Specimen Type: URINE No comment entered. Ordering Provider: Li HUNTER Report Released Date/Time: October 16, 2023 08:23 AM Reporting Lab: [facility] [place] [facility] [address] [facility] [address] Performing Lab: [facility] [place] [facility] [address] [facility] [address] [facility] [place] [facility] HEMOGLOBI N A1C PANEL HEMOGLOBIN A1C/HEMOGLO BIN.TOTAL [...] October 16, 2023 08:23 AM Reporting Lab: [facility] [place] [facility] [address] [facility] [address] Performing Lab: [facility] [address] [facility] [address] [facility] LIVER FUNCTION PROTEIN [MASS/VOLUM E] IN SERUM OR PLASMA 7.3 g/dL 6.0 - 8.3 12/11 Specimen Type: SERUM No comment entered. Ordering Provider: Li HUNTER Report Released Date/Time: October 16, 2023 08:23 AM Reporting Lab: [facility] [place] [facility] [address] [facility] [address] Performing Lab: [facility] [place] [facility] [address] [facility] [address] [facility] LIVER FUNCTION ALBUMIN [MASS/VOLUM E] IN SERUM OR PLASMA 3.6 g/dL 3.5 - 5.0 12/11 Specimen Type: SERUM No comment entered. Ordering Provider: Li HUNTER Report Released Date/Time: October 16, 2023 08:23 AM Reporting Lab: [facility] [place] [facility] [address] [facility] [address] Performing Lab: [facility] [place] [facility] [address] [facility] [address] [facility] [place] [facility] LIVER FUNCTION ALKALINE PHOSPHATASE [ENZYMATIC ACTIVITY/VO LUME] IN SERUM OR PLASMA 58 U/L 40 - 150 12/11 Specimen Type: SERUM No comment entered. Ordering Provider: Li HUNTER Report Released Date/Time: October 16, 2023 08:23 AM Reporting Lab: [facility] [place] [facility] [address] [address] Performing Lab: [facility] [place] [facility] [address] [address] [facility] [place] [facility] LIVER FUNCTION ASPARTATE AMINOTRANSF ERASE [ENZYMATIC ACTIVITY/VO LUME] IN SERUM OR PLASMA 16 U/L 5 - 34 12/11 Specimen Type: SERUM No comment entered. Ordering Provider: Li HUNTER Report Released Date/Time: October 16, 2023 08:23 AM Reporting Lab: [facility] [place] [facility] [address] [address] Performing Lab: [facility] [place] [facility] [address] [facility] [address] [facility] [place] [facility] LIVER FUNCTION ALANINE AMINOTRANSF ERASE [ENZYMATIC ACTIVITY/VO LUME] IN SERUM OR PLASMA 19 U/L 12/11 Specimen Type: SERUM No comment entered. Ordering Provider: Li HUNTER Report Released Date/Time: October 16, 2023 08:23 AM Reporting Lab: [facility] [place] [facility] [address] [facility] [address] Performing Lab: [facility] [place] [facility] [address] [facility] [address] [place] [facility] [place] [facility] LIVER FUNCTION BILIRUBIN.T OTAL [MASS/VOLUM E] IN SERUM OR PLASMA 0.5 mg/dL 0.2 - 1.2 12/11 Specimen Type: SERUM No comment entered. Ordering Provider: Li HUNTER Report Released Date/Time: October 16, 2023 08:23 AM Reporting Lab: [facility] [place] [facility] [address] [facility] [address] Performing Lab: [facility] [place] [facility] [address] [facility] [address] [facility] [place] [facility] [facility] BASIC METABOLIC PANEL (fasting) UREA NITROGEN [MASS/VOLUM E] IN SERUM OR PLASMA 32 mg/dL 7 - 25 12/11 H Specimen Type: SERUM No comment entered. Ordering Provider: Li HUNTER Report Released Date/Time: October 16, 2023 08:23 AM Reporting Lab: [facility] [place] [facility] [address] [facility] [address] Performing Lab: [facility] [address] [facility] [address] [facility] [place] [facility] BASIC METABOLIC PANEL (fasting) GLUCOSE [MASS/VOLUM E] IN SERUM OR PLASMA 103 mg/dL 65 - 100 12/11 H Specimen Type: SERUM No comment entered. Ordering Provider: Li HUNTER Report Released Date/Time: October 16, 2023 08:23 AM Reporting Lab: [facility] [address] Performing Lab: [facility] [address] [facility] BASIC METABOLIC PANEL (fasting) SODIUM [MOLES/VOLU ME] IN SERUM OR PLASMA 138 mmol/L 135 - 145 12/11 Specimen Type: SERUM No comment entered. Ordering Provider: Li HUNTER Report Released Date/Time: October 16, 2023 08:23 AM Reporting Lab: [facility] [address] Performing Lab: [facility] [address] [address] [facility] BASIC METABOLIC PANEL (fasting) POTASSIUM [MOLES/VOLU ME] IN SERUM OR PLASMA 4.5 mmol/L 3.5 - 5.0 12/11 Specimen Type: SERUM No comment entered. Ordering Provider: Li HUNTER Report Released Date/Time: October 16, 2023 08:23 AM Reporting Lab: [facility] [address] Performing Lab: [facility] [address] [facility] [place] [facility] BASIC METABOLIC PANEL (fasting) CHLORIDE [MOLES/VOLU ME] IN SERUM OR PLASMA 101 mmol/L 100 - 110 12/11 Specimen Type: SERUM No comment entered. Ordering Provider: Li HUNTER Report Released Date/Time: October 16, 2023 08:23 AM Reporting Lab: [facility] [place] [facility] [address] [facility] [address] Performing Lab: [facility] [address] [facility] [address] [facility] BASIC METABOLIC PANEL (fasting) CARBON DIOXIDE, TOTAL [MOLES/VOLU ME] IN SERUM OR PLASMA 28 meq/L 20 - 30 12/11 Specimen Type: SERUM No comment entered. Ordering Provider: Li HUNTER Report Released Date/Time: October 16, 2023 08:23 AM Reporting Lab: [facility] [place] [address] Performing Lab: [facility] [address] [facility] BASIC METABOLIC PANEL (fasting) CREATININE [MASS/VOLUM E] IN SERUM OR PLASMA 1.49 mg/dL 0.50 - 1.40 12/11 H Specimen Type: SERUM No comment entered. Ordering Provider: Li HUNTER Report Released Date/Time: October 16, 2023 08:23 AM Reporting Lab: [facility] [place] [address] [address] Performing Lab: [facility] [address] [facility] BASIC METABOLIC PANEL (fasting) GLOMERULAR FILTRATION RATE/1.73 SQ M.PREDICTED [VOLUME RATE/AREA] IN SERUM, PLASMA OR BLOOD BY CREATININE- BASED FORMULA (CKD-EPI 2020) 51 mL/min 60 12/11 L Specimen Type: SERUM No comment entered. Ordering Provider: Li HUNTER Report Released Date/Time: October 16, 2023 08:23 AM Reporting Lab: [facility] [place] [facility] [address] [facility] [address] Performing Lab: [facility] [place] [facility] [address] [facility] [address] [facility] CBC AND DIFF (AUTO) LEUKOCYTES [#/VOLUME] IN BLOOD BY AUTOMATED COUNT 8.68 10*3/u L 4.50 - 11.00 12/11 Specimen Type: BLOOD No comment entered. Ordering Provider: Li HUNTER Report Released Date/Time: October 16, 2023 08:23 AM Reporting Lab: [facility] [place] [facility] [address] [facility] [address] Performing Lab: [facility] [place] [facility] [address] [facility] [address] [facility] [place] [facility] CBC AND DIFF (AUTO) ERYTHROCYTE S [#/VOLUME] IN BLOOD BY AUTOMATED COUNT 5.14 10*6/u L 4.23 - 5.66 12/11 Specimen Type: BLOOD No comment entered. Ordering Provider: Li HUNTER Report Released Date/Time: October 16, 2023 08:23 AM Reporting Lab: [facility] [place] [facility] [address] [facility] [address] Performing Lab: [facility] [place] [facility] [address] [facility] [address] [facility] [place] [facility] CBC AND DIFF (AUTO) HEMOGLOBIN [MASS/VOLUM E] IN BLOOD 16.1 g/dL 12.8 - 17 12/11 Specimen Type: BLOOD No comment entered. Ordering Provider: Li HUNTER Report Released Date/Time: October 16, 2023 08:23 AM Reporting Lab: [facility] [place] [facility] [address] [facility] [address] Performing Lab: [facility] [place] [facility] [address] [facility] [address] [facility] [place] [facility] CBC AND DIFF (AUTO) HEMATOCRIT [VOLUME FRACTION] OF BLOOD BY AUTOMATED COUNT 48.8 39.2 - 50.4 12/11 Specimen Type: BLOOD No comment entered. Ordering Provider: Li HUNTER Report Released Date/Time: October 16, 2023 08:23 AM Reporting Lab: [facility] [place] [facility] [address] [facility] [address] Performing Lab: [facility] [place] [facility] [address] [facility] [address] [facility] [place] [facility] CBC AND DIFF (AUTO) MCV [ENTITIC VOLUME] BY AUTOMATED COUNT 94.9 fL 82 - 99 12/11 Specimen Type: BLOOD No comment entered. Ordering Provider: Li HUNTER Report Released Date/Time: October 16, 2023 08:23 AM Reporting Lab: [facility] [place] [facility] [address] [facility] [address] Performing Lab: [facility] [place] [facility] [address] [facility] [address] [facility] [place] [facility] CBC AND DIFF (AUTO) MCHC [MASS/VOLUM E] BY AUTOMATED COUNT 33.0 g/dL 30.8 - 35.1 12/11 Specimen Type: BLOOD No comment entered. Ordering Provider: Li HUNTER Report Released Date/Time: October 16, 2023 08:23 AM Reporting Lab: [facility] [place] [facility] [address] [facility] [address] Performing Lab: [facility] [place] [facility] [address] [facility] [address] [facility] [place] [facility] CBC AND DIFF (AUTO) PLATELETS [#/VOLUME] IN BLOOD BY AUTOMATED COUNT 249 10*3/u L 140 - 360 12/11 Specimen Type: BLOOD No comment entered. Ordering Provider: Li HUNTER Report Released Date/Time: October 16, 2023 08:23 AM Reporting Lab: [facility] [place] [facility] [address] [facility] [address] Performing Lab: [facility] [place] [facility] [address] [facility] [address] [facility] [place] [facility] CBC AND DIFF (AUTO) ERYTHROCYTE DISTRIBUTIO N WIDTH [RATIO] BY AUTOMATED COUNT 12.4 12.0 - 16.0 12/11 Specimen Type: BLOOD No comment entered. Ordering Provider: Li HUNTER Report Released Date/Time: October 16, 2023 08:23 AM Reporting Lab: [facility] [place] [facility] [address] [facility] [address] Performing Lab: [facility] [place] [facility] [address] [facility] [address] [facility] [place] [facility] CBC AND DIFF (AUTO) MONOCYTES [#/VOLUME] IN BLOOD BY AUTOMATED COUNT 0.67 10*3/u L 0.30 - 1.10 12/11 Specimen Type: BLOOD No comment entered. Ordering Provider: Li HUNTER Report Released Date/Time: October 16, 2023 08:23 AM Reporting Lab: [facility] [place] [facility] [address] [facility] [address] Performing Lab: [facility] [place] [facility] [address] [facility] [address] [facility] [place] [facility] CBC AND DIFF (AUTO) MCH [ENTITIC MASS] BY AUTOMATED COUNT 31.3 pg 26.2 - 32.6 12/11 Specimen Type: BLOOD No comment entered. Ordering Provider: Li HUNTER Report Released Date/Time: October 16, 2023 08:23 AM Reporting Lab: [facility] [place] [facility] [address] [facility] [address] Performing Lab: [facility] [place] [facility] [address] [facility] [address] [facility] [place] [facility] CBC AND DIFF (AUTO) NEUTROPHILS /100 LEUKOCYTES IN BLOOD BY AUTOMATED COUNT 65.7 43.7 - 75.8 12/11 Specimen Type: BLOOD No comment entered. Ordering Provider: Li HUNTER Report Released Date/Time: October 16, 2023 08:23 AM Reporting Lab: [facility] [place] [facility] [address] [facility] [address] Performing Lab: [facility] [place] [facility] [address] [facility] [address] [facility] [place] [facility] CBC AND DIFF (AUTO) LYMPHOCYTES /100 LEUKOCYTES IN BLOOD BY AUTOMATED COUNT 22.2 14.0 - 42.3 12/11 Specimen Type: BLOOD No comment entered. Ordering Provider: Li HUNTER Report Released Date/Time: October 16, 2023 08:23 AM Reporting Lab: [facility] [place] [facility] [address] [facility] [address] Performing Lab: [facility] [place] [facility] [address] [facility] [address] [facility] [place] [facility] CBC AND DIFF (AUTO) MONOCYTES/1 00 LEUKOCYTES IN BLOOD BY AUTOMATED COUNT 7.7 5.1 - 13.7 12/11 Specimen Type: BLOOD No comment entered. Ordering Provider: Li HUNTER Report Released Date/Time: October 16, 2023 08:23 AM Reporting Lab: [facility] [place] [facility] [address] [facility] [address] Performing Lab: [facility] [place] [facility] [address] [facility] [address] [facility] [place] [facility] CBC AND DIFF (AUTO) EOSINOPHILS /100 LEUKOCYTES IN BLOOD BY AUTOMATED COUNT 3.3 0.4 - 6.8 12/11 Specimen Type: BLOOD No comment entered. Ordering Provider: Li HUNTER Report Released Date/Time: October 16, 2023 08:23 AM Reporting Lab: [facility] [place] [facility] [address] [facility] [address] Performing Lab: [facility] [place] [facility] [address] [facility] [address] [facility] [place] [facility] CBC AND DIFF (AUTO) BASOPHILS/1 00 LEUKOCYTES IN BLOOD BY AUTOMATED COUNT 0.9 0.1 - 2.0 12/11 Specimen Type: BLOOD No comment entered. Ordering Provider: Li HUNTER Report Released Date/Time: October 16, 2023 08:23 AM Reporting Lab: [facility] [place] [facility] [address] [facility] [address] Performing Lab: [facility] [place] [address] [address] [facility] [place] [facility] CBC AND DIFF (AUTO) NEUTROPHILS [#/VOLUME] IN BLOOD BY AUTOMATED COUNT 5.69 10*3/u L 2.20 - 7.60 12/11 Specimen Type: BLOOD No comment entered. Ordering Provider: Li HUNTER Report Released Date/Time: October 16, 2023 08:23 AM Reporting Lab: [facility] [place] [address] [address] Performing Lab: [facility] [place] [address] [address] [facility] [place] [facility] CBC AND DIFF (AUTO) LYMPHOCYTES [#/VOLUME] IN BLOOD BY AUTOMATED COUNT 1.93 10*3/u L 1.00 - 3.20 12/11 Specimen Type: BLOOD No comment entered. Ordering Provider: Li HUNTER Report Released Date/Time: October 16, 2023 08:23 AM Reporting Lab: [facility] [place] [address] [address] Performing Lab: [facility] [place] [address] [address] [facility] [place] [facility] CBC AND DIFF (AUTO) EOSINOPHILS [#/VOLUME] IN BLOOD BY AUTOMATED COUNT 0.29 10*3/u L 0.03 - 0.44 12/11 Specimen Type: BLOOD No comment entered. Ordering Provider: Li HUNTER Report Released Date/Time: October 16, 2023 08:23 AM Reporting Lab: [facility] [place] [address] [address] Performing Lab: [facility] [place] [facility] [address] [facility] [address] [facility] [place] [facility] CBC AND DIFF (AUTO) BASOPHILS [#/VOLUME] IN BLOOD BY AUTOMATED COUNT 0.08 10*3/u L 0.01 - 0.13 12/11 Specimen Type: BLOOD No comment entered. Ordering Provider: Li HUNTER Report Released Date/Time: October 16, 2023 08:23 AM Reporting Lab: [facility] [place] [facility] [address] [facility] [address] Performing Lab: [facility] [place] [facility] [address] [facility] [address] [facility] [place] [facility] CBC AND DIFF (AUTO) IMMATURE GRANULOCYTE S/100 LEUKOCYTES IN BLOOD BY AUTOMATED COUNT 0.2 0.0 - 0.7 12/11 Specimen Type: BLOOD No comment entered. Ordering Provider: Li HUNTER Report Released Date/Time: October 16, 2023 08:23 AM Reporting Lab: [facility] [place] [facility] [address] [facility] [address] Performing Lab: [facility] [place] [facility] [address] [facility] [address] [facility] [place] [facility] CBC AND DIFF (AUTO) IMMATURE GRANULOCYTE S [#/VOLUME] IN BLOOD 0.02 10*3/u L 0.00 - 0.06 12/11 Specimen Type: BLOOD No comment entered. Ordering Provider: Li HUNTER Report Released Date/Time: October 16, 2023 08:23 AM Reporting Lab: [facility] [place] [facility] [address] [facility] [address] Performing Lab: [facility] [place] [facility] [address] [facility] [address] [facility] CBC AND DIFF (AUTO) NRBC % 0.0 0.0 - 0.0 12/11 Specimen Type: BLOOD No comment entered. Ordering Provider: Li HUNTER Report Released Date/Time: October 16, 2023 08:23 AM Reporting Lab: [facility] [place] [facility] [address] [facility] [address] Performing Lab: [facility] [place] [facility] [address] [facility] [address] [facility] [place] [facility] CBC AND DIFF (AUTO) NRBC, ABS 0.00 10*3/u L 0.00 - 0.00 12/11 Specimen Type: BLOOD No comment entered. Ordering Provider: Li HUNTER Report Released Date/Time: October 16, 2023 08:23 AM Reporting Lab: [facility] [place] [facility] [address] [facility] [address] Performing Lab: [facility] [place] [facility] [address] [facility] [address] [facility] [place] [facility] VITAMIN D (25-OH) 25-HYDROXYV ITAMIN D3 [MASS/VOLUM E] IN SERUM OR PLASMA 29 ng/mL 20 - 50 12/11 Specimen Type: SERUM No comment entered. Ordering Provider: MARGIE KENDRICK Report Released Date/Time: Dec 13, 2023 02:50 PM Reporting Lab: [facility] [place] [facility] [address] [facility] [address] Performing Lab: [facility] [place] [address] [address] [facility] [place] [facility] URIC ACID URATE [MASS/VOLUM E] IN SERUM OR PLASMA 8.0 mg/dL 3.5 - 7.2 10/16 H Specimen Type: SERUM No comment entered. Ordering Provider: NEETA BOSE Report Released Date/Time: Aug 18, 2023 11:23 AM Reporting Lab: [facility] [place] [facility] [address] [facility] [address] Performing Lab: [facility] [place] [address] [address] [facility] [place] [facility] Vital Signs Combined list of inpatient and outpatient Vital Signs from Department of Defense and Veterans Affairs, ranging from 12 months to all on record, depending upon the facility. Vital Sign Value Date Comments Source SYSTOLIC BLOOD PRESSURE 150 07/19/19 25 11:24:14 [facility] [place] [facility] DIASTOLIC BLOOD PRESSURE 96 025 11:24:14 [facility] [place] [facility] PULSE OXIMETRY 98 07/19/2024 11:24:14 [facility] [...] included; 2) Encounters from the Department of [facility] facilities going backup to 280 months. Location Location Details Encounter Type Encounter Number Reason For Visit Attending Provider ADM Date DC Date Status Disposition Source [facility] Encounter [id number] CORRINE EUBANKS 02/22 [facility] MANUAL THERAPY / [place] [id number] Diagnos is: ICD-10- CM M54.2 Cervica HERMAN Randall RA 02/28 [facility] OFF/OP EST OCTOBER X REQ PHY/QHP [id number] Diagnos is: ICD-10- CM H61.23 Impacte soni escobar M ELISSA H 02/28 [facility] En[facility] [id number] 03/03 [facility] OFF/OP EST MAY X REQ PHY/QHP [id number] Diagnos is: ICD-10- CM Z71.89 Other specifi ed certified addiction counselor Vilma Nair 03/08 [facility] En[facility] [id number] 03/14 [facility] En[facility] [id number] 03/14 [facility] En[facility] [id number] 03/17 [facility] En[facility] [id number] 03/21 [facility] En[facility] [id number] 03/27 [facility] En[facility] [id number] 03/30 [facility] En[facility] [id number] 03/30 [facility] En[facility] [id number] 04/03 [facility] [id number] 04/06 [facility] [id number] 04/06 [facility] En[facility] [id number] 04/10 [facility] En[facility] [id number] 04/13 [facility] En[facility] [id number] 04/18 [facility] En[facility] [id number] 04/19 [facility] En[facility] [id number] 04/20 [facility] En[facility] [id number] 04/20 [facility] En[facility] [id number] 05/03 [facility] OFFICE O/P EST LOW 20-29 MIN [id number] Diagnos is: ICD-10- CM L60.3 Nail dystrop hy FOSTER,MARCELO WISDOM D 05/09 [facility] MANUAL THERAPY 1/> [place] [id number] Diagnos is: ICD-10- CM M54.2 Cervica lgHERMAN Toussaint RA 05/12 [facility] En[facility] [id number] 05/16 [facility] [id number] 05/17 [facility] En[facility] [id number] 05/24 [facility] En[facility] [id number] 05/26 [facility] En[facility] [id number] 05/30 [facility] OFF[facility] O/P EST MOD 30-39 MIN [id number] Diagnos is: ICD-10- CM E11.8 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 EMMIE BOSE MMED JAWED 05/31 [facility] En[facility] [id number] 06/20 [facility] [id number] 06/25 [facility] En[facility] [id number] 07/08 [facility] En[facility] [id number] 07/18 [facility] [place] [id number] Diagnos is: ICD-10- CM M54.2 Cervica lgeve KINNEYSUTTON RA 07/21 [facility] En[facility] [id number] 07/29 [facility] Encounter [id number] 07/29 [facility] DEBRIDE NAIL 6 OR MORE [id number] Diagnos is: ICD-10- CM E11.43 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 08/24 [facility] En[facility] [id number] 08/29 [facility] MANUAL THERAPY 1/> REGIONS [id number] Diagnos is: ICD-10- CM M54.2 Cervica lgia JARETT KINNEYU RA 08/31 [facility] OFFICE O/P EST MOD 30 MIN [id number] Diagnos is: ICD-10- CM M79.2 Neuralg ia and neuriti s, unspeci fied AHMED,MOHA MMED JAWED 09/05 [facility] En[facility] [id number] 09/07 [facility] [id number] 09/11 [facility] En[facility] [id number] 09/17 [facility] [id number] 09/19 [facility] En[facility] [id number] 09/24 [facility] [id number] 10/01 [facility] [id number] 10/01 [facility] [id number] 10/03 [facility] [id number] 10/05 [facility] [id number] 10/08 [facility] [facility] En[facility] [id number] 10/11 [facility] En[facility] [id number] 10/14 [facility] Encounter [id number] 10/17 [facility] Encounter [id number] 10/29 [facility] En[facility] [id number] 11/08 [facility] Encounter [id number] 11/15 [facility] OFFICE O/P EST LOW 20 MIN [id number] Diagnos is: ICD-10- CM E11.8 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 CHRIS HUNTER 11/19 [facility] En[facility] [id number] 11/20 [facility] En[facility] [id number] 11/26 [facility] En[facility] [id number] 12/04 [facility] En[facility] [id number] 12/06 [facility] MANUAL THERAPY 1/ REGIONS [id number] Diagnos is: ICD-10- CM M54.59 Other low back pain HERMAN KINNEY RA 12/06 [facility] En[facility] [id number] 12/06 [facility] En[facility] [id number] 12/07 [facility] En[facility] [id number] 12/10 [facility] En[facility] [id number] 12/10 [facility] En[facility] [id number] 12/11 [facility] OFFICE O/P EST LOW 20 MIN [id number] Diagnos is: ICD-10- CM E11.8 Type 2 diabete s mellitu s with unspeci fied complic atCHRIS Herr 12/11 [facility] En[facility] [id number] YEMI WORLEY JENNIFER 12/11 [facility] En[facility] [id number] 12/11 [facility] Encounter [id number] 12/25 [facility]counter [id number] 12/26 [facility] OFFICE O/P EST LOW 20 MIN [id number] Diagnos is: ICD-10- CM E11.43 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 ic (poly)n europat hy MARCELO NOBLES D 12/27 [facility] En[facility] [id number] YEMI WORLEY JENNIFER 12/31 [facility] En[facility] [id number] 12/31 [facility] En[facility] [id number] 01/01 [facility] OFFICE O/P EST LOW 20 MIN [id number] Diagnos is: ICD-10- CM I48.91 Unspeci fied atrial fibrill ation CHRIS HUNTER 01/14 [facility] En[facility] [id number] 1.01/18 [facility] En[facility] [id number] 1.01/18 [facility] En[facility] [id number] 1.02/03 [facility] En[facility] [id number] 1.02/04 [facility] [id number] 02/05 [facility] En[facility] [id number] 1.02/27 [facility] Encounter [id number] 1.02/27 [facility] En[facility] [id number] [facility] En[facility] [id number] 1.03/04 [facility] [id number] 03/25 [facility] En[facility] [id number] [facility] En[facility] [id number] [facility] Encounter [id number] 1.04/01 [facility] [id number] 04/05 [facility] Encounter [id number] 1.04/05 [facility] [id number] 04/10 [facility] Encounter [id number] 04/11 [facility] [id number] 04/15 [facility] En[facility] [id number] 05/03 [facility] En[facility] [id number] [facility]counter [id number] 05/16 [facility] [id number] 05/16 [facility] En[facility] [id number] 05/21 [facility] OFFICE O/P EST LOW 20 MIN [id number] Diagnos is: ICD-10- CM E11.43 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 ic (poly)n europat hy MARCELO NOBLES RLES D 05/21 [facility] OFFICE O/P EST LOW 20 MIN [id number] Diagnos is: ICD-10- CM N18.30 Chronic kidney disease , stage 3 unspeci fiCHRIS Almaguer 05/30 [facility] DIABETIC CUSTOM MOLDED SHOE [id number] Diagnos is: ICD-10- CM I73.9 Periphe ral vascula r disease , unspeci fied GILBERT OBANDO 05/30 [facility] En[facility] [id number] 06/13 [facility] Out[facility] Encounter [id number] 06/13 [facility] Encounter [id number] 06/14 [facility] Out[facility] Encounter [id number] 06/24 [facility] Out[facility] Encounter [id number] 07/04 [facility] Encounter [id number] 07/10 [facility] Outpatient Encounter [id number] 07/18 [facility] OFFICE O/P EST LOW 20 MIN [id number] Diagnos is: ICD-10- CM N18.30 Chronic kidney disease , stage 3 unspeci porter ELLIOTTARTICHRIS COLON 07/19 [facility] Outpatient Encounter [id number] [facility] Outpatient Encounter [id number] [facility] NQHP OL DIG ASSMT&MGMT 5-10 [id number] Diagnos is: ICD-10- CM Z04.89 Encount er for examina tion and observa tion for oth reasons SRIKANTH VALLE 08/12 [facility] Social History Combined list of available smoking, tobacco, and other social history from Department of Defense and Veterans Affairs facilities. Social History Type Response Date Comment [facility] e Tobacco smoking status [facility] VA-TOBACCO NEVER USED 05/31/2023 [facility] History of tobacco use VA-TOBACCO NEVER USED 03[facility]15/2022 [facility] History of tobacco use NV-TOBACCO NEVER USED 04/08/2021 [facility] History of tobacco use LIFETIME NON-USER OF TOBACCO 06/23/2012 MARIA FERNANDA [facility] History of tobacco use LIFETIME NON-USER OF TOBACCO 02/28/2008 [facility] History of tobacco use TOBACCO USE PT NEVER USED 04/10/2006 [facility] History of tobacco use TOBACCO USE PT USED BUT QUIT 12/11/2001 5 y/a [facility] Plan of Care List of future care activities from [facility] facilities. Additional future care activities may be listed in the Assessment and Plan section. Date/Time Care Activity Care Activity Detail Facili ty 08/29/2024 AMBULATORY - MEDICINE [facility] 09/19/2024 [facility]BULAT[facility] - [facility]IC[facility]/19/2024 Laboratory - Cardiac Cath Technologist ry Order BASIC METABOLIC PANEL (fasting) BLOOD ([facility]UM[facility] 07/19/2024 Laboratory - Cardiac Cath Technologist ry Order LIVER FUNCTION BLOOD (S[facility]SERUM[facility] 07/19/2024 Laboratory - Cardiac Cath Technologist ry Order LIPID PANEL FASTING BLOOD (SST[facility]SERUM) [facility] 07/23/2024 Consult Order COMMUNITY CARE-NEPHROLOGY Cons Diesel Truck Technician's Choice [facility] Advance Directives List of completed, amended, or rescinded Advance Directives on record at [facility] facilities. An actual copy of the Directive is not included. Date Advance Directive Provider Source 12/07/2023 ADVANCE [facility]IVE [facility] 03/20/2014 ADVANCE DIRECTIVE DISCUSSION EDISON MORAN CB 06/16/2011 ADVANCE DIRECTIVE DISCUSSION BARRIE [facility]LAS [facility]
--- OUTSIDE RECORDS SUMMARY | 2024-08-21 16:46 | XMS_ITS | Continuity of Care Document ---
Author Organization [facility] Address [address] [place] [address] Phone Care Team Providers Care Hemmer Automatic Name Role Phone Ivan Haynes. D Pharm D, [place] Unavailab le Unavailable Procedures Procedure Date MTMS BY PHARM EST 15 MIN MTMS BY PHARM ADDL 15 MIN Void Ticket [facility] MED/CURRENT MED MERGE Hospital discharge day care Followup hospital care, brief 1 Followup hospital care, brief 1 Followup hospital care, brief 1 Initial hospital care, low E/M service NEC MTMS BY PHARM DIESEL BUS MECHANIC 15 MIN MTMS BY PHARM ADDL 15 MIN Void Ticket [facility] MED/CURRENT MED MERGE MTMS BY PHARM DIESEL BUS MECHANIC 15 MIN MTMS BY PHARM ADDL 15 [...] EST 15 MIN [facility], [address], [place], [place], [id number], [place] tel:[phone] Pharmacy Encounter for therapeutic drug level monitoringVoid Ticket 1 Ivan PharmMahad D Torrey . [address], [address], [place], [place], [id number], [place]. Hospital discharge day care [facility], [address], [place], [place], [id number], [place] tel:[phone] [facility] No Information 1 [facility]. [address] [place] [address], [id number], [place]. tel:[phone] Followup hospital care, brief [facility], [address], [place], [place], [id number], [place] tel:[phone] [facility] No Information 1 [facility]. [address] [place] [address], [id number], [place]. tel:[phone] Followup hospital care, brief [facility], [address], [place], [place], [id number], [place] tel:[phone] [facility] No Information 1 Sylharjit Hollis. [address] [place] [address], [id number], [place]. tel:[phone] Followup hospital care, brief [facility], [address], [place], [place], [id number], [place] tel:[phone] [facility] No Information 1 Don Shafer. [address] [place] [address], [id number], [place]. tel:[phone] Initial hospital care, low [facility], [address], [place], [place], [id number], [place] tel:[phone] [facility] No Information 1 Don Shafer. [address] [place] [address], [id number], [place]. tel:[phone] MTMS BY PHARM DIESEL BUS MECHANIC 15 MIN [facility], [address], [place], [place], [id number], [place] tel:[phone] Pharmacy Encounter for therapeutic drug level monitoringVoid Ticket 1 Dekivadia Pharm. D Dharagauri . [address], [address], [place], [place], [id number], [place]. MTMS BY PHARM DIESEL BUS MECHANIC 15 MIN [facility], [address], [place], [place], [id number], [place] tel:[phone] Pharmacy Encounter for therapeutic drug level monitoringVoid Ticket 0 [facility]. [facility] . [address], [facility] [address], [place], [place], [id number], [place]. Initial hospital care, low [facility], [address], [place], [place], [id number], [place] tel:[phone] [facility] No Information 0 Roshan Mcdonald. [address] [place] [address], [facility], . tel:[phone] SUBSEQUENT OBSERVATION CARE LOW [facility], [address], [place], [place], [id number], [place] tel:[phone] [facility] No Information 5 Susan Armas. [address] [place] [address], [facility], . tel:[phone] Initial observation care, low [facility], [address], [place], [place], [id number], [place] tel:[phone] [facility] No Information 5 Roshan Mcdonald. [address] [place] [address], [facility], . tel:[phone] Family History Family Member Type Diagnosis Age At Onset No Information Payers Payer name Insurance type Covered democrat ID Authorrickeya ning(s) SLO [employer] He alth [facility] CI [id number] Social History Type Description Quantity Date Captured [...] 66 YO male who is discharged from [facility] on 12/30/2020 after admission for unconsciousness [...] home med list and hospital discharge med rec:(i)Hawi 5-325mg unclear sig(ii)Calcium carbonate chewable - discontinued [...] 65 YO male who was admitted to [facility] from 07/24/2020 - 07/26/2020. The patient was admitted to this facility after recent hospital admission for duodenal peritoneal hemorrhage and meningitis. The patient left AMA from the [facility] on 07/26/2020. PMH: hx of PE, Afib, HTN, GERD, morbid obesity, basal cell carcinoma of the skin multiple excisional surgeriesMedication Profile The patient left AMA from the SNF and therefore there is not discharge medications list provided. The following medications are documented in home med list prior to the hospital admission. (i)Hawi 5-325 mg unclear sig(ii)Clotrimazole 1% topical cream [...] 65 YO male who is discharged from [facility] on 03/22/2020. The patient was admitted to this facility after recent hospital admission for altered mental status, likely 2/2 meth abuse. Patient's discharge medication reconciliation has been reviewed and following has been identified: PMH: Afib, HTN, PE, obesity, GERD1.AcetaminophenPer d/c med rec take Tylenol 325 mg 2 tabs PO q6h prn pain and Hawi 5-325mg PO q4h prn moderate pain. Maximum [...] compared with the SNF discharge med rec: (i)Hawi 5-325 mg unclear sig (home) vs Hawi 5-325 mg PO q4h prn moderate pain [...]
== END 2024-08-21 14:47 | disposition home or self-care (01) ==
LOC: HO.HVS 14:10
PROVIDERS: PCP Internal Medicine; Visit Provider Physician Assistant Surgical
DX: I89.0 Lymphedema, not elsewhere classified (principal)
CPT/HCPCS: 99214

== ENCOUNTER → 2024-08-21 14:10 | Outpatient (BNVA) | payer OTHER, SELFPAY | PROVIDERS: PCP Internal Medicine; Visit Provider Physician Assistant Surgical | DX: I89.0 Lymphedema, not elsewhere classified (principal) | CPT/HCPCS: 99212 ==